=== PATIENT | female | born 1960 | race Caucasian/White ===

== ENCOUNTER 2017-11-13 08:33 | Day surgery (SDC) | payer MEDICARE ==
[2017-11-10 12:51] VITALS: BMI 60.0
--- NOTE | 2017-11-13 13:35 | OP ---
PREOPERATIVE DIAGNOSES: 1. Crohn's disease. 2. Chronic diarrhea. DESCRIPTION OF PROCEDURE: After informed consent was obtained, the patient was placed in left latera l decubitus position. Anesthesia was administered per the Anesthesia Department. Forward viewing en doscope was inserted in the rectum after perianal inspection and rectal exam were normal and passed t o the ileocolonic anastomosis. The area of anastomosis appeared normal; however, in the distal ileum a large polypoid lesion approximately 3 x 2 cm was noted. This appeared ulcerated and biopsies were obtained. A second polypoid inflammatory mass was noted. This was approximately 6 cm more proximal into the ileum. It was not reachable by the colonoscope and was therefore not biopsied. Multiple e rosions and ulcerations were noted within the ileum. The remainder of the ileum was normal. The col on was normal as far as the ascending, transverse, descending, sigmoid and rectum, although there wer e some distal erosion in the anal area and distal rectum. These were biopsied. Sigmoid diverticula were noted without diverticulitis. ASSESSMENT: 1. Two ileal polypoid masses - status post biopsy; suspect these are inflammatory masses secondary t o Crohn's disease. 2. Ileitis. 3. Status post end-to-side ileocolonic anastomosis. 4. Perianal erosions - status post biopsy. 5. Sigmoid diverticulosis coli. RECOMMENDATIONS: 1. Continue Humira and increased to weekly. 2. Await histopathology.
[2017-11-13] MEDS ORDERED: Lidocaine 1% PF 5 ML VIAL ONE (16:48)
[2017-11-13] MEDS ORDERED: PHENYLEPHRINE-NS 100 MCG/ML 10 ML SYRINGE ONE (16:48)
== END 2017-11-13 13:10 | disposition home or self-care (01) ==
LOC: SDC 08:33
PROVIDERS: ATTEND Internal Medicine Gastroenterology
PROC: 0DBB8ZX Excision of Ileum, Via Natural or Artificial Opening Endoscopic, Diagnostic (ICD-10-PCS; principal; 2017-11-13)
DX: K50.00 Crohn's disease of small intestine without complications (principal); K62.6 Ulcer of anus and rectum; K63.5 Polyp of colon; K57.30 Diverticulosis of large intestine without perforation or abscess without bleeding; Z88.0 Allergy status to penicillin; Z88.8 Allergy status to other drugs, medicaments and biological substances; Z98.0 Intestinal bypass and anastomosis status; Z90.49 Acquired absence of other specified parts of digestive tract; Z98.890 Other specified postprocedural states
CPT/HCPCS: 88305; J2001

== ENCOUNTER 2018-06-21 08:05 | Outpatient (CLI) | payer MEDICARE ==
--- NOTE | 2018-06-21 13:15 | CT ---
ABDOMEN AND PELVIC CT SCAN WITH IV CONTRAST: History: 58-year-old female with history of Crohn's disease of the small intestines. Patient is having a flair up. Comparison: 11-13-12 FINDINGS: Old granuloma calcification changes are noted in the chest and liver and spleen. Small hiatal hernia. Status post cholecystectomy. Otherwise visualized liver, pancreas, spleen, adrenal glands are unrema rkable. Small left renal parapelvic cyst but no renal calculus or acute obstruction. Post op potts es in the right lower quadrant with some minimal thickening of distal ileum bowel loops although less marked than on the prior 11-13-12 study. The uterus appears to be somewhat smaller and less well defined than on the prior study. There is a s table calcification in the uterus, evidence for a calcified uterine fibroid. There is some fairly mar ked long segment abnormal wall thickening and some spiculation appearance to the sigmoid colon with s ome minimal pericolonic fat stranding, evidence for acute infection or inflammation. At the time of t he prior study there was some diverticulosis in this region so this certainly could represent diverti culitis. Given history of Crohn's disease it is conceivable that this could represent some adenomatou s colitis. IMPRESSION: Some abnormal wall thickening in the sigmoid colon with some associated spiculation and pericolonic f at stranding, evidence for acute infection/inflammation with possibilities including that of divertic ulitis or possibly granulomatous colitis. The uterus is somewhat smaller and less well defined than o n the prior study. Minimally thick walled distal ileum but less marked than on the prior exam. Small left renal parapelvic cyst. Other stable findings as above. POS: [facility]
== END 2018-06-21 08:06 | disposition home or self-care (01) ==
LOC: SCSCT 08:05
PROVIDERS: ATTEND Internal Medicine Gastroenterology
DX: K50.00 Crohn's disease of small intestine without complications (principal); K63.89 Other specified diseases of intestine; N28.1 Cyst of kidney, acquired; K44.9 Diaphragmatic hernia without obstruction or gangrene; Z90.49 Acquired absence of other specified parts of digestive tract
CPT/HCPCS: 74177

== ENCOUNTER 2018-10-17 15:17 | Inpatient (IN) | payer MEDICARE ==
[~2018-10-17 15:17] MED LIST: ISOVUE-370 76%-LOCM 1 ML ONE
[2018-10-17 17:14] VITALS: BMI 51.7
[2018-10-17] MEDS ORDERED: Acetaminophen 325 MG TAB PO PRN (17:42)
[2018-10-17] MEDS ORDERED: Sodium Chloride 0.9% 1,000 ML IV SCH ×2 (18:15→18:30)
[2018-10-17 18:34] LABS: #Eosinphils 0.2 thou/uL (0.0-0.7); #Lymphocytes 2.6 thou/uL (1.20-3.40); #Monocytes 0.7 thou/uL (0.11-0.59); #Neutrophils 3.9 thou/uL (1.40-6.50); %Basophils 0.4 % (0.0-1.0); %Eosinophils 2.1 % (0.0-10.0); %Lymphocytes 34.8 % (21.0-51.0); %Monocytes 9.5 % (0.0-10.0); %Neutrophils 53.2 % (42.0-75.0); Hemoglobin 12.7 g/dL (12.0-16.0); Mean Corpuscular HGB CONC 32.9 g/dL (32.0-36.0); Mean Corpuscular Hemoglobin 29.8 pg (27.0-31.0); Mean Corpuscular Volume 90.6 fL (78.0-98.0); Mean Platelet Volume 8.3 fL (7.4-10.4); Platelet Count 226 thou/uL (130-400); RBC Distribution Width 12.3 % (11.5-14.5); Red Blood Cell (RBC) Count 4.27 mill/uL (4.20-5.40); White Blood Cell (WBC) Count 7.3 thou/uL (4.8-10.8)
[2018-10-17 18:53] LABS: ALT (SGPT) 9 U/L (8-55); AST (SGOT) 15 U/L (5-34); Albumin 3.9 g/dL (3.5-5.0); Alkaline Phosphatase 72 U/L (40-150); Anion Gap 18 mmol/L (10-20); BUN (Urea Nitrogen) 9 mg/dL (9.8-20.1); Bilirubin, Total 1.2 mg/dL (0.2-1.2); Calc. Creatinine Clearance 139 mL/min (70-130); Calcium 9.7 mg/dL (7.8-10.44); Carbon Dioxide 23 mmol/L (22-29); Chloride 101 mmol/L (98-107); Estimated GFR-MDRD 59; Globulin 4.3 g/dL (2.4-3.5); Glucose 79 mg/dL (70-105); Protein, Total 8.2 g/dL (6.0-8.3); Sodium 139 mmol/L (136-145)
[2018-10-17 19:00] LABS: Potassium 2.7 mmol/L (3.5-5.1)
[2018-10-17] MEDS ORDERED: Potassium Chloride 40 MEQ in Sodium Chloride 0.9% 500 ML IVPB SCH (20:00)
[2018-10-17] MEDS: Famotidine/PF 20 mg/2ml Vial SLOW IVP SCH (20:20)
[2018-10-17] MEDS: Mupirocin 2% Ointment 22 GM Tube TOP SCH (20:21)
--- NOTE | 2018-10-17 21:05 | CT ---
CT ABDOMEN AND PELVIS PERFORMED WITH INTRAVENOUS CONTRAST ENHANCEMENT: 10/17/18 HISTORY: Severe abdominal pain, generalized. History of Crohn's disease and diverticulitis. Also history of co mira resection, appendectomy and cholecystectomy. COMPARISON: A 06/21/18 study. The lung bases are clear. The liver and spleen show calcified granulomas. Liver is upper limits of normal in size and measures 19.8 cm in length and mainly related to somewhat elongated right lobe. The pancreas is unremarkable. The gallbladder has been removed. The right and left adrenal glands and right and left kidneys are no rmal in appearance. There are some mildly prominent periaortic and aortocaval node. These are stable. CT OF PELVIS PERFORMED WITH CONTRAST ENHANCEMENT: Once again, there is abnormal appearance to the sigmoid colon. There is wall thickening and a somewha t spiculated appearance to the serosal fat. There are a few scattered diverticula in this region but I would favor that this is more likely to be on the basis of the patient's Crohn's disease. In additi on, there is inflammatory changes and thickening to the terminal ileum, this was present on the prior examination and slightly more pronounced on today's study but no fat stranding in this region. Also, these changes appear to involve the tip of the cecum. There is a surgical clip which is felt to be r elated to the previous appendectomy. Calcified uterine fibroid is incidentally seen. IMPRESSION: Fairly similar overall appearance to the abdomen as compared to the prior examination. Wall thickenin g to the terminal ileum is noted. There is also some thickening or edema change associated with the c ecum. The terminal ileum changes are fairly similar to the prior exam and slightly more prominent. In addition, the abnormal appearance to the sigmoid colon with wall thickening is again seen. I would f avor that this is on the basis of patient's inflammatory colitis, less likely on the basis of diverti culitis. POS: [facility]
[2018-10-17] MEDS: Zolpidem Tartrate 5 MG TAB PO PRN (21:27)
[2018-10-17] MEDS: metroNIDAZOLE 500 MG in Premix Bag 1 BAG IVPB SCH (23:06)
[2018-10-17 23:36] LABS: Bilirubin Small (Negative); Blood, Urine Small (Negative); Clarity CLEAR (Clear); Glucose, Urine (Dipstick) Negative (Negative); Leukocyte Small (Negative); Nitrite Negative (Negative); Protein, Urine (Dipstick) Negative (Neg-Trace); Urobilinogen 0.2 mg/dL (0.2-1.0)
[2018-10-17 23:39] LABS: Bacteria/HPF None Seen HPF (None Seen); Hyaline Casts/LPF 4-6 HYALINE CAST LPF (0-3 Hyaline); Pathc Cast-AUWi Flag 0.14 (0-2.49); RBC/HPF 0-3 HPF (0-3)
--- NOTE | 2018-10-17 23:51 | HP ---
HISTORY OF PRESENT ILLNESS: This is a 58-year-old white female with a history of Crohn disease and diverticulitis who presents with abdominal pain and diarrhea. The patient has been followed by Dr. Alcaraz. She is on Humira weekly injections. Her last bout of diverticulitis was in June in which she was treated with Cipro and Flagyl orally. She did well at that time. However, over the past week, she developed increasing abdominal pain, diarrhea, and fever to 101-102. She was feeling quite ill last night and finally decided to come to the doctor. Over the past 2 days she has noticed that she is having drainage from her umbilicus. She saw Dr. Alcaraz earlier today and felt that she could not hold down any oral antibiotics. She also felt very dehydrated with minimal intake and urine output today. She is being admitted for inpatient treatment of diverticulitis. PAST MEDICAL HISTORY: Recurrent ear infections, reflux, Crohn disease, morbid obesity, questionable hypothyroidism, history of acute pancreatitis in 2006, history of DVT in 2006, history of vitamin B12 deficiency, status post ileectomy from Crohn's in 2008, history of recurrent diverticulitis, followed by Dr. Alcaraz. PAST SURGICAL HISTORY: Includes cholecystectomy, laparoscopic cholecystectomy in 2006, bowel resection and abscess in December 2008, last colonoscopy in 2013 and 2018. FAMILY HISTORY: Father with clotting disorder. Mother with hypertension. Siblings with clotting disorder. SOCIAL HISTORY: She is a smoker, has smoked half pack a day since she was at age of 13. She has a 45-year tobacco history. 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 She is . She has two sons and 11 kids. MEDICATIONS: 1. Humira 40/0.8 subcu weekly. 2. Omeprazole 40 daily. ALLERGIES: TO PENICILLIN. REVIEW OF SYSTEMS: As above. PHYSICAL EXAMINATION: VITAL SIGNS: Temp 98.1, pulse 82, respirations 20, blood pressure 159/82. GENERAL: In moderate abdominal discomfort. HEENT: Clear. Mucous membranes are dry. NECK: Supple. HEART: Regular rate and rhythm. LUNGS: Clear. ABDOMEN: Morbidly obese. Erythema of the umbilical area with drainage. Diffuse abdominal pain, mostly left lower quadrant. EXTREMITIES: With no edema. LABORATORY DATA: None. ASSESSMENT: 1. Acute on chronic recurrent diverticulitis. 2. History of Crohn disease. Most likely, stable at this time. 3. Morbid obesity. 4. Omphalitis. 5. Questionable history of hypothyroidism, was on medications, but stopped. 6. Abdominal pain. 7. Potassium deficiency. 8. History of vitamin B12 deficiency. PLAN: 1. Admit. 2. Hydrate with normal saline. 3. Check CBC, comprehensive, UA, TSH, sedimentation rate, blood cultures x2. 4. IV Flagyl and Cipro. 5. CT abdomen and pelvis with and without contrast. 6. Also check a vitamin B12 level. 7. CBC, comprehensive in a.m. Job ID: [id number]
[2018-10-17 23:59] LABS: Crystals/HPF None Seen HPF (Negative)
[2018-10-18 00:05] LABS: Specific Gravity, Urine 1.046 (1.002-1.036)
[2018-10-18] MEDS: NS 0.9% w/ 20 MEQ KCL 1,000 ML IV SCH ×4 (00:11→20:54)
[2018-10-18] MEDS: metroNIDAZOLE 500 MG in Premix Bag 1 BAG IVPB SCH ×3 (06:27→22:53)
[2018-10-18 07:01] LABS: #Eosinphils 0.1 thou/uL (0.0-0.7); #Monocytes 0.6 thou/uL (0.11-0.59); #Neutrophils 3.5 thou/uL (1.40-6.50); %Basophils 0.5 % (0.0-1.0); %Eosinophils 2.1 % (0.0-10.0); %Lymphocytes 31.7 % (21.0-51.0); %Monocytes 9.9 % (0.0-10.0); %Neutrophils 55.8 % (42.0-75.0); Hemoglobin 11.2 g/dL (12.0-16.0); Mean Corpuscular HGB CONC 33.1 g/dL (32.0-36.0); Mean Corpuscular Hemoglobin 30.2 pg (27.0-31.0); Mean Corpuscular Volume 91.3 fL (78.0-98.0); Mean Platelet Volume 7.8 fL (7.4-10.4); Platelet Count 189 thou/uL (130-400); RBC Distribution Width 12.1 % (11.5-14.5); Red Blood Cell (RBC) Count 3.72 mill/uL (4.20-5.40); White Blood Cell (WBC) Count 6.4 thou/uL (4.8-10.8)
[2018-10-18 07:21] LABS: ALT (SGPT) Less than 7 U/L (8-55); AST (SGOT) 11 U/L (5-34); Albumin 3.5 g/dL (3.5-5.0); Alkaline Phosphatase 61 U/L (40-150); Anion Gap 15 mmol/L (10-20); BUN (Urea Nitrogen) 7 mg/dL (9.8-20.1); Bilirubin, Total 0.9 mg/dL (0.2-1.2); Calc. Creatinine Clearance 157 mL/min (70-130); Calcium 8.8 mg/dL (7.8-10.44); Carbon Dioxide 24 mmol/L (22-29); Chloride 103 mmol/L (98-107); Estimated GFR-MDRD 68; Globulin 3.6 g/dL (2.4-3.5); Glucose 87 mg/dL (70-105); Protein, Total 7.1 g/dL (6.0-8.3); Sodium 139 mmol/L (136-145)
[2018-10-18 07:26] LABS: Potassium 2.8 mmol/L (3.5-5.1)
[2018-10-18] MEDS ORDERED: Potassium Chloride 40 MEQ in Premix Bag 1 BAG IVPB SCH (08:00)
[2018-10-18] MEDS: Enoxaparin Sodium 40 MG/0.4 ML SYRINGE SC SCH (08:46)
[2018-10-18] MEDS: Famotidine/PF 20 mg/2ml Vial SLOW IVP SCH ×2 (08:46→20:47)
[2018-10-18] MEDS: Mupirocin 2% Ointment 22 GM Tube TOP SCH ×3 (08:48→20:47)
--- NOTE | 2018-10-18 09:11 | PRG ---
DATE OF SERVICE: 10/18/2018 SUBJECTIVE: The patient is feeling somewhat better. However, still has marked left lower quadrant abdominal pain. OBJECTIVE: VITAL SIGNS: Blood pressure 109/74, pulse 75, respirations 18, and temperature 98.3. HEART: Regular rate and rhythm. LUNGS: Clear. ABDOMEN: Soft. Left lower quadrant tenderness, moderate. EXTREMITIES: No edema. LABORATORY DATA: White count 6.4, H and H of 11 and 34. Sodium 139, potassium 2.8, and creatinine 0.85. IMAGING DATA: CT abdomen favors inflammatory disease as opposed to diverticulitis. ASSESSMENT: 1. Abdominal pain. CT scan favoring inflammatory disease. 2. Acute on chronic recurrent diverticulitis. 3. Morbid obesity. 4. Omphalitis. 5. History of hypothyroidism. TSH pending. 6. Hypokalemia. 7. Vitamin B12 deficiency. B12 level in the normal range, but low. PLAN: 1. Continue with hydration. 2. Continue with IV Flagyl and Cipro. 3. Recheck electrolytes this afternoon. 4. Consider surgical evaluation of the omphalitis. Job ID: [id number]
[2018-10-18] MEDS: Potassium Chloride 20 MEQ in Premix Bag 1 BAG IVPB SCH ×2 (13:59→14:30)
--- NOTE | 2018-10-18 14:13 | CON ---
DATE OF CONSULTATION: HISTORY OF PRESENT ILLNESS: The patient is a 58-year-old female with a long history of Crohn disease, well known to me for her Crohn disease and diverticulitis. She presented to the office yesterday with worsening abdominal pain, worsening diarrhea, and fever. She had a fever to 102. Her pain was mostly in the left lower quadrant, consistent with her prior episode of diverticulitis. Her last colonoscopy was on 11/13/2017. This showed two ileal polypoid masses, which were felt to be inflammatory. Some mild ileitis was noted. She had a previous end-to-side ileocolonic anastomosis. Some perianal erosions were noted as well and sigmoid diverticula. Histopathology showed ileitis, fragment of ulcer, and granulation tissue. Random colon biopsies showed colon mucosa with focal ulceration. This most likely represents the perianal involvement. At that time, her Humira was increased from every other week to weekly therapy. PAST MEDICAL HISTORY: Includes; 1. Diverticulitis. 2. Pancreatitis secondary to azathioprine. 3. Crohn disease, as above. 4. Hypertension. 5. Obesity. PAST SURGICAL HISTORY: Includes; 1. Cholecystectomy. 2. Ileal resection. ALLERGIES: INCLUDE; 1. AZATHIOPRINE. 2. PENICILLIN. SOCIAL HISTORY: She does smoke. Drinks rarely. FAMILY HISTORY: Significant for mother with polyps and diverticula. REVIEW OF SYSTEMS: CONSTITUTIONAL: Positive for fever and chills. Positive for weight loss of 35-40 pounds over the last 6 months. CHEST: Clear. CARDIOVASCULAR: No chest pain or palpitation. PULMONARY: No shortness of breath, cough, or wheezing. GI: See above. : No hematuria or dysuria. MUSCULOSKELETAL: Negative for joint pain. Negative for muscle weakness. SKIN: No rashes. NEUROLOGIC: No numbness or seizure activity. PHYSICAL EXAMINATION: GENERAL: Obese female, in no acute distress. VITAL SIGNS: Temperature 98.6, pulse 75, respiratory rate 17, and blood pressure 110/74. HEENT: Unremarkable. NECK: Supple. CHEST: Clear. CARDIOVASCULAR: Regular rate and rhythm. ABDOMEN: Soft, tender mostly in the left lower quadrant with some guarding. She also has some tenderness and weeping from her umbilicus. EXTREMITIES: Unremarkable. LABORATORY DATA: Laboratory on admission showed a normal white blood cell count, hemoglobin of 12, and hematocrit of 38.6. Chemistry significant for potassium of 2.7. Vitamin B12 of 325. TSH of 1.592. Repeat potassium is 2.8. Urinalysis is essentially normal. CT abdomen and pelvis shows thickening in the terminal ileum, unchanged from previous examination. She also has a thickened sigmoid colon. ASSESSMENT: 1. Sigmoid diverticulitis. 2. Hypokalemia. 3. Crohn disease - I think this is stable. 4. Chronic diarrhea. RECOMMENDATIONS: 1. Surgical opinion about umbilical infection. 2. Continue Humira weekly. 3. Check stool for C diff. 4. Continue IV Cipro and metronidazole for diverticulitis. 5. Advance diet. Job ID: [id number]
[2018-10-18 15:23] LABS: Anion Gap 18 mmol/L (10-20); BUN (Urea Nitrogen) 6 mg/dL (9.8-20.1); Calc. Creatinine Clearance 151 mL/min (70-130); Carbon Dioxide 20 mmol/L (22-29); Chloride 104 mmol/L (98-107); Estimated GFR-MDRD 66; Glucose 87 mg/dL (70-105); Sodium 139 mmol/L (136-145)
[2018-10-18] MEDS: Potassium Chloride 20 MEQ TAB PO SCH (18:34)
[2018-10-18] MEDS: Zolpidem Tartrate 5 MG TAB PO PRN (20:47)
--- NOTE | 2018-10-19 00:03 | CON ---
DATE OF CONSULTATION: 10/18/2018 REQUESTING PHYSICIAN: Dr. Wyatt Alcaraz. HISTORY OF PRESENT ILLNESS: This is a 58-year-old woman with history of Crohn disease and diverticulosis coli, who presented with abdominal pain and diarrhea. This was associated with fever and chills. Her maximum temperature was 102 degrees according to the patient. The patient also reports some bloody drainage from her umbilicus yesterday, which became purulent. There has not been any further drainage since this morning, however. PAST MEDICAL HISTORY: Pertinent for Crohn disease, morbid obesity, chronic B12 deficiency, status post ileectomy. Other pertinent past medical history includes hypothyroidism and diverticulosis coli. PAST SURGICAL HISTORY: Pertinent for laparoscopic cholecystectomy in 2006, bowel resection in 2008 as described above. She has had multiple colonoscopies. SOCIAL HISTORY: She smokes half a pack of cigarettes per day and has smoked for over 45 years. 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 She lives at home with her . REVIEW OF SYSTEMS: Ten-point review of systems essentially unremarkable except as stated in the past medical history and chief complaint. PHYSICAL EXAMINATION: GENERAL: This reveals a 58-year-old morbidly obese woman, who is otherwise coherent, interactive, appears stated age. The patient is alert and oriented x3 , appears to be in no acute distress at time of my evaluation. VITAL SIGNS: Include blood pressure 111/76, pulse 74, respiratory rate is 20, temperature is 98.6 degrees Fahrenheit, and oxygen saturation is 96% on room air. The patient is currently on ciprofloxacin and metronidazole intravenously. HEENT: Reveals normocephalic and atraumatic. HEART: Reveals regular rate and rhythm. LUNGS: Clear to auscultation bilaterally. Breathing, regular and nonlabored. ABDOMEN: Soft and obese. There is no dressing over the umbilicus. There is no active drainage, erythema, induration, or tenderness around the umbilicus. Her gown is dry and clean over the umbilicus as well. She has [id number] left lower quadrant tenderness to palpation with no gross rebound tenderness present. NEUROLOGIC: Reveals no focal deficits present. LABORATORY FINDINGS: Today includes a CBC with 6400 white blood cells, hemoglobin and hematocrit are 11.2 and 34.0 respectively. Platelet count is 189,000. Metabolic profile; sodium 139, potassium 3.0, chloride is 104, bicarb is 20, BUN 6, creatinine 0.88, and glucose is 87. I have personally reviewed the CT scan of the abdomen and pelvis, which was obtained yesterday, which shows thickening of the bowel wall involving the sigmoid colon as well as distal ileum and cecum. There is some associated mesenteric fat stranding. Also noted is diverticula of the left colon. There is no significant free fluid or pneumoperitoneum present. There clearly is no subcutaneous inflammatory process or abscess associated with the umbilicus or anterior abdominal wall. IMPRESSIONS: 1. Acute Crohn's exacerbation versus sigmoid colon diverticulitis. 2. Probable cellulitis involving the umbilicus. No clinical or radiographic evidence of abscess. RECOMMENDATIONS: Continue current antibiotic regimen. There is no further surgical intervention for this patient at this time. Above findings and recommendations were discussed with the patient, who indicates understanding of information given. I have answered all her questions. General Surgery would sign off and be available to re-evaluate patient on demand. Thank you again, Dr. Alcaraz, for allowing me the opportunity to participate in the care of this patient. Job ID: [id number] [facility]
[2018-10-19] MEDS: Ondansetron PF 4 MG/2 ML Vial SLOW IVP PRN (04:19)
[2018-10-19] MEDS: NS 0.9% w/ 20 MEQ KCL 1,000 ML IV SCH ×2 (05:12→09:30)
[2018-10-19] MEDS: metroNIDAZOLE 500 MG in Premix Bag 1 BAG IVPB SCH ×2 (05:46→14:24)
[2018-10-19] MEDS ORDERED: Loperamide HCl 2 MG CAP PO PRN (08:03)
[2018-10-19] MEDS ORDERED: Diphenoxylate HCl/Atropine Tablet PO PRN (08:03)
[2018-10-19] MEDS: Potassium Chloride 20 MEQ TAB PO SCH (08:24)
[2018-10-19] MEDS: Famotidine/PF 20 mg/2ml Vial SLOW IVP SCH ×2 (08:24→23:02)
[2018-10-19] MEDS: Enoxaparin Sodium 40 MG/0.4 ML SYRINGE SC SCH (08:25)
[2018-10-19 08:36] LABS: #Eosinphils 0.2 thou/uL (0.0-0.7); #Lymphocytes 1.5 thou/uL (1.20-3.40); #Monocytes 0.4 thou/uL (0.11-0.59); #Neutrophils 2.5 thou/uL (1.40-6.50); %Basophils 0.1 % (0.0-1.0); %Eosinophils 4.3 % (0.0-10.0); %Lymphocytes 31.7 % (21.0-51.0); %Monocytes 9.5 % (0.0-10.0); %Neutrophils 54.4 % (42.0-75.0); Hemoglobin 10.9 g/dL (12.0-16.0); Mean Corpuscular HGB CONC 32.6 g/dL (32.0-36.0); Mean Corpuscular Hemoglobin 29.9 pg (27.0-31.0); Mean Corpuscular Volume 91.7 fL (78.0-98.0); Mean Platelet Volume 7.9 fL (7.4-10.4); Platelet Count 199 thou/uL (130-400); Red Blood Cell (RBC) Count 3.66 mill/uL (4.20-5.40); White Blood Cell (WBC) Count 4.7 thou/uL (4.8-10.8)
[2018-10-19] MEDS: Mupirocin 2% Ointment 22 GM Tube TOP SCH ×3 (08:40→20:26)
[2018-10-19 08:59] LABS: Anion Gap 13 mmol/L (10-20); BUN (Urea Nitrogen) 6 mg/dL (9.8-20.1); Calc. Creatinine Clearance 157 mL/min (70-130); Calcium 8.6 mg/dL (7.8-10.44); Carbon Dioxide 23 mmol/L (22-29); Chloride 107 mmol/L (98-107); Estimated GFR-MDRD 68; Glucose 103 mg/dL (70-105); Sodium 140 mmol/L (136-145)
[2018-10-19 09:02] LABS: Potassium 2.8 mmol/L (3.5-5.1)
[2018-10-19] MEDS ORDERED: Potassium Chloride 10 MEQ TAB PO SCH (10:00)
--- NOTE | 2018-10-19 10:20 | PRG ---
DATE OF SERVICE: 10/19/2018 SUBJECTIVE: The patient continues to improve slowly. Abdominal pain improving. OBJECTIVE: VITAL SIGNS: Temperature 97.7, pulse 70, respirations 18, pulse ox 94 on room air, and blood pressure 117/76. HEART: Regular rate and rhythm. LUNGS: Clear. ABDOMEN: Soft. Umbilical area significantly improved. Erythema resolved. Induration also resolved. EXTREMITIES: No edema. LABORATORY DATA: Labs this morning are pending. ASSESSMENT: 1. Abdominal pain, improving. 2. Acute on chronic recurrent diverticulitis. 3. Crohn disease. 4. Omphalitis. 5. Morbid obesity. 6. History of hypothyroidism. 7. Hypokalemia. 8. Vitamin B12 deficiency. PLAN: 1. Continue with hydration. 2. Continue with IV Flagyl and Cipro. 3. Add Imodium and Lomotil p.r.n. for diarrhea. 4. Hopefully can be discharged in the next 1 to 2 days. Job ID: [id number]
--- NOTE | 2018-10-19 12:36 | PRG ---
DATE OF SERVICE: 10/19/2018 SUBJECTIVE: The patient is feeling much better. She is having less diarrhea. She is having less abdominal pain. She had one episode of vomiting this morning, but it is relieved by antiemetics and she has not had any further vomiting. OBJECTIVE: VITAL SIGNS: Temperature is 97.7, pulse 70, respiratory rate 18, and blood pressure 117/76. HEENT: Unremarkable. CHEST: Clear. CARDIOVASCULAR: Regular rate and rhythm without murmurs or gallops. ABDOMEN: Soft and nontender without organomegaly or masses. LABORATORY DATA: Significant for potassium 2.8. White blood cell count 4.7, hemoglobin 10.9. Clostridium difficile was negative. ASSESSMENT: 1. Sigmoid diverticulitis. 2. Umbilical cellulitis. 3. Crohn disease. 4. Hypokalemia. RECOMMENDATIONS: 1. Continue Humira. 2. Continue Lomotil and Imodium for diarrhea. 3. Continue potassium replacement. 4. Continue antibiotics for a total course of 10 to 14 days. 5. The patient is wanting to go home tomorrow, which I think is fine as long as she can tolerate her antibiotics as an outpatient. 6. I will have her follow up with GI in 3 to 4 weeks. Job ID: [id number]
[2018-10-19] MEDS: Potassium Chloride 10 MEQ TAB PO SCH (17:38)
[2018-10-19 20:38] VITALS: BP 111/72; TEMP 98.7
[2018-10-19] MEDS: Zolpidem Tartrate 5 MG TAB PO PRN (20:44)
[2018-10-20] MEDS: metroNIDAZOLE 500 MG in Premix Bag 1 BAG IVPB SCH ×2 (00:35→13:02)
[2018-10-20] MEDS: Ondansetron PF 4 MG/2 ML Vial SLOW IVP PRN (05:49)
[2018-10-20 07:34] LABS: Anion Gap 15 mmol/L (10-20); BUN (Urea Nitrogen) 6 mg/dL (9.8-20.1); Calc. Creatinine Clearance 143 mL/min (70-130); Calcium 8.7 mg/dL (7.8-10.44); Carbon Dioxide 21 mmol/L (22-29); Chloride 106 mmol/L (98-107); Estimated GFR-MDRD 61; Glucose 105 mg/dL (70-105); Potassium 3.1 mmol/L (3.5-5.1); Sodium 139 mmol/L (136-145)
[2018-10-20] MEDS: Enoxaparin Sodium 40 MG/0.4 ML SYRINGE SC SCH (07:54)
[2018-10-20] MEDS: Potassium Chloride 10 MEQ TAB PO SCH (07:54)
[2018-10-20] MEDS: Famotidine/PF 20 mg/2ml Vial SLOW IVP SCH (13:03)
--- NOTE | 2018-10-20 15:07 | DIS ---
DATE OF ADMISSION: 10/17/2018 DATE OF DISCHARGE: 10/20/2018 PRIMARY CARE PHYSICIAN: Jonn Madrigal MD ADMISSION DIAGNOSIS: Acute on chronic diverticulitis. DISCHARGE DIAGNOSIS: Diverticulitis, improved. OTHER DIAGNOSES: History of Crohn disease, morbid obesity, omphalitis, hypothyroidism, and vitamin D deficiency. PROCEDURES: IV antibiotics and abdominal and pelvic CT. CONSULTATIONS: Wyatt alcaraz MD for Gastroenterology. HOSPITAL COURSE: This is a 58-year-old female patient with morbid obesity, Crohn disease, and recurrent episodes of diverticulitis, who presented to the Emergency Department for abdominal pain, fever, and diarrhea with temperatures up to 101 to 102 the week prior to presenting to the Emergency Department. She was getting to where she could not keep her oral fluids and oral antibiotics down. In the Emergency Department, she had a CT of her abdomen and pelvis, which revealed thickened ibanez consistent with diverticulitis. As she was admitted, started on IV antibiotics including Cipro and Flagyl. She had slow improvement of her symptoms. Her blood cultures were negative. C. diff was negative. Her white blood cell count on admission was 7.3 and down to 4.7. She is getting to where she was tolerating food and fluids better and wanting to go home on the day of discharge. DISCHARGE PHYSICAL EXAMINATION: VITAL SIGNS: T-max of 98.7, pulse is 72, respirations 20, blood pressure 111/72, and pulse ox 94% to 95% on room air. GENERAL: She is awake and alert, no acute distress. HEENT: Speech is clear. Mucosa is moist. NECK: Supple. HEART: Regular rate and rhythm. LUNGS: Clear. ABDOMEN: With positive bowel sounds in all 4 quadrants. Soft, nontender, and nondistended. DISCHARGE MEDICATIONS: Include; 1. Tylenol p.r.n. 2. Cipro 500 mg b.i.d. for 10 more days. 3. Flagyl 500 mg t.i.d. for 10 more days. 4. Humira injections as per Dr. Alcaraz. 5. Omeprazole 40 mg daily. FOLLOWUP INSTRUCTIONS: The patient to follow up with Dr. Madrigal in 1 to 2 weeks. Follow up with Dr. Alcaraz as directed as well in 3 to 4 weeks. She did have low potassium in the hospital. We will continue replacement until her followup, they can recheck her potassium levels. Job ID: [id number]
== END 2018-10-20 12:45 | disposition home or self-care (01) | DRG 392 ==
LOC: T4-A 16:28
PROVIDERS: ADMIT Family Medicine; ATTEND Family Medicine
DX: K57.32 Diverticulitis of large intestine without perforation or abscess without bleeding (principal); K50.90 Crohn's disease, unspecified, without complications; Z68.43 Body mass index [BMI] 50.0-59.9, adult; L03.316 Cellulitis of umbilicus; E66.01 Morbid (severe) obesity due to excess calories; E03.9 Hypothyroidism, unspecified; E55.9 Vitamin D deficiency, unspecified; F17.210 Nicotine dependence, cigarettes, uncomplicated; E53.8 Deficiency of other specified B group vitamins; E87.6 Hypokalemia; Z90.49 Acquired absence of other specified parts of digestive tract; Z98.890 Other specified postprocedural states; Z88.0 Allergy status to penicillin; Z88.8 Allergy status to other drugs, medicaments and biological substances
CPT/HCPCS: 36415; 74177; 80048; 80053; 81001; 82607; 84443; 85025; 87040; 87070; 87076; 87205; 87324; 87449; J0744; J1650; J2405; J3480; J7050; Q9966; S0028

== ENCOUNTER 2019-02-26 09:52 | Day surgery (SDC) | payer MEDICARE ==
[~2019-02-26 09:52] MED LIST changes: +INFLIXIMAB DYYB IVPB SCH; +INFLIXIMAB-DYYB 600 MG in Sodium Chloride 0.9% 250 ML 250 ML IVPB SCH; -ISOVUE-370 76%-LOCM 1 ML ONE; +SODIUM CHLORIDE 0.9% IVPB SCH
[2019-02-26] MEDS ORDERED: Sodium Chloride 0.9% 20 ML ONE (10:01)
[2019-02-26] MEDS ORDERED: diphenhydrAMINE 25 MG CAP PO SCH (10:15)
[2019-02-26] MEDS ORDERED: Acetaminophen 500 MG TAB PO SCH (10:15)
[2019-02-26 10:30] VITALS: BP 121/88; TEMP 98.1
== END 2019-02-26 13:16 | disposition home or self-care (01) ==
LOC: ONC/OP 09:52
PROVIDERS: ATTEND Internal Medicine
DX: K50.00 Crohn's disease of small intestine without complications (principal); Z88.0 Allergy status to penicillin; Z88.8 Allergy status to other drugs, medicaments and biological substances
CPT/HCPCS: 96413; 96415; J7050; Q0163; Q5103

== ENCOUNTER 2019-03-13 09:15 | Day surgery (SDC) | payer MEDICARE ==
[~2019-03-13 09:15] MED LIST changes: +Acetaminophen 500 MG TAB PO PRN; -INFLIXIMAB DYYB IVPB SCH; -SODIUM CHLORIDE 0.9% IVPB SCH; +diphenhydrAMINE 25 MG CAP PO PRN
[2019-03-13] MEDS ORDERED: Sodium Chloride 0.9% 20 ML ONE (09:28)
== END 2019-03-13 14:47 | disposition home or self-care (01) ==
LOC: ONC/OP 09:15
PROVIDERS: ATTEND Internal Medicine
DX: K50.00 Crohn's disease of small intestine without complications (principal); Z88.0 Allergy status to penicillin; Z88.8 Allergy status to other drugs, medicaments and biological substances
CPT/HCPCS: 96413; 96415; J7050; Q0163; Q5103

== ENCOUNTER 2019-04-06 22:36 | Inpatient (IN) | payer MEDICARE ==
[2019-04-06 23:14] LABS: #Basophils 0.1 thou/uL (0.0-0.2); #Lymphocytes 4.9 thou/uL (1.20-3.40); #Monocytes 1.1 thou/uL (0.11-0.59); #Neutrophils 6.8 thou/uL (1.40-6.50); %Basophils 0.5 % (0.0-1.0); %Eosinophils 0.3 % (0.0-10.0); %Lymphocytes 37.9 % (21.0-51.0); %Monocytes 8.4 % (0.0-10.0); Hemoglobin 12.9 g/dL (12.0-16.0); Mean Corpuscular HGB CONC 34.1 g/dL (32.0-36.0); Mean Corpuscular Hemoglobin 31.4 pg (27.0-31.0); Mean Corpuscular Volume 91.8 fL (78.0-98.0); Mean Platelet Volume 7.6 fL (7.4-10.4); Platelet Count 241 thou/uL (130-400); RBC Distribution Width 14.6 % (11.5-14.5); White Blood Cell (WBC) Count 12.9 thou/uL (4.8-10.8)
[2019-04-06 23:35] LABS: ALT (SGPT) 35 U/L (8-55); AST (SGOT) 65 U/L (5-34); Albumin 2.6 g/dL (3.5-5.0); Alkaline Phosphatase 85 U/L (40-150); Anion Gap 17 mmol/L (10-20); BUN (Urea Nitrogen) 10 mg/dL (9.8-20.1); Bilirubin, Total 0.7 mg/dL (0.2-1.2); Calc. Creatinine Clearance 0 mL/min (70-130); Calcium 7.9 mg/dL (7.8-10.44); Carbon Dioxide 27 mmol/L (22-29); Chloride 92 mmol/L (98-107); Estimated GFR-MDRD 34; Globulin 4.1 g/dL (2.4-3.5); Glucose 96 mg/dL (70-105); Protein, Total 6.7 g/dL (6.0-8.3); Sodium 134 mmol/L (136-145)
[2019-04-06 23:45] LABS: Potassium 1.6 mmol/L (3.5-5.1)
[2019-04-06] MEDS ORDERED: Potassium Chloride 40 MEQ in Sodium Chloride 0.9% 250 ML 250 ML IVPB SCH (23:45)
--- NOTE | 2019-04-06 23:51 | RAD ---
EXAM: CHEST ONE VIEW PORTABLE: 04/06/19 HISTORY: Weakness. COMPARISON: 08/23/13. FINDINGS: Heart size is within normal limits. Old right sided granuloma calcifications. No confluent pneumonia, overt edema, or pleural effusion. IMPRESSION: No significant acute intrathoracic disease. POS: [facility]
[2019-04-06] MEDS ORDERED: Potassium Chloride 20 MEQ TAB ONE ×2 (23:52)
[2019-04-07] MEDS ORDERED: Aspirin Chewable 81 MG TAB ONE (00:59)
[2019-04-07] MEDS ORDERED: Enoxaparin Sodium 100 MG/ML SYRINGE ONE (00:59)
[2019-04-07] MEDS ORDERED: Enoxaparin Sodium 40 MG/0.4 ML SYRINGE ONE (00:59)
[2019-04-07 02:18] LABS: Bacteria/HPF None Seen HPF (None Seen); Bilirubin Negative (Negative); Blood, Urine 2+ (Negative); Clarity Clear (Clear); Glucose, Urine (Dipstick) Normal (Negative); Leukocyte 25 Leu/uL (Negative); Nitrite Negative (Negative); Protein, Urine (Dipstick) 50 mg/dL (Neg-Trace); Urobilinogen Normal mg/dL (Less than 2)
[2019-04-07] MEDS ORDERED: Nitroglycerin 0.4 MG TAB (25 Tab Bottle) SL PRN (02:20)
[2019-04-07] MEDS ORDERED: Morphine 4 MG/ML VIAL SLOW IVP PRN (02:21)
[2019-04-07] MEDS ORDERED: Labetalol HCl 100 MG/20 ML VIAL SLOW IVP PRN (02:22)
[2019-04-07] MEDS ORDERED: Bisacodyl 5 MG TAB PO PRN (02:22)
[2019-04-07] MEDS ORDERED: Acetaminophen 500 MG TAB PO PRN (02:22)
[2019-04-07] MEDS ORDERED: Clopidogrel Bisulfate 300 MG TAB PO SCH (02:30)
[2019-04-07] MEDS ORDERED: Magnesium 2 GM/50 ML 2 GM in Premix Bag 1 BAG IVPB SCH ×2 (02:30→12:15)
[2019-04-07 03:11] LABS: Troponin I 0.509 ng/mL (< 0.028)
[2019-04-07] MEDS: Ondansetron PF 4 MG/2 ML Vial IVP PRN (04:14)
[2019-04-07 05:49] LABS: ALT (SGPT) 32 U/L (8-55); AST (SGOT) 56 U/L (5-34); Albumin 2.5 g/dL (3.5-5.0); Alkaline Phosphatase 80 U/L (40-150); Anion Gap 16 mmol/L (10-20); BUN (Urea Nitrogen) 10 mg/dL (9.8-20.1); Bilirubin, Total 0.7 mg/dL (0.2-1.2); Calc. Creatinine Clearance 73 mL/min (70-130); Calcium 7.5 mg/dL (7.8-10.44); Carbon Dioxide 29 mmol/L (22-29); Chloride 95 mmol/L (98-107); Estimated GFR-MDRD 35; Globulin 3.5 g/dL (2.4-3.5); Glucose 95 mg/dL (70-105); Sodium 138 mmol/L (136-145)
[2019-04-07 05:51] LABS: Potassium 1.6 mmol/L (3.5-5.1)
[2019-04-07 05:53] LABS: Troponin I 0.532 ng/mL (< 0.028)
[2019-04-07] MEDS ORDERED: Potassium Chloride 20 MEQ TAB PO SCH ×2 (07:45→12:00)
[2019-04-07] MEDS ORDERED: Sodium Chloride 0.9% 1,000 ML IV SCH (08:00)
[2019-04-07] MEDS ORDERED: INFLIXIMAB IVPB SCH ×2 (08:15→08:30)
[2019-04-07] MEDS ORDERED: SODIUM CHLORIDE 0.9% IVPB SCH (08:30)
[2019-04-07] MEDS ORDERED: INFLIXIMAB DYYB IV SCH (08:45)
[2019-04-07] MEDS ORDERED: SODIUM CHLORIDE 0.9% IV SCH (08:45)
[2019-04-07] MEDS: Aspirin 81 mg Enteric Coated Tablet PO SCH (08:56)
[2019-04-07 08:57] LABS: CK (CPK) 1594 U/L (29-168)
[2019-04-07] MEDS ORDERED: Non-Formulary Item 1 EACH (Omeprazole [Omeprazole] 40 MG) PO SCH (09:00)
[2019-04-07] MEDS ORDERED: Clopidogrel Bisulfate 75 MG TAB PO SCH (09:00)
[2019-04-07] MEDS ORDERED: Enoxaparin Sodium 120 MG/0.8 ML SYRINGE SC SCH ×2 (09:00)
[2019-04-07] MEDS ORDERED: Enoxaparin Sodium 100 MG/ML SYRINGE SC SCH (09:00)
[2019-04-07] MEDS ORDERED: Aspirin 325 mg Enteric Coated Tablet PO SCH ×2 (09:00)
[2019-04-07 09:04] LABS: Potassium 1.2 mmol/L (3.5-5.1)
[2019-04-07] MEDS: Sodium Chloride 0.9% 1,000 ML IV SCH ×2 (10:38→17:18)
[2019-04-07] MEDS: Diphenoxylate HCl/Atropine Tablet PO PRN ×2 (11:45→20:00)
--- NOTE | 2019-04-07 12:28 | CON ---
DATE OF CONSULTATION: 04/07/2019 REASON FOR CONSULTATION: Increased troponin level, severe hypokalemia. HISTORY OF PRESENT ILLNESS: Ms. Mack is a 58-year-old woman with history of Crohn disease. The patient has been plagued by diarrhea and nausea and vomiting. The diarrhea is from Crohn disease. She says that the nausea and vomiting has been coming due to some of the medicine for Crohn disease. She came to the hospital, complaining of severe weakness. She is found to have severe hypokalemia. Her potassium was 1.6 last night and 1.6 this morning despite 40 mEq potassium intravenous and orally. There has been no increase in the potassium. The patient is also found to have increased troponin level. No chest pain or pressure. No previous cardiac history. PAST HISTORY: History of severe Crohn disease. No cardiac history. MEDICATIONS: As outlined in the chart. SOCIAL HISTORY: No alcohol or tobacco. REVIEW OF SYSTEMS: GENERAL: Positive for severe and intense weakness. VISION: No changes. HEARING: No changes. PULMONARY: No cough or wheezing. GASTROINTESTINAL: Positive as outlined above. SKIN: No rashes. NEUROLOGIC: No unilateral weakness or numbness. PSYCHIATRIC: No unusual depression or anxiety. PHYSICAL EXAMINATION: GENERAL: This is a 58-year-old woman. She says she feels extremely weak. It is even hard for her to lift her arms. She has great difficulty sitting up or using any of her skeletal muscles. VITAL SIGNS: Blood pressure is on the low side in the 90s systolic, pulse is 50s with PVCs. NECK: Neck veins are normal. Carotid, normal upstrokes. LUNGS: Clear. CARDIAC: Normal S1. Normal S2. ABDOMEN: Soft and nontender. EXTREMITIES: No clubbing. No cyanosis or edema. SKIN: Warm and dry. PSYCHIATRIC: Mood and affect normal. NEUROLOGIC: Grossly normal. PERTINENT LABORATORY DATA: As mentioned, the potassium was 1.6 despite 80 mEq of potassium. Troponin level, as outlined above. IMAGING DATA: EKG, as outlined above, sinus rhythm with premature ventricular contractions, no acute ST changes. ASSESSMENT: 1. Severe hypokalemia secondary to nausea and vomiting, resulting in skeletal muscle weakness. 2. Increased troponin level of uncertain significance at this point. Interestingly, the CK-MB is not elevated despite a high troponin. 3. Increased creatinine, probably volume depleted. PLAN: 1. Continue to replete potassium. 2. Echocardiogram. 3. She is currently on full dose enoxaparin. 4. She is to receive clopidogrel loading, but we will stop daily clopidogrel. We will continue to follow with you. Ultimately, may need cardiac catheterization. However, first we need to replete the patient's potassium and we will give her some saline as well. Job ID: [id number]
[2019-04-07 12:57] LABS: Anion Gap 17 mmol/L (10-20); BUN (Urea Nitrogen) 10 mg/dL (9.8-20.1); Calc. Creatinine Clearance 71 mL/min (70-130); Calcium 7.2 mg/dL (7.8-10.44); Carbon Dioxide 28 mmol/L (22-29); Chloride 96 mmol/L (98-107); Estimated GFR-MDRD 34; Glucose 110 mg/dL (70-105); Magnesium 1.4 mg/dL (1.6-2.6); Sodium 139 mmol/L (136-145)
[2019-04-07 12:59] LABS: Phosphorus 1.6 mg/dL (2.3-4.7); Potassium 1.5 mmol/L (3.5-5.1)
[2019-04-07] MEDS: Potassium Chloride 40 MEQ in Sodium Chloride 0.9% 250 ML 250 ML IVPB SCH ×2 (17:18→23:59)
[2019-04-08] MEDS: Sodium Chloride 0.9% 1,000 ML IV SCH ×2 (00:03→05:30)
--- NOTE | 2019-04-08 01:38 | CON ---
DATE OF CONSULTATION: 04/07/2019 HISTORY OF PRESENT ILLNESS: Lucy Mack is a 58-year-old female with Crohn disease. She has problems intermittently with hypokalemia by her history secondary to chronic diarrhea. She was admitted with a potassium that got as low as 1.2 this morning. Magnesium was also found to be low this morning, so we had to replace that and we are in the process of attempting to replace her potassium intravenously. She has no complaints when I saw her. Her main complaint was weakness. PAST MEDICAL HISTORY: Remarkable for Crohn disease. SOCIAL HISTORY: She is a nonsmoker, nondrinker, nondrug user. FAMILY HISTORY: Negative for lung disease in early age. REVIEW OF SYSTEMS: 10-point review of systems is otherwise negative. PHYSICAL EXAMINATION: GENERAL: Lucy Mack is a 58-year-old female with Crohn disease. VITAL SIGNS: She is afebrile. Heart rate is in the 60s, blood pressure 108/63, respiratory rate is in the 20s. HEAD: Unremarkable. NECK: Unremarkable. LUNGS: Clear. HEART: Regular rhythm. S1 and S2 are normal. ABDOMEN: Soft and nontender. EXTREMITIES: Without clubbing, cyanosis, or edema. LABORATORY DATA: Potassium is 1.5 at noon, creatinine is 1.5, phosphorus 1.6, magnesium 1.4. CPK 1594. IMPRESSION: Hypokalemia with Crohn disease and chronic diarrhea. PLAN: Intravenous replacement of potassium and magnesium. We may switch to potassium phosphate in the morning if her K remains low. We will follow the other physicians caring for her. This is a 70-minute consult, with greater than 50% of the time was spent on the unit coordinating care. Job ID: [id number] [facility]
--- NOTE | 2019-04-08 02:11 | HP ---
CHIEF COMPLAINT: Weakness. HISTORY OF PRESENT ILLNESS: The patient has a longstanding history of Crohn's, has been put on Inflectra by Gastroenterology. Has continued to have diarrhea, presented to emergency department for worsening weakness, found to have elevated troponin, placed on ACS protocol, noted to have severe hypokalemia, complicating secondary to GI losses. Admitted for workup for suspected NSTEMI. However, following evaluation by Cardiology felt that this is likely more rhabdomyolysis causing patient's deconditioning, muscle fatigue, and elevated troponin secondarily, rather than formal NSTEMI. REVIEW OF SYSTEMS: The patient's review of systems at bedside. No fevers. No chills. Positive muscle discomfort all over upper and lower extremities as well as chest wall. The patient is extremely fatigued. Positive diarrhea. No reported skin breakdown. Past medical, social, and surgical history includes allergies of penicillin, sleep apnea, hypothyroidism, Crohn disease, diverticulosis, followed outpatient by Dr. Alcaraz, GI. HOME MEDICATIONS: Include, 1. Intermittent Cipro and Flagyl. 2. Zofran 4 mg oral dissolving tablet p.r.n. 3. Nystatin ointment to affected area twice daily. 4. Potassium chloride 20 mEq once every other day. 5. Omeprazole 40 mg daily. The patient is status post cholecystectomy, partial bowel resection and abscess in 2008. Reported previous smoker. VITAL SIGNS: On review of vital signs; temperature 98.6, heart rate of 70, blood pressure 108/63, respiratory rate of 18, oxygen saturation 97% on room air. REVIEW OF LABORATORY WORK: White blood cell count 12.9, bands at 6.8. Troponins x3 of 0.4 ,0.5, and 0.5. BNP of 157. TSH of 1.2. Serial potassiums of 1.6, 1.2, and 1.5. Creatinine 1.5. Calcium 7.2, phosphorus 1.6, magnesium 1.4. Urinalysis with positive rbc's, wbc's, and squamous cells. No cultures reported out. Chest x-ray without acute cardiopulmonary events. PHYSICAL EXAMINATION: GENERAL: The patient is alert and oriented, in no acute distress. HEENT: Head is normocephalic and atraumatic. Extraocular movements are intact. Sclerae are clear. Oral mucosa is slightly dry at the time of exam this morning. HEART: Slightly bradycardic at the time of exam. LUNGS: No rubs or wheezes on auscultation of lungs bilaterally. ABDOMEN: Generalized tenderness throughout. EXTREMITIES: Lower extremities without cyanosis or edema. The patient is alert and oriented x3. No focal deficits. Speech is normal. ASSESSMENT AND PLAN: Suspected [id number]-[id number] myocardial infarction, more likely rhabdomyolysis, Crohn flare-up, diarrhea predominant, severe hypokalemia, hypophosphatemia, hypomagnesemia, periodic bradycardia, deconditioning, muscle weakness. Consulted GI to continue maintenance of Inflectra, put the patient on ACS protocol medications until further clarification of troponins, will trend down with correction of electrolytes, likely heart strain at this point in time and rhabdomyolysis. Increased IV fluids to 150. If CK is not trending down adequately, we would look to increase fluids; however, this will exacerbate the washout of electrolytes. Treating the patient with Imodium at this point in time to help slow down stooling. Once the patient is stabilized, would be appropriate for therapy services. Job ID: [id number]
--- NOTE | 2019-04-08 04:56 | CON ---
DATE OF CONSULTATION: 04/07/2019 REASON FOR CONSULTATION: Crohn disease, diarrhea, nausea, and vomiting. CONSULTING PHYSICIAN: Zeb Wu MD HISTORY OF PRESENT ILLNESS: The patient is a 58-year-old female with past medical history of diverticulitis, cholelithiasis, and Crohn disease presenting with complaints of nausea, vomiting, and diarrhea. The patient has been plagued with symptoms related to her Crohn disease after initially being diagnosed in August 2006. She has been trialed on multiple different medication regimens and has failed more than one TNF alpha biologic in addition to the immunomodulators due to allergic type reaction. As a result, she has been chronically on steroids in order to help control her Crohn disease and has been moderately effective in doing so. However, she was started on Inflectra approximately 2 months ago as part of continued treatment for her Crohn disease. Since starting the new medication, she complains that she has been having increased nausea and vomiting, having approximately 1-2 discrete episodes of nausea and vomiting every 1 to 2 days in addition to diarrhea, having approximately 12-20 bowel movements per day, that are in a semi-solid/liquid type form, but denies any associated blood with this increased frequency of her bowel movements. More recently, the patient was having increase in her flare symptoms (suprapubic abdominal pain and diarrhea) and placed on a short burst of steroids as part of therapy to achieve remission of her symptoms while the Inflectra was reaching steady state within her body. While on the prednisone, she did notice a decrease in the frequency of her diarrhea, although she did not have any change in the stool form while on this medication. Shortly after completion of her prednisone course, she had return of her increased frequency of bowel movements in addition to stool consistency. Over the same time period though, however, she had been unable to take potassium due to her frequent episodes of nausea and vomiting. Lastly, she also describes increased left lower quadrant abdominal pain that she characterizes as an aching type sensation, is nonradiating, intermittent and will occur within 5-10 minutes after eating a meal and lasts for 20 to 30 minutes reaching a severity of 4/10. The pain is worse only with eating meals with no other clear exacerbating factors, better with fasting states. However, over the last 1 or 2 weeks, she has also described increased weakness that has been progressively worsening since her last infusion of Inflectra with profound weakness within the last 1 to 2 days that ultimately prompted her to seek healthcare assistance at the [facility] ER. While in the ER, she was noted to have a significantly decreased potassium and was ultimately admitted to the hospital for further evaluation. Currently, she states that she continues to have nausea, but has not had any episodes of vomiting since she has been admitted. She also states that she continues to have left upper quadrant abdominal pain ever since her episode of diverticulitis that was diagnosed in October 2018. Otherwise, she denies any hematemesis, melena, hematochezia, dysphagia, odynophagia, or weight loss. REVIEW OF SYSTEMS: A 10-category review of systems was obtained with all responses negative except for the pertinent positives as listed in HPI. PAST MEDICAL HISTORY: As per HPI. PAST SURGICAL HISTORY: Cholecystectomy and ileal resection. FAMILY HISTORY: Mother diagnosed with colonic polyps and diverticula, but denies any GI cancers. SOCIAL HISTORY: Denies any tobacco, alcohol, or illicit drug use. OUTPATIENT MEDICATIONS: Reviewed. ALLERGIES: AZATHIOPRINE, PENICILLIN, AND METHOTREXATE. PHYSICAL EXAMINATION: VITAL SIGNS: Temperature 98, pulse 70, blood pressure 108/64, respiratory rate 22, saturating 97% on room air. GENERAL: The patient was lying in bed, in no acute distress. Alert and oriented x4. HEENT: Neck is supple. No JVD or scleral icterus noted. Normocephalic, atraumatic. CARDIOVASCULAR: Regular rate and rhythm with no discernible murmurs, gallops, or rubs. RESPIRATORY: Clear to auscultation bilaterally with no discernible wheezes or rales. ABDOMEN: Normoactive bowel sounds. Soft, nondistended. Tenderness to palpation in the left upper quadrant, left lower quadrant, and suprapubic regions. EXTREMITIES: No cyanosis, clubbing, or edema. LABORATORY DATA: CBC with white blood cell count of 12.9, hemoglobin 12.9, hematocrit 37.7, platelets 241. Chemistry with a sodium of 138, potassium 1.2, chloride 95, CO2 of 29, BUN 10, creatinine 1.52, glucose 95. AST 56, ALT 32, alkaline phosphatase 80, total bilirubin 0.7, creatine kinase 1594, BNP 157, albumin 2.5. IMAGING DATA: No current GI imaging is available for review. ASSESSMENT AND PLAN: The patient is a 58-year-old female with past medical history of diverticulitis, cholelithiasis, and Crohn disease, presenting with significant hypokalemia. Hypokalemia. The patient is presenting with profound hypokalemia on this admission, which could be multifactorial due to her current clinical constellation. She was recently placed on prednisone as part of therapy to achieve remission of her Crohn disease. The side effect of which could potentially generate hypokalemia. More importantly, however, she has been having increased diarrhea which can result in significant potassium losses through this particular route and while she has had increased nausea and vomiting, potassium loss associated with this symptom is usually insignificant. At this time, the origin of her hypokalemia is most likely not due to the Inflectra as it is not listed as one of the potential side effects of the medication, although the patient seems to think thusly. She is also noted to have hypomagnesemia, which could further exacerbate replacement of her potassium. Recommendations: 1. We would continue to aggressively replace potassium, preferably IV. We would also replace magnesium at the same time. 2. We would attempt to discern the origin of her diarrhea with infectious stool studies that could potentially contribute to increased frequency of bowel movements. If the stool studies are negative, I would then consider an antidiarrheal agent in order to decrease the frequency of these bowel movements. 3. We would continue with aggressive antiemetic control with Zofran as needed. Crohn disease. The patient was initially diagnosed with Crohn disease in August 2006 with presenting symptoms of suprapubic, abdominal pain, and diarrhea. She subsequently underwent a colonoscopy which showed ulceration, inflammation, and edema of the terminal ileum. Since then, she has responded well to steroid administration, but has developed adverse reactions/allergies to both azathioprine (pancreatitis) and methotrexate (fatigue/weakness). She was placed on Humira as biologic therapy in the past, but despite increased frequency of dosing, she could not achieve therapeutic levels of this particular medication. Subsequently, she was changed to Inflectra/infliximab in January 2019 and since that time, has had a significant reduction in her right lower quadrant abdominal pain. However, she does continue to have left lower quadrant abdominal pain, which may be due to her prior bout of diverticulitis at this point, although infectious etiology cannot be ruled out at this time. Recommendations: 1. The patient is due for infusion of her Inflectra on Monday at 5 mg/kg. I would continue this particular medication with medication given as an inpatient. 2. We would hold on prednisone administration at least for right now given its propensity to cause hypokalemia. 3. We would strongly avoid any use of NSAIDs in light of Crohn disease and possible flare. We will continue to follow. Please call with any questions. Job ID: [id number]
[2019-04-08 06:31] LABS: Anion Gap 14 mmol/L (10-20); BUN (Urea Nitrogen) 10 mg/dL (9.8-20.1); Calc. Creatinine Clearance 83 mL/min (70-130); Calcium 7.1 mg/dL (7.8-10.44); Carbon Dioxide 27 mmol/L (22-29); Cardiac Risk 2.2 (Less than 4.5); Chloride 99 mmol/L (98-107); Cholesterol 108 mg/dl (< 200 Desired); Estimated GFR-MDRD 41; Glucose 87 mg/dL (70-105); HDL Cholesterol 50 mg/dL (>60 Neg Risk); LDL Cholesterol, Calculated 30 mg/dL; Magnesium 1.8 mg/dL (1.6-2.6); Sodium 138 mmol/L (136-145); Triglycerides 139 mg/dL (Less than 150)
[2019-04-08 06:31] LABS: CK (CPK) 2599 U/L (29-168)
[2019-04-08 06:35] LABS: Phosphorus 1.6 mg/dL (2.3-4.7)
[2019-04-08 06:35] LABS: Potassium 1.5 mmol/L (3.5-5.1)
[2019-04-08] MEDS: Potassium Chloride 40 MEQ in Sodium Chloride 0.9% 250 ML 250 ML IVPB SCH (06:44)
[2019-04-08] MEDS ORDERED: Magnesium 2 GM/50 ML 2 GM in Premix Bag 1 BAG IVPB SCH (08:30)
[2019-04-08] MEDS: Enoxaparin Sodium 40 MG/0.4 ML SYRINGE SC SCH (08:32)
[2019-04-08] MEDS: Aspirin 81 mg Enteric Coated Tablet PO SCH (08:33)
[2019-04-08] MEDS: Diphenoxylate HCl/Atropine Tablet PO PRN ×2 (09:15→18:13)
[2019-04-08] MEDS: SODIUM CHLORIDE 0.9% IV SCH ×3 (09:15→23:21)
[2019-04-08] MEDS: POTASSIUM CHLORIDE IV SCH ×3 (09:15→23:21)
[2019-04-08] MEDS: POTASSIUM PHOSPHATE IV SCH ×3 (09:15→23:21)
--- NOTE | 2019-04-08 09:55 | PRG ---
DATE OF SERVICE: 04/08/2019 SUBJECTIVE: The patient still feels weak. No chest pain. OBJECTIVE: VITAL SIGNS: Her blood pressure is 124/70, pulse 70 and it is sinus with PACs on the monitor. LUNGS: Clear. CARDIAC: Normal S1, S2. ABDOMEN: Obese, nontender. EXTREMITIES: Mild edema. LABORATORY DATA: Potassium is still profoundly low at 1.5. CPK is up to 2599. ASSESSMENT: 1. Severe hypokalemia, looks like it is related to nausea, vomiting, and diarrhea. 2. Hypophosphatemia. 3. Hypomagnesemia. 4. Increased troponin, borderline, probably related to rhabdomyolysis. I do not think this is gie-JP-vrenqhs elevation myocardial infarction. There is absolutely no peak and trough of the troponin levels. PLAN: 1. Echocardiogram. 2. We will do one further troponin level tomorrow. 3. Otherwise, we will see if the echo is normal. We will sign off. I think her problem is hypokalemia and subsequent rhabdomyolysis. Job ID: [id number]
--- NOTE | 2019-04-08 11:40 | PRG ---
DATE OF SERVICE: 04/08/2019 SUBJECTIVE: The patient is doing reasonably well. She has some weakness in her shoulder and neck, but has been doing well. OBJECTIVE: VITAL SIGNS: Her temperature is 97.9, pulse 64, blood pressure 118/72, O2 saturation 95%. HEENT: Unremarkable. NECK: No JVD. CHEST: Clear. CARDIAC: S1, S2. Regular. ABDOMEN: Soft. EXTREMITIES: No edema. LABORATORY DATA: Sodium 138, potassium 1.5, chloride 99, CO2 of 27, BUN 10, creatinine 1.3, magnesium 1.8, phosphorus 1.6. ASSESSMENT: Severe hypokalemia from diarrhea due to Crohn's. PLAN: Continue to replace electrolytes. I have added some additional p.o. potassium to the current IV that she is getting as I think she is probably at least 3 to 400 mEq potassium down. Job ID: [id number]
--- NOTE | 2019-04-08 12:33 | PRG ---
DATE OF SERVICE: 04/08/2019 SUBJECTIVE: This is a 58-year-old white female with chronic Crohn disease, who presented with marked diarrhea and weakness. She was having trouble ambulating. She was evaluated and found to have a potassium of 1.5. She has received boluses of magnesium sulfate as well as fluids and potassium. This morning, her potassium came back at 1.5. The patient states her diarrhea resolved yesterday. She does not complain of any abdominal pain. She has weakness. OBJECTIVE: VITAL SIGNS: Temperature 97.9, heart rate 66, blood pressure 120/70, and pulse ox 95%. HEART: Regular rate and rhythm. LUNGS: Clear. ABDOMEN: Soft and nontender. EXTREMITIES: With trace edema. LABORATORY DATA: White count 12.9, H and H of 12 and 37. Sodium 138, potassium 1.5, and creatinine 1.33. CK 2599. Phosphorus 1.6. Mag level went from 1.4 to 1.8. ASSESSMENT: 1. Recurrent Crohn disease. 2. Chronic diarrhea, resolved last night. 3. Hypokalemia, hypophosphatemia, hypomagnesemia. 4. Morbid obesity. 5. Chronic prednisone therapy. 6. Sleep apnea. PLAN: 1. Need to replenish potassium. The patient was getting potassium IV and during that time, her IV fluids were held. So, she really has not received as much IV fluids. We will add 20 KCl and 20 K-Phos to her normal saline and infuses at 150 mL/h. We will also rebuild her magnesium 2 g. 2. We will recheck BMP, mag level at 3:00 p.m. today. I suspect her level should begin to rise. 3. I have explained to the patient that her muscle weakness is most likely from the low potassium. We also discussed with her the effects of low potassium on the heart, which can be detrimental. We will continue to follow closely. Job ID: [id number]
[2019-04-08] MEDS: Potassium Chloride 20 MEQ TAB PO SCH ×2 (14:39→20:53)
[2019-04-08 15:45] LABS: Anion Gap 17 mmol/L (10-20); BUN (Urea Nitrogen) 9 mg/dL (9.8-20.1); Calc. Creatinine Clearance 80 mL/min (70-130); Calcium 7.6 mg/dL (7.8-10.44); Carbon Dioxide 23 mmol/L (22-29); Chloride 101 mmol/L (98-107); Estimated GFR-MDRD 39; Glucose 114 mg/dL (70-105); Magnesium 2.2 mg/dL (1.6-2.6); Phosphorus 2.1 mg/dL (2.3-4.7); Potassium 1.8 mmol/L (3.5-5.1); Sodium 139 mmol/L (136-145)
[2019-04-08] MEDS: Ondansetron PF 4 MG/2 ML Vial IVP PRN (20:53)
--- NOTE | 2019-04-08 22:24 | PRG ---
DATE OF SERVICE: 04/08/2019 REASON FOR CONSULTATION: Crohn's disease, increased nausea and vomiting with diarrhea. SUBJECTIVE: The patient states that she feels much better this morning when compared to previous with decreased frequency of the liquid bowel movements with administration of Lomotil. She also denies any further episodes of nausea and vomiting since admission. She has been receiving IV magnesium and potassium supplementation due to significant deficits of both of these electrolytes and has been able to tolerate this well. Otherwise, she denies any nausea, vomiting, fevers, chills, hematemesis, melena, hematochezia, dysphagia, or odynophagia. OBJECTIVE: VITAL SIGNS: Temperature 97.8, pulse 79, blood pressure 92/59, respiratory rate 20, and saturating 98% on room air. GENERAL: The patient is lying in bed, in no acute distress. Alert and oriented x4. CARDIOVASCULAR: Regular rate and rhythm. RESPIRATORY: Clear to auscultation bilaterally. ABDOMEN: Normoactive bowel sounds. Soft and nondistended. Tenderness to palpation in the left upper quadrant, left lower quadrant, and suprapubic region. EXTREMITIES: No cyanosis, clubbing, or edema. LABORATORY DATA: Chemistry showing a sodium of 139, potassium 1.8, chloride 101, CO2 of 23, BUN 9, creatinine 1.38, glucose 114, calcium 7.6, and phosphorus 2.1 with magnesium of 2.2. IMAGING DATA: No current GI imaging is available for review. ASSESSMENT AND PLAN: The patient is a 58-year-old female with past medical history of diverticulitis, cholelithiasis, and Crohn's disease, presenting with nausea, vomiting, diarrhea, and profound hypokalemia. Hypokalemia: The patient initially presented with profound hypokalemia with her level on admission being 1.2 mEq/mL. Given her history of Crohn's disease and chronic diarrhea, this could have contributed to her current hypokalemia, but may also be multifactorial given recent use of prednisone. Increased nausea and vomiting in addition to frequent diarrhea. Currently, concerning her clinical status, she is doing better with decreased frequency with more scheduled administration of Lomotil, but it is unclear if her Crohn's disease versus another etiology is contributing to her significant diarrhea. RECOMMENDATIONS 1. We would continue to aggressively replace potassium, preferably IV. 2. We will follow up on the remainder of the infectious stool studies that could contribute to increased diarrhea. 3. We would plan for continuation of her Inflectra as scheduled tomorrow as part of treatment for her Crohn's disease. 4. We would continue scheduled antidiarrheal agent. 5. Continue aggressive antiemetic control with Zofran as needed. Crohn's disease: The patient was initially diagnosed with Crohn's disease in August 2006 with presenting symptoms of suprapubic abdominal pain and diarrhea. She subsequently underwent colonoscopy, which confirmed the diagnosis. Since that time, she has been on multiple medication regimens including steroids (good results), azathioprine (cause pancreatitis), methotrexate (cause fatigue/weakness), and more recently Humira, but still continues to have active Crohn's disease. However, she was recently changed to Inflectra in January 2019 at a dose of 5 mg/kg and has had significant reduction in her abdominal pain related to her Crohn's disease flares, although she does continue to have significant diarrhea. At this point, it is unclear as to whether or not this diarrhea is a component of her Crohn's disease, inadequate levels of Inflectra, or possible infectious etiology. RECOMMENDATIONS 1. The patient is due for her infusion of Inflectra on Monday at 5 mg/kg. I would continue with this infusion schedule and can be given as an inpatient. 2. We would hold on prednisone administration for right now given its propensity to cause hypokalemia, but would consider administration once it reaches more normal levels. 3. We would avoid any NSAIDs. We will continue to follow. Please call with any questions. Job ID: [id number]
[2019-04-09 05:30] LABS: ALT (SGPT) 47 U/L (8-55); AST (SGOT) 106 U/L (5-34); Albumin 2.3 g/dL (3.5-5.0); Alkaline Phosphatase 78 U/L (40-150); Anion Gap 17 mmol/L (10-20); BUN (Urea Nitrogen) 7 mg/dL (9.8-20.1); Bilirubin, Total 0.7 mg/dL (0.2-1.2); Calc. Creatinine Clearance 101 mL/min (70-130); Calcium 6.7 mg/dL (7.8-10.44); Carbon Dioxide 24 mmol/L (22-29); Chloride 104 mmol/L (98-107); Estimated GFR-MDRD 47; Glucose 90 mg/dL (70-105); Protein, Total 5.3 g/dL (6.0-8.3); Sodium 143 mmol/L (136-145)
[2019-04-09 05:33] LABS: Potassium 2.1 mmol/L (3.5-5.1); Troponin I 0.255 ng/mL (< 0.028)
[2019-04-09 05:46] LABS: Band 4 % (5-11); Eosinophils 3 % (0-10); Hemoglobin 10.6 g/dL (12.0-16.0); Lymphocytes 46 % (21-51); MDiff Complete? YES; Mean Corpuscular HGB CONC 33.8 g/dL (32.0-36.0); Mean Corpuscular Hemoglobin 31.8 pg (27.0-31.0); Mean Corpuscular Volume 94.3 fL (78.0-98.0); Mean Platelet Volume 7.8 fL (7.4-10.4); Monocytes 4 % (0-10); Neutrophil 43 % (42-75); Platelet Count 206 thou/uL (130-400); RBC Distribution Width 14.9 % (11.5-14.5); Red Blood Cell (RBC) Count 3.33 mill/uL (4.20-5.40); White Blood Cell (WBC) Count 7.1 thou/uL (4.8-10.8)
[2019-04-09] MEDS: POTASSIUM CHLORIDE IV SCH ×2 (06:09→18:35)
[2019-04-09] MEDS: SODIUM CHLORIDE 0.9% IV SCH ×2 (06:09→18:35)
[2019-04-09] MEDS: POTASSIUM PHOSPHATE IV SCH ×2 (06:09→18:35)
[2019-04-09] MEDS: Diphenoxylate HCl/Atropine Tablet PO PRN ×3 (06:14→21:52)
[2019-04-09] MEDS: Aspirin 81 mg Enteric Coated Tablet PO SCH (09:03)
[2019-04-09] MEDS: Potassium Chloride 20 MEQ TAB PO SCH ×3 (09:03→21:52)
[2019-04-09] MEDS: Enoxaparin Sodium 40 MG/0.4 ML SYRINGE SC SCH (09:04)
--- NOTE | 2019-04-09 09:37 | PRG ---
DATE OF SERVICE: 04/09/2019 SUBJECTIVE: Ms. Mack feels better. She is not having as much bowels as she was yesterday. OBJECTIVE: VITAL SIGNS: Her temperature is 98.6, pulse 80, blood pressure 108/66. HEENT: Unremarkable. NECK: No JVD. CHEST: Clear. CARDIAC: S1, S2. Regular. ABDOMEN: Soft, obese. EXTREMITIES: No edema. LABORATORY DATA: Potassium is 2.1. ASSESSMENT: Severe hypokalemia after refractory diarrhea due to Crohn's. PLAN: Continue potassium supplementation. From my standpoint, she can transfer out to the telemetry unit. Job ID: [id number]
[2019-04-09] MEDS ORDERED: INFLIXIMAB DYYB IV SCH ×3 (10:00→14:45)
[2019-04-09] MEDS ORDERED: SODIUM CHLORIDE 0.9% IV SCH ×3 (10:00→14:45)
--- NOTE | 2019-04-09 10:10 | PRG ---
DATE OF SERVICE: 04/09/2019 SUBJECTIVE: The patient did well yesterday. Had some diarrhea last night and this morning is yet to have any bowel movement. Feeling better overall. OBJECTIVE: VITAL SIGNS: Temperature 98.6, pulse 80, blood pressure 108/66, respiratory rate 21, and pulse ox 94%. GENERAL: The patient looks good. HEART: Regular rate and rhythm. LUNGS: Clear. ABDOMEN: Soft. EXTREMITIES: With trace edema. LABORATORY DATA: White count 7.1, H and H of 10 and 31. Sodium jf from 1.5 to 1.8 to 2.1. This morning, creatinine 1.18. ASSESSMENT: 1. Recurrent Crohn's exacerbation. 2. Chronic diarrhea, resolving. 3. Hypokalemia, improving. 4. Morbid obesity. 5. Chronic prednisone therapy. 6. Sleep apnea. PLAN: 1. Continue present potassium replenishment. 2. Recheck BMP at 3:00 p.m. and in the a.m. 3. Consult PT for assistance. Job ID: [id number]
[2019-04-09 15:46] LABS: Anion Gap 21 mmol/L (10-20); BUN (Urea Nitrogen) 6 mg/dL (9.8-20.1); Calc. Creatinine Clearance 96 mL/min (70-130); Calcium 6.9 mg/dL (7.8-10.44); Carbon Dioxide 17 mmol/L (22-29); Chloride 107 mmol/L (98-107); Estimated GFR-MDRD 44; Glucose 130 mg/dL (70-105); Potassium 3.2 mmol/L (3.5-5.1); Sodium 142 mmol/L (136-145)
--- NOTE | 2019-04-09 17:33 | PRG ---
DATE OF SERVICE: 04/09/2019 SUBJECTIVE: Ms. Mack is doing better. No chest pain or pressure. She says she is getting more strength in her legs. OBJECTIVE: VITAL SIGNS: Her blood pressure 119/64. Pulse was reported as being elevated. LUNGS: Clear. CARDIAC: Normal S1, normal S2. DIAGNOSTIC STUDIES: Echocardiogram is normal. The potassium is improving, it is 2.1 this morning, but up to 3.2 today. ASSESSMENT AND PLAN: 1. Normal left ventricular function. Normal echocardiogram. 2. Hypokalemia, improving. Potassium now 3.2, had been as low as 1.2. Job ID: [id number]
[2019-04-09] MEDS: Ondansetron PF 4 MG/2 ML Vial IVP PRN (18:35)
--- NOTE | 2019-04-09 19:46 | PRG ---
DATE OF SERVICE: 04/09/2019 REASON FOR CONSULTATION: Small bowel Crohn disease, increased nausea and vomiting with diarrhea. SUBJECTIVE: Last night and today, the patient states that she had a significant increase in the frequency of her bowel movements having approximately 6 to 10 small volume liquid bowel movements over the last 16 to 24 hours. She states that she attempted eating a more solid diet, but yesterday afternoon and last night with resultant diarrhea thereafter. Currently getting Lomotil as part of the antidiarrheal agent with moderate improvement of her symptoms, but she still continues to have significant diarrhea in between doses. She has also been receiving IV potassium during the course of the day with the most recent serum potassium level now most normal. Otherwise, she denies any vomiting, fevers, chills, hematemesis, melena, or hematochezia. OBJECTIVE: VITAL SIGNS: Temperature 97.8, pulse 86, blood pressure 144/63, respiratory rate 20, and saturating 96% on room air. GENERAL: The patient is lying in bed, in no acute distress. Alert and oriented x4, however, tearful during the course of the interview. CARDIOVASCULAR: Regular rate and rhythm. RESPIRATORY: Clear to auscultation bilaterally. ABDOMEN: Normoactive bowel sounds. Soft and nondistended. Tenderness to palpation in the suprapubic region. EXTREMITIES: No cyanosis, clubbing, or edema. LABORATORY DATA: CBC with a white blood cell count of 7.1, hemoglobin 10.6, hematocrit 31.4, platelets 206. Chemistry with a sodium of 142, potassium 3.2, chloride 107, CO2 of 17, BUN 6, creatinine 1.24, glucose 130, and calcium 6.9. IMAGING DATA: No current GI imaging is available for review. ASSESSMENT AND PLAN: The patient is a 58-year-old female with past medical history of diverticulitis, cholelithiasis, and Crohn disease, presenting with nausea, vomiting, diarrhea, and profound hypokalemia. Hypokalemia. The patient initially presented with profound hypokalemia with a level on admission being 1.2 mEq/mL. During the course of this hospitalization, she has had aggressive infusion of IV potassium with her serum potassium now almost normal at 3.2. Recommendations: 1. We would continue to replace her potassium via IV route, but we would discontinue after the next round of potassium is finished given almost normal levels. 2. We will continue to monitor during the course of this hospitalization, especially if she is having increasing amounts of diarrhea. 3. Plan for Inflectra infusion tomorrow as scheduled as part of her treatment for Crohn disease. Crohn disease. The patient initially diagnosed with Crohn disease in August 2006 with presenting symptoms of suprapubic abdominal pain and diarrhea, currently with uncontrolled disease and has been on infliximab/Inflectra as monotherapy with use of prednisone for flares (unable to use azathioprine due to pancreatitis and methotrexate due to increased fatigue/weakness). At this time, it is unclear if she continues to have active Crohn disease in light of decreased abdominal pain, but with the pentecostalism of her significant diarrhea that makes me think that she does continue to have significant disease. Recommendations: 1. We would plan for infusion of infliximab tomorrow at 5 mg/kg. 2. Given the normal stool studies and increasing diarrhea with increasing oral intake, we will consider a short course of steroids to achieve potential remission. 3. We would avoid use of any NSAIDs. We will continue to follow. Please call with any questions. Job ID: [id number]
[2019-04-10] MEDS: SODIUM CHLORIDE 0.9% IV SCH ×2 (01:38→09:08)
[2019-04-10] MEDS: POTASSIUM CHLORIDE IV SCH ×2 (01:38→09:08)
[2019-04-10] MEDS: POTASSIUM PHOSPHATE IV SCH ×2 (01:38→09:08)
[2019-04-10 05:51] LABS: Anion Gap 15 mmol/L (10-20); BUN (Urea Nitrogen) 6 mg/dL (9.8-20.1); Calc. Creatinine Clearance 103 mL/min (70-130); Calcium 6.5 mg/dL (7.8-10.44); Carbon Dioxide 24 mmol/L (22-29); Chloride 104 mmol/L (98-107); Estimated GFR-MDRD 48; Glucose 91 mg/dL (70-105); Sodium 141 mmol/L (136-145)
[2019-04-10 05:53] LABS: Troponin I 0.146 ng/mL (< 0.028)
[2019-04-10 06:00] LABS: Potassium 2.4 mmol/L (3.5-5.1)
[2019-04-10] MEDS ORDERED: Potassium Chloride 40 MEQ in Sodium Chloride 0.9% 250 ML 250 ML IVPB SCH (06:45)
--- NOTE | 2019-04-10 07:41 | PRG ---
DATE OF SERVICE: 04/10/2019 SUBJECTIVE: The patient was doing well yesterday. She had a complete dinner last night. This was followed by recurrent diarrhea. Her potassium jf to 3.2, but then fell to 2.4 this morning. The patient also discovered about approximately 10 minutes ago that her mother in [place], [place]. She is wanting to be discharged. OBJECTIVE: VITAL SIGNS: Temperature 97.7, pulse 87, respirations 18, pulse ox 99, and blood pressure 113/71. HEART: Regular rate and rhythm. LUNGS: Clear. ABDOMEN: Soft. Mild diffuse tenderness. EXTREMITIES: Trace edema. LABORATORY DATA: Sodium 141, potassium 2.4, chloride 104, creatinine 1.16, BUN 6, and blood sugar 48. White count 10.1, H and H of 10 and 31, and platelet 206. ASSESSMENT: 1. Recurrent Crohn's exacerbation. 2. Chronic diarrhea returning. 3. Hypokalemia, flaring. 4. Morbid obesity. 5. Chronic prednisone therapy. 6. Sleep apnea. PLAN: 1. The patient is unable to be discharged at this time. Her potassium will drop and her muscles will not function properly. Therefore, she may not be able to walk. She is understanding but very heartbroken over the of her mother this morning. 2. Bolus another 40 mEq of potassium. 3. Recheck BMP at 3:00 p.m. 4. Evaluate day by day. Hopefully can be discharged to attend her mother's possibly this weekend. Job ID: [id number]
[2019-04-10] MEDS: Diphenoxylate HCl/Atropine Tablet PO PRN ×2 (07:55→15:58)
[2019-04-10] MEDS: Potassium Chloride 20 MEQ TAB PO SCH ×2 (09:04→15:58)
[2019-04-10] MEDS: Aspirin 81 mg Enteric Coated Tablet PO SCH (09:04)
[2019-04-10] MEDS: Enoxaparin Sodium 40 MG/0.4 ML SYRINGE SC SCH (09:04)
[2019-04-10] MEDS ORDERED: SODIUM CHLORIDE 0.9% IV SCH ×2 (10:00→13:00)
[2019-04-10] MEDS ORDERED: INFLIXIMAB DYYB IV SCH ×2 (10:00→13:00)
[2019-04-10] MEDS: Ondansetron ODT 4 MG TAB PO PRN (11:31)
[2019-04-10 12:25] VITALS: BMI 46.4
[2019-04-10] MEDS ORDERED: Ondansetron PF 4 MG/2 ML Vial IVP SCH (14:30)
--- NOTE | 2019-04-10 14:44 | PRG ---
DATE OF SERVICE: 04/10/2019 REASON FOR CONSULTATION: Small bowel Crohn disease, diarrhea. SUBJECTIVE: The patient states that she continued to have frequent small volume liquid bowel movements last night and again this morning. She was currently receiving her dose of infliximab at the time of this interview. In the meantime, she has had some increasing life stressors with the of her mother and was tearful during the course of the interview. At this point, she wishes "I wish I could just feel better." She is currently receiving Lomotil and Zofran in terms of helping her diarrhea and has been receiving IV potassium over the course of this hospitalization given increased GI losses. Otherwise, she denies any vomiting, fevers, chills, hematemesis, melena, or hematochezia. OBJECTIVE: VITAL SIGNS: Temperature 97.9, pulse 89, blood pressure 110/54, respiratory rate 20, saturating 97% on room air. GENERAL: The patient was sitting at bedside, in no acute distress. Alert and oriented x4. CARDIOVASCULAR: Regular rate and rhythm. RESPIRATORY: Clear to auscultation bilaterally. ABDOMEN: Normoactive bowel sounds. Soft, nondistended. Tenderness to palpation in the suprapubic region. EXTREMITIES: No cyanosis, clubbing, or edema. LABORATORY DATA: Chemistry with a sodium of 141, potassium 2.4, chloride 104, CO2 of 24, BUN 6, creatinine 1.16, glucose 91, magnesium 1.6. IMAGING DATA: No current GI imaging is available for review. ASSESSMENT AND PLAN: The patient is a 58-year-old female with past medical history of diverticulitis, cholelithiasis, and Crohn disease, presenting with nausea, vomiting, diarrhea, and profound hypokalemia. Hypokalemia. The patient initially presented with profound hypokalemia with a level on admission being 1.2 mEq/mL. During the course of this hospitalization, she has received aggressive infusion of IV potassium and was progressively improving until this morning when she had a decrease in her potassium levels that seems to be more likely related to an increase in her diarrhea bowel movements. Recommendations: 1. We would continue to replace her potassium via IV. 2. Continue with Zofran and Lomotil as part of an antidiarrheal approach. 3. I will plan to place the patient on prednisone 30 mg daily with the plan to taper her over the next 3 weeks (30 mg x1 week, 20 mg x1 week, 10 mg x1 week, and 5 mg x4 days). Crohn disease. The patient was diagnosed with Crohn disease in August 2006 with presenting symptoms of suprapubic abdominal pain and diarrhea, currently with uncontrolled disease with infliximab/Inflectra as monotherapy as well as use of prednisone for flares. She is supposed to receive her next infusion of infliximab today and hopefully should see some response with this medication; however, she may need further titration as an outpatient basis, either an increasing frequency or an increased dosing (10 mg/kg). Recommendations: 1. We will follow the patient tomorrow for response to infliximab and should see some benefit by the end of the week. 2. We will give the patient a short course of steroids to hopefully knock her Crohn disease into remission and alleviate her diarrhea, so that she can be ultimately discharged and follow up as an outpatient. 3. Avoid any use of NSAIDs. We will continue to follow. Please call with any questions. Job ID: [id number]
[2019-04-10 14:50] LABS: Ref Lab Test Ordered FECAL ELASTASE; Reference Lab Name LABCORP
[2019-04-10 15:39] LABS: Anion Gap 16 mmol/L (10-20); BUN (Urea Nitrogen) 7 mg/dL (9.8-20.1); Calc. Creatinine Clearance 101 mL/min (70-130); Calcium 6.4 mg/dL (7.8-10.44); Carbon Dioxide 20 mmol/L (22-29); Chloride 109 mmol/L (98-107); Estimated GFR-MDRD 46; Glucose 113 mg/dL (70-105); Sodium 142 mmol/L (136-145)
[2019-04-10] MEDS: ALPRAZolam 0.25 MG TAB PO PRN (15:58)
[2019-04-11] MEDS: POTASSIUM CHLORIDE IV SCH ×5 (04:28→23:52)
[2019-04-11] MEDS: SODIUM CHLORIDE 0.9% IV SCH ×5 (04:28→23:52)
[2019-04-11] MEDS: POTASSIUM PHOSPHATE IV SCH ×5 (04:28→23:52)
[2019-04-11] MEDS: Ondansetron ODT 4 MG TAB PO PRN ×2 (04:45→20:34)
[2019-04-11 05:01] LABS: #Eosinphils 0.2 thou/uL (0.0-0.7); #Lymphocytes 3.7 thou/uL (1.20-3.40); #Monocytes 0.7 thou/uL (0.11-0.59); #Neutrophils 3.2 thou/uL (1.40-6.50); %Basophils 0.5 % (0.0-1.0); %Eosinophils 2.2 % (0.0-10.0); %Lymphocytes 47.6 % (21.0-51.0); %Monocytes 8.5 % (0.0-10.0); %Neutrophils 41.2 % (42.0-75.0); Hemoglobin 10.9 g/dL (12.0-16.0); Mean Corpuscular HGB CONC 33.9 g/dL (32.0-36.0); Mean Corpuscular Hemoglobin 32.2 pg (27.0-31.0); Mean Corpuscular Volume 95.1 fL (78.0-98.0); Mean Platelet Volume 7.7 fL (7.4-10.4); Platelet Count 184 thou/uL (130-400); RBC Distribution Width 14.8 % (11.5-14.5); Red Blood Cell (RBC) Count 3.39 mill/uL (4.20-5.40); White Blood Cell (WBC) Count 7.7 thou/uL (4.8-10.8)
[2019-04-11 05:21] LABS: Anion Gap 15 mmol/L (10-20); BUN (Urea Nitrogen) 7 mg/dL (9.8-20.1); Calc. Creatinine Clearance 101 mL/min (70-130); Calcium 6.7 mg/dL (7.8-10.44); Carbon Dioxide 21 mmol/L (22-29); Chloride 108 mmol/L (98-107); Estimated GFR-MDRD 47; Glucose 83 mg/dL (70-105); Sodium 141 mmol/L (136-145)
[2019-04-11 05:26] LABS: Potassium 2.6 mmol/L (3.5-5.1)
[2019-04-11] MEDS: Aspirin 81 mg Enteric Coated Tablet PO SCH (08:17)
[2019-04-11] MEDS: predniSONE 20 MG TAB PO SCH (08:17)
[2019-04-11] MEDS: ALPRAZolam 0.25 MG TAB PO PRN (08:17)
[2019-04-11] MEDS: Enoxaparin Sodium 40 MG/0.4 ML SYRINGE SC SCH (08:18)
[2019-04-11] MEDS: Potassium Chloride 20 MEQ TAB PO SCH ×3 (08:40→20:34)
[2019-04-11] MEDS: Diphenoxylate HCl/Atropine Tablet PO PRN ×2 (11:45→20:34)
--- NOTE | 2019-04-11 13:45 | PRG ---
DATE OF SERVICE: 04/11/2019 REASON FOR CONSULTATION: Small bowel Crohn disease flare, diarrhea. SUBJECTIVE: The patient did receive her infusion of infliximab yesterday at 5 mg/kg and was able to start prednisone 30 mg this morning. With the institution of both therapies, she has had a significant reduction in her frequency of diarrhea like bowel movements, having approximately 2 smaller volume liquid bowel movements within the last 12 hours. She does endorse some increased swelling in her lower extremities, given the amount of IV fluid she has received thus far. She is also currently taking Lomotil and Zofran for diarrhea and nausea as needed respectively. Otherwise, she denies any nausea, vomiting, fevers, chills, hematemesis, melena, or hematochezia. OBJECTIVE: VITAL SIGNS: Temperature 97.8, pulse 107, blood pressure 112/76, respiratory rate 21, saturating 98% on room air. GENERAL: The patient was sitting in a chair at bedside, in no acute distress. Alert and oriented x4. CARDIOVASCULAR: Regular rate and rhythm. RESPIRATORY: Clear to auscultation bilaterally. ABDOMEN: Normoactive bowel sounds. Soft, nondistended. Tenderness to palpation in the suprapubic region. EXTREMITIES: No cyanosis, clubbing, or edema. LABORATORY DATA: CBC with a white blood cell count of 7.7, hemoglobin 10.9, hematocrit 32.3, and platelets 184. Chemistry with a sodium of 141, potassium 2.6, chloride 108, CO2 of 21, BUN 7, creatinine 1.18, glucose 83. IMAGING DATA: No current GI imaging is available for review. ASSESSMENT AND PLAN: The patient is a 58-year-old female with past medical history of diverticulitis, cholelithiasis, and small bowel Crohn disease, presenting with nausea, vomiting, diarrhea, and profound hypokalemia. Hypokalemia: The patient initially presented with profound hypokalemia with a level on admission at 1.2 mEq/mL. During the course of this hospitalization, she has received aggressive infusion of IV potassium and has been progressively improving during this time. However, she was having significant diarrhea contributing to gastrointestinal loss of potassium, with slowing of her diarrhea with the infusion of infliximab and administration of corticosteroids. If her potassium does not continue to improve with significant reduction in her diarrhea, a non-gastrointestinal origin of her hypokalemia may be entertained. Recommendations; 1. We will continue to replace her potassium in any way possible, but we would minimize administration of any additional IV fluids, given the degree of lower extremity edema. 2. Continue administration of Lomotil as needed for antidiarrheal approach. 3. We would continue prednisone on steroid taper over the next 3 weeks (30 mg x1 week, 20 mg x1 week, 10 mg x1 week, 5 mg x4 days). Small bowel Crohn disease: The patient was initially diagnosed with Crohn disease in August 2006 with presenting symptoms of suprapubic abdominal pain and diarrhea, who is now presenting to hospitalization with uncontrolled disease, given significant diarrhea and resultant hypokalemia. She received her infusion of infliximab yesterday and has had some improvement in her symptoms just since then. However, she is currently taking prednisone 30 mg daily with improvement symptoms as well. Recommendations; 1. We would continue to monitor the patient clinically for response to treatment. 2. The patient will need an infliximab level prior to her next infusion. 3. We would continue steroids as detailed above. 4. We would avoid the use of any NSAIDs during this hospitalization. We will continue to follow. Please call with any questions. Job ID: [id number]
--- NOTE | 2019-04-11 14:42 | CON ---
DATE OF CONSULTATION: 04/11/2019 SUBJECTIVE: The patient is slowly improving. Potassium is slowly rising. The patient is still very upset about the of her mother. She is also adamant about going home tomorrow. She has to attend to the , which will take place in [place]. She needs to book a flight immediately to [place]. She is well aware of issues associated with low potassium and muscle weakness. OBJECTIVE: VITAL SIGNS: Temperature 98.1, pulse 107, respiration 19, pulse ox 99, blood pressure 121/54. HEART: Regular rate and rhythm. LUNGS: Clear. ABDOMEN: Soft. EXTREMITIES: With 1+ edema. LABORATORY DATA: White count 7.7, hemoglobin and hematocrit are 10 and 32. Sodium 141, potassium 2.6, chloride 108, creatinine 1.18, BUN 7. ASSESSMENT: 1. Recurrent Crohn exacerbation, slowly improving. 2. Chronic diarrhea, resolving. 3. Hypokalemia. 4. Morbid obesity. 5. Chronic prednisone therapy. 6. Sleep apnea. PLAN: 1. We will decrease the IV fluids to 75 mL/hour. 2. Potassium 40 t.i.d. yesterday was stopped. We will resume at 30 mEq p.o. t.i.d. today. 3. The patient is upset, she has not received her Xanax last night. I did talk with nurses. We will give a dose of Xanax at this time. The patient is adamant that she will be going home tomorrow morning. She is well aware of the low potassium and muscle weakness. She said she will use a wheelchair. However, she is adamant. She needs to fly to [place] and make arrangements for burial in [place], [place]. 4. We will discuss with Dr. Cabello. Job ID: [id number]
[2019-04-11 18:27] LABS: Anion Gap 16 mmol/L (10-20); BUN (Urea Nitrogen) 7 mg/dL (9.8-20.1); Calc. Creatinine Clearance 94 mL/min (70-130); Calcium 6.8 mg/dL (7.8-10.44); Carbon Dioxide 22 mmol/L (22-29); Chloride 108 mmol/L (98-107); Estimated GFR-MDRD 43; Glucose 130 mg/dL (70-105); Sodium 143 mmol/L (136-145)
[2019-04-11 18:31] LABS: Potassium 2.6 mmol/L (3.5-5.1)
[2019-04-11] MEDS ORDERED: Potassium Chloride 20 MEQ TAB PO SCH (19:15)
[2019-04-12] MEDS: ALPRAZolam 0.25 MG TAB PO PRN (00:50)
[2019-04-12 07:35] VITALS: BP 111/74; TEMP 97.6
[2019-04-12] MEDS: predniSONE 20 MG TAB PO SCH (08:49)
[2019-04-12] MEDS: Potassium Chloride 20 MEQ TAB PO SCH (08:49)
[2019-04-12] MEDS: Aspirin 81 mg Enteric Coated Tablet PO SCH (08:49)
[2019-04-12] MEDS: Enoxaparin Sodium 40 MG/0.4 ML SYRINGE SC SCH (08:50)
[2019-04-12] MEDS: Ondansetron ODT 4 MG TAB PO PRN (08:54)
[2019-04-12] MEDS ORDERED: Potassium Chloride 20 MEQ TAB PO SCH (09:30)
[2019-04-12 15:10] LABS: Neutral Fats And/Or Soaps Normal (.)
--- NOTE | 2019-04-13 04:51 | DIS ---
DATE OF ADMISSION: 04/07/2019 DATE OF DISCHARGE: 04/12/2019 DISCHARGE DIAGNOSES: 1. Recurrent Crohn's exacerbation, slowly improving. 2. Chronic diarrhea, improving. 3. Hypokalemia. 4. Morbid obesity. 5. Chronic prednisone therapy. 6. Sleep apnea. BRIEF HISTORY: This is a 58-year-old white female with a long history of Crohn's who has been flaring lately. Followed by Dr. Cabello. Presently on Inflectra. Presented to the hospital with severe diarrhea with a potassium noted to be at 1.[address] in [address] emergency room[address] Dr. Cabello had been attempting to control her Crohn's. She has been on several medications for Crohn's. However, with her severe hypokalemia, she was admitted for further treatment. HOSPITAL COURSE: The patient was started on prednisone to slow the progression immediately. She also was continued on Inflectra. She was placed on Lomotil. Her potassium slowly improved and waxed and waned between 2.5 and 3.0. During the patient's hospital stay, her mother . She was crying appropriately. However, at this time, she is adamant she will be going home today. Her potassium last night was 2.6. The morning potassium is pending. The patient's white count was 7.7, H and H of 10 and 32. Sodium is 143, potassium 2.6, chloride 108, creatinine 1.27, BUN 7. Morning potassium is pending. The patient will be discharged at this time. This is definitely not medically advised. The patient is well aware that she may encounter severe issues. She may have an acute cardiac event, which may be life-threatening. She states her diarrhea is markedly improved at this time. She states that she will go to a hospital emergency room if she has problems. Again, it is not medically advised that the patient go home at this time. Her Crohn's is presently flaring. We are ourselves having a difficulty maintaining her potassium with. She is receiving large doses of potassium and has remained stable up to this point. Job ID: [id number]
--- NOTE | 2019-04-19 00:59 | PQF ---
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 MORGANTONGarrettKANWALFLIP DURANT JR, MD [phone] [facility]- [id number] CLINICAL DOCUMENTATION CLARIFICATION FORM: POST DISCHARGE Addendum to original discharge summary date: ____ Late entry note date: __ DATE: 04/19/2019 ATTN:FLIP AMADOR JR, MD Please exercise your independent, professional judgment in responding to the clarification form. Clinical indicators are provided on the bottom of this form for your review Please check appropriate box(s): [ x] Acute Renal Failure (ARF) / Acute Kidney Injury (REBEKA) [ ] Acute Tubular Necrosis (ATN) [ ] Acute Cortical Necrosis [ ] Acute Medullary Necrosis [ ] Other Etiology or underlying conditions related to the diagnosis of ARF/ REBEKA: [ ] Acute Interstitial Nephritis (AIN) [ ] Other: [ x ] Acute on Chronic Renal Failure please specify Stage of CKD (see below) [ ] CKD without ARF/REBEKA please specify Stage of CKD [ ] ESRD [ ] Other diagnosis [ ] Unable to determine In addition, please specify: Present on Admission (POA): [ x ] Yes [ ] No [ ] Unable to determine National Kidney Foundation Guidelines for CKD Staging Stage I Kidney damage with normal or increased GFRGFR > 90 Stage IIKidney damage with mildly decreased GFRGFR 60-89 Stage III Kidney damage with moderately decreased GFRGFR 30-59 Stage IVKidney damage with severely decreased GFRGFR 16-29 Stage VKidney failureGFR<15 ESRDEnd Stage Renal DiseaseOn dialysis Acute Renal Failure/Acute Kidney Failure defined as: Increases in SCr by (>) 0.3 mg/dl within 48 hours OR- Increases in SCr by (>) 1.5 times baseline, known or presumed to have occurred within the prior 7 days OR- Urine volume < 0.5 ml/kg/hour for 6 hours (KDIGO supplement 2012 for RIFLE/REHANA criteria) For continuity of documentation, please document condition throughout progress notes and discharge summary. [employer] Blending Kettle Tender Crystal Reports Winform ViewerThank You. CLINICAL INDICATORS - SIGNS / SYMPTOMS / LABS -Creatinine: 1.16H, 1.19H, 1.18H, 1.27H- Laboratory, 04/10, 04/11, 04/12 -Hypokalemia-DS, 04/13, FLIP AMADOR JR, MD -Increased creatinine, probably volume depeletion-H&P, 04/07, Tino Sharpe MD -most likley rhabdomyelosis-H&P, 04/08, Bryce Carrington MD -Weakness-H&P, 04/08, Bryce Carrington MD RISK FACTORS -Chronic diarrhea, improving- DS, 04/12, FLIP AMADOR JR, MD -Recurrent crohn's exacerbation, slowly improving-DS, 04/12, FLIP AMADOR JR, MD TREATMENTS: -Sodium chloride.IV-MAR, 04/07 (This form is maintained as a part of the permanent medical record) 2014 [employer]. All Rights Reserved Shannon Zhou [not provided] [not provided] MTDD
--- NOTE | 2019-04-20 13:34 | EKG ---
Test Reason : Blood Pressure : / mmHG Vent. Rate : 087 BPM Atrial Rate : 071 BPM P-R Int : 152 ms QRS Dur : 092 ms QT Int : 382 ms P-R-T Axes : 050 -50 023 degrees QTc Int : 459 ms Sinus rhythm with frequent , and consecutive Premature ventricular complexes Left anterior fascicular block Nonspecific ST and T wave abnormality Abnormal ECG Confirmed by THA IVERSON M.D. ([id number]), health editor THIEN WALKER ([id number]) on 04/20/2019 1:33:55 PM Referred By: Confirmed By:THA IVERSON M.D.
== END 2019-04-12 10:45 | disposition home or self-care (01) | DRG 386 ==
LOC: ERS 22:36 → IMCU/EMU 04-07 00:18 → 2NO 04-09 11:18
PROVIDERS: ADMIT Family Medicine; ATTEND Family Medicine
DX: K50.00 Crohn's disease of small intestine without complications (principal); Z68.42 Body mass index [BMI] 45.0-49.9, adult; M62.82 Rhabdomyolysis; N17.9 Acute kidney failure, unspecified; E87.6 Hypokalemia; K52.9 Noninfective gastroenteritis and colitis, unspecified; F17.210 Nicotine dependence, cigarettes, uncomplicated; E66.01 Morbid (severe) obesity due to excess calories; E83.39 Other disorders of phosphorus metabolism; E83.42 Hypomagnesemia; E86.9 Volume depletion, unspecified; G47.30 Sleep apnea, unspecified; Z90.49 Acquired absence of other specified parts of digestive tract; Z88.0 Allergy status to penicillin; Z88.8 Allergy status to other drugs, medicaments and biological substances
CPT/HCPCS: 36415; 71045; 80048; 80053; 80061; 81003; 81015; 82550; 82553; 82705; 83605; 83735; 83880; 84100; 84443; 84484; 85025; 87045; 87046; 87324; 87449; 87899; 93005; 93306; 93798; 96365; 96366; 96372; J1650; J1745; J2405; J3475; J3480; J7050; J7512; Q0162; Q5103

== ENCOUNTER → 2019-06-14 | Day surgery (SDC) | payer MEDICARE ==
[~2019-06-14] MED LIST changes: -Acetaminophen 500 MG TAB PO PRN; +Acetaminophen 500 MG TAB PO SCH; +Bacteriostatic Water 30 ML VIAL FS PRN; +INFLIXIMAB DYYB IVPB SCH; +INFLIXIMAB-DYYB 600 MG in Sodium Chloride 0.9% 250 ML 190 ML IVPB SCH; -INFLIXIMAB-DYYB 600 MG in Sodium Chloride 0.9% 250 ML 250 ML IVPB SCH; +SODIUM CHLORIDE 0.9% IVPB SCH; +Sodium Chloride 0.9% 20 ML ONE; -diphenhydrAMINE 25 MG CAP PO PRN; +diphenhydrAMINE 25 MG CAP PO SCH; +diphenhydrAMINE 50 MG/ML VIAL ONE; +methylPREDNISolone Sod Succ 40 MG VIAL IVP SCH
[2019-06-14 15:36] VITALS: TEMP 97.3
[2019-06-14 15:51] VITALS: BP 107/64
== END ==
LOC: ONC/OP 10:26
PROVIDERS: ATTEND Internal Medicine
DX: K50.00 Crohn's disease of small intestine without complications (principal); Z88.2 Allergy status to sulfonamides; Z88.8 Allergy status to other drugs, medicaments and biological substances; Z91.011 Allergy to milk products
CPT/HCPCS: 96375; 96413; 96415; J1200; J2920; J7050; Q0163; Q5103

== ENCOUNTER 2019-08-12 09:12 | Day surgery (SDC) | payer MEDICARE ==
[~2019-08-12 09:12] MED LIST changes: -INFLIXIMAB DYYB IVPB SCH; -SODIUM CHLORIDE 0.9% IVPB SCH; -Sodium Chloride 0.9% 20 ML ONE; -diphenhydrAMINE 50 MG/ML VIAL ONE; +methylPREDNISolone Sod Succ/PF 125 MG/2 ML VIAL IVP SCH
[2019-08-12 09:50] VITALS: BP 126/81; TEMP 97.8
[2019-08-12] MEDS ORDERED: INFLIXIMAB-DYYB 500 MG in Sodium Chloride 0.9% 250 ML 200 ML IVPB SCH (10:30)
== END 2019-08-12 15:07 | disposition home or self-care (01) ==
LOC: ONC/OP 09:12
PROVIDERS: ATTEND Internal Medicine
DX: K50.00 Crohn's disease of small intestine without complications (principal); Z88.0 Allergy status to penicillin; Z88.5 Allergy status to narcotic agent; Z88.8 Allergy status to other drugs, medicaments and biological substances
CPT/HCPCS: 96375; 96413; 96415; J2930; Q0163

== ENCOUNTER 2019-11-26 08:35 | Day surgery (SDC) | payer MEDICARE ==
[~2019-11-26 08:35] MED LIST changes: +Acetaminophen 325 MG TAB PO PRN; -Acetaminophen 500 MG TAB PO SCH; -Bacteriostatic Water 30 ML VIAL FS PRN; -INFLIXIMAB-DYYB 600 MG in Sodium Chloride 0.9% 250 ML 190 ML IVPB SCH; +Ustekinumab 520 MG in Sodium Chloride 0.9% 250 ML 250 ML IV SCH; +diphenhydrAMINE 25 MG CAP PO PRN; -diphenhydrAMINE 25 MG CAP PO SCH; -methylPREDNISolone Sod Succ 40 MG VIAL IVP SCH; -methylPREDNISolone Sod Succ/PF 125 MG/2 ML VIAL IVP SCH
[2019-11-26] MEDS ORDERED: Acetaminophen 500 MG TAB PO SCH (08:45)
[2019-11-26] MEDS ORDERED: diphenhydrAMINE 25 MG CAP PO SCH (08:45)
[2019-11-26 09:49] VITALS: BP 116/73; TEMP 98.6
[2019-11-26] MEDS ORDERED: Sodium Chloride 0.9% 20 ML ONE (09:57)
== END 2019-11-26 11:13 | disposition home or self-care (01) ==
LOC: ONC/OP 08:35
PROVIDERS: ATTEND Internal Medicine
DX: K50.00 Crohn's disease of small intestine without complications (principal); Z88.0 Allergy status to penicillin; Z88.8 Allergy status to other drugs, medicaments and biological substances
CPT/HCPCS: 96413; J7050; Q0163

== ENCOUNTER 2020-01-07 13:44 | Outpatient (CLI) | payer MEDICARE ==
--- NOTE | 2020-01-07 14:21 | ULT ---
THYROID ULTRASOUND: HISTORY: Palpable mass. COMPARISON: 08/23/2013. FINDINGS: Thyroid isthmus measures 0.3 cm. Right thyroid lobe measures 4.5 x 1.8 x 2.4 cm. Left thyroid lobe measures 6.7 x 3.9 x 4.1 cm. Thyroid nodules: Complex nodule in the mid to upper pole of the right thyroid lobe measures 1.4 x 1.5 x 2.1 cm. Solid echotexture focus in the lower pole based on the dimensions, there does appear to be slight interval growth. Ultrasound-guided fine-needle aspiration if clinically warranted Measures 0.7 x 0.7 x 0.8 cm. Complex mixed solid and cystic nodule occupying the majority of the left thyroid lobe measures 5.7 x 3.1 x 3.5 cm. Previously, this nodule was reported to be 3.0 x 5.2 x 2.2 cm. Welfare Project Manager reports that this nodule has been biopsied 4 years ago. IMPRESSION: Thyroid nodules as described above. Dominant nodule in the right. Transcribed Date/Time: 01/07/2020 2:43 PM
== END 2020-01-07 13:45 | disposition home or self-care (01) ==
LOC: SCSULT 13:44
PROVIDERS: ATTEND Family Medicine
DX: R22.1 Localized swelling, mass and lump, neck (principal); E04.2 Nontoxic multinodular goiter
CPT/HCPCS: 76536

== ENCOUNTER 2020-02-12 22:32 | Inpatient (IN) | payer MEDICARE ==
[2020-02-13] MEDS ORDERED: Sodium Chloride 0.9% (PF) 10 ML VIAL FS PRN (01:17)
[2020-02-13] MEDS ORDERED: Pantoprazole 40 MG VIAL IVP SCH (01:30)
[2020-02-13 01:45] LABS: #Eosinphils 0.1 thou/uL (0.0-0.7); #Monocytes 0.2 thou/uL (0.11-0.59); #Neutrophils 9.8 thou/uL (1.40-6.50); %Lymphocytes 8.6 % (21.0-51.0); %Monocytes 1.4 % (0.0-10.0); Hemoglobin 9.5 g/dL (12.0-16.0); Mean Corpuscular HGB CONC 34.8 g/dL (32.0-36.0); Mean Corpuscular Hemoglobin 30.5 pg (27.0-31.0); Mean Corpuscular Volume 87.6 fL (78.0-98.0); Mean Platelet Volume 7.8 fL (7.4-10.4); Platelet Count 253 thou/uL (130-400); RBC Distribution Width 14.2 % (11.5-14.5); Red Blood Cell (RBC) Count 3.12 mill/uL (4.20-5.40)
[2020-02-13] MEDS: Sodium Chloride 0.9% 1,000 ML IV SCH ×2 (01:45→11:58)
[2020-02-13] MEDS: metroNIDAZOLE 500 MG in Premix Bag 1 BAG IVPB SCH ×3 (01:46→17:43)
[2020-02-13 02:08] LABS: Prothrombin Time 38.3 sec (12.0-14.7)
--- NOTE | 2020-02-13 02:14 | HP ---
CHIEF COMPLAINT: Bleeding per rectum. HISTORY OF PRESENT ILLNESS: Ms. Mack is a 59-year-old female with past medical history of Crohn disease, DVT, atrial fibrillation on warfarin, among others, presents to [facility] Emergency Room with bleeding per rectum that started earlier today. She describes the blood as dark and mixed with bright red blood. Workup in the emergency room, the patient had elevated INR, too high to count, elevated PTT. The patient was borderline hypotensive with her blood pressure in the 80s to 90s systolic. In the emergency room, the patient was given vitamin K, fresh frozen plasma. Hemoglobin is 11.1. CT of the abdomen showed diverticulosis with inflammatory changes. Also incidentally it showed a new loculated effusion in the left hemithorax, suspicious for empyema. Requested to transfer the patient to our medical facility for further management with GI consultation and Pulmonary consultation. The patient's geometry professor was consulted by the ED physician. The patient is being admitted to the hospital for further management. PAST MEDICAL HISTORY: 1. Deep venous thrombosis. 2. Atrial fibrillation. 3. Crohn disease. PAST SURGICAL HISTORY: Recent bowel surgery, ? resection. FAMILY HISTORY: Reviewed and noncontributory. HOME MEDICATIONS: Please see home medication reconciliation form for updated medications. SOCIAL HISTORY: Denies smoking, alcohol drinking, or drug abuse. ALLERGIES: ALLERGIC TO PENICILLIN AND LACTOSE. REVIEW OF SYSTEMS: Review of 14 systems negative except what is mentioned in history of present illness. PHYSICAL EXAMINATION: VITAL SIGNS: The patient's blood pressure is 90/60, heart rate is 90, respiratory rate is 14, temperature 98.6. HEAD AND NECK: Normocephalic and atraumatic. NECK: Supple. No JVD. CHEST: Fair bilateral air entry. HEART: Irregularly irregular. ABDOMEN: Soft, nontender. Bowel sounds present. NEUROLOGIC: Awake, alert, oriented x3. No focal deficits. PSYCH: Normal mood. EXTREMITIES: No clubbing or cyanosis. LABORATORY DATA: Hemoglobin 11.1, WBC count 13.1, platelets 325. Sodium 131, potassium 4.3, BUN is 58, creatinine 0.8. CT of the abdomen and pelvis as mentioned above in the history of present illness. ASSESSMENT: 1. Lower gastrointestinal bleeding. 2. Coagulopathy. The patient is on warfarin. 3. Anticoagulated on warfarin. 4. Deep venous thrombosis, on warfarin. 5. Atrial fibrillation, diagnosed recently. 6. Crohn disease. 7. Diverticulosis/diverticulitis. 8. Pleural effusion, loculated??, empyema. PLAN: 1. Admit to IMCU. 2. We will recheck PT and INR. We will monitor hemoglobin and hematocrit. 3. Type and screen and transfuse if needed. 4. Vitamin K and FFP were given in the emergency room. 5. GI consulted for evaluation and further management. 6. Consult Pulmonary in a.m. for the incidental finding of pleural effusions, ? Loculated. 7. We will continue with IV antibiotics. 8. Keep n.p.o. 9. DVT prophylaxis as appropriate. 10. Expected length of stay, 2 midnights or more. Job ID: [id number]
[2020-02-13 03:43] LABS: #Eosinphils 0.1 thou/uL (0.0-0.7); #Lymphocytes 0.9 thou/uL (1.20-3.40); #Monocytes 0.2 thou/uL (0.11-0.59); #Neutrophils 8.4 thou/uL (1.40-6.50); %Basophils 0.1 % (0.0-1.0); %Eosinophils 0.8 % (0.0-10.0); %Lymphocytes 9.4 % (21.0-51.0); %Monocytes 1.8 % (0.0-10.0); %Neutrophils 87.9 % (42.0-75.0); Hemoglobin 8.9 g/dL (12.0-16.0); Mean Corpuscular HGB CONC 32.8 g/dL (32.0-36.0); Mean Corpuscular Hemoglobin 28.8 pg (27.0-31.0); Mean Corpuscular Volume 87.8 fL (78.0-98.0); Mean Platelet Volume 8.1 fL (7.4-10.4); Platelet Count 224 thou/uL (130-400); RBC Distribution Width 14.2 % (11.5-14.5); White Blood Cell (WBC) Count 9.6 thou/uL (4.8-10.8)
[2020-02-13 03:49] LABS: Prothrombin Time 38.8 sec (12.0-14.7)
[2020-02-13 04:05] LABS: ALT (SGPT) 10 U/L (8-55); AST (SGOT) 13 U/L (5-34); Albumin 3.2 g/dL (3.4-4.8); Alkaline Phosphatase 84 U/L (40-110); Anion Gap 14 mmol/L (10-20); BUN (Urea Nitrogen) 55 mg/dL (9.8-20.1); Bilirubin, Total 0.3 mg/dL (0.2-1.2); Calc. Creatinine Clearance 55 mL/min (70-130); Calcium 7.4 mg/dL (7.8-10.44); Chloride 113 mmol/L (98-107); Estimated GFR-MDRD 33; Globulin 3.9 g/dL (2.4-3.5); Glucose 122 mg/dL (80-115); Potassium 3.8 mmol/L (3.5-5.1); Protein, Total 7.1 g/dL (6.0-8.3); Sodium 132 mmol/L (136-145)
[2020-02-13 04:14] LABS: Carbon Dioxide 9 mmol/L (23-31)
[2020-02-13] MEDS ORDERED: Vancomycin HCl 1 GM in Sodium Chloride 0.9% 250 ML 300 ML IVPB SCH (09:00)
[2020-02-13 09:17] LABS: Hemoglobin 9.7 g/dL (12.0-16.0)
[2020-02-13] MEDS: Cefepime 1 GM in Sodium Chloride 0.9% 100 ML IVPB SCH ×2 (09:28→21:33)
[2020-02-13] MEDS: Pantoprazole 40 MG VIAL IVP SCH ×2 (09:34→21:33)
[2020-02-13] MEDS ORDERED: Calcium Carbonate 500 MG ChewTAB PO PRN (10:25)
[2020-02-13] MEDS ORDERED: Sodium Chloride 0.9% 500 ML IV SCH (11:15)
[2020-02-13 12:04] LABS: INR-International Normal Ratio 3.4; Prothrombin Time 34.4 sec (12.0-14.7)
[2020-02-13 12:05] LABS: PTT 86.4 sec (22.9-36.1)
--- NOTE | 2020-02-13 12:35 | PRG ---
DATE OF SERVICE: 02/13/2020 SUBJECTIVE: The patient is seen and examined at the bedside. She has some bloody diarrhea. She had 3 bloody BMs this morning. She has some abdominal discomfort mostly at the left side and otherwise she is feeling better. OBJECTIVE: VITAL SIGNS: Blood pressure is 89/56, pulse is 86, respiratory rate is 19, O2 saturation is 98% on room air, her temperature is 97.7. HEENT: Her head is atraumatic and normocephalic. Skin of her face is somewhat white. Conjunctivae are palish. Oral mucosa is moist. NECK: Supple. LUNGS: Clear. HEART: S1 and S2. Irregularly irregular. No S3. No S4. ABDOMEN: Soft. Tender in the left epigastric area and left middle abdomen. No guarding. No masses. EXTREMITIES: No clubbing, cyanosis, or edema. NEUROLOGIC: She is alert and oriented x4. There are no any motor or sensory deficits. LABORATORY DATA: Showed white count of 9.6, hemoglobin 8.9, hematocrit 27.2, platelet count is 224,000. INR 4.0, PT of 38.8. Sodium of 132, potassium 3.8, chloride 113, CO2 of 9, BUN 55, anion gap 14, creatinine 1.61, glucose 122, calcium 7.4, albumin 3.2, globulin 3.9. IMPRESSION: 1. Lower gastrointestinal bleeding of hemoglobin down to 8.9, most likely is related to her Crohn disease. 2. Coagulopathy secondary to warfarin use. 3. History of deep venous thrombosis, on warfarin. 4. Paroxysmal atrial fibrillation. 5. Crohn disease. 6. Diverticulosis/diverticulitis. 7. Left lower pleural effusion. PLAN: Bolus of normal saline for her systolic blood pressure of 89-250 mL x1. Repeat the dose if necessary. Continue Protonix. The patient received 1 unit of packed red blood cells so far. We will obtain EKG 12-lead to check her for atrial fibrillation since her heart rate is quite irregular. We will continue her IV metronidazole. We are going to continue holding her warfarin. [employer] Advisor is consulted. Dr. Cabello is notified and Dr. Kolb for Pulmonary/Critical Care evaluation. Also, we will continue her cefepime and vancomycin for now. Job ID: [id number]
--- NOTE | 2020-02-13 12:40 | CON ---
DATE OF CONSULTATION: HISTORY OF PRESENT ILLNESS: Lucy Mack is a pleasant 59-year-old female who was transferred from the [facility] ER(I hear...here versus ER) with GI bleed. The abnormal (I hear Abdominal CT) CT suggestive of a loculated left-sided pleural effusion. She has been complaining of lower GI bleed now for a period of time several days. She was hypotensive. She had a prolonged PT, INR for which she was given FFP and vitamin K. She smoked less than half a pack a day up until a month ago for many years. Previous history of pneumonia, but no history of TB, asthma. On most days, she says she is having some limitation to activity because of shortness of breath. Denies any recent fever, chills, or any chest pain. PAST MEDICAL HISTORY: Otherwise well outlined. Pertinent for known history of Crohn disease. History of chronic atrial fibrillation, history of recurrent hyperkalemia from Crohn's, history apparently of sleep apnea. Apparently, she has seen Dr. Quezada before diagnoses of pneumonia and sepsis. History of previous deep venous thrombosis and pancreatitis. PREVIOUS SURGERIES: None recently. HOME MEDICATIONS: Include 1. Nystatin. 2. Stelara 520. 3. Coumadin 5. 4. Metoprolol 25 b.i.d. 5. Potassium 40 three times a day. 6. Zofran. 7. Tylenol . (? 8. Lomotil). REVIEW OF SYSTEMS: Otherwise, negative. PHYSICAL EXAMINATION: GENERAL: She is awake, alert, and responsive. VITAL SIGNS: Blood pressure is 80/60, saturations respiratory rate 18. CHEST: Decreased breath sounds, left base. CARDIAC: Normal S1, S2. No gallops. ABDOMEN: No masses. Soft. LABORATORY DATA: White count 9000, H and H are 8 and 27, platelet count is 224, bicarb is 9, creatinine is 1.6, BUN 55. CT from [place] does show what appears to be a loculated pleural effusion. IMPRESSION: 1. Loculated pleural effusion, probably empyema. 2. Crohn disease, gastrointestinal bleed, prolonged PT/INR secondary to Coumadin. PLAN: Repeat coag studies to see whether she has corrected itself. Otherwise, she may require additional fresh frozen plasma. Continue the antibiotics. Once the GI bleeding has improved, further intubation (intervention vs intubation?) pulmonary mason. We will consider repeating CT of the chest. This is a consultation note, 70 minutes, 50% direct patient care. Job ID: [id number]
--- NOTE | 2020-02-13 13:53 | RAD ---
CHEST 1 VIEW PORTABLE: HISTORY: Effusion. COMPARISON: 02/12/2020. FINDINGS: Abnormal opacity in the left base with minimal left hemidiaphragm elevation, evidence for probable lo culated pleural effusion and possible associated left lower lobe parenchymal change. Heart size is n ormal. The right lung is clear. Old granulomatous disease. IMPRESSION: Pleural and parenchymal opacity changes in the left base with some left hemidiaphragm elevation, evid ence for possible loculated left lower lobe pleural effusion. POS: AH
--- NOTE | 2020-02-13 14:05 | EKG ---
Test Reason : Blood Pressure : / mmHG Vent. Rate : 082 BPM Atrial Rate : 082 BPM P-R Int : 128 ms QRS Dur : 080 ms QT Int : 376 ms P-R-T Axes : 062 -14 032 degrees QTc Int : 439 ms Sinus rhythm with Premature atrial complexes Otherwise normal ECG Confirmed by CHANDLER KHAN ([id number]) on 02/13/2020 2:05:30 PM Referred By: AYAN Confirmed By:CHANDLER KHAN
[2020-02-13] MEDS: Potassium Chloride 20 MEQ TAB PO SCH ×3 (15:09→21:33)
[2020-02-13] MEDS ORDERED: Phytonadione 10 MG in Sodium Chloride 0.9% 50 ML IVPB SCH (17:30)
[2020-02-13 18:18] LABS: Hemoglobin 8.1 g/dL (12.0-16.0)
--- NOTE | 2020-02-13 19:41 | CT ---
CT CHEST WITHOUT CONTRAST: 02/13/20 INDICATIONS: Empyema. Shortness of breath and cough. COMPARISON: Comparison made to a prior chest CT from 2013. FINDINGS: There is a loculated fluid dense collection along the posterior left chest wall extending through the posterior gutter consistent with a history of empyema. No gas pockets are seen within this collectio n. There is associated left lower lobe atelectasis and/or infiltrate. No pneumothorax. Lung santiago are otherwise clear. There are two calcified granulomas in the right lower lobe. The mediastinum shows calcified right hilar lymph nodes. There is prominence of the left lobe of the thyroid which has substernal extension. This was present in 2013 and does not appear significantly changed. However, Recommend clinical correlation and consid er further evaluation with thyroid ultrasound. There appears to be a dominant mass involving this lef t lobe of thyroid. Images through the upper abdomen show granulomatous calcifications in the liver and spleen. Osseous structures show degenerative changes in the thoracic spine with degenerative disc changes at multiple levels. Thoracic vertebra maintain height and alignment. IMPRESSION: 1. Loculated fluid collection along the posterior lower left chest which extends into the left g utter posteriorly. There is associated left lower lobe atelectasis and/or infiltrate. 2. Lung santiago otherwise clear. 3. Evidence of prior granulomatous process as noted above. 4. Enlarged left lobe of thyroid with substernal extension. There is evidence of a dominant thyr oid mass involving the left lobe. Recommend thyroid ultrasound evaluation if this has not been previo usly evaluated. POS: AGW
--- NOTE | 2020-02-13 20:25 | CON ---
DATE OF CONSULTATION: 02/13/2020 REQUESTING PHYSICIAN: Becky Smith MD REASON FOR CONSULTATION: GI bleeding. HISTORY OF PRESENT ILLNESS: Lucy Mack is a very pleasant 59-year-old woman followed by my GI colleague, Dr. Navin Cabello. She has a long history of Crohn disease with prior segmental ileal resection years ago. Over the past year or two, she has been tried on several different biologic agents, Humira was not really efficacious. She was on Inflectra, but developed antibodies to this with subtherapeutic levels. More recently just within the past 3 months, she was started on Stelara. She has several important comorbidities as well. She says she was diagnosed with a deep vein thrombosis of the left lower extremity about four months ago and has been on Coumadin since then. She said she has had issues with widely fluctuating INR level and has had to hold the Coumadin from [id number] because of this. It has been quite difficult to manage. She also was hospitalized about five weeks ago at the [facility], evidently with symptoms of small bowel obstruction. She tells me that she underwent laparoscopy with lysis of adhesions, but no bowel was resected at that time. She did quite well afterward on a more chronic basis. She feels that her diarrhea is pretty well controlled and she is happy with the Stelara. For about the past week, she has been noticing progressive worsening shortness of breath and dyspnea on exertion. Then starting yesterday, she began to pass blood in her stool. This is a mixture of bright red blood and some darker blood. This was alarming to her yesterday and prompted her presentation. Initially at the outside Emergency Department, her hemoglobin was 11.1, and her PT was greater than 90 with INR incalculable. She received FFP and vitamin K. She was transferred here after a CT demonstrated left sided loculated pulmonary effusion consistent with empyema as well as sigmoid diverticulitis. She was started on antibiotics including vancomycin and cefepime. Aside from the FFP and vitamin K, she received 1 unit RBC transfusion after hemoglobin declined to 8.9, and is now up to 9.7. She is hemodynamically stable here. INR is down, but still elevated to 3.4. She expresses dissatisfaction with the Coumadin. Notably, she is not really having any significant abdominal pain. She does have nausea from [id number], but there has been no vomiting. REVIEW OF SYSTEMS: Full review of systems including constitutional, head, eyes, ears, nose, throat, GI, , cardiovascular, respiratory, musculoskeletal, and neurologic systems is negative except as noted in the HPI. PAST MEDICAL HISTORY: Crohn disease of the small bowel, partial ileal resection over 10 years ago, and laparoscopy with lysis of adhesions about five weeks ago, performed by Dr. Reese. Left lower extremity DVT, on Coumadin for about the past four months. Atrial fibrillation, obstructive sleep apnea, and remote history of pancreatitis, secondary to azathioprine therapy. ALLERGIES: PENICILLIN AND LACTOSE. OUTPATIENT MEDICATIONS: 1. Warfarin. 2. Stelara. 3. Nystatin. 4. Metoprolol. 5. Potassium. 6. Zofran. 7. Tylenol. SOCIAL HISTORY: The patient has been smoking cigarettes until about a month ago. FAMILY HISTORY: Noncontributory. PHYSICAL EXAMINATION: VITAL SIGNS: Temperature 98.6, pulse 73, blood pressure 97/59, and 100% oxygen saturation on room air. GENERAL: A 59-year-old woman sitting up in bed comfortably, in no acute distress. SKIN: She is pale. No jaundice. No rashes were palpable. HEENT: Eyes, no scleral icterus. Extraocular movements intact. ENT, mucous membranes moist. No oral lesions. LYMPH: No submandibular or supraclavicular lymphadenopathy. THYROID: Nontender to palpation. HEART: Regular rate and rhythm. LUNGS: Clear to auscultation bilaterally. ABDOMEN: Obese. Bowel sounds are present. Soft. Minimal tenderness to palpation in the left lower quadrant, but no guarding or rebound tenderness. EXTREMITIES: 1+ bilateral lower extremity edema. NEURO: Cranial nerves 2 through 12 intact bilaterally. No focal deficits. LABORATORY STUDIES: Hemoglobin initially 11.1 in the outside ER, declined to 8.9 last night, up to 9.7 after 1 unit RBC transfusion. WBC 9.6 and platelets 224. PT initially greater than 90 with INR unable to be calculated, now INR down to 3.4. Lactic acid was 0.8. Sodium 132, potassium 3.8, BUN 55, creatinine 1.61, glucose 122, and albumin 3.2. LFTs all normal with total bilirubin 0.3, alkaline phosphatase 84, AST 13, and ALT 10. IMAGING STUDIES: Chest x-ray showed possible loculated left pleural effusion. Outside CT of the abdomen and pelvis performed yesterday showed sigmoid diverticulosis with inflammatory changes and thickening in the area, also a left lower lung empyema. CT of the chest was performed here earlier today, report pending. ASSESSMENT AND PLAN: 1. Lower gastrointestinal bleeding, acute. 2. Sigmoid diverticulitis with hemorrhage. 3. Supratherapeutic INR, on Coumadin, now partially corrected. 4. Acute on chronic blood loss anemia. 5. Crohn disease of the small bowel, symptomatically stable on Stelara for the past few months. With regard to the patient's acute bleeding presentation, this is in the context of a high INR, which was unable to be calculated with PT greater than 90, and CT suggesting sigmoid diverticulitis. I think it is likely that she is having diverticular hemorrhage secondary to the supratherapeutic INR, and think it is less likely that this is primarily related to a Crohn's flare. The patient has appropriately been placed on antibiotics, also in view of this left-sided empyema. There is no utility for any diagnostic endoscopy in this setting. INR has been partially corrected. I am going to order another 10 mg of IV vitamin K to be given. Please trend the INR and H and H closely. Continue to transfuse as needed. I suspect once the INR has come down more, we are going to see resolution of this bleeding episode. The patient relates her INR has been fluctuating wildly in the past few months on Coumadin, so this may not be the best option for her anticoagulation. I would leave this to the discretion of the Primary Service, but certainly hold anticoagulation for now, perhaps she might be a candidate for inferior vena cava filter. I have also ordered a clear liquid diet for now. Gastroenterology will follow along with you. Please call anytime with questions or concerns. Job ID: [id number]
[2020-02-13] MEDS: Nystatin Ointment 15 GM TUBE TOP SCH (21:32)
[2020-02-13 22:36] LABS: #Eosinphils 0.1 thou/uL (0.0-0.7); #Lymphocytes 2.7 thou/uL (1.20-3.40); #Monocytes 0.9 thou/uL (0.11-0.59); #Neutrophils 5.1 thou/uL (1.40-6.50); %Basophils 0.2 % (0.0-1.0); %Eosinophils 0.6 % (0.0-10.0); %Lymphocytes 30.4 % (21.0-51.0); %Monocytes 10.1 % (0.0-10.0); %Neutrophils 58.7 % (42.0-75.0); Mean Corpuscular HGB CONC 32.3 g/dL (32.0-36.0); Mean Corpuscular Hemoglobin 28.1 pg (27.0-31.0); Mean Platelet Volume 7.1 fL (7.4-10.4); Platelet Count 204 thou/uL (130-400); RBC Distribution Width 14.3 % (11.5-14.5); Red Blood Cell (RBC) Count 2.84 mill/uL (4.20-5.40); White Blood Cell (WBC) Count 8.7 thou/uL (4.8-10.8)
[2020-02-13] MEDS: Ondansetron PF 4 MG/2 ML Vial IVP PRN (22:47)
[2020-02-13 23:08] LABS: ALT (SGPT) 12 U/L (8-55); AST (SGOT) 13 U/L (5-34); Albumin 3.3 g/dL (3.4-4.8); Alkaline Phosphatase 68 U/L (40-110); Anion Gap 12 mmol/L (10-20); BUN (Urea Nitrogen) 47 mg/dL (9.8-20.1); Bilirubin, Total 0.6 mg/dL (0.2-1.2); Calc. Creatinine Clearance 61 mL/min (70-130); Calcium 7.3 mg/dL (7.8-10.44); Carbon Dioxide 11 mmol/L (23-31); Chloride 115 mmol/L (98-107); Estimated GFR-MDRD 37; Globulin 3.5 g/dL (2.4-3.5); Glucose 77 mg/dL (80-115); Potassium 3.4 mmol/L (3.5-5.1); Protein, Total 6.8 g/dL (6.0-8.3); Sodium 135 mmol/L (136-145)
[2020-02-14] MEDS: metroNIDAZOLE 500 MG in Premix Bag 1 BAG IVPB SCH ×3 (01:28→21:38)
[2020-02-14] MEDS: Vancomycin 1.5 GRAM/300 ML BAG 1.5 GM in Premix Bag 1 BAG IVPB SCH (01:28)
[2020-02-14 04:02] LABS: #Lymphocytes 2.4 thou/uL (1.20-3.40); #Monocytes 0.8 thou/uL (0.11-0.59); %Basophils 0.2 % (0.0-1.0); %Eosinophils 0.5 % (0.0-10.0); %Lymphocytes 29.3 % (21.0-51.0); %Monocytes 9.6 % (0.0-10.0); %Neutrophils 60.4 % (42.0-75.0); Hemoglobin 7.8 g/dL (12.0-16.0); Mean Corpuscular Hemoglobin 30.6 pg (27.0-31.0); Mean Corpuscular Volume 87.3 fL (78.0-98.0); Mean Platelet Volume 7.7 fL (7.4-10.4); Platelet Count 205 thou/uL (130-400); RBC Distribution Width 14.4 % (11.5-14.5); Red Blood Cell (RBC) Count 2.54 mill/uL (4.20-5.40); White Blood Cell (WBC) Count 8.2 thou/uL (4.8-10.8)
[2020-02-14 04:08] LABS: INR-International Normal Ratio 1.6; Prothrombin Time 18.9 sec (12.0-14.7)
[2020-02-14] MEDS: Ondansetron ODT 4 MG TAB PO PRN ×2 (05:41→19:16)
[2020-02-14] MEDS: Sodium Chloride 0.9% 1,000 ML IV SCH (08:13)
[2020-02-14] MEDS: Pantoprazole 40 MG VIAL IVP SCH ×2 (08:14→21:39)
[2020-02-14] MEDS: Nystatin Ointment 15 GM TUBE TOP SCH ×2 (08:14→21:39)
[2020-02-14] MEDS: Potassium Chloride 20 MEQ TAB PO SCH ×3 (08:14→21:39)
--- NOTE | 2020-02-14 09:34 | PRG ---
DATE OF SERVICE: 02/14/2020 SUBJECTIVE: Ms. Mack is feeling pretty well. Hemoglobin declined to 7.8 this morning from 8.1 yesterday evening, so she did receive 1 more unit of RBC transfusion this morning. INR is down to 1.6 after another dose of vitamin K. She has remained hemodynamically stable. She had 3 loose stools overnight and this morning, progressively clearing of blood, and her last bowel movement had no visible blood at all. She is not really having any abdominal pain. She is tolerating her clear liquid diet. OBJECTIVE: VITAL SIGNS: Temperature 97.6, pulse 92, blood pressure 89/51, and 98% oxygen saturation on room air. GENERAL: No acute distress, sitting up on the edge of the bed comfortably. She is pale. HEART: Regular rate and rhythm. LUNGS: Clear to auscultation bilaterally. ABDOMEN: Bowel sounds present. Soft and nontender to palpation. EXTREMITIES: No peripheral edema. LABORATORY STUDIES: Hemoglobin 7.8, WBC 8.2, platelets 205. INR down to 1.6. Sodium 135, potassium 3.4, BUN 47, creatinine 1.44, total bilirubin 0.6, alkaline phosphatase 68, AST 13, ALT 12. ASSESSMENT AND PLAN: 1. Sigmoid diverticulitis with hemorrhage. Overt bleeding has now resolved with correction of her supratherapeutic INR. She received one more unit of RBC transfusion this morning, but hemoglobin does appear to be relatively stabilizing. Continue to trend H and H daily. I would treat this diverticulitis episode with one week of antibiotics. 2. Recent history of deep venous thrombosis. 3. Coagulopathy. She presented with supratherapeutic INR with PT greater than 90, in the context of Coumadin use and recent deep venous thrombosis. I think continuing Coumadin after this would be potentially problematic and she would have risk of recurrent episodes of significant bleeding. We will leave anticoagulation to the discretion of the primary service. I wonder if she might be a candidate for IVC filter placement. 4. Crohn disease with a small bowel. These more chronic symptoms are actually fairly well controlled, recently started on Stelara. I would not treat this as a Crohn's flare, would hold off on any steroids. 5. From a GI standpoint, her diet can be advanced as tolerated today. Job ID: [id number]
[2020-02-14] MEDS: Cefepime 1 GM in Sodium Chloride 0.9% 100 ML IVPB SCH ×2 (09:45→21:39)
--- NOTE | 2020-02-14 09:49 | PRG ---
DATE OF SERVICE: 02/14/2020 SUBJECTIVE: This morning, she is still weak, bleeding has improved somewhat, she was hypotensive briefly. CT shows a loculated pleural effusion. OBJECTIVE: VITAL SIGNS: Temperature is 97, pulse 102, blood pressure 102/67. CHEST: Decreased breath sounds. No wheezing. CARDIAC: Normal S1 and S2. No gallops. ABDOMEN: No masses. LABORATORY DATA: H and H 7 and 21, platelet count 205. Creatinine 1.47. IMPRESSION: Loculated left pleural effusion, azotemia, gastrointestinal bleed, severe deconditioning, and Crohn disease. PLAN: She is going to require mini-thoracotomy, decortication looking at the CT. We will talk to CV Surgery to assess the situation. May be early next week, she can have the surgery done to see if she gets stronger, transfusion as needed. We will follow. Job ID: [id number]
[2020-02-14] MEDS: Folic Acid 1 MG TAB PO SCH (10:28)
[2020-02-14 10:36] LABS: Anion Gap 14 mmol/L (10-20); BUN (Urea Nitrogen) 43 mg/dL (9.8-20.1); Calc. Creatinine Clearance 61 mL/min (70-130); Chloride 115 mmol/L (98-107); Estimated GFR-MDRD 37; Glucose 102 mg/dL (80-115); Potassium 3.2 mmol/L (3.5-5.1); Sodium 135 mmol/L (136-145)
[2020-02-14 10:38] LABS: Iron 130 ug/dL (50-170); Iron Binding Capacity, Total 285 mcg/dL (265-497)
[2020-02-14 10:56] LABS: Carbon Dioxide 9 mmol/L (23-31)
[2020-02-14] MEDS ORDERED: Potassium Chloride 20 MEQ TAB PO SCH (11:15)
--- NOTE | 2020-02-14 13:50 | CON ---
DATE OF CONSULTATION: 02/14/2020 HISTORY OF PRESENT ILLNESS: Ms. Mack is a very pleasant 59-year-old woman, who was recently in the [facility] with complications from her Crohn's requiring laparotomy and lysis of adhesions. She has a history of DVT in early 2019, requiring Coumadin. She presented with an INR of 4.0. Her hemoglobin drifted down to 7.8. She has been very weak and fatigued. She received transfusion today and feels much better. Coumadin has been held-this can probably be stopped as her DVT was 6 months ago. At the time of her admission, she also was short winded. Chest CT shows a loculated left pleural effusion with no right-sided changes. She quit smoking a month ago. She is on an immunomodulator for her Crohn disease. Currently, she is resting comfortably in bed. She has had no fever and she has a normal white count. PAST MEDICAL HISTORY: 1. Crohn disease. 2. Chronic atrial fibrillation. 3. Hyperkalemia from her Crohn's. 4. History of DVT. 5. Sleep apnea. PAST SURGICAL HISTORY: Multiple laparotomies related to Crohn's. HOME MEDICATIONS: Noted. ALLERGIES: PENICILLIN AND LACTOSE. REVIEW OF SYSTEMS: A 10-point review of systems is negative. PHYSICAL EXAMINATION: GENERAL: This is a well-developed, well-nourished woman, resting comfortably in the IMCU. VITAL SIGNS: Height 5 feet 5 inches, weight is 208 pounds, BSA is 2.08, temperature is 98.0, pulse is 100, blood pressure is 102/67. LUNGS: Clear bilaterally with no crackles or rhonchi. HEART: Rhythm is regular without murmur. ABDOMEN: Soft and nontender. EXTREMITIES: No edema. ASSESSMENT AND PLAN: This is a pleasant 59-year-old, who is immunosuppressed with a left loculated empyema. She just was transfused for drifting hemoglobin with an elevated INR due to Coumadin therapy for deep venous thrombosis. Coumadin has been stopped. She has been transfused. Her white blood cell count is normal and she is on IV antibiotics. I do not think conservative treatment of this empyema on immunosuppressed lady is going to be beneficial. Therefore, we discussed left thoracoscopy and she is agreeable. We will make some plans for Monday. We will continue to follow her blood counts over the next couple of days. Job ID: [id number]
--- NOTE | 2020-02-14 17:08 | PDOC.HOSPP ---
- Subjective Encounter Date: 02/14/20 Encounter Time: 13:00 Subjective: GI bleed - The patient is doing better. She has had no recurrent bleeding or abdominal pain. Last INR two weeks ago was 2 per patient. Effusion - She reports some SOB and cough. No chest pain. She was told she is getting thoracotomy on Monday Thyroid mass - States she has thyroid nodules from back in January and they were biopsied and were normal - Objective Vital Signs & Weight: Vital Signs (12 hours) Temp Pulse Ox 02/14/20 15:23 98.4 F 02/14/20 11:05 98.2 F 02/14/20 07:53 98 02/14/20 07:03 97.6 F 02/14/20 05:42 97.5 F L 100 02/14/20 05:24 97.6 F Weight Weight 208 lb 1 oz Most Recent Monitor Data Heart Rate from ECG 89 NIBP 118/73 NIBP BP-Mean 88 Respiration from ECG 23 SpO2 100 I&O: 02/13/20 02/14/20 02/15/20 06:59 06:59 06:59 Intake Total 482 2150 350 Output Total 200 425 Balance 282 1725 350 Result Diagrams: 02/14/20 03:01 02/14/20 09:48 Hospitalist ROS - Review of Systems Constitutional: denies: fever, chills - Medication Medications: Active Medications Generic Name Dose Route Start Last Admin Trade Name Freq PRN Reason Stop Dose Admin Folic Acid 1 mg 02/14/20 09:00 02/14/20 10:28 Folvite PO 1 mg DAILY AISHA Administration Metronidazole 500 mg/ Device 100 mls @ 100 mls/hr 02/13/20 02:00 02/14/20 08: 14 IVPB 100 mls 0200,1000,1800 AISHA Administration Cefepime HCl 1 gm/ Sodium 100 mls @ 200 mls/hr 02/13/20 10:00 02/14/20 09:45 Chloride IVPB 100 mls 1000,2200 AISHA Administration Vancomycin HCl 1.5 gm/ Device 300 mls @ 200 mls/hr 02/13/20 23:59 02/14/20 01 :28 IVPB 300 mls 2359 AISHA Administration Nystatin 0 gm 02/13/20 21:00 02/14/20 08:14 Mycostatin Ointment TOP 1 applic BID AISHA Administration Ondansetron HCl 4 mg 02/13/20 00:51 02/13/20 22:47 Zofran IVP 4 mg Q6H PRN Administration Nausea/Vomiting Ondansetron HCl 4 mg 02/13/20 10:25 02/14/20 05:41 Zofran Odt PO 4 mg Q6H PRN Administration Nausea/Vomiting Pantoprazole Sodium 40 mg 02/13/20 09:00 02/14/20 08:14 Protonix IVP 40 mg Q12HR AISHA Administration Potassium Chloride 40 meq 02/13/20 21:00 02/14/20 16:32 K-Dur PO 40 meq TID AISHA Administration Sodium Chloride 10 ml 02/13/20 01:17 02/14/20 08:14 Normal Saline Pf FS 10 ml PRN PRN Administration RECONSTITUTION - Exam General Appearance: NAD, awake alert Eye: PERRL, anicteric sclera ENT: normocephalic atraumatic, no oropharyngeal lesions Neck: supple, no JVD Heart: RRR, no murmur, no gallops, no rubs Respiratory: no rales, no ronchi Respiratory - other findings: decreased breath sounds left side Gastrointestinal: soft, non-tender, non-distended, normal bowel sounds Extremities: no cyanosis, no clubbing, no edema Skin: normal turgor, no lesions, no rashes Neurological: cranial nerve grossly intact, normal sensation to touch, no focal deficits, no new deficit Hosp A/P - Plan CT chest: loculated fluid collection along posterior left lowre chest extending to left gutter posteriorly. Associated left lower lobe atelectasis and or infiltrate. Enlarged left lobe of thyroid with substernal extension, dominant thyroid mass involving the left lobe. This is a 59 year old female who presented with supratherapeutic INR, GI bleed, and anemia. She was also incidentally found to have a loculated effusion Rectal bleeding secondary to supratherapeutic INR - INR is normal now. She was given FFP, vitamin K - GI has been consulted, stated supportive care for now Loculated pleural effusion left side - CT surgery has been consulted. Plan for thoracoscopy on Monday -will hold coumadin Thyroid nodules - noted on US on 01/2020, s/p normal biopsy DVT/Afib - reports IV filter in right leg? - on coumadin, INR 1.6 Anemia - hb 7.8, will monitor, transfuse if Hb < 7 - iron panel normal Hypokalemia - potassium 3.2, will replace with 40 meq potassium Hyperchloremic metabolic acidosis - chloride 115, bicarb 9 - will d/c IV fluids, repeat BMP tomorrow DVT prophylaxis: holding Code status: full code
--- NOTE | 2020-02-14 22:43 | PDOC.EVN ---
Event Note - Event Note Event Note: Nurse called, patient afib 140s-160s, SBP 120s, Sp02 and RR normal, A&Ox 4. No chest pain. Hgb 7.8 this morning, given 1 u PRBCs, Will get stat H/H and give 250ml IVF bolus, and 1 unit of PRBCs if hemoglobin has dropped. Also, check BMP and Mag level. Gave Dig 0.5mg IVP x 1 dose and 500cc NS bolus Gave 4gm Mag IVPB and recheck level along with TSH with morning labs.
[2020-02-14] MEDS ORDERED: Sodium Chloride 0.9% 250 ML IV SCH (22:45)
[2020-02-14 22:57] LABS: Hemoglobin 9.6 g/dL (12.0-16.0)
[2020-02-14] MEDS ORDERED: Sodium Chloride 0.9% 500 ML IV SCH (23:15)
[2020-02-14 23:21] LABS: Vancomycin, Trough 17.4 ug/mL
[2020-02-14] MEDS ORDERED: Metoprolol Tartrate 5 MG/5 ML VIAL IVP SCH (23:30)
[2020-02-14] MEDS ORDERED: Digoxin 0.5 MG/2 ML AMP SLOW IVP SCH (23:30)
[2020-02-14 23:44] LABS: BUN (Urea Nitrogen) 34 mg/dL (9.8-20.1); Calc. Creatinine Clearance 70 mL/min (70-130); Calcium 7.2 mg/dL (7.8-10.44); Chloride 119 mmol/L (98-107); Estimated GFR-MDRD 44; Glucose 75 mg/dL (80-115); Magnesium Less than 0.6 mg/dL (1.6-2.6); Potassium 4.1 mmol/L (3.5-5.1); Sodium 135 mmol/L (136-145)
[2020-02-14 23:50] LABS: Carbon Dioxide Less than 8 mmol/L (23-31)
[2020-02-15] MEDS: Vancomycin 1.5 GRAM/300 ML BAG 1.5 GM in Premix Bag 1 BAG IVPB SCH (00:21)
[2020-02-15] MEDS: Magnesium 2 GM/50 ML 2 GM in Premix Bag 1 BAG IVPB SCH ×2 (00:21→02:07)
[2020-02-15] MEDS: metroNIDAZOLE 500 MG in Premix Bag 1 BAG IVPB SCH ×3 (02:07→17:01)
[2020-02-15 03:47] LABS: #Basophils 0.1 thou/uL (0.0-0.2); #Eosinphils 0.1 thou/uL (0.0-0.7); #Lymphocytes 2.3 thou/uL (1.20-3.40); #Monocytes 0.7 thou/uL (0.11-0.59); #Neutrophils 4.5 thou/uL (1.40-6.50); %Basophils 0.7 % (0.0-1.0); %Eosinophils 0.9 % (0.0-10.0); %Lymphocytes 30.5 % (21.0-51.0); %Monocytes 9.4 % (0.0-10.0); %Neutrophils 58.4 % (42.0-75.0); Hemoglobin 9.4 g/dL (12.0-16.0); Mean Corpuscular Hemoglobin 29.7 pg (27.0-31.0); Mean Corpuscular Volume 90.2 fL (78.0-98.0); Mean Platelet Volume 7.5 fL (7.4-10.4); Platelet Count 217 thou/uL (130-400); RBC Distribution Width 14.6 % (11.5-14.5); Red Blood Cell (RBC) Count 3.17 mill/uL (4.20-5.40); White Blood Cell (WBC) Count 7.7 thou/uL (4.8-10.8)
[2020-02-15] MEDS: Folic Acid 1 MG TAB PO SCH (07:52)
[2020-02-15] MEDS: Pantoprazole 40 MG VIAL IVP SCH ×2 (07:52→20:54)
[2020-02-15] MEDS: Potassium Chloride 20 MEQ TAB PO SCH ×3 (07:52→20:54)
[2020-02-15] MEDS: Nystatin Ointment 15 GM TUBE TOP SCH ×2 (07:52→20:57)
[2020-02-15] MEDS: Ondansetron ODT 4 MG TAB PO PRN (08:55)
[2020-02-15] MEDS: Cefepime 1 GM in Sodium Chloride 0.9% 100 ML IVPB SCH ×2 (08:58→21:05)
[2020-02-15] MEDS ORDERED: Sodium Bicarb 50 MEQ/50 ML VIAL IVP SCH (10:45)
[2020-02-15] MEDS ORDERED: Sodium Bicarb 50 MEQ/50 ML Abboject 8.4% SYRINGE IVP SCH (11:00)
[2020-02-15] MEDS: Diphenoxylate HCl/Atropine Tablet PO PRN ×2 (11:03→20:53)
[2020-02-15] MEDS: Ondansetron PF 4 MG/2 ML Vial IVP PRN ×2 (11:04→22:54)
--- NOTE | 2020-02-15 11:59 | PRG ---
DATE OF SERVICE: 02/15/2020 SUBJECTIVE: Lucy Mack is awaiting a thoracotomy for empyema on Monday. She is in no distress. There are no positive cultures. She is working with physical therapy. She is in atrial fibrillation. OBJECTIVE: VITAL SIGNS: Her heart rate are fluctuating between 117 and 135, blood pressure is in the 80s, respiratory rates in the 20s. CHEST: Remarkable for decreased breath sounds at the left base. HEART: Irregular rhythm. S1 and S2 are normal. ABDOMEN: Soft. IMPRESSION: 1. Loculated parapneumonic effusion, tentatively for thoracoscopy/decortication on Monday. 2. Crohn disease. 3. Chronic atrial fibrillation. 4. History of deep venous thrombosis. 5. History of sleep apnea. PLAN: Continue supportive care, awaiting her surgical procedure. 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 Job ID: [id number]
--- NOTE | 2020-02-15 12:21 | CON ---
DATE OF CONSULTATION: REASON FOR CONSULTATION: Atrial fibrillation. PRIMARY CERAMIC PLATER: Annemarie Jiménez MD HISTORY OF PRESENT ILLNESS: Ms. Mack is a 59-year-old woman with a past history of Crohn disease in addition to DVT noted in the infrapopliteal region, who recently presented with GI bleed. Her INR was supratherapeutic and undetectable. She has received 3 units of packed red blood cells. She did have transient atrial fibrillation. She is now in sinus rhythm. She has no previous history of palpitations, heart fluttering, or other associated symptoms. She did undergo coronary angiography in 2012, and did not have significant coronary artery disease. PAST MEDICAL HISTORY: 1. Distal DVT. 2. Crohn disease. 3. Sleep apnea. 4. Laparotomy. ALLERGIES: PENICILLIN AND LACTOSE. HOME MEDICATIONS: Reviwed. SOCIAL HISTORY: No current tobacco or alcohol use. REVIEW OF SYSTEMS: A 10-point review of systems is reviewed and as above, otherwise negative. PHYSICAL EXAMINATION: GENERAL: Patient is a pleasant woman who is in no acute distress. The patient appears their stated age. She does appear pale. VITAL SIGNS: Blood pressure 109/63, pulse 96, and temperature 97.5. NEUROLOGIC: The patient is alert and oriented x3 with no focal neurologic deficits. HEENT: Sclerae without icterus. Mouth has moist mucous membranes with normal pallor. NECK: No JVD. Carotid upstroke brisk. No bruits bilaterally. LUNGS: Clear to auscultation with unlabored respirations. BACK: No scoliosis or kyphosis. CARDIAC: Regular rate and rhythm with normal S1 and S2. No S3 or S4 noted. No significant rubs, murmurs, thrills, or gallops noted throughout the precordium. PMI is not displaced. There is no parasternal heave. ABDOMEN: Soft, nontender, nondistended. No peritoneal signs present. No hepatosplenomegaly. No abnormal striae. EXTREMITIES: 2+ femoral and 2+ dorsalis pedis pulses. No cyanosis, clubbing, or edema. SKIN: No gross abnormalities. PERTINENT LABORATORY DATA: Hemoglobin 9.4. IMPRESSION: 1. Paroxysmal atrial fibrillation. 2. Crohn disease. 3. Distal deep vein thrombosis. RECOMMENDATIONS: At this point, the patient had a brief episode of atrial fibrillation. This may be related to underlying current condition. At this point, I recommend close observation. I would consider anticoagulation therapy, although Ms. Mack states she is adamant against the use of further anticoagulation therapy. She states she cannot afford novel oral anticoagulation therapy. The data on treatment of DVT noted in the infrapopliteal region is somewhat controversial. It would be reasonable to discontinue Coumadin and repeat her lower extremity duplex. She did have one brief run of atrial fibrillation. May also consider an outpatient 3-week event recorder. Otherwise, I have no further recommendations. Job ID: [id number]
--- NOTE | 2020-02-15 12:56 | PRG ---
DATE OF SERVICE: SUBJECTIVE: Ms. Mack has done well from a GI perspective. Bowel movements are no longer bloody. She had a normal-appearing bowel movement earlier today. She has chronic migratory abdominal discomfort, which is unchanged, but she is tolerating her diet with no nausea. She did go into rapid ventricular rate with her atrial fibrillation last night, now rate is better controlled. Hemoglobin came up nicely with 1 unit RBC transfusion from 7.8 now at 9.4 this morning. OBJECTIVE: VITAL SIGNS: Temperature 97.5, pulse 96, blood pressure 109/63, and 95% oxygen saturation on room air. GENERAL: No acute distress. HEART: Regular rate and rhythm. LUNGS: Clear to auscultation bilaterally. ABDOMEN: Bowel sounds present. Soft, nontender to palpation. EXTREMITIES: No peripheral edema. LABORATORY STUDIES: Hemoglobin 9.4, WBC 7.7, and platelets 217. INR 1.6. Sodium 135, potassium 4.1, BUN 34, creatinine 1.25, and magnesium 1.7. TSH 2.94. ASSESSMENT/PLAN: 1. Sigmoid diverticulitis with hemorrhage. Overt bleeding has now resolved over the past 2 days with correction of her supratherapeutic INR. Hemoglobin is stable this morning at 9.4. I would recommend treating this diverticulitis episode with 1 week of antibiotics. No plan for any endoscopy. 2. Coagulopathy. She presented with a supratherapeutic INR with PT greater than 90 in the context of Coumadin use and recent DVT. My understanding is that Coumadin may be able to be discontinued, would leave this to the discretion of the primary service. 3. Crohn disease of the small bowel, chronic symptoms remain fairly well controlled, recently started on Stelara within the past few months. I would not treat this as a Crohn's flare, so hold off on any steroids. 4. Empyema. The patient is tentatively planned for left thoracoscopy this coming Monday. 5. As active GI issues seem to be stabilized, GI will sign off at this time. Please feel free to call anytime with questions or concerns. Job ID: [id number]
[2020-02-15] MEDS: Sodium Chloride 0.45% 1,000 ML IV SCH (13:04)
[2020-02-15 14:28] LABS: Anion Gap 15 mmol/L (10-20); BUN (Urea Nitrogen) 27 mg/dL (9.8-20.1); Calc. Creatinine Clearance 85 mL/min (70-130); Calcium 7.2 mg/dL (7.8-10.44); Chloride 117 mmol/L (98-107); Estimated GFR-MDRD 54; Glucose 80 mg/dL (80-115); Potassium 3.9 mmol/L (3.5-5.1); Sodium 137 mmol/L (136-145)
[2020-02-15 14:30] LABS: Carbon Dioxide 9 mmol/L (23-31)
--- NOTE | 2020-02-15 15:55 | PDOC.HOSPP ---
- Subjective Encounter Date: 02/15/20 Encounter Time: 12:50 Subjective: pt doig well, no further rectal bleed, no acute c/o from the pt ; BP on the low side. plan for pleural fluid drain on monday. pt stays in the unit given GIB and borderline BP, until thoracentesis completed on monday and hemodynamically stable prior to transfer to [facility]. - Objective Vital Signs & Weight: Vital Signs (12 hours) Temp Pulse Pulse Pulse Resp BP BP 02/15/20 15:48 97.9 F 97 22 H 02/15/20 11:00 97.5 F L 96 20 02/15/20 10:15 100 92 87/66 L 92/52 L 02/15/20 07:51 97.6 F 110 H 22 H 02/15/20 07:30 BP Pulse Ox Pulse Ox Pulse Ox 02/15/20 15:48 116/69 94 L 02/15/20 11:00 109/63 95 02/15/20 10:15 100 100 02/15/20 07:51 119/63 02/15/20 07:30 98 Weight Weight 208 lb 1 oz Most Recent Monitor Data Heart Rate from ECG 140 NIBP 90/55 NIBP BP-Mean 66 Respiration from ECG 37 SpO2 84 I&O: 02/14/20 02/15/20 02/16/20 06:59 06:59 06:59 Intake Total 2150 3955 Output Total 425 4512 Balance 1725 -557 Result Diagrams: 02/15/20 03:09 02/15/20 13:54 Hospitalist ROS - Medication Medications: Active Medications Generic Name Dose Route Start Last Admin Trade Name Freq PRN Reason Stop Dose Admin Diphenoxylate HCl/Atropine 1 tab 02/13/20 10:25 02/15/20 11:03 Lomotil PO 1 tab TIDPRN PRN Administration Diarrhea/Loose Stools Folic Acid 1 mg 02/14/20 09:00 02/15/20 07:52 Folvite PO 1 mg DAILY AISHA Administration Metronidazole 500 mg/ Device 100 mls @ 100 mls/hr 02/13/20 02:00 02/15/20 08: 49 IVPB 100 mls 0200,1000,1800 AISHA Administration Cefepime HCl 1 gm/ Sodium 100 mls @ 200 mls/hr 02/13/20 10:00 02/15/20 08:58 Chloride IVPB 100 mls 1000,2200 AISHA Administration Vancomycin HCl 1.5 gm/ Device 300 mls @ 200 mls/hr 02/13/20 23:59 02/15/20 00 :21 IVPB 300 mls 2359 AISHA Administration Sodium Chloride 1,000 mls @ 100 mls/hr 02/15/20 11:30 02/15/20 13:04 1/2 Normal Saline IV 1,000 mls .Q10H AISHA Administration Nystatin 0 gm 02/13/20 21:00 02/15/20 07:52 Mycostatin Ointment TOP 1 applic BID AISHA Administration Ondansetron HCl 4 mg 02/13/20 00:51 02/15/20 11:04 Zofran IVP 4 mg Q6H PRN Administration Nausea/Vomiting Ondansetron HCl 4 mg 02/13/20 10:25 02/15/20 08:55 Zofran Odt PO 4 mg Q6H PRN Administration Nausea/Vomiting Pantoprazole Sodium 40 mg 02/13/20 09:00 02/15/20 07:52 Protonix IVP 40 mg Q12HR AISHA Administration Potassium Chloride 40 meq 02/13/20 21:00 02/15/20 07:52 K-Dur PO 40 meq TID AISHA Administration Sodium Chloride 10 ml 02/13/20 01:17 02/14/20 08:14 Normal Saline Pf FS 10 ml PRN PRN Administration RECONSTITUTION - Exam General Appearance: NAD, awake alert Eye: PERRL ENT: normocephalic atraumatic Neck: supple Heart: RRR, normal peripheral pulses Respiratory: CTAB, normal chest expansion Gastrointestinal: soft, non-distended, normal bowel sounds Neurological: no focal deficits Psychiatric: A&O x 3 Hosp A/P - Plan Note edited to reflect today's care of plan. CT chest: loculated fluid collection along posterior left lowre chest extending to left gutter posteriorly. Associated left lower lobe atelectasis and or infiltrate. Enlarged left lobe of thyroid with substernal extension, dominant thyroid mass involving the left lobe. 59 year old female who presented with supratherapeutic INR, GI bleed, and anemia. She was also incidentally found to have a loculated effusion Rectal bleeding secondary to supratherapeutic INR Likely diverticular bleed Sigmoid diverticulosis Supratherapeutic INR -s/p FFP, vitamin K - GI on board -s-table Hgb at 9.4 /sp transfusion Loculated pleural effusion left side - CT surgery . Plan for thoracoscopy on Monday -will hold coumadin Thyroid nodules - noted on US on 01/2020, s/p normal biopsy DVT/Afib - reports IV filter in right leg? - on coumadin, INR 1.6 Anemia - hb 7.8, will monitor, transfuse if Hb < 7 - iron panel normal Hypokalemia - potassium 3.2, will replace with 40 meq potassium Hyperchloremic metabolic acidosis - chloride 115, bicarb 9 -continue to be on the low end -c/s'd renal DVT prophylaxis: holding Code status: full code pt stays in the unit given GIB and borderline BP, until thoracentesis completed on monday and hemodynamically stable prior to transfer to [facility].
[2020-02-16] MEDS: Sodium Chloride 0.45% 1,000 ML IV SCH ×3 (02:12→11:12)
[2020-02-16] MEDS: metroNIDAZOLE 500 MG in Premix Bag 1 BAG IVPB SCH ×3 (02:12→11:11)
[2020-02-16 03:29] LABS: #Basophils 0.1 thou/uL (0.0-0.2); #Eosinphils 0.1 thou/uL (0.0-0.7); #Lymphocytes 2.5 thou/uL (1.20-3.40); #Monocytes 0.7 thou/uL (0.11-0.59); #Neutrophils 3.6 thou/uL (1.40-6.50); %Basophils 0.8 % (0.0-1.0); %Eosinophils 1.4 % (0.0-10.0); %Lymphocytes 35.6 % (21.0-51.0); %Monocytes 10.6 % (0.0-10.0); %Neutrophils 51.6 % (42.0-75.0); Hemoglobin 8.9 g/dL (12.0-16.0); Mean Corpuscular HGB CONC 34.2 g/dL (32.0-36.0); Mean Corpuscular Hemoglobin 30.8 pg (27.0-31.0); Mean Corpuscular Volume 90.3 fL (78.0-98.0); Mean Platelet Volume 7.3 fL (7.4-10.4); Platelet Count 203 thou/uL (130-400); RBC Distribution Width 14.9 % (11.5-14.5); Red Blood Cell (RBC) Count 2.88 mill/uL (4.20-5.40); White Blood Cell (WBC) Count 6.9 thou/uL (4.8-10.8)
[2020-02-16] MEDS: Potassium Chloride 20 MEQ TAB PO SCH ×3 (08:08→20:06)
[2020-02-16] MEDS: Folic Acid 1 MG TAB PO SCH (08:08)
[2020-02-16] MEDS: Pantoprazole 40 MG VIAL IVP SCH ×2 (08:09→20:05)
[2020-02-16] MEDS: Cefepime 1 GM in Sodium Chloride 0.9% 100 ML IVPB SCH ×2 (08:09→11:12)
[2020-02-16] MEDS: Nystatin Ointment 15 GM TUBE TOP SCH ×2 (08:09→20:07)
[2020-02-16 09:12] LABS: Anion Gap 12 mmol/L (10-20); BUN (Urea Nitrogen) 21 mg/dL (9.8-20.1); Calc. Creatinine Clearance 86 mL/min (70-130); Calcium 7.3 mg/dL (7.8-10.44); Carbon Dioxide 12 mmol/L (23-31); Chloride 115 mmol/L (98-107); Estimated GFR-MDRD 55; Glucose 93 mg/dL (80-115); Potassium 3.6 mmol/L (3.5-5.1); Sodium 135 mmol/L (136-145)
--- NOTE | 2020-02-16 11:56 | PRG ---
DATE OF SERVICE: 02/16/2020 SUBJECTIVE: Ms. Mack is currently doing well. She was seen sleeping. No current complaints except for weakness. Her blood pressures have been persistently low. This was initially thought to be secondary to low hemoglobin. Her hemoglobin today has stabilized at 8.9. Her blood pressure this morning was 93/51. OBJECTIVE: VITAL SIGNS: Blood pressure 94/53, pulse 86, respirations 20. LUNGS: Clear to auscultation. HEART: Regular rate and rhythm. ABDOMEN: Soft, nontender, nondistended. EXTREMITIES: No edema. PERTINENT LABORATORY DATA: As described above. IMPRESSION: 1. Persistent hypotension. 2. Gastrointestinal bleed secondary to supratherapeutic INR. 3. Previous infrapopliteal deep venous thrombosis. 4. Empyema RECOMMENDATIONS: I would recommend echo Doppler to assess LVEF given persistent hypotension. She is fairly asymptomatic. Also give 500 mL of IV fluids. CV surgery consulted for empyema Job ID: [id number] MTDD
--- NOTE | 2020-02-16 12:25 | CON ---
DATE OF CONSULTATION: HISTORY OF PRESENT ILLNESS: Ms. Mack is a 59-year-old white female, who was initially admitted for bleeding per rectum. Please note, she has history of Crohn's disease. She also had diagnosis of loculated pleural effusion suspicious for empyema. A planned pulmonary decortication is being made. We are being consulted for her chronic metabolic acidosis. REVIEW OF SYSTEMS: Positive for chronic diarrhea. Positive for anorexia. No overt vomiting. Positive for nausea. Positive for bright red blood per rectum. Positive for abdominal pain. No syncopal episode. Occasional joint pains. No new skin rash. PAST MEDICAL HISTORY: Includes, 1. Crohn's disease. 2. Chronic diarrhea. 3. Atrial fibrillation. 4. Status post DVT. 5. History of status post pneumonia. PAST SURGICAL HISTORY: Status post colonoscopy, status post end-to-side ileocolonic anastomosis, and status post rectal anal biopsy. SOCIAL HISTORY: The patient is . She has 2 children. She lives in [place]. 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 Education, high school. Smoked for 30 years, half a pack a day. Alcohol, none. No IV drug abuse. Status post blood transfusion. Originally from [place]. ALLERGIES: PENICILLIN. TRAUMA: None. IMMUNIZATIONS: Not up-to-date, declines flu shot. HOSPITALIZATIONS: Please see past medical history. FAMILY HISTORY: Positive family history of ESRD. Uncle was on dialysis. PHYSICAL EXAMINATION: VITAL SIGNS: Blood pressure is noted at 95/53 with heart rate of 86, respiratory rate 24, and O2 saturation 100%. GENERAL: The patient is noted to be awake, alert, comfortable, not in overt distress. SKIN: Adequate turgor. HEENT: She has slightly pale conjunctivae. Anicteric sclerae. NECK: No neck mass. No carotid bruits. No JVD. CHEST: No deformities. LUNGS: Clear breath sounds. No wheezing. No crackles. HEART: Normal sinus rhythm. No murmur. No gallops. No rubs. ABDOMEN: Globular, soft, and nontender. EXTREMITIES: No edema. MEDICATIONS: Medications of February 16, 2020; 1. Calcium carbonate 500 mg p.o. q.i.d. p.r.n. 2. Cefepime 1 g IV q.12. 3. Diphenoxylate one tablet t.i.d. as needed. 4. Folic acid 1 mg once a day. 5. Metronidazole 500 mg IV q.8 hours. 6. Zofran 4 mg IV q.6 p.r.n. 7. Protonix 40 mg IV q.12. 8. KCl 40 mEq p.o. t.i.d. 9. Normal saline at 100 mL per hour. LABORATORY DATA: Laboratories of February 16, 2020; white count 6.9, hemoglobin 8.9. Sodium 135, potassium 3.6, chloride 115, carbon dioxide 12, BUN is 21, creatinine 1.02, glucose 93, and calcium 7.3. Anion gap is noted at 12 - normal. On April 07, 2019; urinalysis showed pH of 6.5, specific gravity 1.007. Chest CT of February 13, 2020; showed loculated fluid collection on the left posterior lower lobe of the lungs. ASSESSMENT AND PLAN: 1. Metabolic acidosis. This is most likely chronic in nature and most likely due to the normal anion gap, is related to the patient's diarrhea. She has a normal anion gap metabolic acidosis. My bias is to simply correct this with sodium bicarbonate. Sodium bicarbonate tablets 650 mg one tablet t.i.d. will be started. We will change IV fluid to lactated Ringer's solution to run at 125 mL/hour. She is also noted to be on the hypotensive side. Overall, agree with current management. 2. Left lower lobe empyema - for possible decortication tomorrow by her surgeon. 3. Crohn's disease - continue supportive care. Recheck basic metabolic panel and CBC in a.m. Job ID: [id number]
[2020-02-16] MEDS: Potassium Chloride 20 MEQ in Lactated Ringer's 1,000 ML IV SCH ×2 (12:42→20:04)
--- NOTE | 2020-02-16 13:23 | PDOC.HOSPP ---
- Subjective Encounter Date: 02/16/20 Encounter Time: 11:00 Subjective: pt denies any rectal bleed, BP still on the low side, not on any BP meds. P-IV blew up, plan to get cetnral line in am, while going for thoracentesis. - Objective Vital Signs & Weight: Vital Signs (12 hours) Temp 02/16/20 11:28 98.6 F 02/16/20 07:18 98.6 F 02/16/20 03:41 97.5 F L Weight Weight 208 lb 1 oz Most Recent Monitor Data Heart Rate from ECG 86 NIBP 95/53 NIBP BP-Mean 67 Respiration from ECG 24 SpO2 100 I&O: 02/15/20 02/16/20 02/17/20 06:59 06:59 06:59 Intake Total 3955 1600 Output Total 4512 150 Balance -557 1450 Result Diagrams: 02/16/20 03:01 02/16/20 08:29 Hospitalist ROS - Medication Medications: Active Medications Generic Name Dose Route Start Last Admin Trade Name Freq PRN Reason Stop Dose Admin Diphenoxylate HCl/Atropine 1 tab 02/13/20 10:25 02/15/20 20:53 Lomotil PO 1 tab TIDPRN PRN Administration Diarrhea/Loose Stools Folic Acid 1 mg 02/14/20 09:00 02/16/20 08:08 Folvite PO 1 mg DAILY AISHA Administration Metronidazole 500 mg/ Device 100 mls @ 100 mls/hr 02/13/20 02:00 02/16/20 11: 11 IVPB Not Given 0200,1000,1800 AISHA Cefepime HCl 1 gm/ Sodium 100 mls @ 200 mls/hr 02/13/20 10:00 02/16/20 11:12 Chloride IVPB Not Given 1000,2200 AISHA Potassium Chloride 20 meq/ 1,010 mls @ 125 mls/hr 02/16/20 12:00 02/16/20 12: 42 Lactated Ringer's IV Not Given .Q8H5M AISHA Nystatin 0 gm 02/13/20 21:00 02/16/20 08:09 Mycostatin Ointment TOP 1 applic BID AISHA Administration Ondansetron HCl 4 mg 02/13/20 00:51 02/15/20 22:54 Zofran IVP 4 mg Q6H PRN Administration Nausea/Vomiting Ondansetron HCl 4 mg 02/13/20 10:25 02/15/20 08:55 Zofran Odt PO 4 mg Q6H PRN Administration Nausea/Vomiting Pantoprazole Sodium 40 mg 02/13/20 09:00 02/16/20 08:09 Protonix IVP 40 mg Q12HR AISHA Administration Potassium Chloride 40 meq 02/13/20 21:00 02/16/20 08:08 K-Dur PO 40 meq TID AISHA Administration Sodium Chloride 10 ml 02/13/20 00:51 02/15/20 20:55 Flush - Normal Saline IVF 10 ml PRN PRN Administration Saline Flush Sodium Chloride 10 ml 02/13/20 01:17 02/14/20 08:14 Normal Saline Pf FS 10 ml PRN PRN Administration RECONSTITUTION - Exam General Appearance: NAD, awake alert Eye: PERRL ENT: normocephalic atraumatic Neck: supple Heart: RRR, normal peripheral pulses Respiratory: CTAB, normal chest expansion Gastrointestinal: soft, normal bowel sounds Neurological: no focal deficits Psychiatric: A&O x 3 Hosp A/P - Plan Note edited to reflect today's care of plan. CT chest: loculated fluid collection along posterior left lowre chest extending to left gutter posteriorly. Associated left lower lobe atelectasis and or infiltrate. Enlarged left lobe of thyroid with substernal extension, dominant thyroid mass involving the left lobe. 59 year old female who presented with supratherapeutic INR, GI bleed, and anemia. She was also incidentally found to have a loculated effusion Rectal bleeding secondary to supratherapeutic INR Likely diverticular bleed Sigmoid diverticulosis Supratherapeutic INR -s/p FFP, vitamin K - GI on board -s-table Hgb at 9.4---> 8.9 /sp transfusion Anemia,chronic - iron panel normal Loculated pleural effusion left side LLL empyema - CT surgery . Plan for thoracoscopy on Monday -will hold coumadin Thyroid nodules - noted on US on 01/2020, s/p normal biopsy DVT/Afib - reports IV filter in right leg. - on coumadin, INR 1.6 Hypokalemia -resolved Hyperchloremic metabolic acidosis chronic and poss diarrhea contributing as well - chloride 115, bicarb 9 --NaHCO3 added+lactated ringers --improving DVT prophylaxis: holding Code status: full code pt stays in the unit given GIB and borderline BP, until thoracentesis completed on monday and hemodynamically stable prior to transfer to [facility]. GI, CTS and renal on board.
--- NOTE | 2020-02-16 14:53 | PRG ---
DATE OF SERVICE: 02/16/2020 SUBJECTIVE: Lucy Mack has no new complaints. OBJECTIVE: VITAL SIGNS: She is afebrile, heart rate is in 80s, respiratory rates in the teens, and oximetry is 98. LUNGS: Unchanged. HEART: Unchanged. ABDOMEN: Unchanged. LABORATORY DATA: White count 6.9, hemoglobin 8.9, and platelets 203,000. Sodium 135, potassium 3.6, chloride 115, bicarb 112, BUN 21, creatinine 1.02, and anion gap is 8. IMPRESSION: Hyperchloremic acidosis, it is improving on top of unorganized pleural effusion, will require decortication. She can be switched off cefepime at this point. She probably needs more free water. Nephrology is following her. Job ID: [id number]
[2020-02-16] MEDS: Sodium Bicarbonate Tab 325 MG TAB PO SCH ×2 (15:43→20:05)
[2020-02-16] MEDS: Ondansetron ODT 4 MG TAB PO PRN ×2 (15:44→20:06)
[2020-02-16] MEDS: Diphenoxylate HCl/Atropine Tablet PO PRN (20:05)
[2020-02-17] MEDS: metroNIDAZOLE 500 MG in Premix Bag 1 BAG IVPB SCH ×3 (02:05→17:09)
[2020-02-17 03:22] LABS: #Basophils 0.1 thou/uL (0.0-0.2); #Eosinphils 0.1 thou/uL (0.0-0.7); #Monocytes 0.7 thou/uL (0.11-0.59); #Neutrophils 3.3 thou/uL (1.40-6.50); %Eosinophils 1.7 % (0.0-10.0); %Lymphocytes 32.4 % (21.0-51.0); %Monocytes 11.7 % (0.0-10.0); %Neutrophils 53.2 % (42.0-75.0); Hemoglobin 8.7 g/dL (12.0-16.0); Mean Corpuscular Hemoglobin 30.5 pg (27.0-31.0); Mean Corpuscular Volume 89.6 fL (78.0-98.0); Mean Platelet Volume 7.2 fL (7.4-10.4); Platelet Count 209 thou/uL (130-400); RBC Distribution Width 15.2 % (11.5-14.5); Red Blood Cell (RBC) Count 2.85 mill/uL (4.20-5.40); White Blood Cell (WBC) Count 6.1 thou/uL (4.8-10.8)
[2020-02-17 03:40] LABS: Anion Gap 12 mmol/L (10-20); BUN (Urea Nitrogen) 16 mg/dL (9.8-20.1); Calc. Creatinine Clearance 106 mL/min (70-130); Calcium 7.2 mg/dL (7.8-10.44); Carbon Dioxide 12 mmol/L (23-31); Chloride 117 mmol/L (98-107); Estimated GFR-MDRD 70; Glucose 93 mg/dL (80-115); Potassium 3.9 mmol/L (3.5-5.1); Sodium 137 mmol/L (136-145)
[2020-02-17] MEDS: Potassium Chloride 20 MEQ in Lactated Ringer's 1,000 ML IV SCH ×3 (04:28→21:02)
[2020-02-17] MEDS ORDERED: EPINEPHrine 1 MG/ML AMP ONE (06:34)
[2020-02-17] MEDS ORDERED: Bupivacaine PF 0.5% 30 ML VIAL ONE (06:34)
[2020-02-17] MEDS ORDERED: Fentanyl 250 MCG/5 ML VIAL ONE (06:50)
[2020-02-17] MEDS: Pantoprazole 40 MG VIAL IVP SCH ×2 (07:31→21:02)
[2020-02-17] MEDS: Sodium Bicarbonate Tab 325 MG TAB PO SCH ×3 (07:31→21:03)
[2020-02-17] MEDS: Nystatin Ointment 15 GM TUBE TOP SCH ×2 (07:31→21:08)
[2020-02-17] MEDS: Potassium Chloride 20 MEQ TAB PO SCH ×3 (07:31→21:02)
[2020-02-17] MEDS: Folic Acid 1 MG TAB PO SCH (07:31)
[2020-02-17] MEDS ORDERED: Sodium Chloride 0.9% 20 ML ONE (07:54)
[2020-02-17] MEDS ORDERED: Fentanyl 100 MCG/2 ML VIAL ONE ×2 (09:57→10:54)
[2020-02-17] MEDS ORDERED: Ondansetron HCl/PF 4 MG/2 ML Vial IVP PRN ×2 (10:00→10:01)
[2020-02-17] MEDS ORDERED: Promethazine HCl 25 MG/ML VIAL IM PRN ×3 (10:00→10:04)
[2020-02-17] MEDS ORDERED: Promethazine HCl 25 MG/ML VIAL SLOW IVP PRN ×2 (10:00→10:01)
[2020-02-17] MEDS ORDERED: Fentanyl 100 MCG/2 ML VIAL SLOW IVP PRN (10:04)
[2020-02-17] MEDS ORDERED: Lidocaine 1% PF 5 ML VIAL ONE (10:51)
[2020-02-17] MEDS ORDERED: Glycopyrrolate 0.2 MG/ML 5 ML SYRINGE ONE (10:51)
[2020-02-17] MEDS ORDERED: Rocuronium Bromide 10 MG/ML (10ML VIAL) ONE (10:51)
[2020-02-17] MEDS ORDERED: Ondansetron PF 4 MG/2 ML Vial ONE (10:51)
[2020-02-17] MEDS ORDERED: PROPOFOL 200 MG/20 ML VIAL ONE (10:51)
[2020-02-17] MEDS ORDERED: Dexamethasone 20 MG/5 ML VIAL ONE (10:51)
--- NOTE | 2020-02-17 10:54 | PRG ---
DATE OF SERVICE: 02/17/2020 SUBJECTIVE: The patient was seen in the PACU. She required a full decortication on the left for loculated pleural effusion. She is having some pain. She was given fentanyl. She is better. OBJECTIVE: VITAL SIGNS: Temperature 98.8, pulse 98, blood pressure 117/77, and O2 saturation 96% on nasal cannula. HEENT: Unremarkable. NECK: No adenopathy or JVD. LUNGS: She has diminished breath sounds in the left base compared to right. She has chest tube on the left. CARDIAC: S1 and S2. Regular. ABDOMEN: Soft. EXTREMITIES: No edema. LABORATORY DATA: Sodium 137, potassium 3.9, chloride 117, CO2 of 12, BUN 16, creatinine 0.8, and glucose 70. White blood cell count 6.1, hematocrit 25.5, and platelet count 209. ASSESSMENT: 1. Left empyema. 2. Hyperchloremic metabolic acidosis. PLAN: 1. She is being placed in the ICU following decortication. We will need to follow her labs for non-anion gap metabolic acidosis. 2. She is currently on antibiotic coverage with Levaquin and Flagyl. We will follow. Job ID: [id number]
--- NOTE | 2020-02-17 10:57 | OP ---
DATE OF PROCEDURE: 02/17/2020 PREOPERATIVE DIAGNOSIS: Left empyema. POSTOPERATIVE DIAGNOSIS: Left empyema. PROCEDURES PERFORMED: Left thoracoscopy converted to thoracotomy for total pulmonary decortication, left subclavian central line. DRAINS: 24-Tongan chest tubes x2. TRANSFUSIONS: None. SPECIMENS: Cultures of the pleural fluid. DESCRIPTION OF PROCEDURE: The patient was brought to the operating room. She did not have an IV. The left chest wall was prepped and draped in usual sterile fashion. A 7-Tongan triple-lumen subclavian central line was placed using modified Seldinger technique. The line was secured with silk suture. There was good flush and flow at the line. The patient was then placed under general anesthesia. Double-lumen endotracheal tube positioning was confirmed. Her mainstem bronchi were very short and I was concerned that the bronchial balloon was not going to seat well with her in the lateral decubitus position. She was placed in the right lateral decubitus position. Bronchoscopy was performed again and the balloon was re-seated. The left lung was allowed to decompress. The left chest wall was prepped and draped in usual sterile fashion. A posterior skin incision was made and on inserting my finger, I could tell the lung was not deflated. I made a second incision anteriorly. I could not obtain good access and with the lungs being ventilated, we elected to convert to a thoracotomy. The posterior incision was extended anteriorly. Dissection to the latissimus was obtained with electrocautery. Ribs were spread with a Finochietto retractor. Using finger dissection, the suction and instrumentation, the lung was dissected free from the chest wall. The fissure was completed bluntly. The abscess cavity was located posterolaterally. This was entered and cultures taken. The cavity was unroofed and the parietal pleura removed from this area. Once the lung was completely freed up, the chest was copiously irrigated. Two 24-Tongan Jewel drains were placed. The lung was expanded and filled the cavity nicely. Pericostal rib block was performed with 0.5% Marcaine. Ribs reapproximated with #1 Vicryl. Wounds were irrigated, infiltrated with 0.5% Marcaine and closed in layers. Dermabond was applied to the skin. The patient tolerated the procedure well, was transferred to the recovery room in stable condition. Job ID: [id number]
--- NOTE | 2020-02-17 11:12 | RAD ---
XR Chest 1 View Portable HISTORY: Status post thoracotomy COMPARISON: 02/13/2020 FINDINGS: There is been interval placement of left-sided chest tubes. No pneumothorax is seen. A left -sided central venous catheter is in place with tip in the projection of the SVC.
[2020-02-17] MEDS ORDERED: Promethazine HCl 25 MG/ML VIAL ONE (11:22)
[2020-02-17] MEDS: Sodium Chloride 0.45% 1,000 ML IV SCH ×2 (12:53→22:15)
[2020-02-17] MEDS: Fentanyl 100 MCG/2 ML VIAL SLOW IVP PRN ×2 (12:55→15:47)
--- NOTE | 2020-02-17 13:23 | PDOC.HOSPP ---
- Subjective Encounter Date: 02/17/20 Encounter Time: 10:45 Subjective: s/p decortication, CT placement. in the UNit now. abscess drain, partial pleura removal posterolateral, open thoracotomy- cutures sent. - Objective Vital Signs & Weight: Vital Signs (12 hours) Temp Pulse Ox 02/17/20 12:40 97.8 F 02/17/20 11:30 100 02/17/20 07:52 98 02/17/20 07:25 98.8 F 02/17/20 03:37 98.1 F Weight Admit Weight 218 lb 0.595 oz Weight 208 lb 1 oz Most Recent Monitor Data Heart Rate from ECG 77 NIBP 107/67 NIBP BP-Mean 80 Respiration from ECG 16 SpO2 100 I&O: 02/16/20 02/17/20 02/18/20 06:59 06:59 06:59 Intake Total 1600 480 50 Output Total 150 600 130 Balance 1450 -120 -80 Result Diagrams: 02/17/20 02:58 02/17/20 02:58 Hospitalist ROS - Medication Medications: Active Medications Generic Name Dose Route Start Last Admin Trade Name Freq PRN Reason Stop Dose Admin Diphenoxylate HCl/Atropine 1 tab 02/13/20 10:25 02/16/20 20:05 Lomotil PO 1 tab TIDPRN PRN Administration Diarrhea/Loose Stools Fentanyl 50 mcg 02/17/20 10:04 02/17/20 12:55 Sublimaze SLOW IVP 50 mcg Q2H PRN Administration Severe Pain (7-10) Folic Acid 1 mg 02/14/20 09:00 02/17/20 07:31 Folvite PO Not Given DAILY AISHA Metronidazole 500 mg/ Device 100 mls @ 100 mls/hr 02/13/20 02:00 02/17/20 07: 33 IVPB Not Given 0200,1000,1800 AISHA Potassium Chloride 20 meq/ 1,010 mls @ 125 mls/hr 02/16/20 12:00 02/17/20 13: 11 Lactated Ringer's IV 1,010 mls .Q8H5M AISHA Administration Sodium Chloride 1,000 mls @ 100 mls/hr 02/17/20 12:00 02/17/20 12:53 1/2 Normal Saline IV Not Given .Q10H AISHA Levofloxacin 500 mg 02/17/20 06:00 06/15/20 06:31 Levaquin PO 500 mg 0600 AISHA Administration Nystatin 0 gm 02/13/20 21:00 02/17/20 07:31 Mycostatin Ointment TOP Not Given BID AISHA Ondansetron HCl 4 mg 02/13/20 00:51 02/15/20 22:54 Zofran IVP 4 mg Q6H PRN Administration Nausea/Vomiting Ondansetron HCl 4 mg 02/13/20 10:25 02/16/20 20:06 Zofran Odt PO 4 mg Q6H PRN Administration Nausea/Vomiting Pantoprazole Sodium 40 mg 02/13/20 09:00 02/17/20 07:31 Protonix IVP Not Given Q12HR [facility] Potassium Chloride 40 meq 02/13/20 21:00 02/17/20 07:31 K-Dur PO Not Given TID [facility] Sodium Bicarbonate 650 mg 02/16/20 15:00 02/17/20 07:31 Bicarbonate, Sodium PO Not Given TID [facility] Sodium Chloride 10 ml 02/13/20 00:51 02/15/20 20:55 Flush - Normal Saline IVF 10 ml PRN PRN Administration Saline Flush Sodium Chloride 10 ml 02/13/20 01:17 02/14/20 08:14 Normal Saline Pf FS 10 ml PRN PRN Administration RECONSTITUTION - Exam General Appearance: NAD, awake alert Eye: PERRL ENT: normocephalic atraumatic Neck: supple Heart: RRR Respiratory: no wheezes, normal chest expansion, no tachypnea Respiratory - other findings: CT plaement on the left Gastrointestinal: soft, normal bowel sounds Neurological: no focal deficits Psychiatric: A&O x 3 Hosp A/P - Plan Note edited to reflect today's care of plan. CT chest: loculated fluid collection along posterior left lowre chest extending to left gutter posteriorly. Associated left lower lobe atelectasis and or infiltrate. Enlarged left lobe of thyroid with substernal extension, dominant thyroid mass involving the left lobe. 59 year old female who presented with supratherapeutic INR, GI bleed, and anemia. She was also incidentally found to have a loculated effusion Rectal bleeding secondary to supratherapeutic INR Likely diverticular bleed Sigmoid diverticulosis Supratherapeutic INR -s/p FFP, vitamin K - GI on board -s-table Hgb at 9.4---> 8.9 /sp transfusion Anemia,chronic - iron panel normal Loculated pleural effusion left side LLL empyema - CT surgery . Plan for thoracoscopy on Monday -will hold coumadin Thyroid nodules - noted on US on 01/2020, s/p normal biopsy DVT/Afib - reports IV filter in right leg. - on coumadin, INR 1.6 Hypokalemia -resolved Hyperchloremic metabolic acidosis chronic and poss diarrhea contributing as well - chloride 115, bicarb 9 --NaHCO3 added+lactated ringers --improving DVT prophylaxis: holding Code status: full code GI, CTS and renal on board. left loculated pl effusion/empyema s/p decortication, CT placement. open thoracotomy - abscess drain, partial pleura removal posterolateral, - foll.. cutures - on flagyl and LQ. -routine labs.
[2020-02-17 14:40] LABS: Bacteria/HPF None Seen HPF (None Seen); Bilirubin Negative (Negative); Blood, Urine 2+ (Negative); Clarity Turbid (Clear); Glucose, Urine (Dipstick) Normal (Negative); Leukocyte Negative Leu/uL (Negative); Nitrite Negative (Negative); Protein, Urine (Dipstick) 70 mg/dL (Neg-Trace); Squamous Epithelial 0-3 HPF (0-3); Urobilinogen Normal mg/dL (Less than 2)
--- NOTE | 2020-02-17 17:00 | EKG ---
Test Reason : STAT Blood Pressure : / mmHG Vent. Rate : 143 BPM Atrial Rate : 131 BPM P-R Int : 000 ms QRS Dur : 076 ms QT Int : 276 ms P-R-T Axes : 000 082 205 degrees QTc Int : 425 ms Atrial fibrillation with rapid ventricular response Nonspecific ST and T wave abnormality Abnormal ECG Confirmed by CHANDLER KHAN ([id number]) on 02/17/2020 4:59:46 PM Referred By: LUIS F Confirmed By:CHANDLER KHAN
[2020-02-17] MEDS: Acetaminophen 325 MG TAB PO PRN (17:09)
[2020-02-17] MEDS: Morphine 4 MG/ML VIAL SLOW IVP PRN (17:10)
[2020-02-17] MEDS: Morphine 2 MG/ML SYRINGE SLOW IVP PRN (21:00)
[2020-02-18] MEDS: Fentanyl 100 MCG/2 ML VIAL SLOW IVP PRN ×5 (00:53→18:04)
[2020-02-18] MEDS: metroNIDAZOLE 500 MG in Premix Bag 1 BAG IVPB SCH ×3 (01:01→18:08)
[2020-02-18] MEDS: Morphine 4 MG/ML VIAL SLOW IVP PRN ×2 (03:45→20:37)
[2020-02-18 03:48] LABS: #Basophils 0.1 thou/uL (0.0-0.2); #Lymphocytes 2.2 thou/uL (1.20-3.40); #Neutrophils 6.5 thou/uL (1.40-6.50); %Basophils 0.7 % (0.0-1.0); %Eosinophils 0.1 % (0.0-10.0); %Lymphocytes 22.3 % (21.0-51.0); %Monocytes 10.2 % (0.0-10.0); %Neutrophils 66.7 % (42.0-75.0); Hemoglobin 8.5 g/dL (12.0-16.0); Mean Corpuscular HGB CONC 33.2 g/dL (32.0-36.0); Mean Corpuscular Hemoglobin 29.8 pg (27.0-31.0); Mean Corpuscular Volume 89.7 fL (78.0-98.0); Mean Platelet Volume 7.1 fL (7.4-10.4); Platelet Count 223 thou/uL (130-400); RBC Distribution Width 15.7 % (11.5-14.5); Red Blood Cell (RBC) Count 2.86 mill/uL (4.20-5.40); White Blood Cell (WBC) Count 9.7 thou/uL (4.8-10.8)
[2020-02-18] MEDS: Ondansetron PF 4 MG/2 ML Vial IVP PRN ×2 (06:17→11:47)
[2020-02-18] MEDS: Potassium Chloride 20 MEQ in Lactated Ringer's 1,000 ML IV SCH ×2 (06:41→16:22)
--- NOTE | 2020-02-18 07:56 | PRG ---
DATE OF SERVICE: 02/18/2020 SUBJECTIVE: The patient is doing well postop from decortication yesterday. She has some tenderness at her incision site. OBJECTIVE: VITAL SIGNS: Temperature 98.5, pulse 104, pressure 117/67, O2 saturation 96%. HEENT: Unremarkable. NECK: No adenopathy or JVD. LUNGS: Clear anteriorly. CARDIOVASCULAR: S1, S2. Regular. ABDOMEN: Soft. EXTREMITIES: Trace edema in her leg region. LABORATORY DATA: White blood cell count 9.7, hematocrit 25.7, and platelet count 223. IMAGING STUDIES: Chest x-ray has expected findings, some left lower lobe atelectasis. Two chest tubes in place. ASSESSMENT: Status post decortication of a left-sided empyema. PLAN: The patient is continuing Levaquin and metronidazole. Up in the chair as tolerated, can be moved to the medical or surgical floor, Dr. Martinez feels as appropriate. Job ID: [id number]
--- NOTE | 2020-02-18 08:07 | RAD ---
RADIOGRAPH CHEST 1 VIEW: DATE: 02/18/2020 TIME: 4:57 AM HISTORY: 59-year-old female status post thoracotomy follow-up COMPARISON: 02/17/2020 FINDINGS: 2 left-sided chest tubes adjacent to each other. Left subclavian central venous catheter. Lung apices are excluded from the [id number]-sryg making it difficult to evaluate for tiny pneumothorax. There is no moderate sized or large pneumothorax. Inspiration is shallower on the current study compared to the previous, which may be responsible for the greater diffuse haziness of the left lung now compared to previous. Right lung remains clear. Small patchy airspace densities, one at left upper jessica ng zone and one at left lower-midlung zone. Left pleural effusion unchanged. IMPRESSION: Other than shallower inspiration, there is probably no interval change overall
[2020-02-18] MEDS: Potassium Chloride 20 MEQ TAB PO SCH (08:33)
[2020-02-18] MEDS: Folic Acid 1 MG TAB PO SCH (08:34)
[2020-02-18] MEDS: Pantoprazole 40 MG VIAL IVP SCH ×2 (08:34→20:36)
[2020-02-18] MEDS: Nystatin Ointment 15 GM TUBE TOP SCH ×2 (08:34→20:44)
[2020-02-18] MEDS: Sodium Bicarbonate Tab 325 MG TAB PO SCH ×3 (09:36→20:42)
--- NOTE | 2020-02-18 14:12 | PDOC.HOSPP ---
- Subjective Encounter Date: 02/18/20 Encounter Time: 12:00 Subjective: pt feels ok, states no blood thinner, CT still draining, achycadiac on the mnoitor, nasueated. d/w RN. will replace K from PO to be in IVF. - Objective Vital Signs & Weight: Vital Signs (12 hours) Temp Pulse Resp Pulse Ox 02/18/20 13:06 118 H 20 02/18/20 08:34 117 H 21 H 92 L 02/18/20 08:00 98.1 F 02/18/20 07:46 95 02/18/20 04:00 98.5 F Weight Admit Weight 218 lb 0.595 oz Weight 227 lb 1.218 oz Most Recent Monitor Data Heart Rate from ECG 114 NIBP 93/57 NIBP BP-Mean 69 Respiration from ECG 20 SpO2 90 I&O: 02/17/20 02/18/20 02/19/20 06:59 06:59 06:59 Intake Total 480 2979 120 Output Total 600 906 345 Balance -120 2073 -225 Result Diagrams: 02/18/20 03:25 02/17/20 02:58 Hospitalist ROS - Medication Medications: Active Medications Generic Name Dose Route Start Last Admin Trade Name Freq PRN Reason Stop Dose Admin Acetaminophen 650 mg 02/13/20 10:25 02/17/20 17:09 Tylenol PO 650 mg Q6H PRN Administration Fever/Mild Pain Albuterol/Ipratropium 3 ml 02/18/20 07:00 02/18/20 13:06 Duoneb EZPAP 3 ml [id number] AISHA Administration Diphenoxylate HCl/Atropine 1 tab 02/13/20 10:25 02/16/20 20:05 Lomotil PO 1 tab TIDPRN PRN Administration Diarrhea/Loose Stools Fentanyl 50 mcg 02/17/20 10:04 02/18/20 11:45 Sublimaze SLOW IVP 50 mcg Q2H PRN Administration Severe Pain (7-10) Folic Acid 1 mg 02/14/20 09:00 02/18/20 08:34 Folvite PO 1 mg DAILY AISHA Administration Metronidazole 500 mg/ Device 100 mls @ 100 mls/hr 02/13/20 02:00 02/18/20 09: 37 IVPB 100 mls 0200,1000,1800 AISHA Administration Potassium Chloride 20 meq/ 1,010 mls @ 125 mls/hr 02/16/20 12:00 02/18/20 06: 41 Lactated Ringer's IV 1,010 mls .Q8H5M AISHA Administration Levofloxacin 500 mg 02/17/20 06:00 02/18/20 06:15 Levaquin PO 500 mg 0600 AISHA Administration Morphine Sulfate 2 mg 02/17/20 10:04 02/17/20 21:00 Morphine SLOW IVP 2 mg Q4H PRN Administration Moderate Pain (4-6) Morphine Sulfate 4 mg 02/17/20 10:04 02/18/20 03:45 Morphine SLOW IVP 4 mg Q4H PRN Administration Severe Pain (7-10) Nystatin 0 gm 02/13/20 21:00 02/18/20 08:34 Mycostatin Ointment TOP 1 applic BID AISHA Administration Ondansetron HCl 4 mg 02/13/20 00:51 02/18/20 11:47 Zofran IVP 4 mg Q6H PRN Administration Nausea/Vomiting Ondansetron HCl 4 mg 02/13/20 10:25 02/16/20 20:06 Zofran Odt PO 4 mg Q6H PRN Administration Nausea/Vomiting Pantoprazole Sodium 40 mg 02/13/20 09:00 02/18/20 08:34 Protonix IVP 40 mg Q12HR AISHA Administration Sodium Bicarbonate 650 mg 02/16/20 15:00 02/18/20 09:36 Bicarbonate, Sodium PO 650 mg TID AISHA Administration Sodium Chloride 10 ml 02/13/20 00:51 02/15/20 20:55 Flush - Normal Saline IVF 10 ml PRN PRN Administration Saline Flush Sodium Chloride 10 ml 02/13/20 01:17 02/14/20 08:14 Normal Saline Pf FS 10 ml PRN PRN Administration RECONSTITUTION - Exam General Appearance: ill appearing General - other findings: left sided CT with drains Eye: PERRL ENT: normocephalic atraumatic Neck: supple Heart: RRR Respiratory: CTAB, normal chest expansion, rales, rhonchi Gastrointestinal: soft, normal bowel sounds Neurological: no focal deficits Hosp A/P - Plan Note edited to reflect today's care of plan. CT chest: loculated fluid collection along posterior left lowre chest extending to left gutter posteriorly. Associated left lower lobe atelectasis and or infiltrate. Enlarged left lobe of thyroid with substernal extension, dominant thyroid mass involving the left lobe. 59 year old female who presented with supratherapeutic INR, GI bleed, and anemia. She was also incidentally found to have a loculated effusion Rectal bleeding secondary to supratherapeutic INR Likely diverticular bleed Sigmoid diverticulosis Supratherapeutic INR -s/p FFP, vitamin K - GI on board -s-table Hgb at 9.4---> 8.9 /sp transfusion Anemia,chronic - iron panel normal Loculated pleural effusion left side LLL empyema - CT surgery . Plan for thoracoscopy on Monday -will hold coumadin Thyroid nodules - noted on US on 01/2020, s/p normal biopsy DVT/Afib - reports IV filter in right leg. - on coumadin, INR 1.6 coumadin on hold. Hypokalemia -resolved Hyperchloremic metabolic acidosis chronic and poss diarrhea contributing as well - chloride 115, bicarb 9 --NaHCO3 added+lactated ringers --improving DVT prophylaxis: holding Code status: full code GI, CTS and renal on board. left loculated pl effusion/empyema s/p decortication, CT placement. open thoracotomy - abscess drain, partial pleura removal posterolateral, - foll.. cutures --------->few wbcs, many rbcs and no orgm.. - on flagyl and LQ. -routine labs. pt feels that she does not want to take any more blood thinner. as above hx of DVt and afib and was on coumadin , which was on hold for the procedure.
--- NOTE | 2020-02-18 17:52 | PRG ---
DATE OF SERVICE: 02/18/2020 SUBJECTIVE: Ms. Mack is doing better. She recently underwent chest tube placement for empyema. Heart rate appears to be mildly elevated. Blood pressure also low. Her hemoglobin has remained stable at 8.5. She has not had recent INR. OBJECTIVE: VITAL SIGNS: Blood pressure 90/56, pulse 105, and temperature afebrile. LUNGS: Decreased breath sounds on the left versus right. HEART: Regular rate and rhythm. Tachycardic. ABDOMEN: Soft, nontender, and nondistended. EXTREMITIES: No edema. IMPRESSION: 1. Previous deep vein thrombosis. 2. Supratherapeutic INR. 3. Hypotension. RECOMMENDATIONS: Overall LVEF does appear normal. There are limited views. Would continue with IV fluids. Symptoms may be related to infection and continue antibiotic therapy. Otherwise, we will continue supportive care. Job ID: [id number]
[2020-02-18] MEDS ORDERED: Digoxin 0.5 MG/2 ML AMP SLOW IVP SCH (21:30)
[2020-02-19] MEDS ORDERED: Sodium Chloride 0.9% 250 ML IV SCH (00:15)
[2020-02-19] MEDS: Fentanyl 100 MCG/2 ML VIAL SLOW IVP PRN (00:21)
[2020-02-19] MEDS: metroNIDAZOLE 500 MG in Premix Bag 1 BAG IVPB SCH ×3 (02:16→17:58)
[2020-02-19] MEDS: Ondansetron PF 4 MG/2 ML Vial IVP PRN ×3 (02:17→20:21)
[2020-02-19] MEDS: Potassium Chloride 20 MEQ in Lactated Ringer's 1,000 ML IV SCH ×5 (02:25→19:58)
[2020-02-19] MEDS: NS 0.9% w/ 40 MEQ KCL 100 ML IV SCH ×2 (02:28→02:29)
[2020-02-19] MEDS: Acetaminophen 325 MG TAB PO PRN (04:05)
[2020-02-19] MEDS ORDERED: Digoxin 0.5 MG/2 ML AMP SLOW IVP SCH (04:15)
[2020-02-19] MEDS ORDERED: Ketorolac Tromethamine 30 MG/ML VIAL IVP SCH (04:30)
[2020-02-19] MEDS ORDERED: Metoprolol Tartrate 5 MG/5 ML VIAL IVP SCH (04:30)
[2020-02-19 04:56] LABS: #Lymphocytes 2.4 thou/uL (1.20-3.40); #Monocytes 1.1 thou/uL (0.11-0.59); #Neutrophils 7.4 thou/uL (1.40-6.50); %Basophils 0.2 % (0.0-1.0); %Eosinophils 0.2 % (0.0-10.0); %Monocytes 10.1 % (0.0-10.0); %Neutrophils 67.5 % (42.0-75.0); Hemoglobin 8.1 g/dL (12.0-16.0); Mean Corpuscular HGB CONC 32.4 g/dL (32.0-36.0); Mean Corpuscular Hemoglobin 29.5 pg (27.0-31.0); Mean Platelet Volume 7.3 fL (7.4-10.4); Platelet Count 199 thou/uL (130-400); RBC Distribution Width 16.3 % (11.5-14.5); Red Blood Cell (RBC) Count 2.73 mill/uL (4.20-5.40); White Blood Cell (WBC) Count 10.9 thou/uL (4.8-10.8)
[2020-02-19 05:11] LABS: Anion Gap 11 mmol/L (10-20); BUN (Urea Nitrogen) 9 mg/dL (9.8-20.1); Calc. Creatinine Clearance 125 mL/min (70-130); Calcium 7.1 mg/dL (7.8-10.44); Carbon Dioxide 18 mmol/L (23-31); Chloride 109 mmol/L (98-107); Estimated GFR-MDRD 76; Glucose 96 mg/dL (80-115); Potassium 4.3 mmol/L (3.5-5.1); Sodium 134 mmol/L (136-145)
[2020-02-19] MEDS ORDERED: traMADol HCl 50 MG TAB PO PRN (06:13)
--- NOTE | 2020-02-19 07:46 | PRG ---
DATE OF SERVICE: 02/19/2020 SUBJECTIVE: The patient is doing quite well, has no complaints at this time. OBJECTIVE: VITAL SIGNS: Temperature 98.8, pulse 120 and 140, blood pressure 97/57. 24-hour intake 3131, output 1870. HEENT: Unremarkable. NECK: No adenopathy or JVD. CARDIAC: S1 and S2. Irregularly irregular. Tachycardic. LUNGS: Clear. ABDOMEN: Soft and nontender. EXTREMITIES: No clubbing, cyanosis, or edema. LABORATORY DATA: White blood cell count 10.9, hematocrit 24.9, and platelet count 199. Sodium 134, potassium 4.3, chloride 109, CO2 of 18, BUN 9, creatinine 0.7, and glucose 96. Micro culture showed no new growth today. ASSESSMENT: 1. Status post decortication for empyema. 2. Atrial fibrillation with rapid ventricular response. 3. Transient hypotension-currently followed by Cardiology. PLAN: 1. The patient is currently on IV antibiotics. She will need to be on antibiotics for about 10 days, but does not necessarily need to be on IV antibiotics. 2. Atrial fibrillation management per Cardiology. We will follow. Job ID: [id number]
--- NOTE | 2020-02-19 08:09 | RAD ---
EXAM: Single view of the chest HISTORY: Status post thoracotomy COMPARISON: 02/18/2020 FINDINGS: Single view of the chest shows an enlarged but stable cardiomediastinal silhouette. The li carmenza and tubes are unchanged in position. There is opacity in the left thorax, which may represent a pleural effusion and adjacent atelectasis. A calcified granuloma projects over the right lower lobe . The bones are unremarkable. IMPRESSION: Stable exam
[2020-02-19] MEDS: Folic Acid 1 MG TAB PO SCH (08:35)
[2020-02-19] MEDS: Sodium Bicarbonate Tab 325 MG TAB PO SCH ×3 (08:35→21:58)
[2020-02-19] MEDS: Pantoprazole 40 MG VIAL IVP SCH ×2 (08:35→20:24)
[2020-02-19] MEDS: Nystatin Ointment 15 GM TUBE TOP SCH ×2 (08:36→20:27)
[2020-02-19] MEDS ORDERED: Calcium Gluc 4.6 MEQ/10 ML (100 MG/ML) SLOW IVP ONE (09:02)
[2020-02-19] MEDS ORDERED: Calcium Gluconate 4.6 MEQ in Sodium Chloride 0.9% 100 ML IVPB SCH (09:30)
[2020-02-19] MEDS ORDERED: Magnesium Sulfate 2 GM in Sodium Chloride 0.9% 100 ML IVPB SCH (10:00)
[2020-02-19] MEDS ORDERED: Magnesium Sulfate 3 GM in Sodium Chloride 0.9% 100 ML IVPB SCH (10:15)
--- NOTE | 2020-02-19 10:20 | PRG ---
DATE OF SERVICE: 02/19/2020 SUBJECTIVE: Ms. Mack is doing okay. She is having short runs of atrial fibrillation. She did undergo a thoracotomy a couple of days ago. Blood pressure is in the high 70s now, but she has been sitting up in the bedside commode. She is now back in bed. OBJECTIVE: LUNGS: Clear. HEART: Tachycardic. ABDOMEN: Soft and nontender. EXTREMITIES: No edema. ASSESSMENT: 1. Paroxysmal atrial fibrillation. 2. Intermittent sinus tachycardia. 3. Postoperative status. 4. Hypomagnesemia. PLAN: Continue to replete magnesium. No other changes at this time. Job ID: [id number]
[2020-02-19] MEDS: traMADol HCl 50 MG TAB PO PRN ×2 (13:11→19:59)
--- NOTE | 2020-02-19 13:31 | PDOC.HOSPP ---
- Subjective Encounter Date: 02/19/20 Encounter Time: 12:20 Subjective: lethargic, but AOx3- says that she is tired, but doing ok. talk to RN. BP on the low side, sinus fo rth most part and some PVCs in the monitor. CT still draining. HCO3 improved, consistent low Ac, so checked mag levela nd it is sig'ly low. will replace both. - Objective Vital Signs & Weight: Vital Signs (12 hours) Temp Pulse Resp Pulse Ox 02/19/20 12:48 99 19 97 02/19/20 08:00 98.4 F 94 L 02/19/20 07:59 113 H 21 H 94 L 02/19/20 04:11 140 H 02/19/20 04:00 98.8 F Weight Admit Weight 218 lb 0.595 oz Weight 214 lb 4.629 oz Most Recent Monitor Data Heart Rate from ECG 104 NIBP 81/59 NIBP BP-Mean 66 Respiration from ECG 19 SpO2 96 I&O: 02/18/20 02/19/20 02/20/20 06:59 06:59 06:59 Intake Total 2979 3131 Output Total 906 1870 73 Balance 2073 1261 -73 Result Diagrams: 02/19/20 04:35 02/19/20 04:35 Hospitalist ROS - Medication Medications: Active Medications Generic Name Dose Route Start Last Admin Trade Name Freq PRN Reason Stop Dose Admin Acetaminophen 650 mg 02/13/20 10:25 02/19/20 04:05 Tylenol PO 650 mg Q6H PRN Administration Fever/Mild Pain Albuterol/Ipratropium 3 ml 02/18/20 07:00 02/19/20 12:48 Duoneb EZPAP 3 ml [id number] AISHA Administration Diphenoxylate HCl/Atropine 1 tab 02/13/20 10:25 02/16/20 20:05 Lomotil PO 1 tab TIDPRN PRN Administration Diarrhea/Loose Stools Fentanyl 50 mcg 02/17/20 10:04 02/19/20 00:21 Sublimaze SLOW IVP 50 mcg Q2H PRN Administration Severe Pain (7-10) Folic Acid 1 mg 02/14/20 09:00 02/19/20 08:35 Folvite PO 1 mg DAILY AISHA Administration Metronidazole 500 mg/ Device 100 mls @ 100 mls/hr 02/13/20 02:00 02/19/20 08: 36 IVPB 100 mls 0200,1000,1800 AISHA Administration Potassium Chloride 20 meq/ 1,010 mls @ 125 mls/hr 02/16/20 12:00 02/19/20 05: 25 Lactated Ringer's IV Not Given .Q8H5M AISHA Magnesium Sulfate 3 gm/ Sodium 106 mls @ 100 mls/hr 02/19/20 10:15 02/19/20 11:30 Chloride IVPB 02/19/20 15:00 106 mls NOW AISHA Administration Levofloxacin 500 mg 02/17/20 06:00 02/19/20 05:24 Levaquin PO 500 mg 0600 AISHA Administration Morphine Sulfate 2 mg 02/17/20 10:04 02/17/20 21:00 Morphine SLOW IVP 2 mg Q4H PRN Administration Moderate Pain (4-6) Morphine Sulfate 4 mg 02/17/20 10:04 02/18/20 20:37 Morphine SLOW IVP 4 mg Q4H PRN Administration Severe Pain (7-10) Nystatin 0 gm 02/13/20 21:00 02/19/20 08:36 Mycostatin Ointment TOP 1 applic BID AISHA Administration Ondansetron HCl 4 mg 02/13/20 00:51 02/19/20 11:30 Zofran IVP 4 mg Q6H PRN Administration Nausea/Vomiting Ondansetron HCl 4 mg 02/13/20 10:25 02/16/20 20:06 Zofran Odt PO 4 mg Q6H PRN Administration Nausea/Vomiting Pantoprazole Sodium 40 mg 02/13/20 09:00 02/19/20 08:35 Protonix IVP 40 mg Q12HR AISHA Administration Sodium Bicarbonate 650 mg 02/16/20 15:00 02/19/20 08:35 Bicarbonate, Sodium PO 650 mg TID IASHA Administration Sodium Chloride 10 ml 02/13/20 00:51 02/19/20 08:35 Flush - Normal Saline IVF 10 ml PRN PRN Administration Saline Flush Sodium Chloride 10 ml 02/13/20 01:17 02/14/20 08:14 Normal Saline Pf FS 10 ml PRN PRN Administration RECONSTITUTION Tramadol HCl 100 mg 02/19/20 06:13 02/19/20 13:11 Ultram PO 100 mg Q6H PRN Administration Severe Pain (7-10) - Exam General Appearance: NAD, awake alert Eye: PERRL ENT: normocephalic atraumatic Neck: supple Heart: RRR Respiratory: CTAB, normal chest expansion Respiratory - other findings: CT draining Gastrointestinal: soft, normal bowel sounds Neurological: no focal deficits Psychiatric: A&O x 3 Hosp A/P - Plan Note edited to reflect today's care of plan. CT chest: loculated fluid collection along posterior left lowre chest extending to left gutter posteriorly. Associated left lower lobe atelectasis and or infiltrate. Enlarged left lobe of thyroid with substernal extension, dominant thyroid mass involving the left lobe. 59 year old female who presented with supratherapeutic INR, GI bleed, and anemia. She was also incidentally found to have a loculated effusion Rectal bleeding secondary to supratherapeutic INR Likely diverticular bleed Sigmoid diverticulosis Supratherapeutic INR -s/p FFP, vitamin K - GI on board -s-table Hgb at 9.4---> 8.9 /sp transfusion Anemia,chronic - iron panel normal Loculated pleural effusion left side LLL empyema - CT surgery . Plan for thoracoscopy on Monday -will hold coumadin Thyroid nodules - noted on US on 01/2020, s/p normal biopsy DVT/Afib - reports IV filter in right leg. - on coumadin, INR 1.6 coumadin on hold. Hypokalemia -resolved Hyperchloremic metabolic acidosis chronic and poss diarrhea contributing as well - chloride 115, bicarb 9 --NaHCO3 added+lactated ringers --improving DVT prophylaxis: holding Code status: full code GI, CTS and renal on board. left loculated pl effusion/empyema s/p decortication, CT placement. open thoracotomy - abscess drain, partial pleura removal posterolateral, - foll.. cutures --------->few wbcs, many rbcs and no orgm.. - on flagyl and LQ. -routine labs. pt feels that she does not want to take any more blood thinner. as above hx of DVt and afib and was on coumadin , which was on hold for the procedure. BP on the low side, [not on any blockers]. sinus for the most part and some PVCs in the monitor. CT still draining. HCO3 improved, consistent low Ac, so checked mag level and it is sig'ly low. will replace both.
--- NOTE | 2020-02-19 19:22 | EKG ---
Test Reason : STAT Blood Pressure : / mmHG Vent. Rate : 153 BPM Atrial Rate : 153 BPM P-R Int : 000 ms QRS Dur : 074 ms QT Int : 346 ms P-R-T Axes : 000 -13 180 degrees QTc Int : 552 ms A fib with PVC Low voltage QRS Possible Anterolateral infarct , age undetermined Nonspecific ST-T changes Abnormal ECG When compared with ECG of 14-FEB-2020 22:11, Sinus rhythm has replaced Atrial fibrillation Borderline criteria for Anterior infarct are now Present Borderline criteria for Anterolateral infarct are now Present Nonspecific T wave abnormality, worse in Anterolateral leads Confirmed by DR. Chester COLUNGA ([id number]) on 02/19/2020 7:21:50 PM Referred By: Confirmed By:DR. Chester COLUNGA
[2020-02-20] MEDS: traMADol HCl 50 MG TAB PO PRN ×2 (01:39→15:30)
[2020-02-20] MEDS: Potassium Chloride 20 MEQ in Lactated Ringer's 1,000 ML IV SCH (01:40)
[2020-02-20] MEDS: metroNIDAZOLE 500 MG in Premix Bag 1 BAG IVPB SCH ×3 (01:40→19:54)
[2020-02-20 04:04] LABS: Anion Gap 12 mmol/L (10-20); BUN (Urea Nitrogen) 10 mg/dL (9.8-20.1); Calc. Creatinine Clearance 118 mL/min (70-130); Calcium 7.1 mg/dL (7.8-10.44); Carbon Dioxide 17 mmol/L (23-31); Chloride 108 mmol/L (98-107); Estimated GFR-MDRD 76; Glucose 83 mg/dL (80-115); Magnesium 1.2 mg/dL (1.6-2.6); Potassium 4.9 mmol/L (3.5-5.1); Sodium 132 mmol/L (136-145)
[2020-02-20] MEDS: Fentanyl 100 MCG/2 ML VIAL SLOW IVP PRN (05:15)
[2020-02-20] MEDS: Ondansetron PF 4 MG/2 ML Vial IVP PRN ×2 (05:15→19:56)
[2020-02-20] MEDS: Folic Acid 1 MG TAB PO SCH (08:25)
--- NOTE | 2020-02-20 08:30 | RAD ---
PORTABLE CHEST: DATE: 02/20/2020. PROVIDED CLINICAL HISTORY: Status post thoracotomy. FINDINGS: Comparison 02/19/2020. Significant interval change with respect to the prior examination is not appar ent. IMPRESSION: As above. POS: ELVIRA
[2020-02-20] MEDS: Nystatin Ointment 15 GM TUBE TOP SCH ×2 (08:41→19:56)
--- NOTE | 2020-02-20 09:11 | PRG ---
DATE OF SERVICE: 02/20/2020 SUBJECTIVE: The patient had her chest tubes pulled and she is being transferred out to the floor. She is doing well. She has no acute complaints other than sore buttocks. OBJECTIVE: VITAL SIGNS: Temperature 98.3, pulse 80, blood pressure 115/67, O2 saturation 99%. HEENT: Unremarkable. NECK: No adenopathy or JVD. CHEST: Clear. CARDIAC: S1, S2. Regular. ABDOMEN: Soft. EXTREMITIES: Trace edema in the legs. LABORATORY AND DIAGNOSTIC STUDIES: Her chest x-ray shows no change. Labs: Sodium 132, potassium 4.9, BUN 10, creatinine 0.7, glucose 83. ASSESSMENT: Status post decortication for left-sided empyema. PLAN: The patient is being transferred to the floor, mainly rehabilitative issue at this point. Job ID: [id number]
[2020-02-20] MEDS: Sodium Bicarbonate Tab 325 MG TAB PO SCH ×3 (09:22→19:55)
[2020-02-20] MEDS ORDERED: Magnesium Sulfate 3 GM in Sodium Chloride 0.9% 100 ML IVPB SCH (10:00)
[2020-02-20 13:32] VITALS: BMI 36.5
[2020-02-20] MEDS: Diphenoxylate HCl/Atropine Tablet PO PRN (15:29)
--- NOTE | 2020-02-20 16:38 | PDOC.HOSPP ---
- Subjective Encounter Date: 02/20/20 Encounter Time: 12:45 Subjective: off the chest tube, stable, talk to RN, ok to transfer to tele, if CCM agreeable. - Objective Vital Signs & Weight: Vital Signs (12 hours) Temp Pulse Pulse Pulse Resp BP BP 02/20/20 14:42 105 H 20 02/20/20 12:00 98.1 F 02/20/20 11:50 112 H 101 H 133/83 100/60 02/20/20 08:29 95 14 02/20/20 08:00 98.3 F Pulse Ox Pulse Ox Pulse Ox 02/20/20 14:42 02/20/20 12:00 02/20/20 11:50 97 98 02/20/20 08:29 02/20/20 08:00 98 Weight Admit Weight 208 lb Weight 219 lb 5.759 oz Most Recent Monitor Data Heart Rate from ECG 94 NIBP 133/83 NIBP BP-Mean 99 Respiration from ECG 18 SpO2 97 I&O: 02/19/20 02/20/20 02/21/20 06:59 06:59 06:59 Intake Total 3131 2564 717 Output Total 1870 644 245 Balance 1261 1920 472 Result Diagrams: 02/19/20 04:35 02/20/20 03:39 Hospitalist ROS - Medication Medications: Active Medications Generic Name Dose Route Start Last Admin Trade Name Freq PRN Reason Stop Dose Admin Acetaminophen 650 mg 02/13/20 10:25 02/19/20 04:05 Tylenol PO 650 mg Q6H PRN Administration Fever/Mild Pain Albuterol/Ipratropium 3 ml 02/18/20 07:00 02/20/20 14:42 Duoneb EZPAP 3 ml [id number] AISHA Administration Diphenoxylate HCl/Atropine 1 tab 02/13/20 10:25 02/20/20 15:29 Lomotil PO 1 tab TIDPRN PRN Administration Diarrhea/Loose Stools Fentanyl 50 mcg 02/17/20 10:04 02/20/20 05:15 Sublimaze SLOW IVP 50 mcg Q2H PRN Administration Severe Pain (7-10) Folic Acid 1 mg 02/14/20 09:00 02/20/20 08:25 Folvite PO 1 mg DAILY AISHA Administration Metronidazole 500 mg/ Device 100 mls @ 100 mls/hr 02/13/20 02:00 02/20/20 09: 13 IVPB 100 mls 0200,1000,1800 AISHA Administration Levofloxacin 500 mg 02/17/20 06:00 02/20/20 05:17 Levaquin PO 500 mg 0600 AISHA Administration Morphine Sulfate 2 mg 02/17/20 10:04 02/17/20 21:00 Morphine SLOW IVP 2 mg Q4H PRN Administration Moderate Pain (4-6) Morphine Sulfate 4 mg 02/17/20 10:04 02/18/20 20:37 Morphine SLOW IVP 4 mg Q4H PRN Administration Severe Pain (7-10) Nystatin 0 gm 02/13/20 21:00 02/20/20 08:41 Mycostatin Ointment TOP 1 applic BID AISHA Administration Ondansetron HCl 4 mg 02/13/20 00:51 02/20/20 05:15 Zofran IVP 4 mg Q6H PRN Administration Nausea/Vomiting Ondansetron HCl 4 mg 02/13/20 10:25 02/16/20 20:06 Zofran Odt PO 4 mg Q6H PRN Administration Nausea/Vomiting Pantoprazole Sodium 40 mg 02/20/20 09:00 02/20/20 08:41 Protonix PO 40 mg DAILY AISHA Administration Promethazine HCl 12.5 mg 02/17/20 10:04 02/19/20 21:58 Phenergan IM 12.5 mg Q4H PRN Administration Nausea/Vomiting Sodium Bicarbonate 650 mg 02/16/20 15:00 02/20/20 15:15 Bicarbonate, Sodium PO 650 mg TID AISHA Administration Sodium Chloride 10 ml 02/13/20 00:51 02/20/20 08:25 Flush - Normal Saline IVF 10 ml PRN PRN Administration Saline Flush Sodium Chloride 10 ml 02/13/20 01:17 02/14/20 08:14 Normal Saline Pf FS 10 ml PRN PRN Administration RECONSTITUTION Tramadol HCl 100 mg 02/19/20 06:13 02/20/20 15:30 Ultram PO 100 mg Q6H PRN Administration Severe Pain (7-10) - Exam General Appearance: NAD, awake alert Eye: PERRL ENT: normocephalic atraumatic Neck: supple Heart: RRR Respiratory: CTAB, normal chest expansion Gastrointestinal: normal bowel sounds Neurological: no focal deficits Psychiatric: normal affect, normal behavior, A&O x 3 Hosp A/P - Plan Note edited to reflect today's care of plan. CT chest: loculated fluid collection along posterior left lowre chest extending to left gutter posteriorly. Associated left lower lobe atelectasis and or infiltrate. Enlarged left lobe of thyroid with substernal extension, dominant thyroid mass involving the left lobe. 59 year old female who presented with supratherapeutic INR, GI bleed, and anemia. She was also incidentally found to have a loculated effusion Rectal bleeding secondary to supratherapeutic INR Likely diverticular bleed Sigmoid diverticulosis Supratherapeutic INR -s/p FFP, vitamin K - GI on board -s-table Hgb at 9.4---> 8.9 /sp transfusion Anemia,chronic - iron panel normal Loculated pleural effusion left side LLL empyema - CT surgery . Plan for thoracoscopy on Monday -will hold coumadin Thyroid nodules - noted on US on 01/2020, s/p normal biopsy DVT/Afib - reports IV filter in right leg. - on coumadin, INR 1.6 coumadin on hold. Hypokalemia -resolved Hyperchloremic metabolic acidosis chronic and poss diarrhea contributing as well - chloride 115, bicarb 9 --NaHCO3 added+lactated ringers --improving DVT prophylaxis: holding Code status: full code GI, CTS and renal on board. left loculated pl effusion/empyema s/p decortication, CT placement. open thoracotomy - abscess drain, partial pleura removal posterolateral, - foll.. cutures --------->few wbcs, many rbcs and no orgm.. - on flagyl and LQ. -routine labs. pt feels that she does not want to take any more blood thinner. as above hx of DVt and afib and was on coumadin , which was on hold for the procedure. BP on the low side, [not on any blockers]. sinus for the most part and some PVCs in the monitor. CT still draining. HCO3 improved, consistent low Ac, so checked mag level and it is sig'ly low. will replace both. off the chest tube, stable, talk to RN, ok to transfer to tele, if CCM agreeable.
[2020-02-21] MEDS: Fentanyl 100 MCG/2 ML VIAL SLOW IVP PRN (00:21)
[2020-02-21] MEDS: metroNIDAZOLE 500 MG in Premix Bag 1 BAG IVPB SCH ×3 (02:08→17:53)
[2020-02-21] MEDS: Morphine 4 MG/ML VIAL SLOW IVP PRN ×2 (04:39→10:36)
[2020-02-21] MEDS: Folic Acid 1 MG TAB PO SCH (08:30)
[2020-02-21] MEDS: Sodium Bicarbonate Tab 325 MG TAB PO SCH ×3 (08:30→20:51)
[2020-02-21] MEDS ORDERED: Calcium Gluc 4.6 MEQ/10 ML (100 MG/ML) SLOW IVP ONE (09:28)
[2020-02-21] MEDS ORDERED: Magnesium 2 GM/50 ML 2 GM in Premix Bag 1 BAG IVPB SCH (09:30)
[2020-02-21] MEDS: Nystatin Ointment 15 GM TUBE TOP SCH ×2 (09:40→20:52)
[2020-02-21] MEDS ORDERED: Calcium Gluconate 4.6 MEQ in Sodium Chloride 0.9% 100 ML IVPB SCH (10:00)
--- NOTE | 2020-02-21 10:13 | PRG ---
DATE OF SERVICE: 02/21/2020 SUBJECTIVE: Ms. Mack is doing well. No complaints. She was actually mildly constipated now. OBJECTIVE: VITAL SIGNS: Blood pressure 115/66, pulse 98 and regular. LUNGS: Clear. CARDIAC: Normal S1, normal S2. ABDOMEN: Obese, nontender. EXTREMITIES: No edema. ASSESSMENT: 1. Atrial arrhythmias, no recurrence. 2. Hypomagnesemia. Receive magnesium yesterday. 3. Hypokalemia, stable. 4. Crohn disease. 5. Status post thoracotomy. PLAN: 1. Check potassium and magnesium tomorrow. 2. Hold off anticoagulation for now ? low-dose Eliquis while here in the hospital for DVT prevention. She did have some GI bleeding, but she was on supratherapeutic doses of Coumadin. Job ID: [id number]
[2020-02-21] MEDS: Ondansetron PF 4 MG/2 ML Vial IVP PRN (10:38)
--- NOTE | 2020-02-21 12:15 | PRG ---
DATE OF SERVICE: 02/21/2020 SUBJECTIVE: The patient is doing well. No acute complaints. OBJECTIVE: VITAL SIGNS: Temperature 97.6, pulse 104, respirations 16, O2 saturation 96% on room air, and blood pressure 115/66. HEENT: Clear. NECK: No adenopathy or JVD. CHEST: Clear. CARDIAC: S1 and S2. Regular. ABDOMEN: Soft. EXTREMITIES: No edema. ASSESSMENT: Status post decortication of an empyema. PLAN: She is physically stable from pulmonary standpoint to discharge to home with therapy. I think she can stop antibiotics at the time of discharge. Job ID: [id number]
--- NOTE | 2020-02-21 13:05 | PDOC.HOSPP ---
- Subjective Encounter Date: 02/21/20 Encounter Time: 08:45 Subjective: off CT and on the floor, doing well, no c/o, walked w.. physical therapy. hgb is tredning down from 9.6 at 8.1. so continue to hold AC -- we may not be able to start AC as she may need transfusion given downward trend of hgb. - Objective Vital Signs & Weight: Vital Signs (12 hours) Temp Pulse Resp BP Pulse Ox 02/21/20 11:49 98.1 F 92 20 109/59 L 93 L 02/21/20 09:45 104 H 16 02/21/20 07:31 97.6 F 98 14 115/66 96 02/21/20 03:38 97.8 F 91 20 102/50 L 97 Weight Admit Weight 208 lb Weight 242 lb 8 oz Most Recent Monitor Data Heart Rate from ECG 98 NIBP 99/55 NIBP BP-Mean 69 Respiration from ECG 18 SpO2 98 I&O: 02/20/20 02/21/20 02/22/20 06:59 06:59 06:59 Intake Total 2564 1996 Output Total 644 1860 600 Balance 1920 137 -600 Result Diagrams: 02/19/20 04:35 02/20/20 03:39 Hospitalist ROS - Medication Medications: Active Medications Generic Name Dose Route Start Last Admin Trade Name Freq PRN Reason Stop Dose Admin Acetaminophen 650 mg 02/13/20 10:25 02/19/20 04:05 Tylenol PO 650 mg Q6H PRN Administration Fever/Mild Pain Albuterol/Ipratropium 3 ml 02/18/20 07:00 02/21/20 09:45 Duoneb EZPAP 3 ml [id number] AISHA Administration Diphenoxylate HCl/Atropine 1 tab 02/13/20 10:25 02/20/20 15:29 Lomotil PO 1 tab TIDPRN PRN Administration Diarrhea/Loose Stools Fentanyl 25 mcg 02/17/20 10:04 02/20/20 19:57 Sublimaze SLOW IVP 25 mcg Q2H PRN Administration Moderate Pain (4-6) Fentanyl 50 mcg 02/17/20 10:04 02/21/20 00:21 Sublimaze SLOW IVP 50 mcg Q2H PRN Administration Severe Pain (7-10) Folic Acid 1 mg 02/14/20 09:00 02/21/20 08:30 Folvite PO 1 mg DAILY AIHSA Administration Metronidazole 500 mg/ Device 100 mls @ 100 mls/hr 02/13/20 02:00 02/21/20 11: 20 IVPB 100 mls 0200,1000,1800 AISHA Administration Levofloxacin 500 mg 02/17/20 06:00 02/21/20 04:39 Levaquin PO 500 mg 0600 AISHA Administration Morphine Sulfate 2 mg 02/17/20 10:04 02/17/20 21:00 Morphine SLOW IVP 2 mg Q4H PRN Administration Moderate Pain (4-6) Morphine Sulfate 4 mg 02/17/20 10:04 02/21/20 10:36 Morphine SLOW IVP 4 mg Q4H PRN Administration Severe Pain (7-10) Nystatin 0 gm 02/13/20 21:00 02/21/20 09:40 Mycostatin Ointment TOP 1 applic BID AISHA Administration Ondansetron HCl 4 mg 02/13/20 00:51 02/21/20 10:38 Zofran IVP 4 mg Q6H PRN Administration Nausea/Vomiting Ondansetron HCl 4 mg 02/13/20 10:25 02/16/20 20:06 Zofran Odt PO 4 mg Q6H PRN Administration Nausea/Vomiting Pantoprazole Sodium 40 mg 02/20/20 09:00 02/21/20 08:30 Protonix PO 40 mg DAILY AISHA Administration Promethazine HCl 12.5 mg 02/17/20 10:04 02/19/20 21:58 Phenergan IM 12.5 mg Q4H PRN Administration Nausea/Vomiting Sodium Bicarbonate 650 mg 02/16/20 15:00 02/21/20 08:30 Bicarbonate, Sodium PO 650 mg TID AISHA Administration Sodium Chloride 10 ml 02/13/20 00:51 02/20/20 08:25 Flush - Normal Saline IVF 10 ml PRN PRN Administration Saline Flush Sodium Chloride 10 ml 02/13/20 01:17 02/14/20 08:14 Normal Saline Pf FS 10 ml PRN PRN Administration RECONSTITUTION Tramadol HCl 100 mg 02/19/20 06:13 02/20/20 15:30 Ultram PO 100 mg Q6H PRN Administration Severe Pain (7-10) - Exam General Appearance: NAD, awake alert Eye: PERRL ENT: normocephalic atraumatic Neck: supple Heart: RRR Respiratory: CTAB, normal chest expansion Gastrointestinal: normal bowel sounds Neurological: no focal deficits Psychiatric: A&O x 3 Hosp A/P - Plan Note edited to reflect today's care of plan. CT chest: loculated fluid collection along posterior left lowre chest extending to left gutter posteriorly. Associated left lower lobe atelectasis and or infiltrate. Enlarged left lobe of thyroid with substernal extension, dominant thyroid mass involving the left lobe. 59 year old female who presented with supratherapeutic INR, GI bleed, and anemia. She was also incidentally found to have a loculated effusion Rectal bleeding secondary to supratherapeutic INR Likely diverticular bleed Sigmoid diverticulosis Supratherapeutic INR -s/p FFP, vitamin K - GI on board -s-table Hgb at 9.4---> 8.9 /sp transfusion Anemia,chronic - iron panel normal Loculated pleural effusion left side LLL empyema - CT surgery .s/p thoracoscopy on Monday -will hold coumadin Thyroid nodules - noted on US on 01/2020, s/p normal biopsy DVT/Afib - reports IV filter in right leg. - on coumadin, INR 1.6 coumadin on hold. Hypokalemia -resolved Hyperchloremic metabolic acidosis chronic and poss diarrhea contributing as well - chloride 115, bicarb 9 --NaHCO3 added+lactated ringers --improving GI, CTS and renal on board. left loculated pl effusion/empyema s/p decortication, CT placement. open thoracotomy - abscess drain, partial pleura removal posterolateral, - foll.. cutures --------->few wbcs, many rbcs and no orgm.. - on flagyl and LQ. CT tube removed on HCO3 improved. Hypoclacemia Hypomagesemia --both being replaced today also --given contd low Ca, scheduled Ca supplement. hgb is tredning down from 9.6 at 8.1. so continue to hold AC -- we may not be able to start AC as she may need transfusion given downward trend of hgb. DVT prophylaxis: holding coumadin d/t rectal bleed [ Code status: full code
[2020-02-21] MEDS: Diltiazem HCl 125 MG, Admixture Fee 1 EACH in Sodium Chloride 0.9% 100 ML IVPB SCH (19:01)
[2020-02-21] MEDS: Diphenoxylate HCl/Atropine Tablet PO PRN (19:02)
[2020-02-21] MEDS: Calcium Carbonate 500 MG ChewTAB PO SCH (20:51)
[2020-02-22] MEDS: metroNIDAZOLE 500 MG in Premix Bag 1 BAG IVPB SCH ×2 (02:46→09:07)
[2020-02-22] MEDS: Morphine 4 MG/ML VIAL SLOW IVP PRN (03:10)
[2020-02-22 05:08] LABS: Anion Gap 11 mmol/L (10-20); BUN (Urea Nitrogen) 6 mg/dL (9.8-20.1); Calc. Creatinine Clearance 142 mL/min (70-130); Calcium 7.7 mg/dL (7.8-10.44); Carbon Dioxide 21 mmol/L (23-31); Chloride 106 mmol/L (98-107); Estimated GFR-MDRD 82; Glucose 97 mg/dL (80-115); Magnesium 1.4 mg/dL (1.6-2.6); Potassium 3.1 mmol/L (3.5-5.1); Sodium 135 mmol/L (136-145)
[2020-02-22] MEDS: Diltiazem HCl 125 MG, Admixture Fee 1 EACH in Sodium Chloride 0.9% 100 ML IVPB SCH (05:58)
[2020-02-22] MEDS ORDERED: Potassium Chloride 20 MEQ TAB PO SCH ×2 (08:00→18:00)
[2020-02-22] MEDS ORDERED: Magnesium 2 GM/50 ML 2 GM in Premix Bag 1 BAG IVPB SCH (08:15)
[2020-02-22] MEDS: Sodium Bicarbonate Tab 325 MG TAB PO SCH ×2 (09:07→21:55)
[2020-02-22] MEDS: Folic Acid 1 MG TAB PO SCH (09:07)
[2020-02-22] MEDS: Calcium Carbonate 500 MG ChewTAB PO SCH ×2 (09:07→21:56)
[2020-02-22] MEDS: Nystatin Ointment 15 GM TUBE TOP SCH ×2 (09:09→21:56)
[2020-02-22] MEDS: Ondansetron PF 4 MG/2 ML Vial IVP PRN (10:47)
[2020-02-22] MEDS ORDERED: Diltiazem HCl 125 MG, Admixture Fee 1 EACH in Sodium Chloride 0.9% 100 ML IVPB SCH (12:19)
[2020-02-22] MEDS ORDERED: Apixaban 2.5 MG TAB PO SCH (12:30)
--- NOTE | 2020-02-22 12:31 | PRG ---
DATE OF SERVICE: 02/22/2020 SUBJECTIVE: Ms. Mack had episode of atrial fibrillation last night with a rapid rate. She has also had recurrent diarrhea last night. OBJECTIVE: VITAL SIGNS: Her blood pressure 104/55, pulse 84. She is on intravenous diltiazem. LUNGS: Clear. CARDIAC: Normal S1, normal S2. She is back in sinus rhythm. ABDOMEN: Soft, nontender. EXTREMITIES: No edema. PERTINENT LABORATORY DATA: Magnesium still low despite intravenous magnesium 1.4, potassium 3.1. ASSESSMENT: 1. Paroxysmal atrial fibrillation. 2. History of gastrointestinal bleeding on Coumadin. 3. Risk for deep venous thrombosis. PLAN: 1. Start low-dose Eliquis, increase dose if tolerated. 2. Resume beta-blockers. 3. Decrease Cardizem. 4. Replete potassium and magnesium. Job ID: [id number]
[2020-02-22] MEDS: Diphenoxylate HCl/Atropine Tablet PO PRN ×2 (13:26→22:24)
--- NOTE | 2020-02-22 18:08 | EKG ---
Test Reason : CP Blood Pressure : / mmHG Vent. Rate : 149 BPM Atrial Rate : 182 BPM P-R Int : 000 ms QRS Dur : 078 ms QT Int : 276 ms P-R-T Axes : 000 -22 148 degrees QTc Int : 434 ms Atrial fibrillation with rapid ventricular response Cannot rule out Anterior infarct (cited on or before 18-FEB-2020) Nonspecific ST-T changes Abnormal ECG When compared with ECG of 18-FEB-2020 20:56, Previous ECG has undetermined rhythm, needs review Questionable change in initial forces of Lateral leads Nonspecific T wave abnormality, improved in Inferior leads Nonspecific T wave abnormality, improved in Anterolateral leads Confirmed by DR. Chester COLUNGA ([id number]) on 02/22/2020 6:08:19 PM Referred By: KAMILA PHAN Confirmed By:DR. Chester COLUNGA
--- NOTE | 2020-02-22 19:15 | PDOC.HOSPP ---
- Subjective Encounter Date: 02/22/20 Encounter Time: 13:00 Subjective: The patient denies SOB or cough. SHe states she is been having diarrhea four to five times daily. She complains that the food is aggravating her Crohn's ' disease, was given broccoli and marinara sauce. She wants to go home soon Patient did have afib overnight and was on cardizem drip which has been weaned down to 5. - Objective Vital Signs & Weight: Vital Signs (12 hours) Temp Pulse Pulse Resp BP BP Pulse Ox 02/22/20 18:08 75 14 98 02/22/20 15:57 98.6 F 67 14 97/52 L 96 02/22/20 14:36 77 96/54 L 02/22/20 13:40 99 18 02/22/20 12:55 98.2 F 88 12 105/57 L 96 02/22/20 07:45 94 L 02/22/20 07:41 98.3 F 84 14 104/55 L 94 L Weight Admit Weight 208 lb Weight 238 lb 8.642 oz Most Recent Monitor Data Heart Rate from ECG 98 NIBP 99/55 NIBP BP-Mean 69 Respiration from ECG 18 SpO2 98 I&O: 02/21/20 02/22/20 02/23/20 06:59 06:59 06:59 Intake Total 1996 2288.6 1600 Output Total 1860 1150 Balance 137 1138.6 1600 Result Diagrams: 02/19/20 04:35 02/22/20 04:31 Additional Labs: Accuchecks 02/21/20 16:20 POC Glucose 125 H Hospitalist ROS - Review of Systems Constitutional: denies: fever, chills - Medication Medications: Active Medications Generic Name Dose Route Start Last Admin Trade Name Freq PRN Reason Stop Dose Admin Acetaminophen 650 mg 02/13/20 10:25 02/19/20 04:05 Tylenol PO 650 mg Q6H PRN Administration Fever/Mild Pain Albuterol/Ipratropium 3 ml 02/18/20 07:00 02/22/20 18:08 Duoneb EZPAP 3 ml [id number] AISHA Administration Calcium Carbonate 500 mg 02/21/20 21:00 02/22/20 09:07 Tums PO 500 mg BID AISHA Administration Diphenoxylate HCl/Atropine 1 tab 02/13/20 10:25 02/22/20 13:26 Lomotil PO 1 tab TIDPRN PRN Administration Diarrhea/Loose Stools Fentanyl 25 mcg 02/17/20 10:04 02/20/20 19:57 Sublimaze SLOW IVP 25 mcg Q2H PRN Administration Moderate Pain (4-6) Fentanyl 50 mcg 02/17/20 10:04 02/21/20 00:21 Sublimaze SLOW IVP 50 mcg Q2H PRN Administration Severe Pain (7-10) Folic Acid 1 mg 02/14/20 09:00 02/22/20 09:07 Folvite PO 1 mg DAILY AISHA Administration Morphine Sulfate 2 mg 02/17/20 10:04 02/17/20 21:00 Morphine SLOW IVP 2 mg Q4H PRN Administration Moderate Pain (4-6) Morphine Sulfate 4 mg 02/17/20 10:04 02/22/20 03:10 Morphine SLOW IVP 4 mg Q4H PRN Administration Severe Pain (7-10) Nystatin 0 gm 02/13/20 21:00 02/22/20 09:09 Mycostatin Ointment TOP 1 applic BID AISHA Administration Ondansetron HCl 4 mg 02/13/20 00:51 02/22/20 10:47 Zofran IVP 4 mg Q6H PRN Administration Nausea/Vomiting Ondansetron HCl 4 mg 02/13/20 10:25 02/16/20 20:06 Zofran Odt PO 4 mg Q6H PRN Administration Nausea/Vomiting Pantoprazole Sodium 40 mg 02/20/20 09:00 02/22/20 09:07 Protonix PO 40 mg DAILY AISHA Administration Promethazine HCl 12.5 mg 02/17/20 10:04 02/19/20 21:58 Phenergan IM 12.5 mg Q4H PRN Administration Nausea/Vomiting Sodium Chloride 10 ml 02/13/20 00:51 02/22/20 03:14 Flush - Normal Saline IVF 10 ml PRN PRN Administration Saline Flush Sodium Chloride 10 ml 02/13/20 01:17 02/14/20 08:14 Normal Saline Pf FS 10 ml PRN PRN Administration RECONSTITUTION Tramadol HCl 50 mg 02/19/20 06:13 02/21/20 20:57 Ultram PO 50 mg Q6H PRN Administration Moderate Pain (4-6) Tramadol HCl 100 mg 02/19/20 06:13 02/20/20 15:30 Ultram PO 100 mg Q6H PRN Administration Severe Pain (7-10) - Exam General Appearance: NAD, awake alert Eye: PERRL, anicteric sclera ENT: normocephalic atraumatic, no oropharyngeal lesions Neck: supple, no JVD Heart: RRR, no murmur, no gallops, no rubs Respiratory: CTAB, no wheezes, no rales, no ronchi Gastrointestinal: soft, non-tender, non-distended, normal bowel sounds Extremities: no cyanosis, no clubbing, no edema Skin: normal turgor, no lesions, no rashes Neurological: cranial nerve grossly intact, normal sensation to touch, no focal deficits, no new deficit Hosp A/P - Plan CT chest: loculated fluid collection along posterior left lowre chest extending to left gutter posteriorly. Associated left lower lobe atelectasis and or infiltrate. Enlarged left lobe of thyroid with substernal extension, dominant thyroid mass involving the left lobe. This is a 59 year old female who presented with supratherapeutic INR, GI bleed, and anemia. She was also incidentally found to have a loculated effusion Loculated pleural effusion left side - s/p thoracoscopy with chest tube placement. Chest tube removed on 02/19 - she has received cefepime 02/12 -02/16, then levaquin 02/16 to 02/21 .She received 9 days of flagyl. Will discontinue antibiotics per Dr. Quezada Rectal bleeding secondary to supratherapeutic INR - resolved - INR is normal now. She was given FFP, vitamin K - GI has been consulted stated supportive care for now Afib - started on cardizem drip. Continue to wean down - cardiology is following Hypomagnesemia/Hypokalemia - K 3.1, mag 1.4. Given potassium replacement and 2 grams magnesium - repeat potassium and magnesium today Leukocytosis - WBC 10.9, will monitor. Afebrile Thyroid nodules - noted on US on 01/2020, s/p normal biopsy DVT/Afib - reports IV filter in right leg? -was on warfarin - eliquis has been resumed Anemia - hb 8, stable will monitor, transfuse if Hb < 7 - iron panel normal Dispo: likely d/c tomorrow DVT prophylaxis: holding Code status: full code
[2020-02-22] MEDS: Apixaban 2.5 MG TAB PO SCH (21:55)
[2020-02-22 22:45] LABS: Magnesium 1.3 mg/dL (1.6-2.6); Potassium 3.4 mmol/L (3.5-5.1)
[2020-02-23] MEDS: Ondansetron ODT 4 MG TAB PO PRN (02:10)
[2020-02-23] MEDS: Morphine 2 MG/ML SYRINGE SLOW IVP PRN ×2 (02:57→09:34)
[2020-02-23 04:51] LABS: Platelet Count 196 thou/uL (130-400)
[2020-02-23] MEDS: Sodium Bicarbonate Tab 325 MG TAB PO SCH (09:23)
[2020-02-23] MEDS: Calcium Carbonate 500 MG ChewTAB PO SCH (09:24)
[2020-02-23] MEDS: Folic Acid 1 MG TAB PO SCH (09:24)
[2020-02-23 09:26] LABS: Hemoglobin 8.3 g/dL (12.0-16.0); Platelet Count 236 thou/uL (130-400)
[2020-02-23] MEDS: Ondansetron PF 4 MG/2 ML Vial IVP PRN (09:36)
[2020-02-23] MEDS: Nystatin Ointment 15 GM TUBE TOP SCH (09:42)
[2020-02-23] MEDS ORDERED: Magnesium 2 GM/50 ML 2 GM in Premix Bag 1 BAG IVPB SCH (10:00)
[2020-02-23] MEDS: Apixaban 2.5 MG TAB PO SCH (10:07)
[2020-02-23] MEDS ORDERED: Potassium Chloride 20 MEQ TAB PO SCH ×3 (10:30→17:00)
[2020-02-23 11:27] VITALS: TEMP 98.2
[2020-02-23] MEDS ORDERED: Magnesium Sulfate 3 GM in Sodium Chloride 0.9% 100 ML IVPB SCH (15:00)
--- NOTE | 2020-02-23 15:34 | PRG ---
DATE OF SERVICE: 02/23/2020 SUBJECTIVE: Ms. Mack is still sitting up in chair. She wants to go home. She is not having arrhythmias. OBJECTIVE: VITAL SIGNS: Blood pressure is low 97/53 and pulse 70. LUNGS: Clear. CARDIAC: Normal S1, normal S2. ABDOMEN: Soft and nontender. EXTREMITIES: There is moderate edema. PERTINENT LABORATORY DATA: Her potassium is low at 3.4 and magnesium is still low at 1.5. ASSESSMENT: 1. Atrial arrhythmias, stable. 2. Hypokalemia and hypomagnesemia due to chronic diarrhea. PLAN: 1. She is on metoprolol succinate 50 mg a day. 2. She does not wish to take Coumadin anymore. She had major GI bleeding on it. I gave her samples of Eliquis to take at least 2.5 mg twice a day for 2 weeks. She was inactive here in the hospital quite a bit. 3. Long-term Eliquis would be a consideration, but the patient states the cost is cost prohibitive, it is not feasible for her she tells me. Job ID: [id number]
[2020-02-23 16:08] VITALS: BP 105/74
--- NOTE | 2020-02-23 20:50 | DIS ---
DATE OF ADMISSION: 02/12/2020 DATE OF DISCHARGE: 02/23/2020 DISCHARGE DIAGNOSES: 1. Acute hypoxic respiratory failure secondary to empyema. 2. Rectal bleeding secondary to supratherapeutic INR. 3. Atrial fibrillation. 4. Hypomagnesemia/hypokalemia. 5. Leukocytosis. 6. Thyroid nodules. 7. Deep venous thrombosis. 8. Anemia. CONSULTATIONS: 1. Dr. Jonn Kincaid with GI 2. Dr. Tim Kolb with critical care 3. Dr Cisco Olsen with nephrology 4. Dr Neil Martinez with cardiovascular surgery PROCEDURES: thoracoscopy converted to thoracotomy with pulmonary decortication, left subclavian central line 02/16 HOSPITAL COURSE: 1. Rectal bleeding secondary to supratherapeutic INR: The patient presented with an INR of 4.0. She was given vitamin K with improvement in her INR. She was also given FFP. GI was consulted and recommended conservative management. CBCs did remain stable. I spoke with Dr. Cabello prior to discharge, who advised to continue the patient's lansoprazole. He will call the patient for clinic appointment within a week. INR was normal on discharge. 2. Acute hypoxic respiratory failure secondary to empyema on the left side: The patient initially had a CT scan at [facility], which showed a loculated left-sided pleural effusion. She had a repeat CT scan of her chest on 02/12 which showed a loculated dense fluid collection along the posterior left chest wall. Cardiothoracic Surgery was consulted. The patient underwent a thoracoscopy on 02/16 and pulmonary decortication. She did have chest tubes that were placed which were removed on 02/19. The patient did receive IV cefepime then was switched to levaquin and flagyl. She received almost 9 days of antibiotics. These were discontinued on 02/21 due to persistent diarrhea and resolution of pulmonary symptoms. She can follow up with her PCP and consider repeat chest x-ray in 6 weeks. 3. Atrial fibrillation: The patient had a Code Green on 02/14 when her heart rate went up to 140s. She was noted to be in atrial fibrillation/SVT. The patient did require Cardizem drip while in the hospital. She was on Coumadin for anticoagulation. However, the patient did not want to go back on Coumadin. Cardiology suggested that the patient take Eliquis, however, the patient states that she is not able to afford it. Dr. Jiménez stated he will give the patient a sample of Eliquis for few weeks. She should follow up with her PCP and Dr. Jiménez or Dr. Cruz within 1 month. Of note, her metoprolol was increased to 50 mg XL daily on discharge. 4. Hypomagnesemia/Hypokalemia: The patient had low potassium and low magnesium consistently during this hospitalization, likely due to diarrhea. She was discharged with magnesium and potassium supplementation. 5. History of Crohn's disease: The patient gets therapy with Dr. Cabello as an outpatient. The patient reports that she chronically has over 10 liquid stools a day. She did have stool cultures checked here for Campylobacter, E coli, Shigella, which were negative. She was advised to follow up with her GI doctor. 6. Thyroid nodules: This is incidentally noted on her CT scan of her chest. The patient reports that she already had normal biopsy of nodule done in January. 7. DVT: The patient was on warfarin. She reports she completed 6 months of therapy. She was sent with samples of Eliquis given her atrial fibrillation. DISCHARGE PHYSICAL EXAMINATION: VITAL SIGNS: Temperature 98.2, heart rate 78, respiratory rate 14, O2 saturation 95% on room air, and blood pressure 105/74. GENERAL: The patient is alert, awake, and oriented x3. CVS: Regular rate and rhythm with no murmurs, rubs, or gallops. LUNGS: Clear to auscultation bilaterally. ABDOMEN: Positive bowel sounds. Mild epigastric tenderness. EXTREMITIES: No edema. PERTINENT LABORATORY DATA: CBC on 02/18: White count 10.3, hemoglobin 8.3, hematocrit 25.6, and platelet count 236. BMP on 02/21: Potassium was 3.4 on 02/21. Magnesium on 02/22 :was 1.5. Iron panel: Iron is 130, TIBC 285, percent sat 46, and ferritin 363. LFTs: Normal. TSH: 2.9. UA on 02/16: Turbid urine, 70 protein, trace ketones, 2+ blood, and 7 to 10 white blood cells. IMAGING: CT chest on 02/12: Loculated fluid collection on the posterior lower chest wall, extensive to the left gutter posteriorly. There is associated left lower lobe atelectasis and/or infiltrate. Enlarged left lobe of thyroid with substernal extension. Chest x-ray on 02/18: Opacity in the left thorax, which may represent pleural effusion and adjacent atelectasis. Echocardiogram on 02/20: EF 55% to 60%, mild MR, mild TR. DISCHARGE CONDITION: Stable. ACTIVITY: As tolerated. DIET: Heart-healthy diet. DISCHARGE MEDICATIONS: 1. Magnesium 500 mg p.o. b.i.d. 2. Metoprolol succinate 50 mg XL p.o. daily. All other home medications were resumed. Please refer to discharge worksheet. DISCHARGE INSTRUCTIONS: The patient should follow up with her PCP in a week. She should get repeat BMP and magnesium done to follow up hypokalemia and hypomagnesemia. The patient should follow up with Dr. Cabello in a week. Follow up with Dr. Cruz or Dr. Jiménez in 1 month. Consider repeat chest x-ray in 6 weeks. Job ID: [id number] MTDD
== END 2020-02-23 16:35 | disposition home or self-care (01) | DRG 163 ==
LOC: IMCU/EMU 22:33 → CCU 02-17 11:29 → 2NO 02-20 19:01
PROVIDERS: ADMIT Internal Medicine; ATTEND Internal Medicine
PROC: 30233N1 Transfusion of Nonautologous Red Blood Cells into Peripheral Vein, Percutaneous Approach (ICD-10-PCS; principal; 2020-02-13)
PROC: 0BNL0ZZ Release Left Lung, Open Approach (ICD-10-PCS; 2020-02-17)
PROC: 02HV33Z Insertion of Infusion Device into Superior Vena Cava, Percutaneous Approach (ICD-10-PCS; 2020-02-17)
DX: J86.9 Pyothorax without fistula (principal); K57.31 Diverticulosis of large intestine without perforation or abscess with bleeding; J96.01 Acute respiratory failure with hypoxia; K57.33 Diverticulitis of large intestine without perforation or abscess with bleeding; D68.32 Hemorrhagic disorder due to extrinsic circulating anticoagulants; D62 Acute posthemorrhagic anemia; K50.00 Crohn's disease of small intestine without complications; J90 Pleural effusion, not elsewhere classified; E87.2 Acidosis; K62.5 Hemorrhage of anus and rectum; T45.515A Adverse effect of anticoagulants, initial encounter; G47.33 Obstructive sleep apnea (adult) (pediatric); F17.210 Nicotine dependence, cigarettes, uncomplicated; I48.0 Paroxysmal atrial fibrillation; E87.6 Hypokalemia; I95.9 Hypotension, unspecified; E04.1 Nontoxic single thyroid nodule; E83.42 Hypomagnesemia; E87.8 Other disorders of electrolyte and fluid balance, not elsewhere classified; E83.51 Hypocalcemia; D72.829 Elevated white blood cell count, unspecified; Z79.02 Long term (current) use of antithrombotics/antiplatelets; Z86.718 Personal history of other venous thrombosis and embolism; Z90.49 Acquired absence of other specified parts of digestive tract; Z79.899 Other long term (current) drug therapy; Z88.0 Allergy status to penicillin; Z91.011 Allergy to milk products
CPT/HCPCS: 36415; 36416; 36430; 71045; 71250; 80048; 80053; 80202; 81001; 82728; 83540; 83550; 83605; 83735; 84443; 85014; 85018; 85025; 85049; 85610; 85730; 86850; 86900; 86901; 87040; 87045; 87046; 87070; 87205; 87328; 87329; 87427; 87449; 93005; 93010; 93306; C9113; J0171; J0692; J1100; J1160; J1885; J2001; J2270; J2405; J2550; J2704; J3010; J3370; J3430; J3475; J3480; J3490; J7120; J7620; P9016; P9045; Q0162; S0020

== ENCOUNTER 2020-05-05 13:49 | Emergency (ER) | payer MEDICARE ==
[2020-05-05 15:15] LABS: #Lymphocytes 2.1 thou/uL (1.20-3.40); #Monocytes 0.6 thou/uL (0.11-0.59); #Neutrophils 4.6 thou/uL (1.40-6.50); %Basophils 0.2 % (0.0-1.0); %Eosinophils 0.4 % (0.0-10.0); %Lymphocytes 28.4 % (21.0-51.0); %Monocytes 8.6 % (0.0-10.0); %Neutrophils 62.5 % (42.0-75.0); Hemoglobin 12.1 g/dL (12.0-16.0); Mean Corpuscular HGB CONC 32.1 g/dL (32.0-36.0); Mean Corpuscular Hemoglobin 31.1 pg (27.0-31.0); Mean Corpuscular Volume 97.1 fL (78.0-98.0); Mean Platelet Volume 7.4 fL (7.4-10.4); Platelet Count 253 thou/uL (130-400); RBC Distribution Width 13.1 % (11.5-14.5); Red Blood Cell (RBC) Count 3.88 mill/uL (4.20-5.40); White Blood Cell (WBC) Count 7.4 thou/uL (4.8-10.8)
[2020-05-05] MEDS ORDERED: Promethazine HCl 25 MG/ML VIAL ONE (15:29)
[2020-05-05 15:38] LABS: ALT (SGPT) 9 U/L (8-55); AST (SGOT) 15 U/L (5-34); Alkaline Phosphatase 75 U/L (40-110); Anion Gap 20 mmol/L (10-20); BUN (Urea Nitrogen) 16 mg/dL (9.8-20.1); Bilirubin, Total 0.4 mg/dL (0.2-1.2); CRP (Inflammatory) Less than 0.50 mg/dL (= or < 0.5); Calc. Creatinine Clearance 0 mL/min (70-130); Calcium 8.7 mg/dL (7.8-10.44); Carbon Dioxide 17 mmol/L (23-31); Chloride 104 mmol/L (98-107); Estimated GFR-MDRD 49; Glucose 77 mg/dL (80-115); Magnesium Less than 0.6 mg/dL (1.6-2.6); Potassium 3.1 mmol/L (3.5-5.1); Protein, Total 7.3 g/dL (6.0-8.3); Sodium 138 mmol/L (136-145)
[2020-05-05 15:40] LABS: Albumin 3.6 g/dL (3.4-4.8); Globulin 3.4 g/dL (2.4-3.5)
[2020-05-05] MEDS ORDERED: Magnesium 2 GM/50 ML BAG (IN WATER) ONE (16:23)
[2020-05-05] MEDS ORDERED: Potassium Chloride 40 MEQ in Sodium Chloride 0.9% 250 ML 250 ML IVPB SCH (17:30)
[2020-05-05] MEDS ORDERED: Potassium Chloride 20 MEQ TAB ONE (18:26)
== END 2020-05-05 18:40 | disposition home or self-care (01) ==
LOC: ERS 13:49
DX: E87.8 Other disorders of electrolyte and fluid balance, not elsewhere classified (principal); I48.91 Unspecified atrial fibrillation; K50.90 Crohn's disease, unspecified, without complications; F17.210 Nicotine dependence, cigarettes, uncomplicated; Z79.899 Other long term (current) drug therapy
CPT/HCPCS: 36415; 80053; 83735; 85025; 86140; 96361; 96365; 96367; 96375; J2550; J3475; J3480; J7050

== ENCOUNTER 2020-07-06 12:08 | Outpatient (CLI) | payer MEDICARE ==
[2020-07-06] MEDS ORDERED: Iopamidol 370 76% 100 ML VIAL ONE (13:51)
--- NOTE | 2020-07-06 14:52 | CT ---
Exam: Abdomen CT with contrast HISTORY: Left lower quadrant pain. Mass. Left upper quadrant swelling. COMPARISON: 02/12/2020. FINDINGS: Scarring and atelectasis in the lung bases. Calcified granulomas in the right lower lobe. Normal heart size. No significant pericardial fluid. Visualized aorta has a normal caliber. Minimal a therosclerosis. No periaortic fat stranding. Gallbladder is surgically absent. Portal vein is patent. Hypoattenuation of the liver suggesting a component of hepatic steatosis. There are no enhancing mass es within the liver. Spleen, pancreas and adrenal glands have appropriate attenuation. No gastrohepatic, retrocrural or periportal lymphadenopathy. Symmetric enhancement of the kidneys. No obstructive uropathy. No mesenteric mass or free air. There are enlarged left periaortic and left lower quadrant mesenteric lymph nodes, incompletely evaluated. There is a mucosal-based lesion involving the mid descending colon which may represent an infectious or inflammatory process. Characterization and evaluation is i ncomplete. There is no corresponding lesion on the CT from 02/12/2020. Previous appendectomy changes are noted. Ileocecal junction is normal. No lytic or blastic lesions in the osseous structures. IMPRESSION: Abnormal attenuation involving the mid descending colon, incompletely evaluated. The possibility of a n infectious or inflammatory process is raised. There appear to be enlarged lymph nodes in the left hemiabdomen which may be reactive. General surgical consultation is recommended along with a complete abdomen and pelvic CT utilizing oral and IV contrast. Results of study discussed with Dr. Gaxiola on 07/06/2020 at 2:51 PM Code CR Transcribed Date/Time: 07/06/2020 4:19 PM
== END 2020-07-06 12:09 | disposition home or self-care (01) ==
LOC: CT 12:08
PROVIDERS: ATTEND Physician Assistant Medical
DX: R10.32 Left lower quadrant pain (principal); R19.02 Left upper quadrant abdominal swelling, mass and lump; R19.7 Diarrhea, unspecified; K50.00 Crohn's disease of small intestine without complications; R93.3 Abnormal findings on diagnostic imaging of other parts of digestive tract; M62.08 Separation of muscle (nontraumatic), other site
CPT/HCPCS: 74160; 82565; Q9967

== ENCOUNTER 2020-07-07 10:10 | Outpatient (CLI) | payer MEDICARE ==
[2020-07-07] MEDS ORDERED: Iopamidol 370 76% 100 ML VIAL ONE (10:27)
--- NOTE | 2020-07-07 14:06 | CT ---
CT OF THE ABDOMEN AND PELVIS WITH IV CONTRAST INDICATION: History of Crohn's disease, lung infection, cholecystectomy, bowel repair, bowel resectio n and appendectomy; abdominal pelvic swelling COMPARISON: CT the abdomen with contrast dated July 06, 2020 FINDINGS: The patient unfortunately had an IV infiltrate in the left forearm during the examination. There is approximately 60 cc of IV contrast infiltrated within the soft tissues of the left forearm. I personally evaluated this patient. The patient underwent manual massage to this region by the hydroelectric systems technician and radiology nurse. The infiltrate was supple within the soft tissues without evidence of compartment syndrome. The patient was neurologically intact in the left upper extremity. Small amount of bruising and discoloration is seen at the IV catheter cannula site. Patient underwent instruction on care of this infiltrate site with the radiology nurse. ABDOMEN: Lung bases: There are multiple calcified granuloma within the lung bases. Liver: There are numerous calcified granulomas Gallbladder: Surgically absent Pancreas: Normal. Adrenal glands: Normal. Spleen: Multiple calcified granuloma Kidneys and ureters: There is some excretory activity seen within the renal collecting systems. No hy dronephrosis is evident. Vasculature: There are moderate vascular calcifications seen involving the visualized vasculature. Lymph nodes:There are a few mildly prominent lymph nodes within the left lower quadrant mesentery. No pathologically enlarged lymph nodes are seen within the upper abdomen or retroperitoneal region. Few shotty appearing lymph nodes are present within the aortocaval region. The largest measures 1 cm. Free fluid in abdomen:There is minimal free fluid within the lower abdomen. No drainable fluid collec tions evident. PELVIS: Small and large bowel: There is prominent wall thickening involving the upper rectum and sigmoid colo n. There is prominent pericolonic inflammatory stranding. There is soft tissue adhesions and and suspected intramural abscess along the inferior aspect of the proximal sigmoid colon on image 66 of s eries 4. This soft tissue density contacts the left adnexa on image 65 of series 4. Appendix:Surgically absent Bladder: Normal. Rectal and perirectal soft tissues:Normal. Reproductive structures: Normal. Free fluid in pelvis: Mild free fluid Lymphadenopathy pelvis: No lymphadenopathy is evident. Osseous structures: Mild compression abnormalities of L3 and L2 are stable. There is diffuse osteopen ia. No definite acute osseous abnormality is evident. There is scattered degenerative and osteoarthritic changes. Soft tissues:Normal. IMPRESSION: 1. Prominent proctocolitis with soft tissue inflammatory change anterior to the left adnexa. Findings may related to infectious or inflammatory etiologies given the patient's history of Crohn's disease. Small amount of fluid and gas is seen within the inferior and lateral wall of the sigmoid co mira, adjacent to the region of adhesion to the left adnexa, suspicious for small intramural abscess. No drainable fluid collection is demonstrated. 2. Likely reactive lymphadenopathy of the left lower quadrant mesentery and within the retroperitoneu m. 3. Stable chronic L2 and L3 compression fractures. 4. IV infiltration during the exam as above.
== END 2020-07-07 10:11 | disposition home or self-care (01) ==
LOC: CT 10:10
PROVIDERS: ATTEND Internal Medicine
DX: R19.02 Left upper quadrant abdominal swelling, mass and lump (principal); M48.56XA Collapsed vertebra, not elsewhere classified, lumbar region, initial encounter for fracture
CPT/HCPCS: 74177; 82565

== ENCOUNTER 2020-08-29 10:57 | Inpatient (IN) | payer MEDICARE ==
[2020-08-29 11:42] LABS: #Lymphocytes 1.9 thou/uL (1.20-3.40); #Monocytes 0.8 thou/uL (0.11-0.59); #Neutrophils 6.7 thou/uL (1.40-6.50); %Basophils 0.3 % (0.0-1.0); %Eosinophils 0.4 % (0.0-10.0); %Lymphocytes 19.7 % (21.0-51.0); %Monocytes 8.6 % (0.0-10.0); Hemoglobin 13.3 g/dL (12.0-16.0); Mean Corpuscular HGB CONC 33.5 g/dL (32.0-36.0); Mean Corpuscular Hemoglobin 31.3 pg (27.0-31.0); Mean Corpuscular Volume 93.5 fL (78.0-98.0); Mean Platelet Volume 7.5 fL (7.4-10.4); Platelet Count 280 thou/uL (130-400); RBC Distribution Width 12.2 % (11.5-14.5); Red Blood Cell (RBC) Count 4.24 mill/uL (4.20-5.40); White Blood Cell (WBC) Count 9.4 thou/uL (4.8-10.8)
[2020-08-29] MEDS ORDERED: Morphine 4 MG/ML VIAL ONE ×2 (11:50→15:21)
[2020-08-29] MEDS ORDERED: Ondansetron PF 4 MG/2 ML Vial ONE (11:51)
[2020-08-29 11:57] LABS: ALT (SGPT) Less than 7 U/L (8-55); AST (SGOT) 10 U/L (5-34); Albumin 3.9 g/dL (3.4-4.8); Alkaline Phosphatase 90 U/L (40-110); Anion Gap 20 mmol/L (10-20); BUN (Urea Nitrogen) 18 mg/dL (9.8-20.1); Bilirubin, Total 0.7 mg/dL (0.2-1.2); Calc. Creatinine Clearance 0 mL/min (70-130); Carbon Dioxide 14 mmol/L (23-31); Chloride 105 mmol/L (98-107); Globulin 4.6 g/dL (2.4-3.5); Glucose 105 mg/dL (80-115); Lipase 25 U/L (8-78); Potassium 3.3 mmol/L (3.5-5.1); Protein, Total 8.5 g/dL (6.0-8.3); Sodium 136 mmol/L (136-145)
--- NOTE | 2020-08-29 12:24 | CT ---
CT OF THE ABDOMEN AND PELVIS WITH IV CONTRAST INDICATION: Abdominal pain with nausea vomiting diarrhea for 3 days with history of hernia repair and bowel resection COMPARISON: July 07, 2020 CT the abdomen and pelvis FINDINGS: ABDOMEN: Lung bases: There are calcified granuloma within both lower lobes Liver: There are calcified granuloma within the liver Gallbladder: Surgically absent Pancreas: Normal. Adrenal glands: Normal. Spleen: Calcified granuloma Kidneys and ureters: Normal. No hydronephrosis. Vasculature: There are moderate vascular calcifications seen involving the visualized vasculature. Lymph nodes:There are a few shotty appearing lymph nodes within the retroperitoneum that are stable t o the prior exam. Few shotty appearing lymph nodes are seen within the upper abdomen which are stable. Free fluid in abdomen:No free fluid is evident. PELVIS: Small and large bowel: There are dilated loops of small bowel which transition to normal caliber seen at the lower midline abdomen on image 44 series 2. There is mild distention of the colon with fluid and gas. There is prominent wall thickening with scattered colonic diverticula involving the si gmoid colon that appears relatively stable since July 2020. Appendix:Not definitely seen. There is a ileocolonic anastomosis in the right lower quadrant of the a bdomen. Bladder: Decompressed Rectal and perirectal soft tissues:Normal. Reproductive structures: Fibroid uterus. Free fluid in pelvis: No free fluid is evident. Lymphadenopathy pelvis: No lymphadenopathy is evident. Osseous structures: There is stable mild compression abnormalities involving L2 and L3. There is diff use osteopenia. There is scattered degenerative and osteoarthritic changes. Soft tissues:Normal. IMPRESSION: 1. Prominent wall thickening with scattered colonic diverticula and pericolonic inflammatory strandin g involving the sigmoid colon is suspicious for recurrent or chronic sigmoid diverticulitis. Malignancy within this location cannot be entirely excluded. 2. Findings suspicious for a [id number] partial small bowel obstruction with a transition zone in the lower midline abdomen on image 44 series 2. 3. Other chronic findings as above.
[2020-08-29] MEDS ORDERED: Benzocaine 20% Spray 60 ML CAN ONE (13:23)
[2020-08-29] MEDS ORDERED: Iopamidol-370 76% 500 ML 1 ML ONE (13:40)
[2020-08-29] MEDS ORDERED: metroNIDAZOLE 500 MG/100 ML BAG ONE (14:07)
[2020-08-29 14:14] LABS: Bilirubin Negative (Negative); Blood, Urine Negative (Negative); Clarity Clear (Clear); Glucose, Urine (Dipstick) Normal (Negative); Ketone, Urine 10 mg/dL (Negative); Leukocyte 25 Leu/uL (Negative); Nitrite Negative (Negative); Protein, Urine (Dipstick) 50 mg/dL (Neg-Trace); Urobilinogen Normal mg/dL (Less than 2)
[2020-08-29 14:16] LABS: Specific Gravity, Urine Greater than 1.060 (1.002-1.036)
--- NOTE | 2020-08-29 14:20 | RAD ---
Exam: 1 view abdomen HISTORY: NG tube placement Comparison none FINDINGS: There is evidence of gastric distention. Nasogastric tube is identified. Sidehole is at the GE junction. Tip is in the gastric cardia. IMPRESSION: Nasogastric tube as above. Advancement of the nasogastric tube is recommended. Results st allen discussed with Dr. Nagel 08/29/2020 2:17 PM Code CR
[2020-08-29 14:22] LABS: RBC/HPF 0-3 HPF (0-3)
[2020-08-29 14:24] LABS: Bacteria/HPF None Seen HPF (None Seen)
[2020-08-29] MEDS ORDERED: Morphine 4 MG/ML VIAL SLOW IVP PRN (15:25)
[2020-08-29] MEDS ORDERED: Metoprolol Tartrate 5 MG/5 ML VIAL IVP PRN (15:27)
[2020-08-29] MEDS ORDERED: Nicotine 7 MG PATCH TD PRN (15:30)
--- NOTE | 2020-08-29 16:56 | HP ---
CHIEF COMPLAINT: Did not feel good. PRIMARY CARE PROVIDER: Jonn Madrigal MD HISTORY OF PRESENT ILLNESS: This is a 60-year-old female with history of Crohn's disease, recurrent small-bowel obstructions requiring surgery in the past, diverticulitis with reported recent antibiotics, paroxysmal atrial fibrillation on full anticoagulation, who presents to the emergency room with the above complaint. She reports that it started last week where she felt tired, increasing right lower abdominal pain. Two days ago, the pain became constant on the right side with radiation down to her pelvis. She states that she did not eat, was vomiting water today, at which point, she decided to come to the emergency room. She has been nauseous for 2 days, but given Josh was trying to make it through. The pain is described as aching, which turns into a "rolling wave" on that right side as well as down into her pelvis. She had some associated fevers and chills for which she took extra-strength Tylenol, there was no change in the pain. The patient reports that she was last hospitalized six months ago and required a bowel surgery due to the same situation. She states that was her last Crohn's flare, and she is on Stelara with her next injection due September 17. In addition to the above, she also complains of some urinary tract infection symptoms. In the emergency room, the patient diagnosed with a partial small-bowel obstruction and she received 1 L IV fluids, 4 mg of Zofran, 4 mg morphine, 500 mg metronidazole, 750 mg IV levofloxacin and hospitalist called for admission. The pain was rated 10/10 on arrival, it is currently 8/10. ALLERGIES: 1. AZATHIOPRINE. 2. LACTOSE. 3. METHOTREXATE. 4. PENICILLIN. CURRENT MEDICATIONS: Reconciled with the patient, 1. Stelara injections every other month, next one due September 17. 2. Potassium chloride 40 mEq b.i.d. 3. Eliquis 5 mg b.i.d. 4. Magnesium 800 mg twice daily. 5. Diltiazem 120 mg at bedtime. PAST MEDICAL HISTORY: 1. Crohn's disease. 2. Diverticulitis. 3. Small-bowel obstruction with history of resection. 4. Paroxysmal atrial fibrillation. 5. Low potassium and magnesium levels. 6. Chronic kidney disease, stage 3. PAST SURGICAL HISTORY: 1. Bowel resection. 2. Colon abscess for which she reports 14 days of antibiotics within the past month. 3. Cholecystectomy. 4. Appendectomy. SOCIAL HISTORY: She denies alcohol, she does smoke three cigarettes per day. She lives alone and her son, Aakash is her surrogate decision maker. She is a full code. FAMILY HISTORY: Significant for grandfather and father both with stomach issues. REVIEW OF SYSTEMS: Positive for fevers and chills, urinary tract infection symptoms. Negative for chest pain or difficulty breathing, negative for any extremity pain. All remaining review of systems are reviewed and negative. PHYSICAL EXAMINATION: VITAL SIGNS: Blood pressure 126/86, pulse 88, respirations 16, temperature 98.1, and sat 97% on room air. GENERAL: Awake, alert, responsive, not in apparent distress. Able to speak in full sentences. HEENT: Her pupils are equal and round. Oral mucosa is pink and moist. NECK: Supple, nontender. LYMPHATICS: No palpable cervical or supraclavicular lymphadenopathy. LUNGS: Clear to auscultation bilateral. No audible wheezing, rhonchi, or rales. HEART: Normal S1, S2. No significant murmurs. Regular rate and rhythm. ABDOMEN: Soft with present bowel sounds. Tenderness to palpation throughout. No rebound or guarding. Present ventral hernia. EXTREMITIES: No clubbing, cyanosis, or edema. NEUROLOGIC: No focal deficits. PSYCHIATRIC: Appears euthymic. VASCULAR: 2+ dorsalis pedis pulses. SKIN: No visible rashes. LABORATORY DATA: CBC 9.4, 13.3, 39.6, 280. Chemistry 136, 3.3, 105, 14, 18, 1.45, 105. Total protein 8.5, albumin 3.9, lipase 25. Troponin 0.019. Urinalysis shows specific gravity greater than 1.06, present protein, ketones, 25 leukocyte esterase, 4 to 6 white blood cells. EKG, sinus rhythm, left axis deviation, normal intervals, no ST changes. Abnormal R-wave progression. CT abdomen and pelvis showed a partial small-bowel obstruction, mild to moderate with a transition zone in the lower midline abdomen, prominent wall thickening with scattered colonic diverticula and pericolonic inflammatory stranding involving the sigmoid colon, suspicious for recurrent or chronic sigmoid diverticulitis. IMPRESSION: 1. Partial small-bowel obstruction. The patient with a history of multiple surgeries as well as Crohn's disease. 2. Diverticulitis either recurrent or chronic with recent antibiotics in the outpatient setting per patient. 3. Crohn's disease on Stelara. 4. Paroxysmal atrial fibrillation, currently in sinus rhythm. 5. History of low potassium and magnesium and currently hypokalemic. 6. Ventral hernia. 7. Chronic kidney disease, stage III, stable. PLAN: 1. Admission to the hospital. 2. Continuing the NG tube. 3. Consultation with GI and General Surgery. 4. IV fluid hydration and potassium replacement, we will check her magnesium level in the morning. 5. P.r.n. use of metoprolol IV, if her rate goes up. Given sinus rhythm at this point, there is no indication for telemetry monitoring. 6. Chronic kidney disease, stage 3. Monitor her renal function and IV fluid hydration. 7. Managing the pain with p.r.n. morphine. 8. Because of the potential for recurrent diverticulitis, we will continue the levofloxacin and metronidazole. 9. Holding her Eliquis in case surgery is needed. 10. Monitor the urine culture, no indication for additional antibiotics as the patient will be on Levaquin. 11. DVT prophylaxis with pneumatic compression devices. 12. GI prophylaxis. IV famotidine. 13. Code status full. Surrogate decision maker is the patient's son. 14. Reviewed the plan of care with the patient who demonstrates understanding and agrees. No questions or further needs at the end of evaluation. Pt is at high risk given age, comorbidities and current presentation. Job ID: [id number] MTDD
[2020-08-29 17:47] VITALS: BMI 32.9
[2020-08-29] MEDS: NS 0.9% w/ 40 MEQ KCL 1,000 ML IV SCH (18:06)
[2020-08-29] MEDS: Morphine 2 MG/ML VIAL SLOW IVP PRN (19:27)
--- NOTE | 2020-08-29 20:43 | PDOC.BPN ---
- Brief Progress Note Encounter Date: 08/29/20 Encounter Time: 20:42 addendum to the H&P Additional dx - tobacco abuse Plan - prn nicotine patch and cessation encouraged.
[2020-08-29] MEDS: metroNIDAZOLE 500 MG in Premix Bag 1 BAG IVPB SCH (22:23)
--- NOTE | 2020-08-29 23:58 | CON ---
DATE OF CONSULTATION: 08/29/2020 CHIEF COMPLAINT: Vomiting and abdominal pain. HISTORY OF PRESENT ILLNESS: The patient is an obese 60-year-old white female. She has a long history of Crohn disease. She had undergone an ileocecectomy in 2008 in treatment of this. She tells me that in approximately February of this year, she underwent another laparotomy for a bowel obstruction that would not resolve. She does not believe bowel was resected at that time. This was apparently performed per Dr. Carlitos Reese, although I can find no records of this operation. Her Crohn disease has been managed by Dr. Cabello. In treatment of this, she is currently receiving Stelara injections. She had felt poorly for the past couple of days and then began vomiting, and following this, she presented to the emergency room. A CT scan was obtained, revealing findings potentially consistent with a partial small bowel obstruction and diverticular disease. My review of the CT scan, however, revealed that there was a large volume of gas and stool within the colon. This is in addition to the dilated small bowel. Specifically, her right colon and transverse colon appear to be very dilated and potentially distended. It is noted that her CBC from this morning revealed a white blood cell count of 9.4 with no significant left shift. Hemoglobin was 13.3. Chemistry panel from this morning revealed minor electrolyte abnormalities with a CO2 of only 14 and a potassium of 3.3. Her lactic acid level was normal. Her creatinine was slightly elevated at 1.45, but this is stable for her. She was admitted to the hospital. Nasogastric tube was placed. It does not appear that a significant volume of material has been returned from the NG tube. PAST MEDICAL HISTORY: 1. Crohn disease. 2. Diverticulitis. 3. History of small bowel obstruction. 4. Paroxysmal atrial fibrillation (for which she sees Dr. Jiménez). 5. Chronic kidney disease. PAST SURGICAL HISTORY: 1. Appendectomy. 2. Cholecystectomy. 3. Ileocecectomy in 2008. 4. Laparotomy in approximately February of 2020 for small bowel obstruction. MEDICATIONS: Include: 1. Stelara. 2. Potassium chloride. 3. Eliquis. 4. Magnesium. 5. Diltiazem. ALLERGIES: AZATHIOPRINE, LACTOSE, PENICILLINS, AND METHOTREXATE. PERSONAL AND SOCIAL HISTORY: She is . She drinks alcohol rarely. She still smokes several cigarettes to a half pack per day. REVIEW OF SYSTEMS: Otherwise unremarkable. FAMILY HISTORY: Noncontributory. PHYSICAL EXAMINATION: VITAL SIGNS: Temperature is 97.5, pulse 87, blood pressure 110/73, oxygen saturations 96% on room air. GENERAL: She is a well-developed, well-nourished, obese white female, resting in bed, in no acute distress. Nasogastric tube is in place. She is alert and oriented x3. HEAD, EYES, EARS, NOSE, AND THROAT: Unremarkable. NECK: Supple without mass or tenderness. LUNGS: Clear to auscultation throughout. CARDIAC: Regular rate and rhythm without murmur. ABDOMEN: Nondistended. She has mild discomfort to diffuse palpation. She has normoactive bowel sounds throughout. RECTAL: Deferred. EXTREMITIES: Unremarkable. LABORATORY DATA: Labs are as referenced above. ASSESSMENT: Patient with a history of diverticular disease and Crohn disease, who presented with an abnormal CT scan. I am not certain if this is a significant bowel obstruction. Nasogastric tube was appropriate and it appears to have led to improvement of her symptoms. Since I do not think she has a significant bowel obstruction, I will recommend a Gastrografin small bowel follow-through tomorrow. Further management in regard to any potential bowel obstruction will be pending these results. Job ID: [id number]
[2020-08-30] MEDS: NS 0.9% w/ 40 MEQ KCL 1,000 ML IV SCH ×2 (01:24→07:10)
[2020-08-30] MEDS: Morphine 2 MG/ML VIAL SLOW IVP PRN ×2 (04:20→12:34)
[2020-08-30] MEDS: metroNIDAZOLE 500 MG in Premix Bag 1 BAG IVPB SCH ×3 (05:03→22:07)
[2020-08-30 05:39] LABS: #Eosinphils 0.1 thou/uL (0.0-0.7); #Lymphocytes 1.3 thou/uL (1.20-3.40); #Monocytes 0.6 thou/uL (0.11-0.59); #Neutrophils 3.7 thou/uL (1.40-6.50); %Basophils 0.3 % (0.0-1.0); %Eosinophils 1.7 % (0.0-10.0); %Lymphocytes 22.5 % (21.0-51.0); %Monocytes 10.3 % (0.0-10.0); %Neutrophils 65.1 % (42.0-75.0); Hemoglobin 11.3 g/dL (12.0-16.0); Mean Corpuscular HGB CONC 33.5 g/dL (32.0-36.0); Mean Corpuscular Hemoglobin 32.1 pg (27.0-31.0); Mean Corpuscular Volume 95.9 fL (78.0-98.0); Mean Platelet Volume 7.2 fL (7.4-10.4); Platelet Count 204 thou/uL (130-400); RBC Distribution Width 12.3 % (11.5-14.5); Red Blood Cell (RBC) Count 3.51 mill/uL (4.20-5.40); White Blood Cell (WBC) Count 5.7 thou/uL (4.8-10.8)
[2020-08-30 05:52] LABS: Anion Gap 16 mmol/L (10-20); BUN (Urea Nitrogen) 16 mg/dL (9.8-20.1); Calc. Creatinine Clearance 69 mL/min (70-130); Calcium 8.6 mg/dL (7.8-10.44); Carbon Dioxide 18 mmol/L (23-31); Chloride 109 mmol/L (98-107); Glucose 86 mg/dL (80-115); Magnesium 1.7 mg/dL (1.6-2.6); Potassium 3.8 mmol/L (3.5-5.1); Sodium 139 mmol/L (136-145)
[2020-08-30] MEDS ORDERED: Famotidine/PF 20 mg/2ml Vial SLOW IVP SCH (09:00)
[2020-08-30] MEDS ORDERED: MD-Gastroview 120 ML BOT ONE (09:42)
--- NOTE | 2020-08-30 12:23 | RAD ---
Exam: Gastrografin small bowel HISTORY: Evaluate for small bowel obstruction FINDINGS: Initial atm technician radiograph demonstrates a nasogastric tube in the stomach. Air-filled nondist ended colon is identified. There is a segment of air-filled distended small bowel in the left lower quadrant. Gastrografin was administered. Gastrografin opacifies multiple normal caliber proximal small bowel lo ops. Gastrografin opacifies distended mid to distal small bowel loops. Gastrografin does opacify the colon, down to level of rectum on the 2 hour image. IMPRESSION: 1. No evidence of high-grade obstruction. 2. Partial small bowel obstruction may be present.
[2020-08-30] MEDS ORDERED: Bacteriostatic Water 30 ML VIAL FS PRN (13:45)
--- NOTE | 2020-08-30 14:09 | PRG ---
DATE OF SERVICE: 08/30/2020 SUBJECTIVE: Ms. Mack is hospital day #2 following admission for abdominal pain with vomiting. She had a suspected small-bowel obstruction and/or diverticulitis based on her CT scan. She has a long history of Crohn disease. I ordered a small-bowel follow-through study today with Gastrografin. This has been completed. Contrast that entered her colon by 1.5 hours and by 2 hours it was in her rectum and she was beginning to have bowel movements. She tells me she has had 4 to 5 loose watery bowel movements as expected after this study when there is no obstructive process. She tells me she still has some abdominal discomfort. OBJECTIVE: VITAL SIGNS: She is afebrile, pulse is 82, blood pressure 101/66. LUNGS: Clear to auscultation. ABDOMEN: Obese, but soft. Her bowel sounds are present and somewhat hypoactive. LABORATORY DATA: Her CBC remains normal with a white blood cell count of 5.7, and normal differential. Hemoglobin is 11.3 after hydration. Her electrolytes are also unremarkable. Her creatinine has improved from 1.45 yesterday to 1.19 today. ASSESSMENT: The patient with no evidence of small-bowel obstruction or significant diverticulitis. From a surgical standpoint, there is no further concern. I have recommended removal of nasogastric tube, initiation of clear liquid diet. She has been seen by gastroenterology (Dr. Lopez). He believes that her symptoms may be related to her Crohn disease and feels that a longer hospitalization to control this would be in her best interest. From a surgical standpoint, there is no further concern and I will sign off. Please contact surgery if there are further issues arise. Job ID: [id number]
--- NOTE | 2020-08-30 15:08 | PDOC.HOSPP ---
- Subjective Encounter Date: 08/30/20 Encounter Time: 09:00 Subjective: No overnight events. Patient reports that she feels her abdominal pain has much improved. She denies nausea, and feels relief since placement of the NGT. She denies chest pain, SOB. No other concerns or complaints at this time. Chart and medications reviewed. - Objective Vital Signs & Weight: Vital Signs (12 hours) Temp Pulse Resp BP Pulse Ox 08/30/20 08:05 97.9 F 82 18 101/66 98 08/30/20 08:00 97.9 F 98 08/30/20 04:37 97.8 F 79 18 99/66 18 L Weight Weight 197 lb 15.602 oz I&O: 08/29/20 08/30/20 08/31/20 06:59 06:59 06:59 Intake Total 1200 Output Total 750 Balance 450 Result Diagrams: 08/30/20 05:25 08/30/20 05:25 Hospitalist ROS - Review of Systems Constitutional: denies: fever, chills, sweats, weakness, malaise, other Eyes: denies: pain, vision change, conjunctivae inflammation, eyelid inflammation, redness, other ENT: denies: ear pain, ear discharge, nose pain, nose discharge, nose congestion, mouth pain, mouth swelling, throat pain, throat swelling, other Respiratory: denies: cough, dry, shortness of breath, hemoptysis, SOB with excertion, pleuritic pain, sputum, wheezing, other Cardiovascular: denies: chest pain, palpitations, orthopnea, paroxysmal noc. dyspnea, edema, light headedness, other Gastrointestinal: reports: nausea, abdominal pain. denies: vomiting, diarrhea, constipation, melena, hematochezia, other Genitourinary: denies: dysuria, frequency, incontinence, hematuria, retention, other Musculoskeletal: denies: neck pain, shoulder pain, arm pain, back pain, hand pain, leg pain, foot pain, other Skin: denies: rash, lesions, cam, bruising, other Neurological: denies: weakness, numbness, incoordination, change in speech, confusion, seizures, other - Medication Medications: Active Medications Generic Name Dose Route Start Last Admin Trade Name Freq PRN Reason Stop Dose Admin Famotidine 20 mg 08/30/20 09:00 08/30/20 08:38 Famotidine/Pf 20 Mg/2ml Vial SLOW IVP 20 mg DAILY AISHA Administration Potassium Chloride/Sodium Chloride 1,000 mls @ 100 mls/hr 08/29/20 15:30 08/30/20 07:10 Ns 0.9% W/ 40 Meq Kcl IV 1,000 mls .Q10H AISHA Administration Metronidazole 500 mg/ Device 100 mls @ 100 mls/hr 08/29/20 22:00 08/30/20 05:03 IVPB 100 mls Q8HR AISHA Administration Morphine Sulfate 2 mg 08/29/20 15:25 08/30/20 04:20 Morphine 2 Mg/Ml Vial SLOW IVP 2 mg Q4H PRN Administration Mild-Moderate Pain (1-5) Hosp A/P - Plan 60F with PMHX of chron's disease, recurrent SBO requiring multiple surgeries, diverticulitis, paroxysmal a-fib on Eliquis, and CKD who presented to the ED on 08/29/20 for RLQ abdominal pain found to have SBO vs diverticulitis on CT scan. Small bowel obstruction vs Diverticulitis Pt with RLQ abdominal pain. CT scan showed partial small bowel obstruction, mild to moderate with a transition zone, as well as findings suspicious for recurrent vs chronic sigmoid diverticulitis. Patient was started on Levaquin and Flagyl and general surgery was consulted, who felt since patient's abdominal exam has improved continued conservative management with NGT and gastrograffin small bowel study was appropriate. Plan -Continue IV levaquin, flagyl -NGT -Gastrografin bowel study -Serial abdominal exams -General surgery following Chron's Disease Hx of Chron's disease, follows with Dr. Cabello and is maintained on Stelara. Abdominal pain could also be secondary to Chron's flare. Will consult gastroenterology for further recommendations. Plan -As above -GI consult, recommendations appreciated Atrial fibrillation Hx of paroxysmal a-fib on Eliquis. Pt is in NSR, no tachycardia, no palpitations. Monitor heart rate. Hold Eliquis, will cover with lovenox since patient is being conservatively managed for her SBO now. Plan -Hold eliquis, cover with lovenox -Continue to monitor for tachycardia CKD Hx of CKD stage III. BUN/Cr 16.19. Plan -Continue to monitor kidney function -Gentle IVF while NPO -Renal dosing of medications as appropriate History of hypokalemia/hypomagnesemia History of low K, Mg. On home Mg supplementation. Mg this am 1.7. K 3.8. Will continue to monitor and replete as needed. DVT prophylaxis: Lovenox FULL CODE Case discussed with Dr. Han
[2020-08-30] MEDS ORDERED: Cyanocobalamin (Vitamin B-12) 1,000 MCG TAB PO SCH (15:15)
[2020-08-30] MEDS: methylPREDNISolone Sod Succ 40 MG VIAL IVP SCH ×2 (15:15→22:08)
--- NOTE | 2020-08-30 15:37 | PDOC.BPN ---
- Brief Progress Note Encounter Date: 08/30/20 Encounter Time: 15:34 Chart reviewed and care discussed with RASHEED Carrington - pt overall improved post- gastrograffin study. She is cleared from Gen Surgery and started on steroids with GI for Crohns flare. She is more comfortable now and denies any new sx. VS reviewed gen - alert, responsive, nad Lungs - ctab with good air movement Heart - normal s1/s2 without audible murmurs Abd - ventral hernia, +BS, mild ttp throughout Ext - no edema labs reviewed - creatinine improved Impression: 1. Crohns flare with abd pain 2. Paroxysmal atrial fibrillation 3. History of low potassium and magnesium 4. Ventral hernia 5. CKD stage 3 - stable Plan: Agree with RASHEED Carrington note for today. - diet advanced, will slow IVF rate and plan to d/c the fluids tomorrow if taking adequate PO - hold home diltiazem due to low bp's dvt prophy - resume home eliquis gi prophy - change famotidine to PO since pt will be on steroids code status full reviewed plan of care with patient, no questions or further needs at end of eval
[2020-08-30] MEDS ORDERED: NS 0.9% w/ 40 MEQ KCL 1,000 ML IV SCH (15:38)
--- NOTE | 2020-08-30 19:41 | CON ---
DATE OF CONSULTATION: 08/30/2020 HISTORY: Ms. Mack is a 60-year-old female, who has been under care of Dr. Wyatt Alcaraz and more recently under care of Dr. Navin Cabello for history of Crohn's disease diagnosed in 2005 in the terminal ileum. She did not tolerate Imuran secondary to pancreatitis. She was on Humira for a time and became refractory and developed an obstruction in 2008 and required surgery to remove the terminal ileum. After that, she was having perianal disease and ultimately was placed on Inflectra, but developed antibodies and then more recently started Stelara about a year ago. In the past year, she has had issues with DVT and atrial fibrillation, for which she is not on anticoagulation. She has also had an empyema that was drained. More recently, she maybe had a bout of diverticulitis and she had a surgery with lysis of adhesions a few months ago over at the [facility]. She had had multiple times where she presented with complaints of diarrhea and abdominal pain. Stool studies have been negative. Sedimentation rate, CRP had been obtained and even stool. Fecal calprotectin had been low. She notes that a couple days before Josh, she began to have right-sided abdominal pain, which did not feel like her previous diagnosis of "diverticulitis" and stopped having bowel movements and passing gas the day prior to admission. Ultimately, she came in secondary to developing vomiting. CAT scan was performed and showed the possible early small bowel obstruction in the ileum and possible thickening of the sigmoid colon. She had a white count of 9.4. She reports subjective fever at home, but has had none here. An NG tube was placed without much return. This morning, she went down for a Gastrografin small-bowel follow-through in which there was slow progression, but ultimately did progress all the way to the colon. She notes that she did have 4 bowel movements this morning. The patient feels like she did not have diverticulitis that she has had in the past. She is worried about obstruction, but has not had this kind of pain recently. Presently, her pain is resolved. Talking with her, she does feel that her Stelara seems to help early on after the injection, but its effect fades with time. She denies any rashes, myalgias, arthralgias, or perianal disease. She denies any cough, shortness of breath. PAST MEDICAL HISTORY: Crohn's disease as outlined above, reportedly diverticulitis. She has responded to empiric antibiotics before, prior bowel obstructions with surgery in 2008 and more recently lysis of adhesions just few months ago, paroxysmal atrial fibrillation, chronic renal disease, prior DVT in the left lower extremity. PAST SURGICAL HISTORY: Appendectomy, cholecystectomy, ileocecectomy in 2008, laparotomy in February of 2020. MEDICATIONS: Stelara, potassium, Eliquis, magnesium, diltiazem. Present medications: Pepcid, levofloxacin daily, Flagyl t.i.d., morphine, normal saline at 100 with 40 of KCl. ALLERGIES: AZITHROMYCIN, LACTULOSE, PENICILLIN, METHOTREXATE. SOCIAL HISTORY: She is . She drinks alcohol rarely. She still smokes about half pack per day. REVIEW OF SYSTEMS: Otherwise per HPI. FAMILY HISTORY: Noncontributory. PHYSICAL EXAMINATION: VITAL SIGNS: Temperature 97, pulse 92, blood pressure 101/66, afebrile since admission. LUNGS: Clear. HEART: Regular rate and rhythm without murmurs. ABDOMEN: Nontender. No rebound. There is no guarding. EXTREMITIES: Reveal edema in right leg greater than left. She is in no distress. NEUROLOGIC: Grossly intact. LABORATORY DATA: White count was 9.4 on admission, 5.7 today; hemoglobin was 13.3 on admission, 11.3 today; platelet count 280. No left shift. Sodium 139, potassium 3.8, BUN and creatinine are 16 and 1.19. They were 18 and 1.45 yesterday. Lactic acid 1.2, bilirubin 0.7. AST and ALT are normal. Alkaline phosphatase 90, troponin 0.019, lipase 25, albumin 3.9, total protein 5.4. UA negative. Urine culture negative. CAT scan reviewed by myself and with Dr. Santana from yesterday, prominent wall thickening, scattered colonic diverticula, pericolonic inflammatory stranding involving the sigmoid colon. Radiologist felt this was sigmoid diverticulitis. Possible mild partial small bowel obstruction with transition zone in the lower midline abdomen. Mild shotty adenopathy. Small-bowel follow-through today, no evidence of high-grade obstruction. ASSESSMENT: Crohn's disease with surgeries in the past, complications with deep venous thrombosis, empyema. She has had ileal resection in the past 2008 and a lysis of adhesions in February of 2020. She is on Stelara now, she has been on that for a month. She has previously been on Inflectra and Humira. She cannot take mercaptopurine secondary to pancreatitis or methotrexate. Now she presents with either some low-grade diverticulitis and partial bowel obstruction in the small bowel or flare in her Crohn's disease. I would favor the latter. RECOMMENDATIONS: 1. IV steroids in addition to antibiotics at present. 2. Check Stelara levels. 3. She seems to be started having bowel movements now, maybe I think she needs a colonoscopy soon to see what the extent of her disease is. She thinks that the Stelara wears off towards last half of a period before next injection, it maybe reasonable to switch her to q.4 or q.6 dosing. We will also check a QuantiFERON and urine histoplasmosis antigen. Job ID: [id number]
[2020-08-30] MEDS: Apixaban 5 MG TAB PO SCH (20:53)
[2020-08-30] MEDS: Famotidine 20 MG TAB PO SCH (20:53)
[2020-08-31] MEDS: metroNIDAZOLE 500 MG in Premix Bag 1 BAG IVPB SCH ×3 (05:32→21:03)
[2020-08-31] MEDS: methylPREDNISolone Sod Succ 40 MG VIAL IVP SCH ×3 (05:32→21:03)
[2020-08-31] MEDS: Magnesium Oxide 400 MG TAB PO SCH (08:34)
[2020-08-31] MEDS: Apixaban 5 MG TAB PO SCH (08:34)
[2020-08-31] MEDS: Famotidine 20 MG TAB PO SCH ×2 (08:34→21:07)
--- NOTE | 2020-08-31 08:35 | PDOC.HOSPP ---
- Subjective Encounter Date: 08/31/20 (f/u Crohns flare) Encounter Time: 08:33 Subjective: Pt admitted for concern of SBO. She was managed with an NGT and yesterday underwent gastrograffin small bowel follow. NGT removed, diet advanced to liquids and pt started on IV steroids for Crohn's flare. Pt this morning is tearful. She states 'I'm laying in bed like a person and I'm not '. she reports prior hospitalizations being unable to walk on her own when she left. She reports being physically better -'100% but mentally I'm declining'. She declines any further liquid diet, stating she was up until 2 am with diarrhea. She denies any pain but does report she is hungry and has some nausea. Pt declines pt/ot stating she doesnt need therapy. She reports she wants to get up and walk around, and go have some coffee. - Objective Vital Signs & Weight: Vital Signs (12 hours) Temp Pulse Resp BP Pulse Ox 08/31/20 03:53 97.4 F L 65 16 96/62 97 08/30/20 23:36 98.0 F 72 16 100/65 95 Weight Weight 197 lb 15.602 oz I&O: 08/30/20 08/31/20 09/01/20 06:59 06:59 06:59 Intake Total 1200 950 Output Total 750 Balance 450 950 Result Diagrams: 08/31/20 08:20 08/31/20 08:20 Hospitalist ROS - Medication Medications: Active Medications Generic Name Dose Route Start Last Admin Trade Name Freq PRN Reason Stop Dose Admin Apixaban 5 mg 08/30/20 21:00 08/30/20 20:53 Apixaban 5 Mg Tab PO 5 mg BID AISHA Administration Famotidine 20 mg 08/30/20 21:00 08/30/20 20:53 Famotidine 20 Mg Tab PO 20 mg BID AISHA Administration Metronidazole 500 mg/ Device 100 mls @ 100 mls/hr 08/29/20 22:00 08/31/20 05:32 IVPB 100 mls Q8HR AISHA Administration Levofloxacin 750 mg/ Device 150 mls @ 100 mls/hr 08/30/20 17:00 08/30/20 17:39 IVPB 150 mls Q24HR AISHA Administration Methylprednisolone Sodium Succinate 20 mg 08/30/20 14:00 08/31/20 05:32 Methylprednisolone Sod Succ 40 Mg Vial IVP 20 mg Q8HR AISHA Administration Morphine Sulfate 4 mg 08/29/20 15:25 08/30/20 15:14 Morphine 4 Mg/Ml Vial SLOW IVP 4 mg Q4H PRN Administration Moderate to Severe Pain (6-10) Morphine Sulfate 2 mg 08/29/20 15:25 08/30/20 04:20 Morphine 2 Mg/Ml Vial SLOW IVP 2 mg Q4H PRN Administration Mild-Moderate Pain (1-5) - Exam General Appearance: NAD Heart: RRR, no murmur Respiratory: CTAB, no wheezes, no rales, no ronchi Gastrointestinal: soft, non-tender, normal bowel sounds Extremities: no cyanosis, no clubbing, no edema Psychiatric - other findings: pt is sad, tearful Hosp A/P (1) Crohn's disease Code(s): K50.90 - CROHN'S DISEASE, UNSPECIFIED, WITHOUT COMPLICATIONS Status: Acute (2) Nausea & vomiting Code(s): R11.2 - NAUSEA WITH VOMITING, UNSPECIFIED Status: Acute (3) Ventral hernia Code(s): K43.9 - VENTRAL HERNIA WITHOUT OBSTRUCTION OR GANGRENE Status: Chronic (4) Paroxysmal atrial fibrillation Code(s): I48.0 - PAROXYSMAL ATRIAL FIBRILLATION Status: Chronic (5) CKD (chronic kidney disease) stage 3, GFR 30-59 ml/min Code(s): N18.30 - CHRONIC KIDNEY DISEASE, STAGE 3 UNSPECIFIED Status: Chronic - Plan Crohn's flare - started on steroids yesterday - appreciate GI consult - on IV levaquin/metronidazole - pain meds/nausea meds prn - encouraged PO intake with water and electrolyte containing fluids - d/w patient that I don't recommend discharge. I recommend that she wait and hear from GI on their recommendations for continued management of new Crohn's flare CKD stage 3 - has been stable, awaiting results today Change in mood - likely multifactorial - encouraged pt to ambulate, will d/c IVF - pt declines other support here/from staff and states there is no one to come visit her, - continue to monitor dvt prophy - eliquis for stroke risk reduction with a fib gi prophy - famotidine while on steroids code status full reviewed plan of care with patient, no questions or further needs at end of eval Addendum at 20:21 - will d/c eliquis now for procedure tomorrow. Discussed with Dr. Lopez and pt's nurse to make sure that she does not receive dose tonight.
[2020-08-31 08:39] LABS: #Lymphocytes 1.1 thou/uL (1.20-3.40); #Monocytes 0.2 thou/uL (0.11-0.59); #Neutrophils 4.3 thou/uL (1.40-6.50); %Eosinophils 0.2 % (0.0-10.0); %Lymphocytes 19.2 % (21.0-51.0); %Monocytes 2.9 % (0.0-10.0); %Neutrophils 77.7 % (42.0-75.0); Hemoglobin 10.4 g/dL (12.0-16.0); Mean Corpuscular HGB CONC 32.6 g/dL (32.0-36.0); Mean Platelet Volume 7.7 fL (7.4-10.4); Platelet Count 197 thou/uL (130-400); RBC Distribution Width 12.1 % (11.5-14.5); Red Blood Cell (RBC) Count 3.36 mill/uL (4.20-5.40); White Blood Cell (WBC) Count 5.6 thou/uL (4.8-10.8)
[2020-08-31 08:44] LABS: Anion Gap 18 mmol/L (10-20); BUN (Urea Nitrogen) 15 mg/dL (9.8-20.1); Calc. Creatinine Clearance 76 mL/min (70-130); Calcium 9.4 mg/dL (7.8-10.44); Carbon Dioxide 17 mmol/L (23-31); Chloride 106 mmol/L (98-107); Glucose 98 mg/dL (80-115); Sodium 137 mmol/L (136-145)
[2020-08-31] MEDS ORDERED: Cyanocobalamin (Vitamin B-12) 1,000 MCG TAB PO SCH (09:00)
--- NOTE | 2020-08-31 11:38 | PRG ---
DATE OF SERVICE: 08/31/2020 SUBJECTIVE: Ms. Mack complains about just having diarrhea, is on liquid diet. She wanted to go home. We talked about issues of her disease and whether this is active Crohn's or possibly fibrostenotic disease or even the question of diverticular disease that has been raised in the past. She had labs showing B12 deficiency and apparently, was started oral replacement, which she takes at home, which does not work for her. Overall, she is feeling better. She is going to stay. Therefore, we are going to perform a colonoscopy. OBJECTIVE: VITAL SIGNS: Temperature is 97.5, pulse 76, blood pressure 107/71. ABDOMEN: Soft, nontender. GENERAL: She is up and walking around. ASSESSMENT: 1. Crohn's disease with flare in symptoms. This interestingly, had been ileal disease for her as few months ago, she had lysis of adhesions for partial obstruction. She presented at this time with possible partial obstruction, and there was concern for thickening in the sigmoid colon, and she had been treated empirically for diverticulitis, but she does not have a high white count to suggest that there may be Crohn's in that area as she has not had an endoscopy in 2 years. 2. B12 deficiency, likely related to her Crohn's. PLAN: 1. Await stool air levels. Consider decreasing stool air intervals. 2. Replace B12 parenterally and then with oral lozenge when she goes home, not oral pills. 3. Colonoscopy tomorrow. Job ID: [id number]
[2020-08-31] MEDS ORDERED: Cyanocobalamin 1000 MCG/ML VIAL IM SCH (12:00)
[2020-08-31] MEDS: Cyanocobalamin 1000 MCG/ML VIAL IM SCH (12:09)
[2020-08-31 12:25] LABS: Reference Lab Name LABCORP
[2020-08-31 12:26] LABS: Ref Lab Test Ordered Ustekinumab
[2020-08-31] MEDS ORDERED: GoLYTELY 4,000 ml Bottle PO SCH (17:00)
[2020-09-01] MEDS: metroNIDAZOLE 500 MG in Premix Bag 1 BAG IVPB SCH ×2 (06:05→14:19)
[2020-09-01] MEDS: methylPREDNISolone Sod Succ 40 MG VIAL IVP SCH ×2 (06:08→14:20)
[2020-09-01 08:44] LABS: SARS-CoV-2 NAA Rapid Test Not Detected (NotDetected)
[2020-09-01] MEDS: Famotidine 20 MG TAB PO SCH (09:00)
[2020-09-01] MEDS: Cyanocobalamin 1000 MCG/ML VIAL IM SCH (09:00)
[2020-09-01] MEDS: Magnesium Oxide 400 MG TAB PO SCH (09:00)
[2020-09-01 09:02] LABS: Anion Gap 17 mmol/L (10-20); BUN (Urea Nitrogen) 14 mg/dL (9.8-20.1); Calc. Creatinine Clearance 75 mL/min (70-130); Calcium 8.9 mg/dL (7.8-10.44); Carbon Dioxide 22 mmol/L (23-31); Chloride 104 mmol/L (98-107); Glucose 91 mg/dL (80-115); Potassium 3.2 mmol/L (3.5-5.1); Sodium 140 mmol/L (136-145)
[2020-09-01] MEDS ORDERED: PROPOFOL 200 MG/20 ML VIAL ONE (10:04)
--- NOTE | 2020-09-01 10:33 | OP ---
DATE OF PROCEDURE: 09/01/2020 [employer] SURGEON: None. PROCEDURE PERFORMED: Colonoscopy, incomplete. INDICATIONS: 1. Recurrent lower abdominal pain. 2. History of diverticulitis. 3. History of Crohn disease, status post partial small-bowel resection. MEDICATIONS: See Anesthesia record. FINDINGS: After discussion of the risks, benefits, and alternatives of the procedure, informed consent was obtained and witnessed. Pre-endoscopic cardiopulmonary examination was satisfactory. Time-out was performed before sedation was achieved. Sedation was achieved with Anesthesia assistance in the endoscopy unit. Digital rectal exam was performed, which demonstrated some external hemorrhoids. A Pentax adult colonoscope was inserted into the anus and passed forward in the usual fashion. There was patchy erythema and severe mucosal edema in the sigmoid colon, particularly at 30 cm from the anal verge. This is in an area of known diverticulosis, though I did not really visualize any diverticula to the extent examined. However, given her known diverticulosis and these sigmoid findings, the appearance was concerning for likely reactive changes to sigmoid diverticulitis. Given these findings, I elected not to proceed any further, but rather to withdrawal the endoscope suctioning out excess air. I did not obtain biopsies on this examination. The distal 20 cm of the colon appeared normal. Retroflexion in the rectum demonstrated some small internal hemorrhoids. The colonoscope was completely withdrawn and the patient allowed to recover. The patient tolerated the procedure well. There were no immediate postprocedure complications. IMPRESSION: 1. Severe mucosal edema and patchy erythema in the sigmoid colon at 30 cm, concerning for acute diverticulitis. Therefore, I did not advance the endoscope further. 2. Small internal and external hemorrhoids. RECOMMENDATIONS: 1. I would continue treatment with antibiotics, for a 2-week treatment course. Switch to oral Levaquin and Flagyl on discharge. 2. Advance diet as tolerated to low residue diet. 3. We will have the patient follow up in the GI Clinic with Dr. Cabello or his PA in the next 2 to 3 weeks. At that point, we will need to plan for repeat colonoscopy in about 2 months. If the patient is still feeling well this afternoon, no barriers to hospital discharge on oral antibiotics from a GI perspective. Please call back anytime with questions or concerns. Job ID: [id number]
[2020-09-01] MEDS ORDERED: Cyanocobalamin 1000 MCG/ML VIAL IM SCH (11:45)
[2020-09-01 16:01] VITALS: BP 115/83; TEMP 98.1
--- NOTE | 2020-09-02 07:20 | DIS ---
DATE OF ADMISSION: 08/29/2020 DATE OF DISCHARGE: 09/01/2020 DISCHARGE DIAGNOSES: 1. Acute sigmoid diverticulitis. 2. Abdominal pain secondary to acute sigmoid diverticulitis. 3. Crohn's disease. 4. Nausea and vomiting, resolved. 5. Chronic anticoagulation with Eliquis. 6. Chronic kidney disease, stage 3. CONSULTATIONS: 1. Dr. Lopez and Dr. Kincaid with GI Service. 2. Dr. Santana with General Surgery Service. PERTINENT LABORATORY AND X-RAY FINDINGS: Potassium ranged between 3.2 to 4.0. Creatinine ranged between 1.09 to 1.45. Lactic acid level 1.2, magnesium level 1.7. CRP 6.01. Lipase 25. Vitamin B12 level 143. Folate level 8.20. CBC showed a white blood cell count ranged between 5.6 to 9.4, hemoglobin ranged between 10.4 to 13.3. ESR 20. COVID-19 PCR not detected, 09/01/2020. Urine culture dated 08/29/2020, showed greater than 100,000 colonies of mixed skin and enteric nina. CT of the abdomen and pelvis dated 08/29/2020, showed prominent wall thickening with scattered colonic diverticula and pericolonic inflammatory stranding involving the sigmoid colon. Question of [id number] partial small bowel obstruction with a transition zone in the lower middle abdomen. Abdominal radiographs dated 08/29/2020, showed gastric distention. Nasogastric tube noted with side port at the GE junction. Small bowel follow-through dated 08/30/2020, showed no evidence of high-grade obstruction. Partial small bowel obstruction may be present. Colonoscopy dated 09/01/2020, showed severe mucosal edema and patchy erythema in the sigmoid colon at 30 cm concerning for acute diverticulitis. HOSPITAL COURSE: The patient was initially admitted after presenting with abdominal pain with associated nausea and vomiting in the context of Crohn's disease. The patient underwent general evaluation including plain radiographic imaging of the abdomen showing questionable partial small bowel obstruction. The patient received IV fluids, Zofran and morphine sulfate as well as Levaquin and Flagyl. The patient underwent NG tube placement after concern for partial small bowel obstruction, evaluated by the General Surgery Service. The patient underwent small bowel follow-through showing no evidence of obstructive pattern. However, NG tube was removed and the patient was evaluated by the GI Service given CT imaging findings as stated previously. The patient continued on IV antibiotic therapy, undergoing a bowel preparation and eventual colonoscopy performed 09/01 showing evidence of acute diverticulitis in the sigmoid distribution. The colonoscopy was terminated due to concern for possible perforation and active infection with recommendations for 2-week course of Levaquin and Flagyl. The patient was given a trial of regular oral intake, tolerating without difficulty. Overall, symptoms have improved and vital signs remained stable. I have examined the patient at the time of discharge and discussed followup instructions. The patient verbalized understanding and in agreement and ready for discharge on 09/01/2020. DISCHARGE MEDICATIONS: 1. Levaquin 500 mg p.o. daily x14 days. 2. Flagyl 500 mg p.o. t.i.d. x14 days. 3. Diltiazem CD 120 mg p.o. daily. 4. Pepcid 40 mg p.o. daily. 5. K-Dur 40 mEq p.o. b.i.d. 6. Magnesium oxide 800 mg p.o. daily. 7. Stelara 520 mg every other month. 8. Zofran 4 mg p.o. q.6 hours p.r.n. 9. Eliquis 5 mg p.o. b.i.d. FOLLOWUP: The patient may follow up with her primary care provider, Dr. Jonn Madrigal. The patient will follow up with Dr. Navin Cabello with GI Service in 2 to 3 weeks after discharge. CONDITION ON DISCHARGE: Stable. DIET: Regular with low residue. ACTIVITY: Ad-gabrielle. CODE STATUS: Full. DISPOSITION: Home, 09/01/2020. TIME SPENT: Total time preparing and coordinating discharge, 32 minutes. Job ID: [id number]
== END 2020-09-01 16:53 | disposition home or self-care (01) | DRG 386 ==
LOC: ERS 10:57 → SURG B 14:00 → OBSVTOIN 14:09
PROVIDERS: ADMIT Family Medicine; ATTEND Family Medicine
PROC: 0DJD8ZZ Inspection of Lower Intestinal Tract, Via Natural or Artificial Opening Endoscopic (ICD-10-PCS; principal; 2020-09-01)
DX: K50.90 Crohn's disease, unspecified, without complications (principal); K56.600 Partial intestinal obstruction, unspecified as to cause; K57.32 Diverticulitis of large intestine without perforation or abscess without bleeding; Z20.828 Contact with and (suspected) exposure to other viral communicable diseases; I48.0 Paroxysmal atrial fibrillation; N18.30 Chronic kidney disease, stage 3 unspecified; K43.9 Ventral hernia without obstruction or gangrene; E87.6 Hypokalemia; E53.8 Deficiency of other specified B group vitamins; K64.4 Residual hemorrhoidal skin tags; K64.8 Other hemorrhoids; E83.42 Hypomagnesemia; Z79.01 Long term (current) use of anticoagulants; Z88.0 Allergy status to penicillin; Z90.49 Acquired absence of other specified parts of digestive tract; Z88.8 Allergy status to other drugs, medicaments and biological substances
CPT/HCPCS: 36415; 74018; 74177; 74250; 80048; 80053; 81003; 81015; 82306; 82607; 82746; 83605; 83690; 83735; 84484; 85025; 85652; 86140; 86480; 87086; 87385; 93005; J1956; J2270; J2405; J2704; J2920; J3420; J3475; J3480; J3490; Q9963; Q9967; S0028; U0002

== ENCOUNTER 2021-11-01 10:27 | Inpatient (IN) | payer MEDICARE ==
[2021-11-01 11:17] LABS: #Lymphocytes 0.8 thou/uL (1.20-3.40); #Monocytes 0.6 thou/uL (0.11-0.59); #Neutrophils 9.1 thou/uL (1.40-6.50); %Eosinophils 0.2 % (0.0-10.0); %Lymphocytes 7.9 % (21.0-51.0); %Monocytes 5.9 % (0.0-10.0); Hemoglobin 11.7 g/dL (12.0-16.0); Mean Corpuscular HGB CONC 32.3 g/dL (32.0-36.0); Mean Corpuscular Hemoglobin 29.5 pg (27.0-31.0); Mean Corpuscular Volume 91.5 fL (78.0-98.0); Mean Platelet Volume 8.2 fL (7.4-10.4); Platelet Count 274 thou/uL (130-400); Red Blood Cell (RBC) Count 3.97 mill/uL (4.20-5.40); White Blood Cell (WBC) Count 10.5 thou/uL (4.8-10.8)
[2021-11-01 11:38] LABS: ALT (SGPT) 17 U/L (8-55); AST (SGOT) 23 U/L (5-34); Albumin 3.5 g/dL (3.4-4.8); Alkaline Phosphatase 91 U/L (40-110); Anion Gap 17 mmol/L (10-20); BUN (Urea Nitrogen) 31 mg/dL (9.8-20.1); Bilirubin, Total 0.8 mg/dL (0.2-1.2); Calc. Creatinine Clearance 0 mL/min (70-130); Calcium 9.3 mg/dL (7.8-10.44); Carbon Dioxide 13 mmol/L (23-31); Chloride 101 mmol/L (98-107); Globulin 4.5 g/dL (2.4-3.5); Glucose 110 mg/dL (80-115); Potassium 3.5 mmol/L (3.5-5.1); Sodium 127 mmol/L (136-145)
[2021-11-01 13:16] LABS: Bacteria/HPF 4+ HPF (None Seen); Bilirubin Negative (Negative); Blood, Urine Trace (Negative); Clarity Turbid (Clear); Glucose, Urine (Dipstick) Normal (Negative); Ketone, Urine Negative (Negative); Leukocyte 75 Leu/uL (Negative); Nitrite Negative (Negative); Protein, Urine (Dipstick) 50 mg/dL (Neg-Trace); RBC/HPF 0-3 HPF (0-3); Specific Gravity, Urine 1.014 (1.002-1.036); Urobilinogen Normal mg/dL (Less than 2); pH, Urine 5.5 (5.0-9.0)
[2021-11-01] MEDS ORDERED: Magnesium 2 GM/50 ML BAG (IN WATER) ONE (13:47)
[2021-11-01] MEDS ORDERED: Albuterol 200 PUFF (6.7GM INHALER) ONE (13:52)
[2021-11-01] MEDS ORDERED: Ondansetron PF 4 MG/2 ML Vial IVP PRN (16:38)
[2021-11-01] MEDS ORDERED: Ondansetron ODT 4 MG TAB PO PRN (16:38)
[2021-11-01] MEDS ORDERED: Diltiazem 125 MG in Sodium Chloride 0.9% 100 ML IVPB SCH (16:45)
[2021-11-01 17:04] LABS: Troponin I 0.011 ng/mL (< 0.028)
[2021-11-01] MEDS: Sodium Chloride 0.9% 1,000 ML IV SCH (17:19)
[2021-11-01] MEDS: cefTRIAXone\\ROCEPHIN 1 GM in Sodium Chloride 0.9% 100 ML IVPB SCH (17:20)
[2021-11-01 17:43] VITALS: BMI 43.9
[2021-11-01 19:23] LABS: Troponin I 0.012 ng/mL (< 0.028)
[2021-11-02] MEDS: Sodium Chloride 0.9% 1,000 ML IV SCH ×3 (02:17→20:19)
[2021-11-02] MEDS ORDERED: Loperamide HCl 2 MG CAP PO SCH ×2 (04:30→20:27)
[2021-11-02 05:20] LABS: Anion Gap 16 mmol/L (10-20); BUN (Urea Nitrogen) 28 mg/dL (9.8-20.1); Calc. Creatinine Clearance 62 mL/min (70-130); Calcium 8.4 mg/dL (7.8-10.44); Carbon Dioxide 12 mmol/L (23-31); Chloride 103 mmol/L (98-107); Glucose 95 mg/dL (80-115); Sodium 128 mmol/L (136-145)
[2021-11-02 05:24] LABS: #Monocytes 0.4 thou/uL (0.11-0.59); #Neutrophils 5.9 thou/uL (1.40-6.50); %Eosinophils 0.2 % (0.0-10.0); %Neutrophils 79.8 % (42.0-75.0); Mean Corpuscular HGB CONC 33.4 g/dL (32.0-36.0); Mean Corpuscular Hemoglobin 30.3 pg (27.0-31.0); Mean Corpuscular Volume 90.6 fL (78.0-98.0); Mean Platelet Volume 7.8 fL (7.4-10.4); Platelet Count 235 thou/uL (130-400); RBC Distribution Width 13.7 % (11.5-14.5); Red Blood Cell (RBC) Count 3.62 mill/uL (4.20-5.40); White Blood Cell (WBC) Count 7.4 thou/uL (4.8-10.8)
[2021-11-02 05:26] LABS: Potassium 2.6 mmol/L (3.5-5.1)
[2021-11-02] MEDS ORDERED: Diphenoxylate HCl/Atropine Tablet PO PRN (07:38)
[2021-11-02] MEDS ORDERED: Magnesium Oxide 400 MG TAB PO SCH (09:00)
[2021-11-02] MEDS: Apixaban 5 MG TAB PO SCH ×2 (09:28→20:19)
[2021-11-02] MEDS: Magnesium Oxide 400 MG TAB PO SCH ×2 (09:28→20:19)
[2021-11-02] MEDS: Ascorbic Acid 500 mg Chewable Tablet PO SCH (09:28)
[2021-11-02] MEDS: Sodium Bicarbonate Tab 325 MG TAB PO SCH ×2 (09:28→20:19)
[2021-11-02] MEDS: Zinc Sulfate 220 MG CAP PO SCH (09:29)
[2021-11-02] MEDS: Potassium Chloride 20 MEQ TAB PO SCH ×2 (09:30→16:38)
[2021-11-02] MEDS: cefTRIAXone\\ROCEPHIN 1 GM in Sodium Chloride 0.9% 100 ML IVPB SCH (16:37)
[2021-11-02] MEDS: Diphenoxylate HCl/Atropine Tablet PO PRN ×2 (16:38→23:35)
[2021-11-02 16:48] LABS: Potassium 3.4 mmol/L (3.5-5.1)
[2021-11-02] MEDS: Acetaminophen 325 MG TAB PO PRN (17:24)
[2021-11-03 06:03] LABS: Anion Gap 17 mmol/L (10-20); BUN (Urea Nitrogen) 19 mg/dL (9.8-20.1); Calc. Creatinine Clearance 68 mL/min (70-130); Calcium 8.4 mg/dL (7.8-10.44); Carbon Dioxide 11 mmol/L (23-31); Chloride 107 mmol/L (98-107); Glucose 91 mg/dL (80-115); Sodium 132 mmol/L (136-145)
[2021-11-03] MEDS: Diphenoxylate HCl/Atropine Tablet PO PRN ×3 (06:39→20:39)
[2021-11-03] MEDS: Potassium Chloride 20 MEQ TAB PO SCH ×2 (06:39→16:58)
[2021-11-03 06:42] LABS: Band 16 % (5-11); Hemoglobin 9.9 g/dL (12.0-16.0); Lymphocytes 16 % (21-51); MDiff Complete? YES; Mean Corpuscular HGB CONC 29.8 g/dL (32.0-36.0); Mean Corpuscular Hemoglobin 26.8 pg (27.0-31.0); Mean Corpuscular Volume 90.1 fL (78.0-98.0); Mean Platelet Volume 8.2 fL (7.4-10.4); Monocytes 1 % (0-10); Neutrophil 67 % (42-75); Platelet Count 187 thou/uL (130-400); RBC Distribution Width 13.7 % (11.5-14.5); RBC Morphology Normal; Red Blood Cell (RBC) Count 3.69 mill/uL (4.20-5.40); White Blood Cell (WBC) Count 6.8 thou/uL (4.8-10.8)
[2021-11-03] MEDS: Sodium Chloride 0.9% 1,000 ML IV SCH (06:47)
[2021-11-03] MEDS ORDERED: Potassium Chloride 20 MEQ in Premix Bag 1 BAG IVPB SCH (08:00)
[2021-11-03] MEDS: Zinc Sulfate 220 MG CAP PO SCH (08:23)
[2021-11-03] MEDS: Ascorbic Acid 500 mg Chewable Tablet PO SCH (08:23)
[2021-11-03] MEDS: Apixaban 5 MG TAB PO SCH ×2 (08:23→20:24)
[2021-11-03] MEDS: Magnesium Oxide 400 MG TAB PO SCH ×2 (08:23→20:25)
[2021-11-03] MEDS: Sodium Bicarbonate Tab 325 MG TAB PO SCH ×3 (08:23→20:25)
[2021-11-03] MEDS: Lactated Ringer's 1,000 ML IV SCH ×2 (08:25→19:03)
[2021-11-03] MEDS ORDERED: Non-Formulary Item 1 EACH (Famotidine [Famotidine] 40 MG Tablet) PO SCH (09:00)
[2021-11-03] MEDS ORDERED: Famotidine 20 MG TAB PO SCH (09:00)
[2021-11-03 10:44] LABS: Magnesium 1.9 mg/dL (1.6-2.6)
[2021-11-03] MEDS: Acetaminophen 325 MG TAB PO PRN (15:51)
[2021-11-03] MEDS: cefTRIAXone\\ROCEPHIN 1 GM in Sodium Chloride 0.9% 100 ML IVPB SCH (16:59)
[2021-11-03 17:16] LABS: Potassium 3.2 mmol/L (3.5-5.1)
[2021-11-04] MEDS: Lactated Ringer's 1,000 ML IV SCH ×2 (03:04→10:35)
[2021-11-04 05:22] LABS: #Monocytes 0.6 thou/uL (0.11-0.59); #Neutrophils 4.3 thou/uL (1.40-6.50); %Basophils 0.2 % (0.0-1.0); %Eosinophils 0.8 % (0.0-10.0); %Lymphocytes 16.8 % (21.0-51.0); %Monocytes 9.6 % (0.0-10.0); %Neutrophils 72.6 % (42.0-75.0); Mean Corpuscular Hemoglobin 29.7 pg (27.0-31.0); Mean Corpuscular Volume 90.1 fL (78.0-98.0); Mean Platelet Volume 7.8 fL (7.4-10.4); Platelet Count 246 thou/uL (130-400); RBC Distribution Width 13.7 % (11.5-14.5); Red Blood Cell (RBC) Count 2.68 mill/uL (4.20-5.40); White Blood Cell (WBC) Count 5.9 thou/uL (4.8-10.8)
[2021-11-04 05:29] LABS: Anion Gap 11 mmol/L (10-20); BUN (Urea Nitrogen) 12 mg/dL (9.8-20.1); Calc. Creatinine Clearance 81 mL/min (70-130); Carbon Dioxide 17 mmol/L (23-31); Chloride 107 mmol/L (98-107); Glucose 95 mg/dL (80-115); Potassium 3.2 mmol/L (3.5-5.1); Sodium 132 mmol/L (136-145)
[2021-11-04] MEDS: Zinc Sulfate 220 MG CAP PO SCH (08:25)
[2021-11-04] MEDS: Sodium Bicarbonate Tab 325 MG TAB PO SCH ×2 (08:25→16:32)
[2021-11-04] MEDS: Ascorbic Acid 500 mg Chewable Tablet PO SCH (08:26)
[2021-11-04] MEDS: Magnesium Oxide 400 MG TAB PO SCH (08:26)
[2021-11-04] MEDS: Potassium Chloride 20 MEQ TAB PO SCH ×2 (08:26→16:32)
[2021-11-04] MEDS: Apixaban 5 MG TAB PO SCH (08:26)
[2021-11-04] MEDS ORDERED: Famotidine 20 MG TAB PO SCH (09:00)
[2021-11-04] MEDS ORDERED: Cefdinir 300 MG CAP PO SCH (09:00)
[2021-11-04] MEDS: Diphenoxylate HCl/Atropine Tablet PO PRN ×2 (10:35→16:32)
[2021-11-04] MEDS ORDERED: Potassium Chloride 20 MEQ TAB PO SCH (12:00)
[2021-11-04 15:31] LABS: Potassium 3.4 mmol/L (3.5-5.1)
[2021-11-04 17:17] VITALS: BP 103/68; TEMP 99.7
== END 2021-11-04 18:15 | disposition home health service (06) | DRG 177 ==
LOC: ERS 10:27 → ERHOLD 15:23 → 2SW 16:52
PROVIDERS: ADMIT Internal Medicine; ATTEND Internal Medicine
PROC: 8E0ZXY6 Isolation (ICD-10-PCS; principal; 2021-11-01)
DX: U07.1 COVID-19 (principal); J12.82 Pneumonia due to coronavirus disease 2019; K50.90 Crohn's disease, unspecified, without complications; N39.0 Urinary tract infection, site not specified; E87.1 Hypo-osmolality and hyponatremia; N17.9 Acute kidney failure, unspecified; A08.39 Other viral enteritis; E87.2 Acidosis; Z68.41 Body mass index [BMI] 40.0-44.9, adult; F17.210 Nicotine dependence, cigarettes, uncomplicated; E86.0 Dehydration; I48.0 Paroxysmal atrial fibrillation; N18.30 Chronic kidney disease, stage 3 unspecified; E87.6 Hypokalemia; B96.20 Unspecified Escherichia coli [E. coli] as the cause of diseases classified elsewhere; E66.01 Morbid (severe) obesity due to excess calories; Z86.718 Personal history of other venous thrombosis and embolism; Z79.01 Long term (current) use of anticoagulants; Z88.0 Allergy status to penicillin; Z88.8 Allergy status to other drugs, medicaments and biological substances; Z79.899 Other long term (current) drug therapy; Z90.49 Acquired absence of other specified parts of digestive tract
CPT/HCPCS: 36415; 36416; 71045; 71275; 80048; 80053; 81003; 81015; 83605; 83735; 83880; 84484; 85025; 85379; 87040; 87077; 87086; 87186; 93005; 96365; 96366; 96367; 96375; J0696; J1956; J2405; J3475; J3480; J3490; J7050; J7120; Q0162

== ENCOUNTER 2022-06-14 10:52 | Inpatient (IN) | payer MEDICARE ==
[2022-06-14 11:50] LABS: #Lymphocytes 1.3 thou/uL (1.20-3.40); #Monocytes 1.2 thou/uL (0.11-0.59); #Neutrophils 9.5 thou/uL (1.40-6.50); %Basophils 0.2 % (0.0-1.0); %Eosinophils 0.1 % (0.0-10.0); %Lymphocytes 10.6 % (21.0-51.0); %Neutrophils 79.2 % (42.0-75.0); Hemoglobin 11.4 g/dL (12.0-16.0); Mean Corpuscular HGB CONC 31.7 g/dL (32.0-36.0); Mean Corpuscular Hemoglobin 27.4 pg (27.0-31.0); Mean Corpuscular Volume 86.4 fL (78.0-98.0); Mean Platelet Volume 7.4 fL (7.4-10.4); Platelet Count 224 thou/uL (130-400); RBC Distribution Width 14.5 % (11.5-14.5); Red Blood Cell (RBC) Count 4.16 mill/uL (4.20-5.40); White Blood Cell (WBC) Count 11.9 thou/uL (4.8-10.8)
[2022-06-14 12:05] LABS: ALT (SGPT) Less than 7 U/L (8-55); AST (SGOT) 9 U/L (5-34); Albumin 3.4 g/dL (3.4-4.8); Alkaline Phosphatase 97 U/L (40-110); Anion Gap 16 mmol/L (10-20); BUN (Urea Nitrogen) 17 mg/dL (9.8-20.1); Bilirubin, Total 0.5 mg/dL (0.2-1.2); Calc. Creatinine Clearance 0 mL/min (70-130); Calcium 8.6 mg/dL (7.8-10.44); Carbon Dioxide 14 mmol/L (23-31); Chloride 102 mmol/L (98-107); Estimated GFR 30; Globulin 3.5 g/dL (2.4-3.5); Glucose 98 mg/dL (80-115); Protein, Total 6.9 g/dL (5.8-8.1); Sodium 130 mmol/L (136-145)
[2022-06-14 12:18] LABS: Potassium 1.9 mmol/L (3.5-5.1)
[2022-06-14] MEDS ORDERED: Potassium Chloride 20 MEQ/100 ML PREMIX BAG ONE ×2 (12:32→16:06)
[2022-06-14] MEDS ORDERED: Potassium Chloride 20 MEQ TAB ONE (12:32)
[2022-06-14] MEDS ORDERED: Magnesium 2 GM/50 ML BAG (IN WATER) ONE (14:03)
[2022-06-14 14:22] LABS: Magnesium 1.4 mg/dL (1.6-2.6)
[2022-06-14] MEDS ORDERED: Ondansetron PF 4 MG/2 ML Vial ONE (14:41)
[2022-06-14] MEDS ORDERED: Acetaminophen 325 MG TAB PO PRN (14:46)
[2022-06-14] MEDS ORDERED: Ondansetron PF 4 MG/2 ML Vial IVP PRN (14:46)
[2022-06-14] MEDS ORDERED: NS 0.9% w/ 40 MEQ KCL 1,000 ML IV SCH ×2 (15:00→18:31)
[2022-06-14] MEDS ORDERED: Electrolyte Replacement Protocol FS SCH (15:00)
[2022-06-14 15:01] VITALS: BMI 44.9
[2022-06-14 15:42] LABS: SARS-CoV-2 NAA Rapid Test Not Detected (NotDetected)
[2022-06-14 19:36] LABS: Phosphorus 3.9 mg/dL (2.3-4.7)
[2022-06-14 19:42] LABS: Anion Gap 19 mmol/L (10-20); BUN (Urea Nitrogen) 20 mg/dL (9.8-20.1); Calc. Creatinine Clearance 56 mL/min (70-130); Carbon Dioxide 12 mmol/L (23-31); Chloride 102 mmol/L (98-107); Estimated GFR 28; Glucose 85 mg/dL (80-115); Magnesium 2.2 mg/dL (1.6-2.6); Sodium 131 mmol/L (136-145)
[2022-06-14] MEDS ORDERED: Sodium Bicarbonate 150 MEQ in Dextrose 5% in Water 1,000 ML IV SCH (21:15)
[2022-06-14] MEDS: Potassium Chloride 20 MEQ in Premix Bag 1 BAG IVPB SCH ×3 (21:27→23:51)
[2022-06-14] MEDS: Sodium Chloride 0.9% 1,000 ML IV SCH (21:27)
[2022-06-14] MEDS: Apixaban 5 MG TAB PO SCH (21:29)
[2022-06-14] MEDS: metroNIDAZOLE 500 MG in Premix Bag 1 BAG IVPB SCH (22:36)
[2022-06-15] MEDS: Potassium Chloride 20 MEQ in Premix Bag 1 BAG IVPB SCH ×5 (03:04→14:17)
[2022-06-15 05:19] LABS: #Lymphocytes 1.5 thou/uL (1.20-3.40); #Monocytes 1.1 thou/uL (0.11-0.59); #Neutrophils 8.7 thou/uL (1.40-6.50); %Basophils 0.4 % (0.0-1.0); %Eosinophils 0.3 % (0.0-10.0); %Lymphocytes 13.2 % (21.0-51.0); %Monocytes 9.4 % (0.0-10.0); %Neutrophils 76.7 % (42.0-75.0); Hemoglobin 10.6 g/dL (12.0-16.0); Mean Corpuscular HGB CONC 32.1 g/dL (32.0-36.0); Mean Corpuscular Hemoglobin 27.7 pg (27.0-31.0); Mean Corpuscular Volume 86.5 fL (78.0-98.0); Mean Platelet Volume 7.6 fL (7.4-10.4); Platelet Count 221 thou/uL (130-400); RBC Distribution Width 14.3 % (11.5-14.5); Red Blood Cell (RBC) Count 3.82 mill/uL (4.20-5.40); White Blood Cell (WBC) Count 11.4 thou/uL (4.8-10.8)
[2022-06-15 05:23] LABS: Phosphorus 3.4 mg/dL (2.3-4.7)
[2022-06-15 05:24] LABS: Anion Gap 16 mmol/L (10-20); BUN (Urea Nitrogen) 22 mg/dL (9.8-20.1); Calc. Creatinine Clearance 59 mL/min (70-130); Calcium 8.7 mg/dL (7.8-10.44); Carbon Dioxide 13 mmol/L (23-31); Chloride 105 mmol/L (98-107); Estimated GFR 31; Glucose 90 mg/dL (80-115); Magnesium 1.9 mg/dL (1.6-2.6); Sodium 132 mmol/L (136-145)
[2022-06-15 05:27] LABS: Potassium 2.2 mmol/L (3.5-5.1)
[2022-06-15] MEDS: Sodium Chloride 0.9% 1,000 ML IV SCH ×3 (06:07→21:37)
[2022-06-15] MEDS: metroNIDAZOLE 500 MG in Premix Bag 1 BAG IVPB SCH ×3 (06:08→20:57)
[2022-06-15] MEDS ORDERED: Magnesium 2 GM/50 ML(in water) 2 GM in Premix Bag 1 BAG IVPB SCH (08:00)
[2022-06-15] MEDS: Apixaban 5 MG TAB PO SCH ×2 (09:49→20:56)
[2022-06-15] MEDS: methylPREDNISolone Sod Succ/PF 125 MG/2 ML VIAL IVP SCH ×3 (09:49→10:24)
[2022-06-15 11:35] LABS: Campy jejuni + coli by PCR Negative (Negative); STEC Shiga Toxin 1+2 Negative (Negative); Salmonella spp. by PCR Negative (Negative); Shigella spp + EIEC by PCR Negative (Negative)
[2022-06-15 12:19] LABS: Creatinine, Urine 85.15 mg/dL (47-110); Potassium, Urine 16.6 mmol/L; Sodium, Urine Less than 20 mmol/L (Not Available)
[2022-06-15] MEDS: Benzonatate 100 MG CAP PO PRN ×2 (12:30→20:56)
[2022-06-15 15:42] LABS: Anion Gap 15 mmol/L (10-20); BUN (Urea Nitrogen) 21 mg/dL (9.8-20.1); Calc. Creatinine Clearance 58 mL/min (70-130); Calcium 8.8 mg/dL (7.8-10.44); Carbon Dioxide 12 mmol/L (23-31); Chloride 108 mmol/L (98-107); Estimated GFR 30; Glucose 119 mg/dL (80-115); Sodium 132 mmol/L (136-145)
[2022-06-15 15:49] LABS: Potassium 2.9 mmol/L (3.5-5.1)
[2022-06-16 05:00] LABS: #Lymphocytes 1.6 thou/uL (1.20-3.40); #Monocytes 0.7 thou/uL (0.11-0.59); #Neutrophils 5.7 thou/uL (1.40-6.50); %Basophils 0.1 % (0.0-1.0); %Lymphocytes 19.8 % (21.0-51.0); %Monocytes 8.9 % (0.0-10.0); %Neutrophils 71.1 % (42.0-75.0); Hemoglobin 9.3 g/dL (12.0-16.0); Mean Corpuscular HGB CONC 32.4 g/dL (32.0-36.0); Mean Corpuscular Hemoglobin 27.5 pg (27.0-31.0); Mean Corpuscular Volume 84.7 fL (78.0-98.0); Mean Platelet Volume 7.6 fL (7.4-10.4); Platelet Count 214 thou/uL (130-400); Red Blood Cell (RBC) Count 3.37 mill/uL (4.20-5.40)
[2022-06-16 05:06] LABS: Anion Gap 14 mmol/L (10-20); BUN (Urea Nitrogen) 20 mg/dL (9.8-20.1); Calc. Creatinine Clearance 59 mL/min (70-130); Carbon Dioxide 16 mmol/L (23-31); Chloride 109 mmol/L (98-107); Estimated GFR 31; Glucose 103 mg/dL (80-115); Sodium 136 mmol/L (136-145)
[2022-06-16 05:15] LABS: Potassium 2.6 mmol/L (3.5-5.1)
[2022-06-16] MEDS: metroNIDAZOLE 500 MG in Premix Bag 1 BAG IVPB SCH ×3 (05:28→21:00)
[2022-06-16] MEDS: Potassium Chloride 20 MEQ TAB PO SCH ×2 (06:58→09:52)
[2022-06-16] MEDS ORDERED: Potassium Chloride 20 MEQ TAB PO SCH (09:15)
[2022-06-16] MEDS: Sodium Chloride 0.9% 1,000 ML IV SCH ×2 (09:48→17:19)
[2022-06-16] MEDS: methylPREDNISolone Sod Succ/PF 125 MG/2 ML VIAL IVP SCH (09:52)
[2022-06-16] MEDS: Apixaban 5 MG TAB PO SCH ×2 (09:52→21:00)
[2022-06-16 14:46] LABS: Potassium 3.2 mmol/L (3.5-5.1)
[2022-06-16] MEDS ORDERED: Cholestyramine/Aspartame 4 gm Packet PO SCH (15:15)
[2022-06-16] MEDS: guaiFENesin/Codeine 200 mg/20 mg 10 ml Cup PO PRN (19:41)
[2022-06-16] MEDS: Cholestyramine/Aspartame 4 gm Packet PO SCH (21:00)
[2022-06-17] MEDS ORDERED: Potassium Chloride 20 MEQ TAB PO SCH (00:30)
[2022-06-17] MEDS: guaiFENesin/Codeine 200 mg/20 mg 10 ml Cup PO PRN (03:52)
[2022-06-17 04:12] LABS: #Lymphocytes 1.1 thou/uL (1.20-3.40); #Monocytes 0.5 thou/uL (0.11-0.59); %Eosinophils 0.2 % (0.0-10.0); %Lymphocytes 16.3 % (21.0-51.0); %Monocytes 7.4 % (0.0-10.0); Hemoglobin 9.1 g/dL (12.0-16.0); Mean Corpuscular HGB CONC 31.1 g/dL (32.0-36.0); Mean Corpuscular Volume 86.6 fL (78.0-98.0); Mean Platelet Volume 7.4 fL (7.4-10.4); Platelet Count 214 thou/uL (130-400); RBC Distribution Width 14.3 % (11.5-14.5); Red Blood Cell (RBC) Count 3.36 mill/uL (4.20-5.40); White Blood Cell (WBC) Count 6.5 thou/uL (4.8-10.8)
[2022-06-17 04:43] LABS: Anion Gap 13 mmol/L (10-20); BUN (Urea Nitrogen) 16 mg/dL (9.8-20.1); Calc. Creatinine Clearance 66 mL/min (70-130); Calcium 8.6 mg/dL (7.8-10.44); Carbon Dioxide 13 mmol/L (23-31); Chloride 112 mmol/L (98-107); Estimated GFR 35; Glucose 123 mg/dL (80-115); Magnesium 1.8 mg/dL (1.6-2.6); Sodium 135 mmol/L (136-145)
[2022-06-17 05:00] LABS: Potassium 2.9 mmol/L (3.5-5.1)
[2022-06-17] MEDS: metroNIDAZOLE 500 MG in Premix Bag 1 BAG IVPB SCH (05:44)
[2022-06-17] MEDS: Sodium Chloride 0.9% 1,000 ML IV SCH ×2 (07:48→13:52)
[2022-06-17] MEDS ORDERED: Magnesium 2 GM/50 ML(in water) 2 GM in Premix Bag 1 BAG IVPB SCH (08:00)
[2022-06-17 08:37] LABS: Potassium 3.6 mmol/L (3.5-5.1)
[2022-06-17] MEDS ORDERED: Potassium Citrate 10 MEQ TAB PO SCH ×3 (08:45→17:00)
[2022-06-17] MEDS: methylPREDNISolone Sod Succ/PF 125 MG/2 ML VIAL IVP SCH (09:23)
[2022-06-17] MEDS: Apixaban 5 MG TAB PO SCH (09:23)
[2022-06-17] MEDS: Cholestyramine/Aspartame 4 gm Packet PO SCH (09:31)
[2022-06-17 13:33] VITALS: BP 122/62; TEMP 97.9
== END 2022-06-17 13:40 | disposition home or self-care (01) | DRG 386 ==
LOC: ERS 10:52 → ERHOLD 14:32 → 2NO 17:40
PROVIDERS: ADMIT Family Medicine; ATTEND Internal Medicine
DX: K50.818 Crohn's disease of both small and large intestine with other complication (principal); E87.1 Hypo-osmolality and hyponatremia; E87.20 Acidosis, unspecified; N17.9 Acute kidney failure, unspecified; Z68.41 Body mass index [BMI] 40.0-44.9, adult; Z20.822 Contact with and (suspected) exposure to COVID-19; I48.91 Unspecified atrial fibrillation; K21.9 Gastro-esophageal reflux disease without esophagitis; E87.6 Hypokalemia; E66.01 Morbid (severe) obesity due to excess calories; D72.829 Elevated white blood cell count, unspecified; G20 Parkinson's disease; D63.1 Anemia in chronic kidney disease; Z88.0 Allergy status to penicillin; Z88.8 Allergy status to other drugs, medicaments and biological substances; Z79.01 Long term (current) use of anticoagulants; Z79.899 Other long term (current) drug therapy; Z90.49 Acquired absence of other specified parts of digestive tract; Z98.890 Other specified postprocedural states; N18.30 Chronic kidney disease, stage 3 unspecified; Z86.718 Personal history of other venous thrombosis and embolism; F17.290 Nicotine dependence, other tobacco product, uncomplicated; E83.42 Hypomagnesemia
CPT/HCPCS: 36415; 71045; 76770; 80048; 80053; 82436; 82570; 83605; 83630; 83735; 84100; 84133; 84300; 85025; 85652; 86140; 87040; 87149; 87324; 87449; 87505; 93005; 96365; 96375; J1956; J2405; J2930; J3475; J3480; J7050

== ENCOUNTER 2023-01-11 06:38 | Day surgery (SDC) | payer MEDICARE ==
[2023-01-10 13:26] VITALS: BMI 42.9
[2023-01-11] MEDS ORDERED: Lidocaine Viscous Sol 2% 15 ml UD Cup ONE (08:29)
[2023-01-11] MEDS ORDERED: fentaNYL 50 mcg/mL 1 mL Vial ONE (08:29)
[2023-01-11] MEDS ORDERED: ePHEDrine Sulfate 50 MG/10 ML VIAL ONE (08:38)
[2023-01-11] MEDS ORDERED: PROPOFOL 200 MG/20 ML VIAL ONE (08:38)
== END 2023-01-11 10:35 | disposition home or self-care (01) ==
LOC: SDC 06:38
PROVIDERS: ATTEND Internal Medicine
PROC: 0DJ08ZZ Inspection of Upper Intestinal Tract, Via Natural or Artificial Opening Endoscopic (ICD-10-PCS; principal; 2023-01-11)
PROC: 0DBK8ZX Excision of Ascending Colon, Via Natural or Artificial Opening Endoscopic, Diagnostic (ICD-10-PCS; 2023-01-11)
PROC: 0DBN8ZX Excision of Sigmoid Colon, Via Natural or Artificial Opening Endoscopic, Diagnostic (ICD-10-PCS; 2023-01-11)
PROC: 0DBH8ZX Excision of Cecum, Via Natural or Artificial Opening Endoscopic, Diagnostic (ICD-10-PCS; 2023-01-11)
PROC: 3E0H8KZ Introduction of Other Diagnostic Substance into Lower GI, Via Natural or Artificial Opening Endoscopic (ICD-10-PCS; 2023-01-11)
DX: K63.5 Polyp of colon (principal); K63.89 Other specified diseases of intestine; K63.3 Ulcer of intestine; K56.609 Unspecified intestinal obstruction, unspecified as to partial versus complete obstruction; K57.30 Diverticulosis of large intestine without perforation or abscess without bleeding; K64.8 Other hemorrhoids; K64.4 Residual hemorrhoidal skin tags; K50.00 Crohn's disease of small intestine without complications; K21.9 Gastro-esophageal reflux disease without esophagitis; I48.0 Paroxysmal atrial fibrillation; G47.33 Obstructive sleep apnea (adult) (pediatric); D50.9 Iron deficiency anemia, unspecified; I50.32 Chronic diastolic (congestive) heart failure; G20 Parkinson's disease; K43.2 Incisional hernia without obstruction or gangrene; B37.2 Candidiasis of skin and nail; F17.210 Nicotine dependence, cigarettes, uncomplicated; Z86.718 Personal history of other venous thrombosis and embolism; Z79.01 Long term (current) use of anticoagulants; Z79.52 Long term (current) use of systemic steroids; Z79.620 Long term (current) use of immunosuppressive biologic; Z79.899 Other long term (current) drug therapy; Z88.0 Allergy status to penicillin; Z88.8 Allergy status to other drugs, medicaments and biological substances; Z91.011 Allergy to milk products; Z90.49 Acquired absence of other specified parts of digestive tract
CPT/HCPCS: 43235; 45380; 45381; J3010; 88305; J2704

== ENCOUNTER 2023-02-22 18:47 | Inpatient (IN) | payer MEDICARE ==
[~2023-02-22 18:47] MED LIST changes: -Acetaminophen 325 MG TAB PO PRN; +Iopamidol-370 76% 500 ML MDV (1 ML CHARGE) ONE; -Ustekinumab 520 MG in Sodium Chloride 0.9% 250 ML 250 ML IV SCH; -diphenhydrAMINE 25 MG CAP PO PRN
[2023-02-22] MEDS ORDERED: methylPREDNISolone Sod Succ/PF 125 MG/2 ML VIAL ONE (20:04)
[2023-02-22] MEDS ORDERED: fentaNYL 50 mcg/mL 1 mL Vial ONE (20:18)
[2023-02-22 21:19] LABS: #Monocytes 0.9 thou/uL (0.11-0.59); #Neutrophils 4.5 thou/uL (1.40-6.50); %Basophils 0.2 % (0.0-1.0); %Eosinophils 0.2 % (0.0-10.0); %Lymphocytes 34.4 % (21.0-51.0); %Monocytes 10.4 % (0.0-10.0); Hematocrit 42.8 % (36.0-47.0); Hemoglobin 13.9 g/dL (12.0-16.0); Mean Corpuscular HGB CONC 32.5 g/dL (32.0-36.0); Mean Corpuscular Hemoglobin 31.7 pg (27.0-31.0); Mean Corpuscular Volume 97.7 fl (78.0-98.0); Mean Platelet Volume 9.5 fL (7.4-10.4); Platelet Count 205 10x3/uL (130-400); RBC Distribution Width 15.1 % (11.5-14.5); Red Blood Cell (RBC) Count 4.38 mill/uL (4.20-5.40); White Blood Cell (WBC) Count 8.4 10x3/uL (4.8-10.8)
[2023-02-22 21:42] LABS: ALT (SGPT) 13 U/L (8-55); AST (SGOT) 12 U/L (5-34); Albumin 3.5 g/dL (3.4-4.8); Alkaline Phosphatase 165 U/L (40-110); Anion Gap 18 mmol/L (10-20); BUN (Urea Nitrogen) 32 mg/dL (9.8-20.1); Bilirubin, Total 0.6 mg/dL (0.2-1.2); Calc. Creatinine Clearance 0 mL/min (70-130); Calcium 8.9 mg/dL (7.8-10.44); Carbon Dioxide 15 mmol/L (23-31); Chloride 107 mmol/L (98-107); Estimated GFR 29; Globulin 2.8 g/dL (2.4-3.5); Glucose 86 mg/dL (80-115); Lipase 13 U/L (8-78); Magnesium 1.7 mg/dL (1.6-2.6); Protein, Total 6.3 g/dL (5.8-8.1); Sodium 138 mmol/L (136-145)
[2023-02-22 21:46] LABS: Potassium 2.1 mmol/L (3.5-5.1)
[2023-02-22] MEDS ORDERED: Potassium Chloride 20 MEQ TAB ONE (21:52)
[2023-02-22] MEDS ORDERED: Magnesium 2 GM/50 ML BAG (IN WATER) ONE (22:01)
[2023-02-22] MEDS ORDERED: Calcium Carbonate 500 MG ChewTAB PO PRN (23:19)
[2023-02-22] MEDS ORDERED: Acetaminophen 325 MG TAB PO PRN (23:19)
[2023-02-22] MEDS ORDERED: Acetaminophen 650 MG Suppository PR PRN (23:19)
[2023-02-22] MEDS ORDERED: D5 1/2 NS w/20 mEq KCL 1,000 ML IV SCH (23:30)
[2023-02-22] MEDS ORDERED: USTEKINUMAB 90 MG/ML SC SCH (23:30)
[2023-02-22] MEDS ORDERED: Electrolyte Replacement Protocol 1 EACH FS SCH (23:35)
[2023-02-23] MEDS: Morphine 2 MG/ML VIAL SLOW IVP PRN ×3 (02:15→16:07)
[2023-02-23] MEDS: Potassium Chloride 10 MEQ in Premix Bag 1 BAG IVPB SCH ×2 (03:43→03:44)
[2023-02-23 04:31] LABS: #Monocytes 0.1 thou/uL (0.11-0.59); #Neutrophils 4.8 thou/uL (1.40-6.50); %Basophils 0.2 % (0.0-1.0); %Lymphocytes 11.5 % (21.0-51.0); %Monocytes 1.1 % (0.0-10.0); %Neutrophils 86.1 % (42.0-75.0); Hematocrit 39.8 % (36.0-47.0); Mean Corpuscular HGB CONC 32.7 g/dL (32.0-36.0); Mean Corpuscular Hemoglobin 31.4 pg (27.0-31.0); Mean Corpuscular Volume 96.1 fl (78.0-98.0); Mean Platelet Volume 9.6 fL (7.4-10.4); Platelet Count 182 10x3/uL (130-400); Red Blood Cell (RBC) Count 4.14 mill/uL (4.20-5.40); White Blood Cell (WBC) Count 5.6 10x3/uL (4.8-10.8)
[2023-02-23 04:56] LABS: Anion Gap 18 mmol/L (10-20); BUN (Urea Nitrogen) 28 mg/dL (9.8-20.1); Calc. Creatinine Clearance 59 mL/min (70-130); Calcium 8.1 mg/dL (7.8-10.44); Carbon Dioxide 13 mmol/L (23-31); Chloride 111 mmol/L (98-107); Estimated GFR 33; Glucose 119 mg/dL (80-115); Sodium 139 mmol/L (136-145)
[2023-02-23 05:02] LABS: Potassium 2.6 mmol/L (3.5-5.1)
[2023-02-23] MEDS ORDERED: Potassium Chloride 20 MEQ TAB PO SCH (08:00)
[2023-02-23] MEDS: Potassium Chloride 20 MEQ in Premix Bag 1 BAG IVPB SCH ×2 (08:05→08:49)
[2023-02-23] MEDS: Ondansetron PF 4 MG/2 ML Vial IVP PRN ×2 (08:10→20:50)
[2023-02-23] MEDS ORDERED: Famotidine 20 MG TAB PO SCH (09:00)
[2023-02-23] MEDS ORDERED: Famotidine/PF 20 mg/2ml Vial SLOW IVP SCH (09:00)
[2023-02-23] MEDS ORDERED: Magnesium Sulfate In Water 4 GM in Premix Bag 1 BAG IVPB SCH (09:00)
[2023-02-23] MEDS ORDERED: Apixaban 5 MG TAB PO SCH (09:00)
[2023-02-23] MEDS: Potassium Chloride 20 MEQ in Lactated Ringer's 1,000 ML IV SCH ×3 (09:31→17:30)
[2023-02-23 14:29] LABS: Lactic Acid 0.9 mmol/L (0.5-2.2)
[2023-02-23 16:56] LABS: Chloride 109 mmol/L (98-107); Potassium 2.9 mmol/L (3.5-5.1); Sodium 139 mmol/L (136-145)
[2023-02-23 16:57] LABS: Calcium 8.6 mg/dL (7.8-10.44); Glucose 89 mg/dL (80-115)
[2023-02-23 16:59] LABS: Anion Gap 20 mmol/L (10-20); Carbon Dioxide 13 mmol/L (23-31)
[2023-02-23 17:00] LABS: Calc. Creatinine Clearance 66 mL/min (70-130); Estimated GFR 37; Phosphorus 2.3 mg/dL (2.3-4.7)
[2023-02-23] MEDS ORDERED: Potassium Phosphate 30 MMOL in Sodium Chloride 0.9% 500 ML IVPB SCH (17:00)
[2023-02-23 17:01] LABS: BUN (Urea Nitrogen) 24 mg/dL (9.8-20.1)
[2023-02-23 17:02] LABS: Magnesium 3.2 mg/dL (1.6-2.6)
[2023-02-23] MEDS: Potassium Bicarbonate/Cit Ac 20 MEQ TAB PO SCH ×2 (17:29→20:51)
[2023-02-23] MEDS: dilTIAZem CD 180 MG CAP PO SCH (20:51)
[2023-02-23] MEDS: Pantoprazole 40 MG VIAL IVP SCH (20:52)
[2023-02-24] MEDS: Morphine 2 MG/ML VIAL SLOW IVP PRN (00:23)
[2023-02-24 04:12] LABS: #Monocytes 0.7 thou/uL (0.11-0.59); #Neutrophils 3.9 thou/uL (1.40-6.50); %Basophils 0.2 % (0.0-1.0); %Lymphocytes 29.7 % (21.0-51.0); %Monocytes 10.4 % (0.0-10.0); %Neutrophils 58.8 % (42.0-75.0); Hematocrit 36.7 % (36.0-47.0); Hemoglobin 11.9 g/dL (12.0-16.0); Mean Corpuscular HGB CONC 32.4 g/dL (32.0-36.0); Mean Corpuscular Hemoglobin 31.5 pg (27.0-31.0); Mean Corpuscular Volume 97.1 fl (78.0-98.0); Mean Platelet Volume 9.5 fL (7.4-10.4); Platelet Count 189 10x3/uL (130-400); RBC Distribution Width 15.4 % (11.5-14.5); Red Blood Cell (RBC) Count 3.78 mill/uL (4.20-5.40); White Blood Cell (WBC) Count 6.5 10x3/uL (4.8-10.8)
[2023-02-24 04:20] LABS: Lactic Acid 0.6 mmol/L (0.5-2.2)
[2023-02-24 04:45] LABS: ALT (SGPT) 11 U/L (8-55); AST (SGOT) 9 U/L (5-34); Alkaline Phosphatase 129 U/L (40-110); Anion Gap 13 mmol/L (10-20); BUN (Urea Nitrogen) 23 mg/dL (9.8-20.1); Bilirubin, Total 0.5 mg/dL (0.2-1.2); Calc. Creatinine Clearance 70 mL/min (70-130); Calcium 8.1 mg/dL (7.8-10.44); Carbon Dioxide 17 mmol/L (23-31); Chloride 111 mmol/L (98-107); Estimated GFR 40; Globulin 2.3 g/dL (2.4-3.5); Glucose 79 mg/dL (80-115); Magnesium 2.8 mg/dL (1.6-2.6); Phosphorus 3.3 mg/dL (2.3-4.7); Potassium 2.9 mmol/L (3.5-5.1); Protein, Total 5.3 g/dL (5.8-8.1); Sodium 138 mmol/L (136-145)
[2023-02-24] MEDS ORDERED: Potassium Phosphate 30 MMOL in Sodium Chloride 0.9% 500 ML IVPB SCH (09:00)
[2023-02-24 16:16] LABS: Anion Gap 17 mmol/L (10-20); BUN (Urea Nitrogen) 21 mg/dL (9.8-20.1); Calc. Creatinine Clearance 40 mL/min (70-130); Calcium 8.2 mg/dL (7.8-10.44); Carbon Dioxide 13 mmol/L (23-31); Chloride 112 mmol/L (98-107); Estimated GFR 37; Glucose 62 mg/dL (80-115); Sodium 139 mmol/L (136-145)
[2023-02-24 17:32] LABS: Anion Gap 16 mmol/L (10-20); BUN (Urea Nitrogen) 21 mg/dL (9.8-20.1); Calc. Creatinine Clearance 39 mL/min (70-130); Calcium 7.9 mg/dL (7.8-10.44); Carbon Dioxide 13 mmol/L (23-31); Chloride 113 mmol/L (98-107); Estimated GFR 36; Glucose 71 mg/dL (80-115); Potassium 2.7 mmol/L (3.5-5.1); Sodium 139 mmol/L (136-145)
[2023-02-24] MEDS: dilTIAZem CD 180 MG CAP PO SCH (20:35)
[2023-02-24] MEDS: Pantoprazole 40 MG VIAL IVP SCH (20:35)
[2023-02-24] MEDS: Ondansetron PF 4 MG/2 ML Vial IVP PRN (20:42)
[2023-02-24] MEDS ORDERED: Diphenoxylate HCl/Atropine Tablet PO PRN (21:20)
[2023-02-24] MEDS: Potassium Chloride 20 MEQ in Lactated Ringer's 1,000 ML IV SCH (22:29)
[2023-02-24] MEDS: Potassium Phosphate 30 MMOL in Sodium Chloride 0.9% 500 ML IVPB SCH (23:12)
[2023-02-24] MEDS ORDERED: Ondansetron PF 4 MG/2 ML Vial IVP SCH (23:59)
[2023-02-25] MEDS: Potassium Bicarbonate/Cit Ac 20 MEQ TAB PO SCH ×3 (00:12→05:38)
[2023-02-25 05:01] LABS: Anion Gap 16 mmol/L (10-20); BUN (Urea Nitrogen) 22 mg/dL (9.8-20.1); Calc. Creatinine Clearance 39 mL/min (70-130); Calcium 7.7 mg/dL (7.8-10.44); Carbon Dioxide 16 mmol/L (23-31); Chloride 111 mmol/L (98-107); Estimated GFR 36; Glucose 63 mg/dL (80-115); Magnesium 2.2 mg/dL (1.6-2.6); Sodium 141 mmol/L (136-145)
[2023-02-25 05:03] LABS: Potassium 2.4 mmol/L (3.5-5.1)
[2023-02-25] MEDS: Ondansetron PF 4 MG/2 ML Vial IVP PRN (05:38)
[2023-02-25] MEDS: Potassium Phosphate 30 MMOL in Sodium Chloride 0.9% 500 ML IVPB SCH (05:39)
[2023-02-25] MEDS ORDERED: Apixaban 5 MG TAB PO SCH (09:00)
[2023-02-25] MEDS: Potassium Chloride 20 MEQ TAB PO SCH ×4 (10:51→20:18)
[2023-02-25] MEDS: Ondansetron ODT 4 MG TAB PO PRN ×2 (10:52→20:18)
[2023-02-25] MEDS: Ondansetron ODT 4 MG TAB PO SCH ×2 (11:00→17:02)
[2023-02-25] MEDS: Morphine 2 MG/ML VIAL SLOW IVP PRN ×2 (11:01→17:02)
[2023-02-25 19:58] LABS: Anion Gap 18 mmol/L (10-20); BUN (Urea Nitrogen) 21 mg/dL (9.8-20.1); Calc. Creatinine Clearance 68 mL/min (70-130); Calcium 7.4 mg/dL (7.8-10.44); Carbon Dioxide 13 mmol/L (23-31); Chloride 112 mmol/L (98-107); Estimated GFR 38; Glucose 76 mg/dL (80-115); Potassium 2.9 mmol/L (3.5-5.1); Sodium 140 mmol/L (136-145)
[2023-02-25] MEDS: Enoxaparin 120 MG/0.8 ML SYRINGE SC SCH (20:22)
[2023-02-25] MEDS: dilTIAZem CD 180 MG CAP PO SCH (21:03)
[2023-02-25] MEDS ORDERED: Loperamide HCl 2 MG CAP PO PRN (22:47)
[2023-02-26] MEDS: Potassium Chloride 20 MEQ TAB PO SCH ×6 (00:04→21:17)
[2023-02-26] MEDS: Ondansetron ODT 4 MG TAB PO SCH ×5 (00:04→22:44)
[2023-02-26] MEDS: Morphine 2 MG/ML VIAL SLOW IVP PRN ×4 (00:09→22:44)
[2023-02-26] MEDS: Potassium Phosphate 30 MMOL in Sodium Chloride 0.9% 500 ML IVPB SCH ×2 (00:10→06:20)
[2023-02-26 05:36] LABS: #Monocytes 0.6 thou/uL (0.11-0.59); #Neutrophils 3.2 thou/uL (1.40-6.50); %Basophils 0.2 % (0.0-1.0); %Eosinophils 0.3 % (0.0-10.0); %Lymphocytes 32.8 % (21.0-51.0); %Monocytes 10.7 % (0.0-10.0); %Neutrophils 55.5 % (42.0-75.0); Hemoglobin 12.3 g/dL (12.0-16.0); Mean Corpuscular HGB CONC 32.4 g/dL (32.0-36.0); Mean Corpuscular Hemoglobin 32.2 pg (27.0-31.0); Mean Corpuscular Volume 99.5 fl (78.0-98.0); Mean Platelet Volume 9.6 fL (7.4-10.4); Platelet Count 174 10x3/uL (130-400); RBC Distribution Width 15.5 % (11.5-14.5); Red Blood Cell (RBC) Count 3.82 mill/uL (4.20-5.40); White Blood Cell (WBC) Count 5.8 10x3/uL (4.8-10.8)
[2023-02-26 06:01] LABS: ALT (SGPT) 15 U/L (8-55); AST (SGOT) 7 U/L (5-34); Albumin 2.9 g/dL (3.4-4.8); Alkaline Phosphatase 120 U/L (40-110); Anion Gap 17 mmol/L (10-20); BUN (Urea Nitrogen) 19 mg/dL (9.8-20.1); Bilirubin, Total 0.7 mg/dL (0.2-1.2); Calc. Creatinine Clearance 70 mL/min (70-130); Calcium 7.2 mg/dL (7.8-10.44); Carbon Dioxide 15 mmol/L (23-31); Chloride 114 mmol/L (98-107); Estimated GFR 40; Globulin 2.3 g/dL (2.4-3.5); Glucose 69 mg/dL (80-115); Magnesium 1.7 mg/dL (1.6-2.6); Potassium 3.1 mmol/L (3.5-5.1); Protein, Total 5.2 g/dL (5.8-8.1); Sodium 143 mmol/L (136-145)
[2023-02-26] MEDS: Enoxaparin 120 MG/0.8 ML SYRINGE SC SCH ×2 (08:45→21:16)
[2023-02-26] MEDS ORDERED: Magnesium 2 GM/50 ML(in water) 2 GM in Premix Bag 1 BAG IVPB SCH (09:00)
[2023-02-26] MEDS ORDERED: Diphenoxylate HCl/Atropine Tablet PO PRN (16:34)
[2023-02-26 17:41] LABS: Anion Gap 14 mmol/L (10-20); BUN (Urea Nitrogen) 16 mg/dL (9.8-20.1); Calc. Creatinine Clearance 62 mL/min (70-130); Calcium 7.3 mg/dL (7.8-10.44); Carbon Dioxide 14 mmol/L (23-31); Chloride 114 mmol/L (98-107); Estimated GFR 38; Glucose 84 mg/dL (80-115); Potassium 3.2 mmol/L (3.5-5.1); Sodium 139 mmol/L (136-145)
[2023-02-26] MEDS ORDERED: Potassium Phosphate 30 MMOL in Sodium Chloride 0.9% 500 ML IVPB SCH (18:15)
[2023-02-26] MEDS: Potassium Chloride 20 MEQ in Premix Bag 1 BAG IVPB SCH ×2 (19:29→21:16)
[2023-02-26] MEDS: dilTIAZem CD 180 MG CAP PO SCH (21:17)
[2023-02-26] MEDS ORDERED: Metoprolol Tartrate 5 MG/5 ML VIAL IVP SCH (23:30)
[2023-02-27 05:36] LABS: #Monocytes 0.7 thou/uL (0.11-0.59); #Neutrophils 3.4 thou/uL (1.40-6.50); %Basophils 0.3 % (0.0-1.0); %Eosinophils 0.3 % (0.0-10.0); %Lymphocytes 30.3 % (21.0-51.0); %Monocytes 11.8 % (0.0-10.0); %Neutrophils 56.8 % (42.0-75.0); Hematocrit 40.6 % (36.0-47.0); Hemoglobin 12.8 g/dL (12.0-16.0); Mean Corpuscular HGB CONC 31.5 g/dL (32.0-36.0); Mean Corpuscular Hemoglobin 31.6 pg (27.0-31.0); Mean Corpuscular Volume 100.2 fl (78.0-98.0); Mean Platelet Volume 10.2 fL (7.4-10.4); Platelet Count 179 10x3/uL (130-400); RBC Distribution Width 15.5 % (11.5-14.5); Red Blood Cell (RBC) Count 4.05 mill/uL (4.20-5.40)
[2023-02-27] MEDS: Ondansetron ODT 4 MG TAB PO SCH ×4 (06:03→23:47)
[2023-02-27 06:04] LABS: Anion Gap 14 mmol/L (10-20); BUN (Urea Nitrogen) 17 mg/dL (9.8-20.1); Calc. Creatinine Clearance 71 mL/min (70-130); Calcium 7.8 mg/dL (7.8-10.44); Carbon Dioxide 13 mmol/L (23-31); Chloride 118 mmol/L (98-107); Estimated GFR 39; Glucose 87 mg/dL (80-115); Magnesium 2.1 mg/dL (1.6-2.6); Potassium 3.3 mmol/L (3.5-5.1); Sodium 142 mmol/L (136-145)
[2023-02-27] MEDS: Morphine 2 MG/ML VIAL SLOW IVP PRN ×4 (06:06→20:40)
[2023-02-27] MEDS ORDERED: Sodium Bicarbonate Tab 325 MG TAB PO SCH (09:15)
[2023-02-27] MEDS: Enoxaparin 120 MG/0.8 ML SYRINGE SC SCH (09:21)
[2023-02-27] MEDS: Potassium Chloride 20 MEQ TAB PO SCH ×3 (09:23→17:57)
[2023-02-27] MEDS ORDERED: dilTIAZem 30 MG TAB PO PRN (11:07)
[2023-02-27] MEDS: Sodium Bicarbonate Tab 325 MG TAB PO SCH ×2 (14:30→20:39)
[2023-02-27] MEDS ORDERED: GoLYTELY 4,000 ml Bottle PO SCH (14:45)
[2023-02-27] MEDS ORDERED: Neomycin 500 mg Tablet PO SCH (15:00)
[2023-02-27] MEDS ORDERED: Erythromycin Base 250 MG TAB PO SCH ×2 (15:00→21:00)
[2023-02-27] MEDS: Neomycin 500 mg Tablet PO SCH ×3 (15:28→20:39)
[2023-02-27] MEDS: Erythromycin Base 250 MG TAB PO SCH ×2 (15:28→17:58)
[2023-02-27 16:10] LABS: Chloride 115 mmol/L (98-107); Potassium 4.2 mmol/L (3.5-5.1); Sodium 137 mmol/L (136-145)
[2023-02-27 16:11] LABS: Calcium 8.2 mg/dL (7.8-10.44); Glucose 99 mg/dL (80-115)
[2023-02-27 16:13] LABS: Anion Gap 14 mmol/L (10-20); Carbon Dioxide 12 mmol/L (23-31)
[2023-02-27 16:15] LABS: Calc. Creatinine Clearance 67 mL/min (70-130); Estimated GFR 36
[2023-02-27 16:16] LABS: BUN (Urea Nitrogen) 18 mg/dL (9.8-20.1)
[2023-02-27] MEDS ORDERED: Metoclopramide HCl 10 MG TAB PO SCH (17:15)
[2023-02-27] MEDS: dilTIAZem CD 180 MG CAP PO SCH (20:40)
[2023-02-27] MEDS ORDERED: Polyethylene Glycol 3350 17 GM Packet PO SCH (21:45)
[2023-02-27] MEDS: Metoclopramide HCl 10 MG TAB PO SCH (23:47)
[2023-02-28 05:01] LABS: #Monocytes 0.6 thou/uL (0.11-0.59); #Neutrophils 3.2 thou/uL (1.40-6.50); %Basophils 0.4 % (0.0-1.0); %Lymphocytes 19.3 % (21.0-51.0); %Monocytes 12.9 % (0.0-10.0); Hematocrit 42.9 % (36.0-47.0); Hemoglobin 13.6 g/dL (12.0-16.0); Mean Corpuscular HGB CONC 31.7 g/dL (32.0-36.0); Mean Corpuscular Hemoglobin 31.5 pg (27.0-31.0); Mean Corpuscular Volume 99.3 fl (78.0-98.0); Mean Platelet Volume 9.5 fL (7.4-10.4); Platelet Count 186 10x3/uL (130-400); RBC Distribution Width 15.2 % (11.5-14.5); Red Blood Cell (RBC) Count 4.32 mill/uL (4.20-5.40); White Blood Cell (WBC) Count 4.7 10x3/uL (4.8-10.8)
[2023-02-28 05:25] LABS: Anion Gap 18 mmol/L (10-20); BUN (Urea Nitrogen) 25 mg/dL (9.8-20.1); Calc. Creatinine Clearance 51 mL/min (70-130); Calcium 8.6 mg/dL (7.8-10.44); Carbon Dioxide 17 mmol/L (23-31); Chloride 109 mmol/L (98-107); Estimated GFR 26; Glucose 113 mg/dL (80-115); Potassium 4.5 mmol/L (3.5-5.1); Sodium 139 mmol/L (136-145)
[2023-02-28] MEDS: Metoclopramide HCl 10 MG TAB PO SCH ×2 (05:40→13:09)
[2023-02-28] MEDS: Ondansetron ODT 4 MG TAB PO SCH ×2 (05:40→13:09)
[2023-02-28] MEDS: Morphine 2 MG/ML VIAL SLOW IVP PRN (05:42)
[2023-02-28] MEDS: Potassium Chloride 20 MEQ in Lactated Ringer's 1,000 ML IV SCH (08:03)
[2023-02-28] MEDS: Dextrose 5%-Lactated Ringers 1,000 ML IV SCH ×2 (08:48→19:43)
[2023-02-28] MEDS: Potassium Chloride 20 MEQ TAB PO SCH ×2 (08:48→19:48)
[2023-02-28] MEDS: Ondansetron ODT 4 MG TAB PO PRN (08:57)
[2023-02-28] MEDS ORDERED: fentaNYL 50 mcg/mL 1 mL Vial ONE (11:15)
[2023-02-28] MEDS ORDERED: Midazolam HCl 2 mg/2 ml Vial ONE ×2 (11:15→16:33)
[2023-02-28] MEDS ORDERED: Fentanyl 250 MCG/5 ML VIAL ONE (12:23)
[2023-02-28] MEDS ORDERED: SUGAMMADEX SODIUM 200 MG/2 ML VIAL ONE (12:23)
[2023-02-28] MEDS ORDERED: cefOXitin 2 GM VIAL ONE ×2 (12:44→15:49)
[2023-02-28] MEDS ORDERED: Sodium Chloride 0.9% 100 ML ONE (12:44)
[2023-02-28] MEDS ORDERED: Lidocaine 1% (PF) 30 ML VIAL ONE (12:47)
[2023-02-28] MEDS ORDERED: EPINEPHrine 1 MG/ML AMP ONE (12:47)
[2023-02-28] MEDS ORDERED: PHENYLEPHRINE-NS 100 MCG/ML 10 ML SYRINGE ONE ×2 (12:59→15:05)
[2023-02-28] MEDS ORDERED: Rocuronium Bromide 10 MG/ML (10ML VIAL) ONE (12:59)
[2023-02-28] MEDS ORDERED: Esmolol 100 MG/10 ML VIAL ONE (12:59)
[2023-02-28] MEDS ORDERED: Metoprolol Tartrate 5 MG/5 ML VIAL ONE (12:59)
[2023-02-28] MEDS ORDERED: Bupivacaine HCl 0.5%/Epinephrine 1:200,000/PF 30 ml Vial ONE (12:59)
[2023-02-28] MEDS ORDERED: Lidocaine 1% PF 5 ML VIAL ONE (12:59)
[2023-02-28] MEDS ORDERED: PROPOFOL 200 MG/20 ML VIAL ONE (12:59)
[2023-02-28] MEDS ORDERED: Succinylcholine 200 MG/10 ml SYRINGE FS ONE (12:59)
[2023-02-28] MEDS ORDERED: Albumin 5% 500 ML ONE ×2 (13:07→15:32)
[2023-02-28] MEDS ORDERED: HYDROmorphone 2 MG/ML VIAL SLOW IVP PRN (14:56)
[2023-02-28] MEDS ORDERED: Promethazine HCl 25 MG/ML VIAL IM PRN (14:56)
[2023-02-28] MEDS ORDERED: Ondansetron HCl/PF 4 MG/2 ML Vial IVP PRN (14:56)
[2023-02-28] MEDS ORDERED: Rocuronium Bromide 50 MG/5 ML VIAL ONE (15:05)
[2023-02-28] MEDS ORDERED: Phenylephrine 10 MG/ML VIAL ONE ×2 (15:06→15:08)
[2023-02-28] MEDS ORDERED: Sodium Bicarbonate 2.5 MEQ/5 ML VIAL ONE ×2 (15:24→15:25)
[2023-02-28] MEDS ORDERED: Sodium Bicarb 50 MEQ/50 ML VIAL ONE ×2 (15:25→15:26)
[2023-02-28] MEDS ORDERED: Ventilator Sedation Protocol 1 EACH FS SCH (18:00)
[2023-02-28] MEDS ORDERED: hydrALAZINE 20 MG/ML VIAL SLOW IVP PRN (18:00)
[2023-02-28] MEDS ORDERED: Morphine 2 MG/ML VIAL SLOW IVP PRN ×2 (18:00→18:30)
[2023-02-28] MEDS ORDERED: Ipratropium/Albuterol 3 ML NEB NEB PRN (18:00)
[2023-02-28] MEDS ORDERED: Morphine 4 MG/ML VIAL SLOW IVP PRN (18:00)
[2023-02-28 18:07] LABS: Actual Bicarbonate (HCO3a) 21.2 mEq/L (22-28); Base Excess (BEa) -4.9 mEq/L (-2.0 to +3.0); CO2 Tension 43.1 mmHg (35.0-45.0); Calcium, Ionized (arterial) 1.11 mmol/L (1.12-1.30); Carboxyhemoglobin (COHb) 0.9 gm% (0.0-3.0); Hematocrit-ABG 38 % (36.0-47.0); O2 Tension (PaO2), arterial 167.2 mmHg (> 80.0); Potassium - ABG Lab 3.86 mmol/L (3.70-5.30); pH, Arterial 7.309 (7.35-7.45)
[2023-02-28 18:08] LABS: Puncture Site Arterial Line
[2023-02-28 18:09] LABS: ALV-art Gradient 206.725 mmHg (0-20)
[2023-02-28] MEDS ORDERED: Lorazepam 2 MG/ML VIAL SLOW IVP PRN (18:30)
[2023-02-28] MEDS ORDERED: DISCONTINUE PREVIOUS NARCOTIC PAIN MEDICATIONS AND BENZODIAZEPINES FS SCH (18:30)
[2023-02-28] MEDS ORDERED: Propofol 1,000 MG/100 ML VIAL IV PRN (18:30)
[2023-02-28] MEDS ORDERED: Fentanyl CADD 100 ML IV SCH (18:30)
[2023-02-28] MEDS ORDERED: Fentanyl BOLUS 250 ML IVPB PRN (18:30)
[2023-02-28] MEDS ORDERED: Propofol BOLUS 1,000 MG/100 ML VIAL IV PRN (18:30)
[2023-02-28 18:45] LABS: Hematocrit 40.8 % (36.0-47.0); Hemoglobin 13.1 g/dL (12.0-16.0); Mean Corpuscular HGB CONC 32.1 g/dL (32.0-36.0); Mean Corpuscular Hemoglobin 32.2 pg (27.0-31.0); Mean Corpuscular Volume 100.2 fl (78.0-98.0); Mean Platelet Volume 9.5 fL (7.4-10.4); Platelet Count 152 10x3/uL (130-400); RBC Distribution Width 15.2 % (11.5-14.5); Red Blood Cell (RBC) Count 4.07 mill/uL (4.20-5.40); White Blood Cell (WBC) Count 2.8 10x3/uL (4.8-10.8)
[2023-02-28 18:46] LABS: Delete Auto Diff?? YES; Manual Diff?? YES
[2023-02-28 19:07] LABS: Anisocytosis SLIGHT = 6-15 cells HPF (0-5); Band 51 % (5-11); Burr Cells MODERATE= 6-15 cells HPF (0-1); CellaVision Operator ID LAB.MJL; Lymphocytes 19 % (21-51); Macrocytosis SLIGHT = 6-15 cells HPF (0-5); Monocytes 8 % (0-10); Neutrophil 21 % (42-75); Platelet Adequacy Comment Platelets Normal; Poikilocytosis SLIGHT = 6-15 cells HPF (0-5); Polychromasia SLIGHT = 2-3 cells HPF (0-2); Reactive Lymphocytes 1 % (0-10); Reflex for Review?? YES; Total Cell Count 105; Vacuoles SLIGHT
[2023-02-28 19:08] LABS: Anion Gap 16 mmol/L (10-20); BUN (Urea Nitrogen) 22 mg/dL (9.8-20.1); Calc. Creatinine Clearance 46 mL/min (70-130); Calcium 8.1 mg/dL (7.8-10.44); Carbon Dioxide 19 mmol/L (23-31); Chloride 110 mmol/L (98-107); Estimated GFR 23; Glucose 157 mg/dL (80-115); Potassium 3.9 mmol/L (3.5-5.1); Sodium 141 mmol/L (136-145)
[2023-02-28] MEDS ORDERED: Fentanyl CADD 100 ML ONE (19:24)
[2023-02-28] MEDS: D5 1/2 NS w/20 mEq KCL 1,000 ML IV SCH (19:39)
[2023-02-28] MEDS: Famotidine/PF 20 mg/2ml Vial SLOW IVP SCH (19:48)
[2023-02-28] MEDS: dilTIAZem CD 180 MG CAP PO SCH (19:48)
[2023-02-28] MEDS ORDERED: Sodium Chloride 0.9% 500 ML IV SCH (20:00)
[2023-02-28] MEDS ORDERED: Famotidine 20 MG TAB PO SCH (21:00)
[2023-03-01] MEDS: dilTIAZem 125 MG, Admixture Fee 1 EACH in Sodium Chloride 0.9% 100 ML IVPB SCH ×2 (00:13→11:27)
[2023-03-01] MEDS: Dextrose 5%-Lactated Ringers 1,000 ML IV SCH ×5 (00:59→21:11)
[2023-03-01] MEDS ORDERED: NOREPINEPHRINE 8 MG/250 ML-D5W 250 ML IVPB SCH (01:45)
[2023-03-01] MEDS ORDERED: NOREPINEPHRINE 8 MG/250 ML-D5W 250 ML ONE (01:45)
[2023-03-01] MEDS: D5 1/2 NS w/20 mEq KCL 1,000 ML IV SCH (01:56)
[2023-03-01] MEDS ORDERED: dilTIAZem 25 MG/5 ML VIAL SLOW IVP SCH (02:45)
[2023-03-01] MEDS: Metoclopramide HCl 10 MG TAB PO SCH (04:11)
[2023-03-01 04:34] LABS: #Monocytes 0.7 thou/uL (0.11-0.59); #Neutrophils 6.3 thou/uL (1.40-6.50); %Basophils 0.5 % (0.0-1.0); %Lymphocytes 5.5 % (21.0-51.0); %Neutrophils 84.3 % (42.0-75.0); Hematocrit 42.2 % (36.0-47.0); Hemoglobin 13.1 g/dL (12.0-16.0); Mean Corpuscular Hemoglobin 32.1 pg (27.0-31.0); Mean Platelet Volume 9.8 fL (7.4-10.4); Platelet Count 203 10x3/uL (130-400); RBC Distribution Width 15.2 % (11.5-14.5); Red Blood Cell (RBC) Count 4.08 mill/uL (4.20-5.40); White Blood Cell (WBC) Count 7.5 10x3/uL (4.8-10.8)
[2023-03-01 04:43] LABS: Mean Corpuscular Volume 103.4 fl (78.0-98.0)
[2023-03-01 04:56] LABS: ALT (SGPT) 16 U/L (8-55); AST (SGOT) 15 U/L (5-34); Albumin 2.9 g/dL (3.4-4.8); Alkaline Phosphatase 87 U/L (40-110); Anion Gap 14 mmol/L (10-20); BUN (Urea Nitrogen) 21 mg/dL (9.8-20.1); Bilirubin, Total 0.4 mg/dL (0.2-1.2); Calc. Creatinine Clearance 55 mL/min (70-130); Calcium 7.6 mg/dL (7.8-10.44); Carbon Dioxide 18 mmol/L (23-31); Chloride 111 mmol/L (98-107); Estimated GFR 29; Glucose 189 mg/dL (80-115); Magnesium 1.5 mg/dL (1.6-2.6); Phosphorus 3.1 mg/dL (2.3-4.7); Protein, Total 4.9 g/dL (5.8-8.1); Sodium 139 mmol/L (136-145)
[2023-03-01] MEDS ORDERED: Electrolyte Replacement Protocol 1 EACH FS PRN (05:16)
[2023-03-01] MEDS ORDERED: Magnesium 2 GM/50 ML(in water) 2 GM in Premix Bag 1 BAG IVPB SCH (05:30)
[2023-03-01 07:33] LABS: Actual Bicarbonate (HCO3a) 22.2 mEq/L (22-28); Base Excess (BEa) -3.7 mEq/L (-2.0 to +3.0); CO2 Tension 43.4 mmHg (35.0-45.0); Carboxyhemoglobin (COHb) 0.9 gm% (0.0-3.0); Hematocrit-ABG 37 % (36.0-47.0); Hemoglobin (Hb) 12.5 g/dL (12.0-16.0); Potassium - ABG Lab 4.01 mmol/L (3.70-5.30); pH, Arterial 7.326 (7.35-7.45)
[2023-03-01 07:36] LABS: Puncture Site Arterial Line
[2023-03-01] MEDS: cefOXitin 2 GM in Sodium Chloride 0.9% 100 ML IVPB SCH ×3 (08:44→20:37)
[2023-03-01] MEDS: Famotidine/PF 20 mg/2ml Vial SLOW IVP SCH ×2 (08:50→20:38)
[2023-03-01] MEDS: Potassium Chloride 20 MEQ TAB PO SCH ×2 (08:50→17:27)
[2023-03-01] MEDS ORDERED: HYDROcodone/Acetaminophen 7.5/325 mg Tablet PO PRN (13:29)
[2023-03-01] MEDS: dilTIAZem CD 180 MG CAP PO SCH (20:38)
[2023-03-01] MEDS: Famotidine 20 MG TAB PO SCH (20:38)
[2023-03-01] MEDS: traMADol HCl 50 MG TAB PO PRN (23:19)
[2023-03-02] MEDS: cefOXitin 2 GM in Sodium Chloride 0.9% 100 ML IVPB SCH ×4 (02:19→20:28)
[2023-03-02] MEDS: dilTIAZem 125 MG, Admixture Fee 1 EACH in Sodium Chloride 0.9% 100 ML IVPB SCH (02:56)
[2023-03-02] MEDS: Dextrose 5%-Lactated Ringers 1,000 ML IV SCH (06:36)
[2023-03-02 08:06] LABS: Hematocrit 33.5 % (36.0-47.0); Hemoglobin 10.3 g/dL (12.0-16.0); Mean Corpuscular HGB CONC 30.7 g/dL (32.0-36.0); Mean Corpuscular Hemoglobin 32.3 pg (27.0-31.0); Mean Platelet Volume 10.1 fL (7.4-10.4); Platelet Count 134 10x3/uL (130-400); RBC Distribution Width 15.1 % (11.5-14.5); Red Blood Cell (RBC) Count 3.19 mill/uL (4.20-5.40); White Blood Cell (WBC) Count 9.1 10x3/uL (4.8-10.8)
[2023-03-02 08:08] LABS: Delete Auto Diff?? YES; Manual Diff?? YES
[2023-03-02 08:27] LABS: Anion Gap 15 mmol/L (10-20); BUN (Urea Nitrogen) 18 mg/dL (9.8-20.1); Calc. Creatinine Clearance 54 mL/min (70-130); Calcium 8.2 mg/dL (7.8-10.44); Carbon Dioxide 20 mmol/L (23-31); Chloride 112 mmol/L (98-107); Estimated GFR 27; Glucose 148 mg/dL (80-115); Potassium 3.5 mmol/L (3.5-5.1); Sodium 143 mmol/L (136-145)
[2023-03-02 08:30] LABS: Anisocytosis SLIGHT = 6-15 cells HPF (0-5); Band 26 % (5-11); Lymphocytes 13 % (21-51); Macrocytosis SLIGHT = 6-15 cells HPF (0-5); Metamyelocyte 2 % (0-0); Monocytes 1 % (0-10); Neutrophil 58 % (42-75); Platelet Adequacy Comment Platelets Normal; Polychromasia SLIGHT = 2-3 cells HPF (0-2); RBC Morphology Within Normal Limits; Smudge Cells 7.8 %; Total Cell Count 103
[2023-03-02] MEDS ORDERED: Potassium Chloride 20 MEQ TAB PO SCH ×3 (08:45→17:00)
[2023-03-02] MEDS ORDERED: Dextrose 5%-Lactated Ringers 1,000 ML IV SCH (09:11)
[2023-03-02] MEDS: Amiodarone 450 MG in Dextrose 5% in Water 250 ML IVPB SCH ×2 (10:00→16:39)
[2023-03-02] MEDS ORDERED: Magnesium 2 GM/50 ML(in water) 2 GM in Premix Bag 1 BAG IVPB SCH (10:45)
[2023-03-02] MEDS: traMADol HCl 50 MG TAB PO PRN (10:49)
[2023-03-02] MEDS ORDERED: Potassium Chloride 20 MEQ in Premix Bag 1 BAG IVPB SCH (11:00)
[2023-03-02] MEDS ORDERED: Potassium Chloride 40 MEQ in Premix Bag 1 BAG IVPB SCH (13:00)
[2023-03-02] MEDS ORDERED: SODIUM ACETATE IV SCH (14:00)
[2023-03-02] MEDS ORDERED: [UNRECOGNIZED DRUG - OTHER] IV SCH (14:00)
[2023-03-02] MEDS ORDERED: POTASSIUM CHLORIDE IV SCH (14:00)
[2023-03-02] MEDS ORDERED: HUMULIN R IV SCH (14:00)
[2023-03-02] MEDS: Potassium Chloride 20 MEQ TAB PO SCH (19:24)
[2023-03-02] MEDS ORDERED: DC Sedation Protocol FS ONE (19:25)
[2023-03-02] MEDS: Famotidine/PF 20 mg/2ml Vial SLOW IVP SCH (20:28)
[2023-03-02] MEDS: Famotidine 20 MG TAB PO SCH (20:28)
[2023-03-03] MEDS: cefOXitin 2 GM in Sodium Chloride 0.9% 100 ML IVPB SCH ×4 (03:18→21:55)
[2023-03-03 04:46] LABS: #Monocytes 0.4 thou/uL (0.11-0.59); #Neutrophils 4.6 thou/uL (1.40-6.50); %Eosinophils 0.3 % (0.0-10.0); %Lymphocytes 15.1 % (21.0-51.0); %Monocytes 6.8 % (0.0-10.0); %Neutrophils 76.8 % (42.0-75.0); Hematocrit 32.5 % (36.0-47.0); Hemoglobin 9.8 g/dL (12.0-16.0); Mean Corpuscular HGB CONC 30.2 g/dL (32.0-36.0); Mean Corpuscular Volume 102.8 fl (78.0-98.0); Platelet Count 114 10x3/uL (130-400); Red Blood Cell (RBC) Count 3.16 mill/uL (4.20-5.40)
[2023-03-03 05:07] LABS: Phosphorus 2.1 mg/dL (2.3-4.7)
[2023-03-03 05:11] LABS: Anion Gap 10 mmol/L (10-20); BUN (Urea Nitrogen) 20 mg/dL (9.8-20.1); Calc. Creatinine Clearance 62 mL/min (70-130); Calcium 8.6 mg/dL (7.8-10.44); Carbon Dioxide 27 mmol/L (23-31); Chloride 108 mmol/L (98-107); Estimated GFR 32; Glucose 132 mg/dL (80-115); Magnesium 2.3 mg/dL (1.6-2.6); Potassium 3.3 mmol/L (3.5-5.1); Sodium 142 mmol/L (136-145)
[2023-03-03 05:28] LABS: Manual Diff?? YES
[2023-03-03 06:29] LABS: Band 16 % (5-11); CellaVision Operator ID LAB.GE; Eosinophils 1 % (0-10); Lymphocytes 18 % (21-51); Monocytes 2 % (0-10); Neutrophil 62 % (42-75); Platelet Adequacy Comment Platelets Decreased; Polychromasia SLIGHT = 2-3 cells HPF (0-2); Reactive Lymphocytes 1 % (0-10); Total Cell Count 100
[2023-03-03] MEDS ORDERED: Potassium Chloride 40 MEQ in Premix Bag 1 BAG IVPB SCH (08:00)
[2023-03-03] MEDS ORDERED: Furosemide 20 MG/2 ML VIAL SLOW IVP SCH (08:00)
[2023-03-03] MEDS: Amiodarone 450 MG in Dextrose 5% in Water 250 ML IVPB SCH ×2 (08:38→22:04)
[2023-03-03] MEDS ORDERED: Potassium Phosphate 15 MMOL in Sodium Chloride 0.9% 250 ML 250 ML IVPB SCH (11:00)
[2023-03-03] MEDS: Morphine 4 MG/ML VIAL SLOW IVP PRN ×2 (11:46→21:58)
[2023-03-03] MEDS: [UNRECOGNIZED DRUG - OTHER] IV SCH (15:13)
[2023-03-03] MEDS: POTASSIUM CHLORIDE IV SCH (15:13)
[2023-03-03] MEDS: SODIUM ACETATE IV SCH (15:13)
[2023-03-03] MEDS: HUMULIN R IV SCH (15:13)
[2023-03-03] MEDS: Morphine 2 MG/ML VIAL SLOW IVP PRN (15:45)
[2023-03-03] MEDS: Famotidine/PF 20 mg/2ml Vial SLOW IVP SCH (21:56)
[2023-03-03] MEDS: Famotidine 20 MG TAB PO SCH (21:56)
[2023-03-04] MEDS: cefOXitin 2 GM in Sodium Chloride 0.9% 100 ML IVPB SCH ×4 (02:04→20:52)
[2023-03-04 06:48] LABS: #Eosinphils 0.1 thou/uL (0.0-0.7); #Monocytes 0.6 thou/uL (0.11-0.59); #Neutrophils 3.8 thou/uL (1.40-6.50); %Basophils 0.4 % (0.0-1.0); %Eosinophils 0.9 % (0.0-10.0); %Monocytes 11.3 % (0.0-10.0); %Neutrophils 67.5 % (42.0-75.0); Hematocrit 35.6 % (36.0-47.0); Hemoglobin 10.8 g/dL (12.0-16.0); Mean Corpuscular HGB CONC 30.3 g/dL (32.0-36.0); Mean Corpuscular Hemoglobin 32.3 pg (27.0-31.0); Mean Corpuscular Volume 106.6 fl (78.0-98.0); Mean Platelet Volume 10.1 fL (7.4-10.4); Platelet Count 100 10x3/uL (130-400); RBC Distribution Width 14.6 % (11.5-14.5); Red Blood Cell (RBC) Count 3.34 mill/uL (4.20-5.40); White Blood Cell (WBC) Count 5.6 10x3/uL (4.8-10.8)
[2023-03-04 07:42] LABS: Anion Gap 15 mmol/L (10-20); BUN (Urea Nitrogen) 22 mg/dL (9.8-20.1); Calc. Creatinine Clearance 53 mL/min (70-130); Calcium 8.5 mg/dL (7.8-10.44); Carbon Dioxide 25 mmol/L (23-31); Chloride 106 mmol/L (98-107); Estimated GFR 28; Glucose 108 mg/dL (80-115); Phosphorus 2.7 mg/dL (2.3-4.7); Potassium 3.8 mmol/L (3.5-5.1); Sodium 142 mmol/L (136-145)
[2023-03-04] MEDS ORDERED: Magnesium 2 GM/50 ML(in water) 2 GM in Premix Bag 1 BAG IVPB SCH (08:00)
[2023-03-04] MEDS: Furosemide 20 MG/2 ML VIAL SLOW IVP SCH (08:21)
[2023-03-04] MEDS: Morphine 2 MG/ML VIAL SLOW IVP PRN ×3 (11:56→20:51)
[2023-03-04] MEDS: Amiodarone 450 MG in Dextrose 5% in Water 250 ML IVPB SCH (14:43)
[2023-03-04] MEDS: HUMULIN R IV SCH (14:45)
[2023-03-04] MEDS: POTASSIUM CHLORIDE IV SCH (14:45)
[2023-03-04] MEDS: SODIUM ACETATE IV SCH (14:45)
[2023-03-04] MEDS: [UNRECOGNIZED DRUG - OTHER] IV SCH (14:45)
[2023-03-04] MEDS ORDERED: Digoxin 0.5 MG/2 ML AMP SLOW IVP SCH (20:45)
[2023-03-04] MEDS: Famotidine/PF 20 mg/2ml Vial SLOW IVP SCH (20:51)
[2023-03-04] MEDS: Famotidine 20 MG TAB PO SCH (20:54)
[2023-03-04] MEDS ORDERED: Sodium Chloride 0.9% 250 ML IVPB SCH (23:00)
[2023-03-05] MEDS: cefOXitin 2 GM in Sodium Chloride 0.9% 100 ML IVPB SCH ×4 (02:38→21:06)
[2023-03-05] MEDS ORDERED: Phenol 118 ML BOT PO PRN (02:49)
[2023-03-05] MEDS: Amiodarone 450 MG in Dextrose 5% in Water 250 ML IVPB SCH (03:18)
[2023-03-05] MEDS: Morphine 2 MG/ML VIAL SLOW IVP PRN ×3 (03:19→19:31)
[2023-03-05 05:49] LABS: #Eosinphils 0.1 thou/uL (0.0-0.7); #Monocytes 0.7 thou/uL (0.11-0.59); #Neutrophils 3.4 thou/uL (1.40-6.50); %Basophils 0.4 % (0.0-1.0); %Eosinophils 0.9 % (0.0-10.0); %Lymphocytes 20.7 % (21.0-51.0); %Monocytes 12.8 % (0.0-10.0); %Neutrophils 63.5 % (42.0-75.0); Hematocrit 33.8 % (36.0-47.0); Hemoglobin 10.4 g/dL (12.0-16.0); Mean Corpuscular HGB CONC 30.8 g/dL (32.0-36.0); Mean Corpuscular Hemoglobin 32.4 pg (27.0-31.0); Mean Corpuscular Volume 105.3 fl (78.0-98.0); Mean Platelet Volume 10.7 fL (7.4-10.4); Platelet Count 110 10x3/uL (130-400); RBC Distribution Width 14.3 % (11.5-14.5); Red Blood Cell (RBC) Count 3.21 mill/uL (4.20-5.40); White Blood Cell (WBC) Count 5.3 10x3/uL (4.8-10.8)
[2023-03-05 06:05] LABS: Anion Gap 12 mmol/L (10-20); BUN (Urea Nitrogen) 22 mg/dL (9.8-20.1); Calc. Creatinine Clearance 77 mL/min (70-130); Carbon Dioxide 25 mmol/L (23-31); Chloride 102 mmol/L (98-107); Estimated GFR 44; Glucose 109 mg/dL (80-115); Magnesium 1.8 mg/dL (1.6-2.6); Phosphorus 2.6 mg/dL (2.3-4.7); Potassium 3.3 mmol/L (3.5-5.1); Sodium 136 mmol/L (136-145)
[2023-03-05] MEDS: Morphine 4 MG/ML VIAL SLOW IVP PRN (07:30)
[2023-03-05] MEDS ORDERED: Magnesium 2 GM/50 ML(in water) 2 GM in Premix Bag 1 BAG IVPB SCH (08:00)
[2023-03-05] MEDS ORDERED: Potassium Chloride 20 MEQ TAB PO SCH (08:00)
[2023-03-05] MEDS: Furosemide 20 MG/2 ML VIAL SLOW IVP SCH (11:05)
[2023-03-05] MEDS: Potassium Chloride 20 MEQ in Premix Bag 1 BAG IVPB SCH ×2 (12:49→16:08)
[2023-03-05] MEDS: SODIUM ACETATE IV SCH (14:51)
[2023-03-05] MEDS: POTASSIUM CHLORIDE IV SCH (14:51)
[2023-03-05] MEDS: [UNRECOGNIZED DRUG - OTHER] IV SCH (14:51)
[2023-03-05] MEDS: HUMULIN R IV SCH (14:51)
[2023-03-05] MEDS: Famotidine 20 MG TAB PO SCH (21:07)
[2023-03-05] MEDS: Famotidine/PF 20 mg/2ml Vial SLOW IVP SCH (21:08)
[2023-03-06] MEDS: Ondansetron PF 4 MG/2 ML Vial IVP PRN ×4 (00:29→20:35)
[2023-03-06] MEDS: cefOXitin 2 GM in Sodium Chloride 0.9% 100 ML IVPB SCH ×4 (03:49→20:34)
[2023-03-06] MEDS: Morphine 2 MG/ML VIAL SLOW IVP PRN ×3 (03:52→20:35)
[2023-03-06 04:16] LABS: #Eosinphils 0.1 thou/uL (0.0-0.7); #Monocytes 0.8 thou/uL (0.11-0.59); #Neutrophils 3.6 thou/uL (1.40-6.50); %Basophils 0.6 % (0.0-1.0); %Eosinophils 0.8 % (0.0-10.0); %Lymphocytes 23.8 % (21.0-51.0); %Monocytes 13.2 % (0.0-10.0); %Neutrophils 57.3 % (42.0-75.0); Hemoglobin 10.3 g/dL (12.0-16.0); Mean Corpuscular HGB CONC 31.2 g/dL (32.0-36.0); Mean Corpuscular Hemoglobin 31.6 pg (27.0-31.0); Mean Platelet Volume 10.4 fL (7.4-10.4); Platelet Count 114 10x3/uL (130-400); Red Blood Cell (RBC) Count 3.26 mill/uL (4.20-5.40); White Blood Cell (WBC) Count 6.3 10x3/uL (4.8-10.8)
[2023-03-06 04:18] LABS: Mean Corpuscular Volume 101.2 fl (78.0-98.0)
[2023-03-06 04:40] LABS: Anion Gap 13 mmol/L (10-20); BUN (Urea Nitrogen) 22 mg/dL (9.8-20.1); Calc. Creatinine Clearance 85 mL/min (70-130); Calcium 8.2 mg/dL (7.8-10.44); Carbon Dioxide 30 mmol/L (23-31); Chloride 97 mmol/L (98-107); Estimated GFR 50; Glucose 98 mg/dL (80-115); Sodium 137 mmol/L (136-145)
[2023-03-06] MEDS ORDERED: Potassium Chloride 20 MEQ TAB PO SCH (08:00)
[2023-03-06] MEDS: Amiodarone 450 MG in Dextrose 5% in Water 250 ML IVPB SCH ×2 (08:05→15:07)
[2023-03-06] MEDS: Famotidine 20 MG TAB PO SCH ×2 (09:16→20:34)
[2023-03-06] MEDS: Furosemide 20 MG/2 ML VIAL SLOW IVP SCH (09:19)
[2023-03-06] MEDS: Famotidine/PF 20 mg/2ml Vial SLOW IVP SCH ×2 (09:19→20:33)
[2023-03-06] MEDS ORDERED: Amiodarone 200 MG TAB PO SCH (16:45)
[2023-03-06] MEDS: Amiodarone 200 MG TAB PO SCH (20:32)
[2023-03-06] MEDS: Apixaban 5 MG TAB PO SCH (20:33)
[2023-03-07] MEDS: cefOXitin 2 GM in Sodium Chloride 0.9% 100 ML IVPB SCH ×4 (02:25→20:51)
[2023-03-07] MEDS: Morphine 2 MG/ML VIAL SLOW IVP PRN ×3 (02:27→18:42)
[2023-03-07 04:46] LABS: #Eosinphils 0.1 thou/uL (0.0-0.7); #Monocytes 0.9 thou/uL (0.11-0.59); #Neutrophils 3.9 thou/uL (1.40-6.50); %Basophils 0.5 % (0.0-1.0); %Eosinophils 1.1 % (0.0-10.0); %Lymphocytes 19.4 % (21.0-51.0); %Monocytes 14.3 % (0.0-10.0); %Neutrophils 60.5 % (42.0-75.0); Hematocrit 33.2 % (36.0-47.0); Hemoglobin 10.3 g/dL (12.0-16.0); Mean Corpuscular Hemoglobin 31.4 pg (27.0-31.0); Mean Corpuscular Volume 101.2 fl (78.0-98.0); Mean Platelet Volume 10.8 fL (7.4-10.4); Platelet Count 131 10x3/uL (130-400); Red Blood Cell (RBC) Count 3.28 mill/uL (4.20-5.40); White Blood Cell (WBC) Count 6.5 10x3/uL (4.8-10.8)
[2023-03-07 05:11] LABS: Anion Gap 13 mmol/L (10-20); BUN (Urea Nitrogen) 21 mg/dL (9.8-20.1); Calc. Creatinine Clearance 80 mL/min (70-130); Carbon Dioxide 30 mmol/L (23-31); Chloride 97 mmol/L (98-107); Estimated GFR 47; Glucose 89 mg/dL (80-115); Potassium 2.9 mmol/L (3.5-5.1); Sodium 137 mmol/L (136-145)
[2023-03-07] MEDS: Potassium Chloride 20 MEQ TAB PO SCH ×2 (06:22→12:14)
[2023-03-07] MEDS: Furosemide 20 MG/2 ML VIAL SLOW IVP SCH (08:53)
[2023-03-07] MEDS: Famotidine 20 MG TAB PO SCH ×2 (08:53→20:34)
[2023-03-07] MEDS: Amiodarone 200 MG TAB PO SCH ×3 (08:53→21:56)
[2023-03-07] MEDS: Lisinopril 5 MG TAB PO SCH ×2 (08:53→21:52)
[2023-03-07] MEDS: Apixaban 5 MG TAB PO SCH ×2 (08:53→20:34)
[2023-03-07] MEDS: Famotidine/PF 20 mg/2ml Vial SLOW IVP SCH ×2 (08:53→20:47)
[2023-03-07] MEDS: Ondansetron PF 4 MG/2 ML Vial IVP PRN ×2 (08:56→18:46)
[2023-03-07 11:26] LABS: Actual Bicarbonate (HCO3a) 17.7 mEq/L (22-28); Analyzer IN Cardio OR; Base Excess (BEa) -8.7 mEq/L (-2.0 to +3.0); Calcium, Ionized (arterial) 1.13 mmol/L (1.12-1.30); Carboxyhemoglobin (COHb) 0.7 gm% (0.0-3.0); Hematocrit-ABG 40 % (36.0-47.0); Hemoglobin (Hb) 13.7 g/dL (12.0-16.0); O2 Tension (PaO2), arterial 412.2 mmHg (> 80.0); Potassium - ABG Lab 4.33 mmol/L (3.70-5.30); pH, Arterial 7.265 (7.35-7.45)
[2023-03-07 11:26] LABS: Actual Bicarbonate (HCO3a) 19.5 mEq/L (22-28); Analyzer IN Cardio OR; Base Excess (BEa) -6.5 mEq/L (-2.0 to +3.0); CO2 Tension 40.9 mmHg (35.0-45.0); Carboxyhemoglobin (COHb) 0.3 gm% (0.0-3.0); Hematocrit-ABG 38 % (36.0-47.0); O2 Tension (PaO2), arterial 478.6 mmHg (> 80.0); Potassium - ABG Lab 3.81 mmol/L (3.70-5.30); pH, Arterial 7.297 (7.35-7.45)
[2023-03-07 11:27] LABS: Puncture Site Arterial Line
[2023-03-07 11:27] LABS: Puncture Site Arterial Line
[2023-03-07] MEDS ORDERED: Amiodarone 450 MG in Dextrose 5% in Water 250 ML IVPB SCH (11:30)
[2023-03-07] MEDS: Digoxin 0.5 MG/2 ML AMP SLOW IVP SCH (21:47)
[2023-03-07] MEDS: Promethazine HCl 25 MG/ML VIAL IM PRN (22:42)
[2023-03-08] MEDS: Digoxin 0.5 MG/2 ML AMP SLOW IVP SCH (03:47)
[2023-03-08] MEDS: cefOXitin 2 GM in Sodium Chloride 0.9% 100 ML IVPB SCH ×2 (03:48→10:03)
[2023-03-08] MEDS: Ondansetron PF 4 MG/2 ML Vial IVP PRN ×3 (03:49→20:39)
[2023-03-08] MEDS: Morphine 2 MG/ML VIAL SLOW IVP PRN (04:40)
[2023-03-08] MEDS: Promethazine HCl 25 MG/ML VIAL IM PRN ×2 (04:41→14:09)
[2023-03-08 05:21] LABS: #Basophils 0.1 thou/uL (0.0-0.2); #Eosinphils 0.1 thou/uL (0.0-0.7); #Monocytes 1.1 thou/uL (0.11-0.59); #Neutrophils 6.6 thou/uL (1.40-6.50); %Basophils 0.9 % (0.0-1.0); %Eosinophils 0.6 % (0.0-10.0); %Lymphocytes 18.1 % (21.0-51.0); %Monocytes 11.1 % (0.0-10.0); %Neutrophils 64.7 % (42.0-75.0); Hematocrit 39.9 % (36.0-47.0); Hemoglobin 12.2 g/dL (12.0-16.0); Mean Corpuscular HGB CONC 30.6 g/dL (32.0-36.0); Mean Corpuscular Hemoglobin 31.9 pg (27.0-31.0); Mean Corpuscular Volume 104.5 fl (78.0-98.0); Mean Platelet Volume 10.6 fL (7.4-10.4); Platelet Count 177 10x3/uL (130-400); RBC Distribution Width 14.1 % (11.5-14.5); Red Blood Cell (RBC) Count 3.82 mill/uL (4.20-5.40); White Blood Cell (WBC) Count 10.3 10x3/uL (4.8-10.8)
[2023-03-08 05:46] LABS: Anion Gap 15 mmol/L (10-20); BUN (Urea Nitrogen) 22 mg/dL (9.8-20.1); Calc. Creatinine Clearance 56 mL/min (70-130); Calcium 8.8 mg/dL (7.8-10.44); Carbon Dioxide 30 mmol/L (23-31); Chloride 95 mmol/L (98-107); Estimated GFR 30; Glucose 83 mg/dL (80-115); Potassium 3.3 mmol/L (3.5-5.1); Sodium 137 mmol/L (136-145)
[2023-03-08] MEDS ORDERED: D5 0.9% NS w/ 20 mEq KCl 1,000 ML IV SCH (09:15)
[2023-03-08] MEDS: Amiodarone 200 MG TAB PO SCH ×2 (09:55→15:15)
[2023-03-08] MEDS: Potassium Chloride 20 MEQ in Premix Bag 1 BAG IVPB SCH ×3 (09:56→21:53)
[2023-03-08] MEDS: Furosemide 20 MG/2 ML VIAL SLOW IVP SCH (09:57)
[2023-03-08] MEDS: Apixaban 5 MG TAB PO SCH (09:58)
[2023-03-08] MEDS: Famotidine/PF 20 mg/2ml Vial SLOW IVP SCH (10:27)
[2023-03-08] MEDS: Lisinopril 5 MG TAB PO SCH (10:27)
[2023-03-08] MEDS: Famotidine 20 MG TAB PO SCH (10:28)
[2023-03-08] MEDS ORDERED: Sodium Chloride 0.9% 1,000 ML IV SCH (13:30)
[2023-03-08] MEDS ORDERED: Meropenem 1 GM in Sodium Chloride 0.9% 100 ML IVPB SCH (15:00)
[2023-03-08 15:03] LABS: #Monocytes 1.6 thou/uL (0.11-0.59); #Neutrophils 12.6 thou/uL (1.40-6.50); %Basophils 0.3 % (0.0-1.0); %Eosinophils 0.1 % (0.0-10.0); %Lymphocytes 7.8 % (21.0-51.0); %Monocytes 10.1 % (0.0-10.0); %Neutrophils 80.2 % (42.0-75.0); Hematocrit 34.5 % (36.0-47.0); Hemoglobin 10.7 g/dL (12.0-16.0); Mean Corpuscular Volume 103.3 fl (78.0-98.0); Mean Platelet Volume 10.6 fL (7.4-10.4); Platelet Count 162 10x3/uL (130-400); RBC Distribution Width 14.3 % (11.5-14.5); Red Blood Cell (RBC) Count 3.34 mill/uL (4.20-5.40); White Blood Cell (WBC) Count 15.7 10x3/uL (4.8-10.8)
[2023-03-08 15:32] LABS: Lactic Acid 0.9 mmol/L (0.5-2.2)
[2023-03-08 15:38] LABS: ALT (SGPT) 17 U/L (8-55); AST (SGOT) 16 U/L (5-34); Albumin 2.6 g/dL (3.4-4.8); Alkaline Phosphatase 79 U/L (40-110); Anion Gap 17 mmol/L (10-20); BUN (Urea Nitrogen) 24 mg/dL (9.8-20.1); Bilirubin, Total 0.4 mg/dL (0.2-1.2); Calc. Creatinine Clearance 47 mL/min (70-130); Calcium 8.3 mg/dL (7.8-10.44); Carbon Dioxide 24 mmol/L (23-31); Chloride 97 mmol/L (98-107); Estimated GFR 24; Globulin 3.1 g/dL (2.4-3.5); Glucose 89 mg/dL (80-115); Potassium 3.1 mmol/L (3.5-5.1); Protein, Total 5.7 g/dL (5.8-8.1); Sodium 135 mmol/L (136-145)
[2023-03-08] MEDS: NOREPINEPHRINE 8 MG/250 ML-D5W 250 ML IVPB SCH (16:29)
[2023-03-08] MEDS: Lactated Ringer's 1,000 ML IV SCH (17:17)
[2023-03-08] MEDS: Amiodarone 450 MG in Dextrose 5% in Water 250 ML IVPB SCH (17:17)
[2023-03-08] MEDS ORDERED: Potassium Chloride 20 MEQ TAB PO SCH (19:45)
[2023-03-08] MEDS: Pantoprazole 40 MG VIAL IVP SCH (21:49)
[2023-03-08] MEDS ORDERED: Sodium Chloride 0.9% 500 ML IV SCH (22:45)
[2023-03-08] MEDS: Meropenem 1 GM in Sodium Chloride 0.9% 100 ML IVPB SCH (23:16)
[2023-03-09] MEDS: Lactated Ringer's 1,000 ML IV SCH (03:10)
[2023-03-09 05:47] LABS: #Eosinphils 0.1 thou/uL (0.0-0.7); #Monocytes 1.3 thou/uL (0.11-0.59); #Neutrophils 10.1 thou/uL (1.40-6.50); %Basophils 0.3 % (0.0-1.0); %Eosinophils 0.4 % (0.0-10.0); %Lymphocytes 12.4 % (21.0-51.0); %Monocytes 9.5 % (0.0-10.0); %Neutrophils 75.1 % (42.0-75.0); Hematocrit 34.4 % (36.0-47.0); Hemoglobin 10.6 g/dL (12.0-16.0); Mean Corpuscular HGB CONC 30.8 g/dL (32.0-36.0); Mean Corpuscular Hemoglobin 31.5 pg (27.0-31.0); Mean Corpuscular Volume 102.4 fl (78.0-98.0); Mean Platelet Volume 10.5 fL (7.4-10.4); Platelet Count 197 10x3/uL (130-400); RBC Distribution Width 13.8 % (11.5-14.5); Red Blood Cell (RBC) Count 3.36 mill/uL (4.20-5.40); White Blood Cell (WBC) Count 13.4 10x3/uL (4.8-10.8)
[2023-03-09 06:08] LABS: Anion Gap 18 mmol/L (10-20); BUN (Urea Nitrogen) 25 mg/dL (9.8-20.1); Calc. Creatinine Clearance 49 mL/min (70-130); Calcium 8.4 mg/dL (7.8-10.44); Carbon Dioxide 25 mmol/L (23-31); Chloride 97 mmol/L (98-107); Estimated GFR 27; Glucose 109 mg/dL (80-115); Potassium 2.7 mmol/L (3.5-5.1); Sodium 137 mmol/L (136-145)
[2023-03-09] MEDS: Potassium Chloride 20 MEQ in Premix Bag 1 BAG IVPB SCH ×4 (06:33→14:06)
[2023-03-09] MEDS: Amiodarone 450 MG in Dextrose 5% in Water 250 ML IVPB SCH ×2 (06:51→20:21)
[2023-03-09] MEDS ORDERED: Lactated Ringer's 1,000 ML IV SCH (07:45)
[2023-03-09] MEDS ORDERED: Albumin 25% 25 GM/100 ML BOT IVPB SCH ×2 (07:45→22:30)
[2023-03-09 08:01] LABS: Magnesium 1.5 mg/dL (1.6-2.6)
[2023-03-09] MEDS ORDERED: Magnesium 2 GM/50 ML(in water) 2 GM in Premix Bag 1 BAG IVPB SCH (08:30)
[2023-03-09] MEDS ORDERED: Famotidine/PF 20 mg/2ml Vial SLOW IVP SCH (09:00)
[2023-03-09] MEDS ORDERED: Famotidine 20 MG TAB PO SCH (09:00)
[2023-03-09] MEDS: Potassium Chloride 30 MEQ in Dextrose 5 % And 0.9 % NaCl 1,000 ML IV SCH ×3 (09:16→21:03)
[2023-03-09] MEDS: Pantoprazole 40 MG VIAL IVP SCH ×2 (09:17→20:21)
[2023-03-09] MEDS ORDERED: Sodium Chloride 0.9% 500 ML IV SCH (10:30)
[2023-03-09] MEDS: Ondansetron PF 4 MG/2 ML Vial IVP PRN ×2 (12:35→18:40)
[2023-03-09] MEDS: Meropenem 1 GM in Sodium Chloride 0.9% 100 ML IVPB SCH ×2 (12:35→23:13)
[2023-03-09] MEDS: NOREPINEPHRINE 8 MG/250 ML-D5W 250 ML IVPB SCH (13:59)
[2023-03-09 18:09] LABS: Potassium 3.6 mmol/L (3.5-5.1)
[2023-03-10] MEDS: Potassium Chloride 30 MEQ in Dextrose 5 % And 0.9 % NaCl 1,000 ML IV SCH ×5 (02:15→18:42)
[2023-03-10 06:00] LABS: #Eosinphils 0.1 thou/uL (0.0-0.7); #Neutrophils 7.3 thou/uL (1.40-6.50); %Basophils 0.4 % (0.0-1.0); %Eosinophils 0.9 % (0.0-10.0); %Lymphocytes 14.2 % (21.0-51.0); %Monocytes 9.6 % (0.0-10.0); %Neutrophils 72.3 % (42.0-75.0); Hematocrit 32.4 % (36.0-47.0); Mean Corpuscular HGB CONC 30.9 g/dL (32.0-36.0); Mean Corpuscular Hemoglobin 31.3 pg (27.0-31.0); Mean Corpuscular Volume 101.3 fl (78.0-98.0); Mean Platelet Volume 10.3 fL (7.4-10.4); Platelet Count 208 10x3/uL (130-400); White Blood Cell (WBC) Count 10.1 10x3/uL (4.8-10.8)
[2023-03-10 06:18] LABS: Phosphorus 2.8 mg/dL (2.3-4.7)
[2023-03-10 06:27] LABS: Anion Gap 14 mmol/L (10-20); BUN (Urea Nitrogen) 21 mg/dL (9.8-20.1); Calc. Creatinine Clearance 57 mL/min (70-130); Calcium 8.5 mg/dL (7.8-10.44); Carbon Dioxide 22 mmol/L (23-31); Chloride 109 mmol/L (98-107); Estimated GFR 33; Glucose 123 mg/dL (80-115); Potassium 3.2 mmol/L (3.5-5.1); Sodium 142 mmol/L (136-145)
[2023-03-10] MEDS: Morphine 2 MG/ML VIAL SLOW IVP PRN ×2 (08:45→18:41)
[2023-03-10] MEDS: Ondansetron PF 4 MG/2 ML Vial IVP PRN ×2 (08:47→16:28)
[2023-03-10] MEDS: Potassium Chloride 20 MEQ in Premix Bag 1 BAG IVPB SCH ×2 (08:53→10:19)
[2023-03-10] MEDS ORDERED: Digoxin 0.5 MG/2 ML AMP SLOW IVP SCH (09:00)
[2023-03-10] MEDS: Pantoprazole 40 MG VIAL IVP SCH ×2 (09:09→20:07)
[2023-03-10] MEDS ORDERED: Magnesium 2 GM/50 ML(in water) 2 GM in Premix Bag 1 BAG IVPB SCH (10:00)
[2023-03-10] MEDS: Amiodarone 450 MG in Dextrose 5% in Water 250 ML IVPB SCH (12:28)
[2023-03-10] MEDS: Meropenem 1 GM in Sodium Chloride 0.9% 100 ML IVPB SCH (12:28)
[2023-03-10] MEDS: NOREPINEPHRINE 8 MG/250 ML-D5W 250 ML IVPB SCH (12:28)
[2023-03-10 13:49] LABS: Potassium 3.8 mmol/L (3.5-5.1)
[2023-03-10] MEDS ORDERED: D5 1/2 NS w/30 mEq KCL 1,000 ML IV SCH (19:30)
[2023-03-10] MEDS: DEXTROSE IV SCH (20:07)
[2023-03-10] MEDS: NACL IV SCH (20:07)
[2023-03-10] MEDS: POTASSIUM CHLORIDE IV SCH (20:07)
[2023-03-10] MEDS: ADMIXTURE FEE IV SCH (20:07)
[2023-03-11] MEDS: POTASSIUM CHLORIDE IV SCH ×5 (02:04→23:00)
[2023-03-11] MEDS: DEXTROSE IV SCH ×3 (02:04→13:25)
[2023-03-11] MEDS: NACL IV SCH ×3 (02:04→13:25)
[2023-03-11] MEDS: ADMIXTURE FEE IV SCH ×5 (02:04→23:00)
[2023-03-11 04:32] LABS: #Basophils 0.1 thou/uL (0.0-0.2); #Eosinphils 0.1 thou/uL (0.0-0.7); #Monocytes 0.8 thou/uL (0.11-0.59); #Neutrophils 5.2 thou/uL (1.40-6.50); %Basophils 0.6 % (0.0-1.0); %Eosinophils 1.2 % (0.0-10.0); %Lymphocytes 24.8 % (21.0-51.0); %Monocytes 9.6 % (0.0-10.0); %Neutrophils 60.5 % (42.0-75.0); Hematocrit 30.7 % (36.0-47.0); Hemoglobin 9.2 g/dL (12.0-16.0); Mean Corpuscular Hemoglobin 31.8 pg (27.0-31.0); Mean Platelet Volume 10.3 fL (7.4-10.4); Platelet Count 227 10x3/uL (130-400); RBC Distribution Width 14.2 % (11.5-14.5); Red Blood Cell (RBC) Count 2.89 mill/uL (4.20-5.40); White Blood Cell (WBC) Count 8.5 10x3/uL (4.8-10.8)
[2023-03-11 04:40] LABS: Mean Corpuscular Volume 106.2 fl (78.0-98.0)
[2023-03-11 05:01] LABS: Anion Gap 12 mmol/L (10-20); BUN (Urea Nitrogen) 16 mg/dL (9.8-20.1); Calc. Creatinine Clearance 74 mL/min (70-130); Calcium 8.2 mg/dL (7.8-10.44); Carbon Dioxide 20 mmol/L (23-31); Chloride 114 mmol/L (98-107); Estimated GFR 43; Glucose 88 mg/dL (80-115); Magnesium 2.1 mg/dL (1.6-2.6); Phosphorus 2.6 mg/dL (2.3-4.7); Potassium 3.6 mmol/L (3.5-5.1); Sodium 142 mmol/L (136-145)
[2023-03-11] MEDS ORDERED: Potassium Phosphate 30 MMOL in Sodium Chloride 0.9% 500 ML IVPB SCH (09:30)
[2023-03-11] MEDS: Digoxin 0.5 MG/2 ML AMP SLOW IVP SCH (09:49)
[2023-03-11] MEDS: Pantoprazole 40 MG VIAL IVP SCH ×2 (09:49→20:25)
[2023-03-11] MEDS: Meropenem 1 GM in Sodium Chloride 0.9% 100 ML IVPB SCH ×4 (12:14→20:24)
[2023-03-11] MEDS: Morphine 2 MG/ML VIAL SLOW IVP PRN (12:22)
[2023-03-11] MEDS: NOREPINEPHRINE 8 MG/250 ML-D5W 250 ML IVPB SCH (14:09)
[2023-03-11] MEDS ORDERED: Diphenoxylate HCl/Atropine Tablet PO SCH (15:45)
[2023-03-11] MEDS: [UNRECOGNIZED DRUG - OTHER] IV SCH ×2 (16:48→23:00)
[2023-03-11] MEDS: Amiodarone 450 MG in Dextrose 5% in Water 250 ML IVPB SCH (17:17)
[2023-03-11] MEDS: Diphenoxylate HCl/Atropine Tablet PO SCH (22:03)
[2023-03-12] MEDS: Ondansetron PF 4 MG/2 ML Vial IVP PRN (04:33)
[2023-03-12] MEDS: Meropenem 1 GM in Sodium Chloride 0.9% 100 ML IVPB SCH ×3 (04:33→20:48)
[2023-03-12] MEDS: Diphenoxylate HCl/Atropine Tablet PO SCH ×3 (06:14→21:40)
[2023-03-12] MEDS: ADMIXTURE FEE IV SCH (06:15)
[2023-03-12] MEDS: POTASSIUM CHLORIDE IV SCH (06:15)
[2023-03-12] MEDS: [UNRECOGNIZED DRUG - OTHER] IV SCH (06:15)
[2023-03-12 07:23] LABS: #Basophils 0.1 thou/uL (0.0-0.2); #Eosinphils 0.1 thou/uL (0.0-0.7); #Monocytes 0.6 thou/uL (0.11-0.59); %Basophils 0.9 % (0.0-1.0); %Eosinophils 0.7 % (0.0-10.0); %Lymphocytes 24.7 % (21.0-51.0); %Monocytes 7.9 % (0.0-10.0); %Neutrophils 62.3 % (42.0-75.0); Hematocrit 34.9 % (36.0-47.0); Hemoglobin 9.6 g/dL (12.0-16.0); Mean Corpuscular HGB CONC 27.5 g/dL (32.0-36.0); Mean Corpuscular Hemoglobin 31.9 pg (27.0-31.0); Mean Corpuscular Volume 115.9 fl (78.0-98.0); Mean Platelet Volume 10.7 fL (7.4-10.4); Platelet Count 199 10x3/uL (130-400); RBC Distribution Width 14.3 % (11.5-14.5); Red Blood Cell (RBC) Count 3.01 mill/uL (4.20-5.40); White Blood Cell (WBC) Count 8.1 10x3/uL (4.8-10.8)
[2023-03-12 07:59] LABS: Anion Gap 14 mmol/L (10-20); BUN (Urea Nitrogen) 13 mg/dL (9.8-20.1); Calc. Creatinine Clearance 89 mL/min (70-130); Calcium 8.5 mg/dL (7.8-10.44); Carbon Dioxide 15 mmol/L (23-31); Chloride 115 mmol/L (98-107); Estimated GFR 52; Glucose 86 mg/dL (80-115); Magnesium 1.6 mg/dL (1.6-2.6); Phosphorus 3.7 mg/dL (2.3-4.7); Potassium 4.1 mmol/L (3.5-5.1); Sodium 140 mmol/L (136-145)
[2023-03-12 08:33] LABS: Anisocytosis SLIGHT = 6-15 cells HPF (0-5); Burr Cells SLIGHT = 2-5 cells HPF (0-1); CellaVision Operator ID LAB.NR; Large Platelets 0.9 % (0-5); Macrocytosis MODERATE=16-30 cells HPF (0-5); Platelet Adequacy Comment Platelets Normal; Polychromasia SLIGHT = 2-3 cells HPF (0-2); Smudge Cells 0.9 %
[2023-03-12] MEDS: Digoxin 0.5 MG/2 ML AMP SLOW IVP SCH (10:16)
[2023-03-12] MEDS: Pantoprazole 40 MG VIAL IVP SCH ×2 (10:17→20:49)
[2023-03-12] MEDS: Hydrocortisone Sod Succ/PF 100 mg/2 ml Vial IVP SCH ×3 (10:18→21:40)
[2023-03-12] MEDS: Sodium Bicarbonate 70 MEQ in Dextrose 5 %-0.45 % NaCl 1,000 ML IV SCH ×2 (10:18→16:41)
[2023-03-12] MEDS ORDERED: Magnesium 2 GM/50 ML(in water) 2 GM in Premix Bag 1 BAG IVPB SCH (11:30)
[2023-03-12] MEDS: Morphine 4 MG/ML VIAL SLOW IVP PRN (12:34)
[2023-03-12] MEDS: Morphine 2 MG/ML VIAL SLOW IVP PRN (22:43)
[2023-03-13] MEDS: Sodium Bicarbonate 70 MEQ in Dextrose 5 %-0.45 % NaCl 1,000 ML IV SCH ×4 (00:33→21:48)
[2023-03-13] MEDS: Amiodarone 450 MG in Dextrose 5% in Water 250 ML IVPB SCH (02:46)
[2023-03-13 04:18] LABS: #Monocytes 0.2 thou/uL (0.11-0.59); #Neutrophils 3.5 thou/uL (1.40-6.50); %Basophils 0.4 % (0.0-1.0); %Lymphocytes 19.5 % (21.0-51.0); %Monocytes 3.9 % (0.0-10.0); %Neutrophils 72.3 % (42.0-75.0); Hematocrit 29.1 % (36.0-47.0); Hemoglobin 8.6 g/dL (12.0-16.0); Mean Corpuscular HGB CONC 29.6 g/dL (32.0-36.0); Mean Platelet Volume 10.6 fL (7.4-10.4); Platelet Count 190 10x3/uL (130-400); RBC Distribution Width 13.9 % (11.5-14.5); Red Blood Cell (RBC) Count 2.77 mill/uL (4.20-5.40); White Blood Cell (WBC) Count 4.9 10x3/uL (4.8-10.8)
[2023-03-13] MEDS: Hydrocortisone Sod Succ/PF 100 mg/2 ml Vial IVP SCH ×2 (04:22→21:43)
[2023-03-13] MEDS: Meropenem 1 GM in Sodium Chloride 0.9% 100 ML IVPB SCH ×2 (04:22→11:06)
[2023-03-13 04:40] LABS: Mean Corpuscular Volume 105.1 fl (78.0-98.0)
[2023-03-13 04:45] LABS: Anion Gap 13 mmol/L (10-20); BUN (Urea Nitrogen) 10 mg/dL (9.8-20.1); Calc. Creatinine Clearance 102 mL/min (70-130); Carbon Dioxide 20 mmol/L (23-31); Chloride 112 mmol/L (98-107); Estimated GFR 61; Glucose 112 mg/dL (80-115); Magnesium 1.8 mg/dL (1.6-2.6); Potassium 3.2 mmol/L (3.5-5.1); Sodium 142 mmol/L (136-145)
[2023-03-13 04:47] LABS: Phosphorus 3.5 mg/dL (2.3-4.7)
[2023-03-13] MEDS: Diphenoxylate HCl/Atropine Tablet PO SCH ×4 (06:12→23:50)
[2023-03-13] MEDS ORDERED: Potassium Chloride 20 MEQ TAB PO SCH (08:00)
[2023-03-13] MEDS ORDERED: Magnesium 2 GM/50 ML(in water) 2 GM in Premix Bag 1 BAG IVPB SCH (08:00)
[2023-03-13] MEDS ORDERED: Potassium Chloride 40 MEQ in Premix Bag 1 BAG IVPB SCH (08:45)
[2023-03-13] MEDS: Digoxin 0.5 MG/2 ML AMP SLOW IVP SCH (09:12)
[2023-03-13] MEDS: Potassium Chloride 20 MEQ in Premix Bag 1 BAG IVPB SCH ×2 (09:14→10:54)
[2023-03-13] MEDS: Ondansetron PF 4 MG/2 ML Vial IVP PRN (10:46)
[2023-03-13] MEDS: HYDROcodone/Acetaminophen 7.5/325 mg Tablet PO PRN ×2 (10:46→22:21)
[2023-03-13] MEDS: Amiodarone 200 MG TAB PO SCH ×3 (15:04→20:06)
[2023-03-13] MEDS ORDERED: LevoFLOXacin 500 MG TAB PO SCH (17:00)
[2023-03-13] MEDS: Dextrose 5 %-0.45 % NaCl 1,000 ML IV SCH (18:18)
[2023-03-13] MEDS: Apixaban 5 MG TAB PO SCH (20:06)
[2023-03-13] MEDS ORDERED: Morphine 2 MG/ML VIAL SLOW IVP SCH (22:30)
[2023-03-14] MEDS: Dextrose 5 %-0.45 % NaCl 1,000 ML IV SCH ×3 (01:33→21:06)
[2023-03-14] MEDS: Sodium Bicarbonate 70 MEQ in Dextrose 5 %-0.45 % NaCl 1,000 ML IV SCH (05:13)
[2023-03-14] MEDS: LevoFLOXacin 500 MG TAB PO SCH (05:51)
[2023-03-14] MEDS: Diphenoxylate HCl/Atropine Tablet PO SCH ×4 (05:51→23:11)
[2023-03-14 07:42] LABS: Anion Gap 14 mmol/L (10-20); BUN (Urea Nitrogen) 9 mg/dL (9.8-20.1); Calc. Creatinine Clearance 105 mL/min (70-130); Calcium 7.9 mg/dL (7.8-10.44); Carbon Dioxide 19 mmol/L (23-31); Chloride 110 mmol/L (98-107); Digoxin 0.82 ng/mL (0.8-2.0); Estimated GFR 61; Glucose 74 mg/dL (80-115); Potassium 3.2 mmol/L (3.5-5.1); Sodium 140 mmol/L (136-145)
[2023-03-14 07:57] LABS: #Monocytes 0.3 thou/uL (0.11-0.59); #Neutrophils 3.4 thou/uL (1.40-6.50); %Basophils 0.6 % (0.0-1.0); %Eosinophils 0.4 % (0.0-10.0); %Lymphocytes 24.2 % (21.0-51.0); %Monocytes 6.5 % (0.0-10.0); %Neutrophils 65.2 % (42.0-75.0); Hematocrit 32.8 % (36.0-47.0); Hemoglobin 9.7 g/dL (12.0-16.0); Magnesium 1.4 mg/dL (1.6-2.6); Mean Corpuscular HGB CONC 29.6 g/dL (32.0-36.0); Mean Corpuscular Hemoglobin 31.4 pg (27.0-31.0); Mean Corpuscular Volume 106.1 fl (78.0-98.0); Mean Platelet Volume 10.6 fL (7.4-10.4); Platelet Count 223 10x3/uL (130-400); RBC Distribution Width 13.9 % (11.5-14.5); Red Blood Cell (RBC) Count 3.09 mill/uL (4.20-5.40); White Blood Cell (WBC) Count 5.2 10x3/uL (4.8-10.8)
[2023-03-14] MEDS ORDERED: Potassium Chloride 20 MEQ TAB PO SCH ×2 (08:00→21:15)
[2023-03-14] MEDS: Apixaban 5 MG TAB PO SCH ×2 (08:46→21:05)
[2023-03-14] MEDS: Amiodarone 200 MG TAB PO SCH ×3 (08:46→21:05)
[2023-03-14] MEDS: Digoxin 0.5 MG/2 ML AMP SLOW IVP SCH (08:47)
[2023-03-14] MEDS: HYDROcodone/Acetaminophen 7.5/325 mg Tablet PO PRN (08:57)
[2023-03-14] MEDS: Hydrocortisone Sod Succ/PF 100 mg/2 ml Vial IVP SCH ×2 (09:28→21:05)
[2023-03-14] MEDS: Loperamide HCl 2 MG CAP PO SCH ×3 (09:33→21:05)
[2023-03-14] MEDS ORDERED: Magnesium Sulfate In Water 4 GM in Premix Bag 1 BAG IVPB SCH (10:00)
[2023-03-14 20:38] LABS: Potassium 3.2 mmol/L (3.5-5.1)
[2023-03-15] MEDS: Loperamide HCl 2 MG CAP PO SCH ×4 (04:04→21:42)
[2023-03-15 04:44] LABS: #Monocytes 0.4 thou/uL (0.11-0.59); #Neutrophils 3.3 thou/uL (1.40-6.50); %Basophils 0.4 % (0.0-1.0); %Eosinophils 0.2 % (0.0-10.0); %Lymphocytes 24.6 % (21.0-51.0); %Monocytes 8.2 % (0.0-10.0); %Neutrophils 62.3 % (42.0-75.0); Hematocrit 28.5 % (36.0-47.0); Hemoglobin 8.7 g/dL (12.0-16.0); Mean Corpuscular HGB CONC 30.5 g/dL (32.0-36.0); Mean Corpuscular Hemoglobin 31.2 pg (27.0-31.0); Mean Platelet Volume 10.5 fL (7.4-10.4); Platelet Count 235 10x3/uL (130-400); RBC Distribution Width 13.6 % (11.5-14.5); Red Blood Cell (RBC) Count 2.79 mill/uL (4.20-5.40); White Blood Cell (WBC) Count 5.4 10x3/uL (4.8-10.8)
[2023-03-15] MEDS: Diphenoxylate HCl/Atropine Tablet PO SCH ×4 (05:29→23:37)
[2023-03-15] MEDS: LevoFLOXacin 500 MG TAB PO SCH (05:29)
[2023-03-15 05:33] LABS: Magnesium 1.2 mg/dL (1.6-2.6); Phosphorus 2.8 mg/dL (2.3-4.7)
[2023-03-15 05:52] LABS: Chloride 109 mmol/L (98-107); Potassium 3.4 mmol/L (3.5-5.1); Sodium 139 mmol/L (136-145)
[2023-03-15 06:23] LABS: Anion Gap 10 mmol/L (10-20); BUN (Urea Nitrogen) 7 mg/dL (9.8-20.1); Calc. Creatinine Clearance 106 mL/min (70-130); Calcium 7.9 mg/dL (7.8-10.44); Carbon Dioxide 23 mmol/L (23-31); Estimated GFR 62; Glucose 81 mg/dL (80-115)
[2023-03-15 06:26] LABS: Mean Corpuscular Volume 102.2 fl (78.0-98.0)
[2023-03-15] MEDS: Amiodarone 200 MG TAB PO SCH ×3 (07:32→21:42)
[2023-03-15] MEDS: Ondansetron PF 4 MG/2 ML Vial IVP PRN ×2 (07:42→14:20)
[2023-03-15] MEDS ORDERED: Potassium Chloride 20 MEQ TAB PO SCH (08:00)
[2023-03-15] MEDS ORDERED: Magnesium Sulfate In Water 4 GM in Premix Bag 1 BAG IVPB SCH (08:00)
[2023-03-15] MEDS: Digoxin 0.5 MG/2 ML AMP SLOW IVP SCH (08:58)
[2023-03-15] MEDS: Hydrocortisone Sod Succ/PF 100 mg/2 ml Vial IVP SCH (08:58)
[2023-03-15] MEDS: Apixaban 5 MG TAB PO SCH ×2 (08:58→21:43)
[2023-03-15] MEDS: Dextrose 5 %-0.45 % NaCl 1,000 ML IV SCH (10:38)
[2023-03-15] MEDS ORDERED: Dextrose 5 %-0.45 % NaCl 1,000 ML IV SCH (11:26)
[2023-03-15 12:05] LABS: Potassium 4.1 mmol/L (3.5-5.1)
[2023-03-16] MEDS: Loperamide HCl 2 MG CAP PO SCH ×4 (03:13→21:19)
[2023-03-16] MEDS: Diphenoxylate HCl/Atropine Tablet PO SCH ×3 (05:28→19:20)
[2023-03-16] MEDS: LevoFLOXacin 500 MG TAB PO SCH (05:28)
[2023-03-16 06:24] LABS: Hematocrit 28.7 % (36.0-47.0); Hemoglobin 8.7 g/dL (12.0-16.0); Mean Corpuscular HGB CONC 30.3 g/dL (32.0-36.0); Mean Corpuscular Hemoglobin 31.1 pg (27.0-31.0); Mean Corpuscular Volume 102.5 fl (78.0-98.0); Mean Platelet Volume 10.2 fL (7.4-10.4); Platelet Count 226 10x3/uL (130-400); RBC Distribution Width 13.8 % (11.5-14.5); White Blood Cell (WBC) Count 5.3 10x3/uL (4.8-10.8)
[2023-03-16 06:34] LABS: Delete Auto Diff?? YES; Manual Diff?? YES
[2023-03-16 06:47] LABS: Anion Gap 11 mmol/L (10-20); BUN (Urea Nitrogen) 6 mg/dL (9.8-20.1); Calc. Creatinine Clearance 89 mL/min (70-130); Carbon Dioxide 23 mmol/L (23-31); Chloride 110 mmol/L (98-107); Estimated GFR 50; Glucose 69 mg/dL (80-115); Phosphorus 2.4 mg/dL (2.3-4.7); Potassium 3.2 mmol/L (3.5-5.1); Sodium 141 mmol/L (136-145)
[2023-03-16 07:05] LABS: Band 9 % (5-11); CellaVision Operator ID LAB.GE; Lymphocytes 33 % (21-51); Macrocytosis SLIGHT = 6-15 cells HPF (0-5); Metamyelocyte 1 % (0-0); Monocytes 7 % (0-10); Myelocyte 2 % (0-0); Neutrophil 47 % (42-75); Platelet Adequacy Comment Platelets Normal; Polychromasia SLIGHT = 2-3 cells HPF (0-2); Reactive Lymphocytes 1 % (0-10); Total Cell Count 100
[2023-03-16] MEDS ORDERED: Hydrocortisone Sod Succ/PF 100 mg/2 ml Vial IVP SCH (09:00)
[2023-03-16] MEDS: Potassium Bicarbonate/Cit Ac 20 MEQ TAB PO SCH ×2 (09:18→09:29)
[2023-03-16] MEDS: Digoxin 0.125 MG TAB PO SCH (09:19)
[2023-03-16] MEDS: Amiodarone 200 MG TAB PO SCH ×3 (09:19→21:16)
[2023-03-16] MEDS: Apixaban 5 MG TAB PO SCH ×2 (09:19→21:16)
[2023-03-16] MEDS ORDERED: Potassium Chloride 20 MEQ TAB PO SCH (10:00)
[2023-03-16] MEDS: Ondansetron ODT 4 MG TAB PO PRN (10:16)
[2023-03-16] MEDS: HYDROcodone/Acetaminophen 7.5/325 mg Tablet PO PRN (21:16)
[2023-03-17] MEDS: Diphenoxylate HCl/Atropine Tablet PO SCH ×3 (00:55→11:55)
[2023-03-17] MEDS: Loperamide HCl 2 MG CAP PO SCH ×2 (03:28→09:49)
[2023-03-17 06:42] LABS: Hematocrit 31.9 % (36.0-47.0); Hemoglobin 9.6 g/dL (12.0-16.0); Mean Corpuscular HGB CONC 30.1 g/dL (32.0-36.0); Mean Corpuscular Hemoglobin 31.4 pg (27.0-31.0); Mean Corpuscular Volume 104.2 fl (78.0-98.0); Mean Platelet Volume 10.3 fL (7.4-10.4); Platelet Count 286 10x3/uL (130-400); Red Blood Cell (RBC) Count 3.06 mill/uL (4.20-5.40); White Blood Cell (WBC) Count 7.1 10x3/uL (4.8-10.8)
[2023-03-17 06:49] LABS: Delete Auto Diff?? YES; Manual Diff?? YES
[2023-03-17 07:05] LABS: Anion Gap 13 mmol/L (10-20); BUN (Urea Nitrogen) 6 mg/dL (9.8-20.1); Calc. Creatinine Clearance 86 mL/min (70-130); Calcium 9.2 mg/dL (7.8-10.44); Carbon Dioxide 23 mmol/L (23-31); Chloride 109 mmol/L (98-107); Estimated GFR 48; Glucose 71 mg/dL (80-115); Phosphorus 2.4 mg/dL (2.3-4.7); Potassium 3.7 mmol/L (3.5-5.1); Sodium 141 mmol/L (136-145)
[2023-03-17] MEDS ORDERED: Potassium Chloride 20 MEQ TAB PO SCH (07:15)
[2023-03-17 07:22] LABS: Band 6 % (5-11); Burr Cells SLIGHT = 2-5 cells HPF (0-1); CellaVision Operator ID LAB.GE; Lymphocytes 28 % (21-51); Macrocytosis SLIGHT = 6-15 cells HPF (0-5); Metamyelocyte 5 % (0-0); Monocytes 7 % (0-10); Myelocyte 3 % (0-0); Neutrophil 47 % (42-75); Platelet Adequacy Comment Platelets Normal; Polychromasia SLIGHT = 2-3 cells HPF (0-2); Reactive Lymphocytes 3 % (0-10); Total Cell Count 101
[2023-03-17] MEDS ORDERED: Amiodarone 200 MG TAB PO SCH (09:00)
[2023-03-17] MEDS: Digoxin 0.125 MG TAB PO SCH (09:48)
[2023-03-17] MEDS: Ondansetron ODT 4 MG TAB PO PRN (09:48)
[2023-03-17] MEDS: Apixaban 5 MG TAB PO SCH (09:48)
[2023-03-17] MEDS: HYDROcodone/Acetaminophen 7.5/325 mg Tablet PO PRN (11:58)
[2023-03-17 15:21] VITALS: BMI 44.4
[2023-03-17 16:50] VITALS: BP 106/67; TEMP 98
== END 2023-03-17 17:11 | DRG 329 ==
LOC: ERS 18:47 → 2NO 23:15 → CCU 02-28 15:40 → 2NO 03-04 14:37 → CCU 03-08 15:28 → SURG B 03-15 14:57
PROVIDERS: ADMIT Student in an Organized Health Care Education/Training Program; ATTEND Internal Medicine
PROC: 0DTN0ZZ Resection of Sigmoid Colon, Open Approach (ICD-10-PCS; principal; 2023-02-28)
PROC: 0WQF0ZZ Repair Abdominal Wall, Open Approach (ICD-10-PCS; 2023-02-28)
PROC: 0WJF4ZZ Inspection of Abdominal Wall, Percutaneous Endoscopic Approach (ICD-10-PCS; 2023-02-28)
PROC: 0DN80ZZ Release Small Intestine, Open Approach (ICD-10-PCS; 2023-02-28)
PROC: 02HV33Z Insertion of Infusion Device into Superior Vena Cava, Percutaneous Approach (ICD-10-PCS; 2023-02-28)
PROC: 4A133R1 Monitoring of Arterial Saturation, Peripheral, Percutaneous Approach (ICD-10-PCS; 2023-02-28)
PROC: 5A1935Z Respiratory Ventilation, Less than 24 Consecutive Hours (ICD-10-PCS; 2023-02-28)
PROC: 0BH17EZ Insertion of Endotracheal Airway into Trachea, Via Natural or Artificial Opening (ICD-10-PCS; 2023-02-28)
PROC: 0D9670Z Drainage of Stomach with Drainage Device, Via Natural or Artificial Opening (ICD-10-PCS; 2023-03-01)
PROC: 5A09357 Assistance with Respiratory Ventilation, Less than 24 Consecutive Hours, Continuous Positive Airway Pressure (ICD-10-PCS; 2023-03-01)
PROC: 3E0336Z Introduction of Nutritional Substance into Peripheral Vein, Percutaneous Approach (ICD-10-PCS; 2023-03-02)
DX: K57.32 Diverticulitis of large intestine without perforation or abscess without bleeding (principal); I50.33 Acute on chronic diastolic (congestive) heart failure; J96.01 Acute respiratory failure with hypoxia; R57.1 Hypovolemic shock; K50.90 Crohn's disease, unspecified, without complications; E87.20 Acidosis, unspecified; K56.699 Other intestinal obstruction unspecified as to partial versus complete obstruction; N17.9 Acute kidney failure, unspecified; Z68.41 Body mass index [BMI] 40.0-44.9, adult; I48.19 Other persistent atrial fibrillation; E87.1 Hypo-osmolality and hyponatremia; E87.6 Hypokalemia; G20 Parkinson's disease; E66.01 Morbid (severe) obesity due to excess calories; N18.30 Chronic kidney disease, stage 3 unspecified; E83.42 Hypomagnesemia; K43.9 Ventral hernia without obstruction or gangrene; K66.0 Peritoneal adhesions (postprocedural) (postinfection); I48.0 Paroxysmal atrial fibrillation; E88.09 Other disorders of plasma-protein metabolism, not elsewhere classified; I95.89 Other hypotension; Z98.890 Other specified postprocedural states; Z90.49 Acquired absence of other specified parts of digestive tract; Z88.8 Allergy status to other drugs, medicaments and biological substances; Z88.0 Allergy status to penicillin; Z79.01 Long term (current) use of anticoagulants; Z79.899 Other long term (current) drug therapy
CPT/HCPCS: 36415; 36416; 71045; 74022; 74177; 80048; 80053; 80162; 82533; 82805; 83605; 83690; 83735; 84100; 84134; 84145; 85025; 85060; 86850; 86900; 86901; 87040; 87324; 87449; 93005; 93010; 94002; 94003; 94640; 94660; 96365; 96366; 96375; 97139; A4649; C1751; C9113; J0171; J0282; J0694; J1160; J1650; J1720; J1815; J1940; J2001; J2185; J2250; J2270; J2272; J2370; J2405; J2550; J2704; J2930; J3010; J3475; J3480; J3490; J7030; J7042; J7050; J7070; J7120; J7611; P9045; P9047; Q0162; Q9967; S0028

== ENCOUNTER 2023-03-28 01:21 | Inpatient (IN) | payer MEDICARE ==
[2023-03-28 03:48] VITALS: BMI 40.7
[2023-03-28] MEDS ORDERED: HYDROcodone/Acetaminophen 7.5/325 mg Tablet PO PRN (03:54)
[2023-03-28] MEDS: Cefepime 1 GM in Sodium Chloride 0.9% 100 ML IVPB SCH ×2 (04:42→15:27)
[2023-03-28] MEDS: Sodium Chloride 0.9% 1,000 ML IV SCH ×2 (04:42→15:04)
[2023-03-28 05:15] LABS: Anion Gap 14 mmol/L (10-20); BUN (Urea Nitrogen) 5 mg/dL (9.8-20.1); Calc. Creatinine Clearance 72 mL/min (70-130); Carbon Dioxide 21 mmol/L (23-31); Chloride 107 mmol/L (98-107); Estimated GFR 42; Glucose 113 mg/dL (80-115); Potassium 2.9 mmol/L (3.5-5.1); Sodium 139 mmol/L (136-145)
[2023-03-28 05:20] LABS: Calcium 6.8 mg/dL (7.8-10.44)
[2023-03-28] MEDS ORDERED: Magnesium Sulfate In Water 4 GM in Premix Bag 1 BAG IVPB SCH (05:30)
[2023-03-28] MEDS ORDERED: Electrolyte Replacement Protocol 1 EACH FS SCH (05:30)
[2023-03-28] MEDS: Potassium Chloride 20 MEQ TAB PO SCH ×3 (06:14→20:57)
[2023-03-28] MEDS ORDERED: Famotidine/PF 20 mg/2ml Vial SLOW IVP SCH (09:00)
[2023-03-28] MEDS: Diphenoxylate HCl/Atropine Tablet PO SCH ×2 (15:05→20:57)
[2023-03-28] MEDS ORDERED: Benzonatate 100 MG CAP PO PRN (20:38)
[2023-03-28] MEDS ORDERED: Acetaminophen 500 MG TAB PO PRN (20:38)
[2023-03-28] MEDS: Apixaban 5 MG TAB PO SCH (20:57)
[2023-03-28] MEDS: Magnesium Oxide 400 MG TAB PO SCH (20:58)
[2023-03-28] MEDS ORDERED: Potassium Chloride 20 MEQ TAB PO SCH (21:00)
[2023-03-28] MEDS ORDERED: Non-Formulary Item 1 EACH (Omeprazole [Omeprazole] 20 MG Capsule.Dr) PO SCH (21:00)
[2023-03-28] MEDS ORDERED: Non-Formulary Item 1 EACH (Magnesium Oxide [Magnesium] 400 MG Tablet) PO SCH (21:00)
[2023-03-28] MEDS: GUAIFENESIN SF SOLN 200 MG/10 ML UDCUP PO PRN (22:48)
[2023-03-29] MEDS: VANCOMYCIN 1.75 GM/500 ML BAG 1.75 GM in Premix Bag 1 BAG IVPB SCH (00:23)
[2023-03-29] MEDS: Sodium Chloride 0.9% 1,000 ML IV SCH ×3 (00:24→19:57)
[2023-03-29] MEDS: Cefepime 1 GM in Sodium Chloride 0.9% 100 ML IVPB SCH ×2 (04:15→14:39)
[2023-03-29] MEDS: GUAIFENESIN SF SOLN 200 MG/10 ML UDCUP PO PRN (06:06)
[2023-03-29 07:48] LABS: ALT (SGPT) 30 U/L (8-55); AST (SGOT) 56 U/L (5-34); Albumin 2.4 g/dL (3.4-4.8); Alkaline Phosphatase 67 U/L (40-110); Anion Gap 16 mmol/L (10-20); BUN (Urea Nitrogen) 6 mg/dL (9.8-20.1); Bilirubin, Total 0.4 mg/dL (0.2-1.2); Calc. Creatinine Clearance 87 mL/min (70-130); Calcium 7.2 mg/dL (7.8-10.44); Carbon Dioxide 18 mmol/L (23-31); Chloride 110 mmol/L (98-107); Estimated GFR 53; Globulin 2.6 g/dL (2.4-3.5); Glucose 85 mg/dL (80-115); Potassium 3.2 mmol/L (3.5-5.1); Sodium 141 mmol/L (136-145)
[2023-03-29] MEDS ORDERED: Potassium Chloride 20 MEQ TAB PO SCH (08:30)
[2023-03-29] MEDS ORDERED: Non-Formulary Item 1 EACH (Cholestyramine (With Sugar) [Cholestyramine Packet] 4 GM Powd. PO SCH (09:00)
[2023-03-29] MEDS: Potassium Chloride 20 MEQ TAB PO SCH ×2 (09:13→19:56)
[2023-03-29] MEDS: Diphenoxylate HCl/Atropine Tablet PO SCH ×3 (09:14→19:56)
[2023-03-29] MEDS: Cholestyramine/Aspartame 4 gm Packet PO SCH (09:14)
[2023-03-29] MEDS: Magnesium Oxide 400 MG TAB PO SCH ×2 (09:14→19:57)
[2023-03-29] MEDS: Folic Acid 1 MG TAB PO SCH (09:14)
[2023-03-29] MEDS: Apixaban 5 MG TAB PO SCH ×2 (09:14→19:56)
[2023-03-29] MEDS ORDERED: dilTIAZem CD 180 MG CAP PO SCH (09:15)
[2023-03-29 09:32] LABS: Magnesium 1.7 mg/dL (1.6-2.6)
[2023-03-29] MEDS ORDERED: Potassium Chloride 10 MEQ/100 ML PREMIX BAG IVPB SCH (10:00)
[2023-03-29] MEDS ORDERED: Magnesium 2 GM/50 ML(in water) 2 GM in Premix Bag 1 BAG IVPB SCH (11:00)
[2023-03-29 11:02] LABS: #Eosinphils 0.1 thou/uL (0.0-0.7); #Monocytes 0.7 thou/uL (0.11-0.59); %Basophils 0.3 % (0.0-1.0); %Eosinophils 1.4 % (0.0-10.0); %Lymphocytes 16.9 % (21.0-51.0); %Monocytes 9.5 % (0.0-10.0); %Neutrophils 71.3 % (42.0-75.0); Hemoglobin 9.4 g/dL (12.0-16.0); Mean Corpuscular HGB CONC 30.3 g/dL (32.0-36.0); Mean Corpuscular Volume 102.3 fl (78.0-98.0); Mean Platelet Volume 11.3 fL (7.4-10.4); Platelet Count 120 10x3/uL (130-400); RBC Distribution Width 14.6 % (11.5-14.5); Red Blood Cell (RBC) Count 3.03 mill/uL (4.20-5.40)
[2023-03-30] MEDS: VANCOMYCIN 1.75 GM/500 ML BAG 1.75 GM in Premix Bag 1 BAG IVPB SCH (01:12)
[2023-03-30] MEDS: Cefepime 1 GM in Sodium Chloride 0.9% 100 ML IVPB SCH (03:49)
[2023-03-30] MEDS: Sodium Chloride 0.9% 1,000 ML IV SCH ×2 (03:50→18:41)
[2023-03-30 05:05] LABS: #Eosinphils 0.2 thou/uL (0.0-0.7); #Monocytes 0.8 thou/uL (0.11-0.59); #Neutrophils 3.2 thou/uL (1.40-6.50); %Basophils 0.3 % (0.0-1.0); %Eosinophils 3.9 % (0.0-10.0); %Lymphocytes 27.4 % (21.0-51.0); %Monocytes 13.3 % (0.0-10.0); %Neutrophils 54.4 % (42.0-75.0); Hemoglobin 8.9 g/dL (12.0-16.0); Mean Corpuscular HGB CONC 29.1 g/dL (32.0-36.0); Mean Corpuscular Hemoglobin 30.7 pg (27.0-31.0); Mean Platelet Volume 10.5 fL (7.4-10.4); RBC Distribution Width 14.4 % (11.5-14.5); White Blood Cell (WBC) Count 5.9 10x3/uL (4.8-10.8)
[2023-03-30 05:07] LABS: Mean Corpuscular Volume 105.5 fl (78.0-98.0); Platelet Count 114 10x3/uL (130-400)
[2023-03-30 05:48] LABS: Anion Gap 15 mmol/L (10-20); BUN (Urea Nitrogen) 7 mg/dL (9.8-20.1); Calc. Creatinine Clearance 99 mL/min (70-130); Carbon Dioxide 17 mmol/L (23-31); Chloride 112 mmol/L (98-107); Potassium 3.9 mmol/L (3.5-5.1); Sodium 140 mmol/L (136-145)
[2023-03-30 05:49] LABS: Calcium 7.2 mg/dL (7.8-10.44); Estimated GFR 62; Glucose 73 mg/dL (80-115); Phosphorus 2.2 mg/dL (2.3-4.7)
[2023-03-30] MEDS ORDERED: Magnesium 2 GM/50 ML(in water) 2 GM in Premix Bag 1 BAG IVPB SCH (08:00)
[2023-03-30] MEDS ORDERED: PHOS-NAK 1 PKT PACK PO SCH (08:30)
[2023-03-30] MEDS: Potassium Chloride 20 MEQ TAB PO SCH ×2 (08:50→20:39)
[2023-03-30] MEDS: Apixaban 5 MG TAB PO SCH ×2 (08:51→20:40)
[2023-03-30] MEDS: dilTIAZem CD 180 MG CAP PO SCH (08:51)
[2023-03-30] MEDS: Folic Acid 1 MG TAB PO SCH (08:51)
[2023-03-30] MEDS: Magnesium Oxide 400 MG TAB PO SCH ×2 (08:51→20:40)
[2023-03-30] MEDS: Cholestyramine/Aspartame 4 gm Packet PO SCH (08:51)
[2023-03-30] MEDS: Diphenoxylate HCl/Atropine Tablet PO SCH ×3 (08:51→20:40)
[2023-03-30] MEDS ORDERED: DILTIAZEM HCL 180 MG PO SCH (09:00)
[2023-03-30] MEDS: CEFAZOLIN 2 GM in Sodium Chloride 0.9% 100 ML IVPB SCH ×2 (18:25→23:00)
[2023-03-31] MEDS: Sodium Chloride 0.9% 1,000 ML IV SCH ×2 (05:47→11:32)
[2023-03-31] MEDS: CEFAZOLIN 2 GM in Sodium Chloride 0.9% 100 ML IVPB SCH ×3 (09:55→23:54)
[2023-03-31] MEDS: Diphenoxylate HCl/Atropine Tablet PO SCH ×3 (09:56→21:55)
[2023-03-31] MEDS: Magnesium Oxide 400 MG TAB PO SCH ×2 (09:56→21:55)
[2023-03-31] MEDS: Potassium Chloride 20 MEQ TAB PO SCH ×2 (09:56→21:55)
[2023-03-31] MEDS: Cholestyramine/Aspartame 4 gm Packet PO SCH (09:56)
[2023-03-31] MEDS: Apixaban 5 MG TAB PO SCH ×2 (09:56→21:55)
[2023-03-31] MEDS: Folic Acid 1 MG TAB PO SCH (09:56)
[2023-03-31] MEDS: dilTIAZem CD 180 MG CAP PO SCH (09:56)
[2023-04-01 05:17] LABS: #Eosinphils 0.3 thou/uL (0.0-0.7); #Monocytes 0.7 thou/uL (0.11-0.59); #Neutrophils 2.1 thou/uL (1.40-6.50); %Basophils 0.4 % (0.0-1.0); %Eosinophils 5.4 % (0.0-10.0); %Lymphocytes 40.9 % (21.0-51.0); %Monocytes 12.5 % (0.0-10.0); %Neutrophils 39.1 % (42.0-75.0); Hemoglobin 9.2 g/dL (12.0-16.0); Mean Corpuscular Hemoglobin 30.8 pg (27.0-31.0); Mean Corpuscular Volume 102.7 fl (78.0-98.0); Mean Platelet Volume 10.7 fL (7.4-10.4); Platelet Count 147 10x3/uL (130-400); RBC Distribution Width 14.4 % (11.5-14.5); Red Blood Cell (RBC) Count 2.99 mill/uL (4.20-5.40); White Blood Cell (WBC) Count 5.4 10x3/uL (4.8-10.8)
[2023-04-01 06:32] LABS: Anion Gap 14 mmol/L (10-20); BUN (Urea Nitrogen) 6 mg/dL (9.8-20.1); Calc. Creatinine Clearance 87 mL/min (70-130); Carbon Dioxide 17 mmol/L (23-31); Chloride 113 mmol/L (98-107); Estimated GFR 54; Glucose 73 mg/dL (80-115); Magnesium 1.6 mg/dL (1.6-2.6); Phosphorus 1.9 mg/dL (2.3-4.7); Potassium 4.6 mmol/L (3.5-5.1); Sodium 139 mmol/L (136-145)
[2023-04-01] MEDS ORDERED: Magnesium 2 GM/50 ML(in water) 2 GM in Premix Bag 1 BAG IVPB SCH (08:00)
[2023-04-01] MEDS: PHOS-NAK 1 PKT PACK PO SCH ×2 (09:44→11:17)
[2023-04-01] MEDS: Cholestyramine/Aspartame 4 gm Packet PO SCH (09:45)
[2023-04-01] MEDS: CEFAZOLIN 2 GM in Sodium Chloride 0.9% 100 ML IVPB SCH ×2 (09:48→15:45)
[2023-04-01] MEDS: Apixaban 5 MG TAB PO SCH ×2 (09:48→21:10)
[2023-04-01] MEDS: Cyanocobalamin (Vitamin B-12) 1,000 MCG TAB PO SCH (09:48)
[2023-04-01] MEDS: Potassium Chloride 20 MEQ TAB PO SCH (09:50)
[2023-04-01] MEDS: Diphenoxylate HCl/Atropine Tablet PO SCH ×3 (09:50→21:10)
[2023-04-01] MEDS: Folic Acid 1 MG TAB PO SCH (09:50)
[2023-04-01] MEDS: Furosemide 20 MG TAB PO SCH (09:50)
[2023-04-01] MEDS: Magnesium Oxide 400 MG TAB PO SCH ×2 (09:50→21:10)
[2023-04-01] MEDS: dilTIAZem CD 120 MG CAP PO SCH (09:51)
[2023-04-01] MEDS ORDERED: Nystatin Powder 15 GM BOT TOP SCH (17:00)
[2023-04-01] MEDS: Nystatin Powder 15 GM BOT TOP SCH (21:10)
[2023-04-02] MEDS: CEFAZOLIN 2 GM in Sodium Chloride 0.9% 100 ML IVPB SCH ×4 (00:35→23:17)
[2023-04-02] MEDS: Furosemide 20 MG TAB PO SCH ×2 (10:13→15:32)
[2023-04-02] MEDS: dilTIAZem CD 120 MG CAP PO SCH (10:13)
[2023-04-02] MEDS: Diphenoxylate HCl/Atropine Tablet PO SCH ×3 (10:14→20:53)
[2023-04-02] MEDS: Cyanocobalamin (Vitamin B-12) 1,000 MCG TAB PO SCH (10:14)
[2023-04-02] MEDS: Magnesium Oxide 400 MG TAB PO SCH ×2 (10:14→20:53)
[2023-04-02] MEDS: Folic Acid 1 MG TAB PO SCH (10:14)
[2023-04-02] MEDS: Apixaban 5 MG TAB PO SCH ×2 (10:14→20:52)
[2023-04-02] MEDS: Nystatin Powder 15 GM BOT TOP SCH ×3 (11:59→20:53)
[2023-04-02 12:52] LABS: Anion Gap 11 mmol/L (10-20); BUN (Urea Nitrogen) 5 mg/dL (9.8-20.1); Calc. Creatinine Clearance 74 mL/min (70-130); Calcium 8.4 mg/dL (7.8-10.44); Carbon Dioxide 23 mmol/L (23-31); Chloride 106 mmol/L (98-107); Estimated GFR 44; Glucose 85 mg/dL (80-115); Magnesium 1.5 mg/dL (1.6-2.6); Phosphorus 2.1 mg/dL (2.3-4.7); Potassium 4.4 mmol/L (3.5-5.1); Sodium 136 mmol/L (136-145)
[2023-04-02] MEDS ORDERED: Magnesium 2 GM/50 ML(in water) 2 GM in Premix Bag 1 BAG IVPB SCH ×2 (13:30→15:30)
[2023-04-03 01:35] VITALS: TEMP 97.8
[2023-04-03 07:24] LABS: Anion Gap 12 mmol/L (10-20); BUN (Urea Nitrogen) 4 mg/dL (9.8-20.1); Calc. Creatinine Clearance 87 mL/min (70-130); Calcium 8.1 mg/dL (7.8-10.44); Carbon Dioxide 24 mmol/L (23-31); Chloride 105 mmol/L (98-107); Estimated GFR 53; Glucose 80 mg/dL (80-115); Magnesium 1.7 mg/dL (1.6-2.6); Phosphorus 2.2 mg/dL (2.3-4.7); Potassium 3.7 mmol/L (3.5-5.1); Sodium 137 mmol/L (136-145)
[2023-04-03] MEDS: Apixaban 5 MG TAB PO SCH (08:27)
[2023-04-03] MEDS: CEFAZOLIN 2 GM in Sodium Chloride 0.9% 100 ML IVPB SCH ×2 (08:27→15:33)
[2023-04-03] MEDS: Folic Acid 1 MG TAB PO SCH (08:27)
[2023-04-03] MEDS: Magnesium Oxide 400 MG TAB PO SCH (08:27)
[2023-04-03] MEDS: Diphenoxylate HCl/Atropine Tablet PO SCH ×2 (08:27→15:05)
[2023-04-03] MEDS: Cyanocobalamin (Vitamin B-12) 1,000 MCG TAB PO SCH (08:28)
[2023-04-03] MEDS: Nystatin Powder 15 GM BOT TOP SCH ×2 (08:28→15:05)
[2023-04-03] MEDS: dilTIAZem CD 120 MG CAP PO SCH (08:28)
[2023-04-03] MEDS: Furosemide 20 MG TAB PO SCH ×2 (08:28→13:44)
[2023-04-03 08:43] VITALS: BP 113/78
[2023-04-03] MEDS ORDERED: Magnesium 2 GM/50 ML(in water) 2 GM in Premix Bag 1 BAG IVPB SCH (09:00)
== END 2023-04-03 18:20 | disposition home or self-care (01) | DRG 872 ==
LOC: 2NO 01:21 → OBSVTOIN 03:56 → T4-A 04-02 14:10
PROVIDERS: ADMIT Internal Medicine; ATTEND Internal Medicine
DX: A41.9 Sepsis, unspecified organism (principal); L03.115 Cellulitis of right lower limb; K50.90 Crohn's disease, unspecified, without complications; E87.6 Hypokalemia; E83.42 Hypomagnesemia; I48.0 Paroxysmal atrial fibrillation; Z90.49 Acquired absence of other specified parts of digestive tract; Z79.899 Other long term (current) drug therapy; Z79.82 Long term (current) use of aspirin; Z88.0 Allergy status to penicillin; Z88.8 Allergy status to other drugs, medicaments and biological substances; Z91.011 Allergy to milk products; N18.30 Chronic kidney disease, stage 3 unspecified; E83.51 Hypocalcemia
CPT/HCPCS: 36415; 51701; 71045; 80048; 80053; 80202; 83605; 83735; 84100; 85025; 86140; 87040; 87077; 87149; 87186; 93005; 93306; 96361; 96374; 96375; 97139; J0613; J0692; J2405; J3370; J3475; J3480; J3490; J7050

== ENCOUNTER 2025-05-20 10:50 | Inpatient (IN) | payer MEDICARE ==
[2025-05-20 12:03] LABS: CAUTI Indications for Culture Pelvic or flank pain; Glucose, Urine (Dipstick) Normal (Negative); Leukocyte 250 Leu/uL (Negative); Protein, Urine (Dipstick) 100 mg/dL (Neg-Trace); Specific Gravity, Urine 1.039 (1.002-1.036); WBC/HPF 21-50 HPF (0-3)
[2025-05-20 12:04] LABS: #Basophils 0.03 10x3/uL (0.0-0.2); #Eosinophils 0.03 10x3/uL (0.0-0.7); #Monocytes 1.05 10x3/uL (0.11-0.59); #Neutrophils 11.05 10x3/uL (1.40-6.50); %Basophils 0.2 % (0.0-1.0); %Eosinophils 0.2 % (0.0-10.0); %Lymphocytes 10.0 % (21.0-51.0); %Monocytes 7.7 % (0.0-10.0); %Neutrophils 81.5 % (42.0-75.0); Hematocrit 43.3 % (36.0-47.0); Hemoglobin 14.5 g/dL (12.0-16.0); Mean Corpuscular Hemoglobin 30.5 pg (27.0-31.0); Mean Corpuscular Volume 91.0 fL (78.0-98.0); Platelet Count 250 10x3/uL (130-400); Red Blood Cell (RBC) Count 4.76 mill/uL (4.20-5.40); White Blood Cell (WBC) Count 13.58 10x3/uL (4.8-10.8)
[2025-05-20 12:04] LABS: Bacteria/HPF 1+ HPF (None Seen)
[2025-05-20 12:05] LABS: Urine Culture Reflex Yes Yes
[2025-05-20] MEDS ORDERED: Ondansetron PF 4 MG/2 ML Vial ONE ×2 (12:14→17:07)
[2025-05-20 12:18] LABS: ALT (SGPT) Less than 7 U/L (Less than 34); AST (SGOT) 12 U/L (11-34); Albumin 3.6 g/dL (3.1-4.5); Alkaline Phosphatase 95 U/L (40-110); Anion Gap 19 mmol/L (10-20); BUN (Urea Nitrogen) 20 mg/dL (9.8-20.1); Bilirubin, Total 0.9 mg/dL (0.3-1.2); Calc. Creatinine Clearance 0 mL/min (70-130); Calcium 10.4 mg/dL (7.8-10.44); Carbon Dioxide 18 mmol/L (23-31); Chloride 101 mmol/L (98-107); Globulin 4.9 g/dL (2.4-3.5); Glucose 111 mg/dL (80-115); Lipase 12 U/L (8-78); Potassium 4.1 mmol/L (3.5-5.1); Sodium 134 mmol/L (136-145)
[2025-05-20] MEDS ORDERED: cefTRIAXone (ROCEPHIN) 2 GM VIAL ONE (12:54)
[2025-05-20] MEDS ORDERED: Iopamidol-370 76% 500 ML MDV (1 ML CHARGE) ONE (14:22)
[2025-05-20] MEDS ORDERED: dilTIAZem 25 MG/5 ML VIAL ONE (17:37)
[2025-05-20] MEDS ORDERED: Acetaminophen 325 MG TAB PO PRN (17:44)
[2025-05-20] MEDS: dilTIAZem 25 MG/5 ML VIAL SLOW IVP PRN (22:34)
[2025-05-20] MEDS: LevoFLOXacin 750 mg/D5W 750 MG in Premix 1 BAG IVPB SCH (23:45)
[2025-05-21 00:42] LABS: Influenza A by NAA Not Detected (NotDetected); Influenza B by NAA Not Detected (NotDetected); RSV by NAA Not Detected (NotDetected); SARS-CoV-2 NAA Rapid Test Not Detected (NotDetected)
[2025-05-21 01:10] LABS: Bacteria/HPF None Seen HPF (None Seen); Glucose, Urine (Dipstick) Normal (Negative); Leukocyte Negative Leu/uL (Negative); Protein, Urine (Dipstick) 30 mg/dL (Neg-Trace); RBC/HPF 0-3 HPF (0-3); Specific Gravity, Urine 1.041 (1.002-1.036)
[2025-05-21] MEDS: Ondansetron PF 4 MG/2 ML Vial IVP PRN (01:27)
[2025-05-21 02:54] VITALS: BMI 38.3
[2025-05-21] MEDS: Enoxaparin 100 MG (1 mL) SYRINGE SC SCH ×2 (04:57→17:41)
[2025-05-21 05:08] LABS: #Basophils Less than 0.03 10x3/uL (0.0-0.2); #Eosinophils 0.03 10x3/uL (0.0-0.7); #Monocytes 1.18 10x3/uL (0.11-0.59); #Neutrophils 8.11 10x3/uL (1.40-6.50); %Basophils 0.2 % (0.0-1.0); %Eosinophils 0.3 % (0.0-10.0); %Lymphocytes 12.0 % (21.0-51.0); %Monocytes 11.1 % (0.0-10.0); %Neutrophils 76.0 % (42.0-75.0); Hematocrit 36.4 % (36.0-47.0); Hemoglobin 11.5 g/dL (12.0-16.0); Mean Corpuscular Hemoglobin 29.4 pg (27.0-31.0); Mean Corpuscular Volume 93.1 fL (78.0-98.0); Platelet Count 197 10x3/uL (130-400); Red Blood Cell (RBC) Count 3.91 mill/uL (4.20-5.40); White Blood Cell (WBC) Count 10.66 10x3/uL (4.8-10.8)
[2025-05-21 05:40] LABS: Anion Gap 16 mmol/L (10-20); BUN (Urea Nitrogen) 18 mg/dL (9.8-20.1); Calc. Creatinine Clearance 70 mL/min (70-130); Calcium 8.7 mg/dL (7.8-10.44); Carbon Dioxide 19 mmol/L (23-31); Chloride 103 mmol/L (98-107); Glucose 102 mg/dL (80-115); Potassium 3.6 mmol/L (3.5-5.1); Sodium 134 mmol/L (136-145)
[2025-05-21] MEDS: Pantoprazole 40 MG VIAL IVP SCH (09:07)
[2025-05-21] MEDS: HYDROcodone/Acetaminophen 7.5/325 mg Tablet PO PRN (11:00)
[2025-05-21 15:33] VITALS: BMI 38.3
[2025-05-22 00:55] LABS: Campy jejuni + coli by PCR Negative (Negative); STEC Shiga Toxin 1+2 Negative (Negative); Salmonella spp. by PCR Negative (Negative); Shigella spp + EIEC by PCR Negative (Negative)
[2025-05-22 05:27] LABS: #Basophils Less than 0.03 10x3/uL (0.0-0.2); #Eosinophils Less than 0.03 10x3/uL (0.0-0.7); #Monocytes 1.08 10x3/uL (0.11-0.59); #Neutrophils 6.90 10x3/uL (1.40-6.50); %Basophils 0.1 % (0.0-1.0); %Eosinophils 0.0 % (0.0-10.0); %Lymphocytes 11.0 % (21.0-51.0); %Monocytes 12.0 % (0.0-10.0); %Neutrophils 76.5 % (42.0-75.0); Hematocrit 34.1 % (36.0-47.0); Hemoglobin 10.9 g/dL (12.0-16.0); Mean Corpuscular Hemoglobin 29.8 pg (27.0-31.0); Mean Corpuscular Volume 93.2 fL (78.0-98.0); Platelet Count 168 10x3/uL (130-400); Red Blood Cell (RBC) Count 3.66 mill/uL (4.20-5.40); White Blood Cell (WBC) Count 9.02 10x3/uL (4.8-10.8)
[2025-05-22 05:45] LABS: Anion Gap 14 mmol/L (10-20); BUN (Urea Nitrogen) 13 mg/dL (9.8-20.1); Calc. Creatinine Clearance 73 mL/min (70-130); Calcium 8.3 mg/dL (7.8-10.44); Carbon Dioxide 17 mmol/L (23-31); Chloride 103 mmol/L (98-107); Glucose 103 mg/dL (80-115); Magnesium 1.0 mg/dL (1.6-2.6); Potassium 3.2 mmol/L (3.5-5.1); Sodium 131 mmol/L (136-145)
[2025-05-22] MEDS ORDERED: Magnesium Sulfate 4 GM in Sodium Chloride 0.9% 250 ML 250 ML IVPB SCH (06:15)
[2025-05-22] MEDS: Magnesium Sulfate 4 GM / 100ML WATER Premix IVPB SCH (06:32)
[2025-05-22] MEDS ORDERED: Electrolyte Replacement Protocol 1 EACH FS SCH (10:45)
[2025-05-22 15:00] LABS: Anion Gap 16 mmol/L (10-20); BUN (Urea Nitrogen) 10 mg/dL (9.8-20.1); Calc. Creatinine Clearance 77 mL/min (70-130); Calcium 8.7 mg/dL (7.8-10.44); Carbon Dioxide 18 mmol/L (23-31); Chloride 102 mmol/L (98-107); Glucose 90 mg/dL (80-115); Magnesium 2.0 mg/dL (1.6-2.6); Potassium 3.2 mmol/L (3.5-5.1); Sodium 133 mmol/L (136-145)
[2025-05-22 19:33] LABS: #Basophils Less than 0.03 10x3/uL (0.0-0.2); #Eosinophils Less than 0.03 10x3/uL (0.0-0.7); #Monocytes 0.97 10x3/uL (0.11-0.59); #Neutrophils 7.82 10x3/uL (1.40-6.50); %Basophils 0.1 % (0.0-1.0); %Eosinophils 0.2 % (0.0-10.0); %Lymphocytes 10.0 % (21.0-51.0); %Monocytes 9.8 % (0.0-10.0); %Neutrophils 79.2 % (42.0-75.0); Hematocrit 33.8 % (36.0-47.0); Hemoglobin 10.7 g/dL (12.0-16.0); Mean Corpuscular Hemoglobin 29.7 pg (27.0-31.0); Mean Corpuscular Volume 93.9 fL (78.0-98.0); Platelet Count 180 10x3/uL (130-400); Red Blood Cell (RBC) Count 3.60 mill/uL (4.20-5.40); White Blood Cell (WBC) Count 9.88 10x3/uL (4.8-10.8)
[2025-05-22 20:32] LABS: INR-International Normal Ratio 1.4; Prothrombin Time 16.9 sec (12.0-14.7)
[2025-05-22 20:33] LABS: PTT 64.2 sec (22.9-36.1)
[2025-05-23 05:05] LABS: #Basophils Less than 0.03 10x3/uL (0.0-0.2); #Eosinophils Less than 0.03 10x3/uL (0.0-0.7); #Monocytes 1.04 10x3/uL (0.11-0.59); #Neutrophils 9.13 10x3/uL (1.40-6.50); %Basophils 0.1 % (0.0-1.0); %Eosinophils 0.2 % (0.0-10.0); %Lymphocytes 10.0 % (21.0-51.0); %Monocytes 9.1 % (0.0-10.0); %Neutrophils 79.7 % (42.0-75.0); Hematocrit 35.9 % (36.0-47.0); Hemoglobin 11.2 g/dL (12.0-16.0); Mean Corpuscular Hemoglobin 29.6 pg (27.0-31.0); Mean Corpuscular Volume 94.7 fL (78.0-98.0); Platelet Count 205 10x3/uL (130-400); Red Blood Cell (RBC) Count 3.79 mill/uL (4.20-5.40); White Blood Cell (WBC) Count 11.44 10x3/uL (4.8-10.8)
[2025-05-23 05:22] LABS: Anion Gap 19 mmol/L (10-20); BUN (Urea Nitrogen) 9 mg/dL (9.8-20.1); Calc. Creatinine Clearance 79 mL/min (70-130); Calcium 8.7 mg/dL (7.8-10.44); Carbon Dioxide 15 mmol/L (23-31); Chloride 104 mmol/L (98-107); Glucose 94 mg/dL (80-115); Magnesium 1.8 mg/dL (1.6-2.6); Potassium 3.6 mmol/L (3.5-5.1); Sodium 134 mmol/L (136-145)
[2025-05-23] MEDS: Magnesium 2 GM/50 ML(in water) 2 GM in Premix 1 BAG IVPB SCH (09:57)
[2025-05-23] MEDS: Metoclopramide HCl 10 MG (2 mL) VIAL IVP SCH (11:29)
[2025-05-24 05:32] LABS: #Basophils Less than 0.03 10x3/uL (0.0-0.2); #Eosinophils Less than 0.03 10x3/uL (0.0-0.7); #Monocytes 0.18 10x3/uL (0.11-0.59); #Neutrophils 8.17 10x3/uL (1.40-6.50); %Basophils 0.1 % (0.0-1.0); %Eosinophils 0.0 % (0.0-10.0); %Lymphocytes 7.4 % (21.0-51.0); %Monocytes 2.0 % (0.0-10.0); %Neutrophils 89.6 % (42.0-75.0); Hematocrit 33.3 % (36.0-47.0); Hemoglobin 10.4 g/dL (12.0-16.0); Mean Corpuscular Hemoglobin 29.8 pg (27.0-31.0); Mean Corpuscular Volume 95.4 fL (78.0-98.0); Platelet Count 216 10x3/uL (130-400); Red Blood Cell (RBC) Count 3.49 mill/uL (4.20-5.40); White Blood Cell (WBC) Count 9.11 10x3/uL (4.8-10.8)
[2025-05-24 05:52] LABS: Anion Gap 20 mmol/L (10-20); BUN (Urea Nitrogen) 15 mg/dL (9.8-20.1); Calc. Creatinine Clearance 77 mL/min (70-130); Calcium 8.6 mg/dL (7.8-10.44); Carbon Dioxide 13 mmol/L (23-31); Chloride 107 mmol/L (98-107); Glucose 102 mg/dL (80-115); Magnesium 2.0 mg/dL (1.6-2.6); Potassium 4.0 mmol/L (3.5-5.1); Sodium 136 mmol/L (136-145)
[2025-05-24] MEDS: Magnesium 2 GM/50 ML(in water) 2 GM in Premix 1 BAG IVPB SCH (11:49)
[2025-05-25 05:02] LABS: #Basophils Less than 0.03 10x3/uL (0.0-0.2); #Eosinophils Less than 0.03 10x3/uL (0.0-0.7); #Monocytes 0.27 10x3/uL (0.11-0.59); #Neutrophils 7.67 10x3/uL (1.40-6.50); %Basophils 0.2 % (0.0-1.0); %Eosinophils 0.0 % (0.0-10.0); %Lymphocytes 9.0 % (21.0-51.0); %Monocytes 3.0 % (0.0-10.0); %Neutrophils 86.3 % (42.0-75.0); Hematocrit 31.5 % (36.0-47.0); Hemoglobin 9.7 g/dL (12.0-16.0); Mean Corpuscular Hemoglobin 29.5 pg (27.0-31.0); Mean Corpuscular Volume 95.7 fL (78.0-98.0); Platelet Count 231 10x3/uL (130-400); Red Blood Cell (RBC) Count 3.29 mill/uL (4.20-5.40); White Blood Cell (WBC) Count 8.89 10x3/uL (4.8-10.8)
[2025-05-25 05:20] LABS: Anion Gap 14 mmol/L (10-20); BUN (Urea Nitrogen) 17 mg/dL (9.8-20.1); Calc. Creatinine Clearance 79 mL/min (70-130); Calcium 8.4 mg/dL (7.8-10.44); Carbon Dioxide 16 mmol/L (23-31); Chloride 109 mmol/L (98-107); Glucose 113 mg/dL (80-115); Potassium 3.8 mmol/L (3.5-5.1); Sodium 135 mmol/L (136-145)
[2025-05-25] MEDS: GoLYTELY 4,000 ml Bottle PO SCH (17:32)
[2025-05-26 05:41] LABS: #Basophils Less than 0.03 10x3/uL (0.0-0.2); #Eosinophils Less than 0.03 10x3/uL (0.0-0.7); #Monocytes 0.39 10x3/uL (0.11-0.59); #Neutrophils 6.74 10x3/uL (1.40-6.50); %Basophils 0.2 % (0.0-1.0); %Eosinophils 0.0 % (0.0-10.0); %Lymphocytes 10.4 % (21.0-51.0); %Monocytes 4.8 % (0.0-10.0); %Neutrophils 82.3 % (42.0-75.0); Hematocrit 34.5 % (36.0-47.0); Hemoglobin 10.9 g/dL (12.0-16.0); Mean Corpuscular Hemoglobin 29.4 pg (27.0-31.0); Mean Corpuscular Volume 93.0 fL (78.0-98.0); Platelet Count 255 10x3/uL (130-400); Red Blood Cell (RBC) Count 3.71 mill/uL (4.20-5.40); White Blood Cell (WBC) Count 8.19 10x3/uL (4.8-10.8)
[2025-05-26 06:10] LABS: Anion Gap 12 mmol/L (10-20); BUN (Urea Nitrogen) 18 mg/dL (9.8-20.1); Calc. Creatinine Clearance 81 mL/min (70-130); Calcium 8.3 mg/dL (7.8-10.44); Carbon Dioxide 20 mmol/L (23-31); Chloride 107 mmol/L (98-107); Glucose 106 mg/dL (80-115); Potassium 3.2 mmol/L (3.5-5.1); Sodium 136 mmol/L (136-145)
[2025-05-26] MEDS: Potassium Chloride 20 MEQ in Premix 1 BAG IVPB SCH (07:28)
[2025-05-26] MEDS ORDERED: Lidocaine 1% PF 5 ML VIAL ONE (11:05)
[2025-05-26] MEDS ORDERED: PROPOFOL 200 MG/20 ML VIAL ONE (11:05)
[2025-05-26] MEDS: predniSONE 20 MG TAB PO SCH (13:15)
[2025-05-26 17:29] LABS: Potassium 3.4 mmol/L (3.5-5.1)
[2025-05-27 04:22] LABS: #Basophils Less than 0.03 10x3/uL (0.0-0.2); #Eosinophils Less than 0.03 10x3/uL (0.0-0.7); #Monocytes 0.35 10x3/uL (0.11-0.59); #Neutrophils 3.45 10x3/uL (1.40-6.50); %Basophils 0.4 % (0.0-1.0); %Eosinophils 0.0 % (0.0-10.0); %Lymphocytes 18.4 % (21.0-51.0); %Monocytes 7.2 % (0.0-10.0); %Neutrophils 71.3 % (42.0-75.0); Hematocrit 32.2 % (36.0-47.0); Hemoglobin 10.2 g/dL (12.0-16.0); Mean Corpuscular Hemoglobin 29.4 pg (27.0-31.0); Mean Corpuscular Volume 92.8 fL (78.0-98.0); Platelet Count 211 10x3/uL (130-400); Red Blood Cell (RBC) Count 3.47 mill/uL (4.20-5.40); White Blood Cell (WBC) Count 4.84 10x3/uL (4.8-10.8)
[2025-05-27 04:40] LABS: Anion Gap 15 mmol/L (10-20); BUN (Urea Nitrogen) 19 mg/dL (9.8-20.1); Calc. Creatinine Clearance 77 mL/min (70-130); Calcium 7.9 mg/dL (7.8-10.44); Carbon Dioxide 18 mmol/L (23-31); Chloride 108 mmol/L (98-107); Glucose 115 mg/dL (80-115); Potassium 3.6 mmol/L (3.5-5.1); Sodium 137 mmol/L (136-145)
[2025-05-27 10:37] VITALS: TEMP 97.5
[2025-05-27] MEDS: predniSONE 20 MG TAB PO SCH (10:40)
[2025-05-27 15:11] VITALS: BP 124/76
== END 2025-05-27 17:54 | disposition home or self-care (01) | DRG 872 ==
LOC: ERS 10:50 → ERHOLD 17:34 → 2NO 19:52
PROVIDERS: ADMIT Student in an Organized Health Care Education/Training Program; ATTEND Internal Medicine
PROC: 3E03329 Introduction of Other Anti-infective into Peripheral Vein, Percutaneous Approach (ICD-10-PCS; 2025-05-20)
PROC: 0DBB8ZX Excision of Ileum, Via Natural or Artificial Opening Endoscopic, Diagnostic (ICD-10-PCS; principal; 2025-05-26)
PROC: 0DBL8ZX Excision of Transverse Colon, Via Natural or Artificial Opening Endoscopic, Diagnostic (ICD-10-PCS; 2025-05-26)
PROC: 0DBL8ZZ Excision of Transverse Colon, Via Natural or Artificial Opening Endoscopic (ICD-10-PCS; 2025-05-26)
DX: A41.9 Sepsis, unspecified organism (principal); K57.20 Diverticulitis of large intestine with perforation and abscess without bleeding; K50.90 Crohn's disease, unspecified, without complications; N39.0 Urinary tract infection, site not specified; K50.913 Crohn's disease, unspecified, with fistula; K50.912 Crohn's disease, unspecified, with intestinal obstruction; I48.91 Unspecified atrial fibrillation; F17.210 Nicotine dependence, cigarettes, uncomplicated; Z79.01 Long term (current) use of anticoagulants; Z93.3 Colostomy status; Z98.890 Other specified postprocedural states; Z90.49 Acquired absence of other specified parts of digestive tract; Z88.8 Allergy status to other drugs, medicaments and biological substances; Z88.0 Allergy status to penicillin; Z79.899 Other long term (current) drug therapy
CPT/HCPCS: 36415; 74177; 80048; 80053; 81001; 83605; 83630; 83690; 83735; 84145; 84443; 84484; 85025; 85610; 85730; 86141; 86850; 86900; 86901; 87040; 87086; 87324; 87449; 87505; 87637; 88305; 93005; 96361; 96365; 96375; 96376; J0696; J1650; J1956; J2470; J2550; J2704; J2765; J2919; J3475; J3480; J7030; J7512; Q9967

== ENCOUNTER 2025-07-20 14:23 | Inpatient (IN) | payer MEDICARE ==
[2025-07-20] MEDS ORDERED: Ondansetron PF 4 MG/2 ML Vial ONE (15:28)
[2025-07-20 16:21] LABS: #Basophils Less than 0.03 10x3/uL (0.0-0.2); #Eosinophils Less than 0.03 10x3/uL (0.0-0.7); #Monocytes 0.99 10x3/uL (0.11-0.59); #Neutrophils 7.11 10x3/uL (1.40-6.50); %Basophils 0.2 % (0.0-1.0); %Eosinophils 0.1 % (0.0-10.0); %Lymphocytes 21.0 % (21.0-51.0); %Monocytes 9.5 % (0.0-10.0); %Neutrophils 68.3 % (42.0-75.0); Hematocrit 43.5 % (36.0-47.0); Hemoglobin 14.3 g/dL (12.0-16.0); Mean Corpuscular Hemoglobin 29.9 pg (27.0-31.0); Mean Corpuscular Volume 91.0 fL (78.0-98.0); Platelet Count 286 10x3/uL (130-400); Red Blood Cell (RBC) Count 4.78 mill/uL (4.20-5.40); White Blood Cell (WBC) Count 10.41 10x3/uL (4.8-10.8)
[2025-07-20 16:44] LABS: Bacteria/HPF None Seen HPF (None Seen); CAUTI Indications for Culture Dysuria,urgency,freq; Glucose, Urine (Dipstick) Normal (Negative); Leukocyte 75 Leu/uL (Negative); Protein, Urine (Dipstick) 70 mg/dL (Neg-Trace); RBC/HPF 0-3 HPF (0-3); Specific Gravity, Urine 1.026 (1.002-1.036); Yeast-Budding 1+ HPF (None Seen)
[2025-07-20 16:45] LABS: Urine Culture Reflex Yes Yes
[2025-07-20 16:47] LABS: ALT (SGPT) 8 U/L (Less than 34); AST (SGOT) 14 U/L (11-34); Albumin 3.8 g/dL (3.1-4.5); Alkaline Phosphatase 74 U/L (40-110); Anion Gap 24 mmol/L (10-20); BUN (Urea Nitrogen) 41 mg/dL (9.8-20.1); Bilirubin, Total 0.5 mg/dL (0.3-1.2); Calc. Creatinine Clearance 0 mL/min (70-130); Calcium 10.4 mg/dL (7.8-10.44); Carbon Dioxide 19 mmol/L (23-31); Chloride 95 mmol/L (98-107); Globulin 4.5 g/dL (2.4-3.5); Glucose 92 mg/dL (80-115); Lipase 16 U/L (8-78); Potassium 3.5 mmol/L (3.5-5.1); Sodium 134 mmol/L (136-145)
[2025-07-20] MEDS ORDERED: Diphenoxylate HCl/Atropine Tablet PO PRN (18:48)
[2025-07-20] MEDS ORDERED: Guaifenesin DM 100-10/5 ML UDCUP PO PRN (18:49)
[2025-07-20] MEDS ORDERED: Acetaminophen 325 MG TAB PO PRN (18:49)
[2025-07-20] MEDS: Apixaban 5 MG TAB PO SCH (20:52)
[2025-07-21 06:28] LABS: #Basophils Less than 0.03 10x3/uL (0.0-0.2); #Eosinophils 0.03 10x3/uL (0.0-0.7); #Monocytes 0.82 10x3/uL (0.11-0.59); #Neutrophils 4.63 10x3/uL (1.40-6.50); %Basophils 0.3 % (0.0-1.0); %Eosinophils 0.4 % (0.0-10.0); %Lymphocytes 26.5 % (21.0-51.0); %Monocytes 10.8 % (0.0-10.0); %Neutrophils 61.1 % (42.0-75.0); Hematocrit 34.8 % (36.0-47.0); Hemoglobin 12.0 g/dL (12.0-16.0); Mean Corpuscular Hemoglobin 30.6 pg (27.0-31.0); Mean Corpuscular Volume 88.8 fL (78.0-98.0); Platelet Count 214 10x3/uL (130-400); Red Blood Cell (RBC) Count 3.92 mill/uL (4.20-5.40); White Blood Cell (WBC) Count 7.58 10x3/uL (4.8-10.8)
[2025-07-21 06:46] LABS: Anion Gap 12 mmol/L (10-20); BUN (Urea Nitrogen) 31 mg/dL (9.8-20.1); Calc. Creatinine Clearance 63 mL/min (70-130); Calcium 8.5 mg/dL (7.8-10.44); Carbon Dioxide 23 mmol/L (23-31); Chloride 102 mmol/L (98-107); Glucose 93 mg/dL (80-115); Potassium 2.9 mmol/L (3.5-5.1); Sodium 134 mmol/L (136-145)
[2025-07-21] MEDS: Potassium Bicarbonate/Cit Ac 20 MEQ TAB PO SCH (08:17)
[2025-07-21] MEDS: Famotidine 20 MG TAB PO SCH (08:17)
[2025-07-21] MEDS: Pantoprazole 40 MG DR.TAB PO SCH (08:17)
[2025-07-21] MEDS: Cyanocobalamin 1000 MCG/ML VIAL SC SCH (08:24)
[2025-07-21] MEDS: Fluconazole 100 MG TAB PO SCH (08:29)
[2025-07-21] MEDS ORDERED: Non-Formulary Item 1 EACH (Potassium Chloride [Potassium Chloride] 20 MEQ Tablet.Er) PO SCH (09:00)
[2025-07-21 12:54] VITALS: BMI 37.3
[2025-07-21 15:17] LABS: Anion Gap 15 mmol/L (10-20); BUN (Urea Nitrogen) 30 mg/dL (9.8-20.1); Calc. Creatinine Clearance 62 mL/min (70-130); Calcium 8.9 mg/dL (7.8-10.44); Carbon Dioxide 22 mmol/L (23-31); Chloride 102 mmol/L (98-107); Glucose 110 mg/dL (80-115); Potassium 3.6 mmol/L (3.5-5.1); Sodium 135 mmol/L (136-145)
[2025-07-21] MEDS ORDERED: Vancomycin 1 GM in Premix 1 BAG IVPB SCH (17:45)
[2025-07-21] MEDS: Vancomycin (BATCH) 2.5 GM in Premix 1 BAG IVPB SCH (18:32)
[2025-07-21] MEDS: Ondansetron PF 4 MG/2 ML Vial IVP PRN (20:36)
[2025-07-22 06:20] LABS: Vancomycin, Random 27.0 ug/mL (See Comment)
[2025-07-22 06:24] LABS: Anion Gap 14 mmol/L (10-20); BUN (Urea Nitrogen) 27 mg/dL (9.8-20.1); Calc. Creatinine Clearance 67 mL/min (70-130); Calcium 8.4 mg/dL (7.8-10.44); Carbon Dioxide 17 mmol/L (23-31); Chloride 108 mmol/L (98-107); Glucose 91 mg/dL (80-115); Potassium 3.7 mmol/L (3.5-5.1); Sodium 135 mmol/L (136-145)
[2025-07-22 06:29] LABS: #Basophils Less than 0.03 10x3/uL (0.0-0.2); #Eosinophils Less than 0.03 10x3/uL (0.0-0.7); #Monocytes 0.84 10x3/uL (0.11-0.59); #Neutrophils 4.10 10x3/uL (1.40-6.50); %Basophils 0.1 % (0.0-1.0); %Eosinophils 0.3 % (0.0-10.0); %Lymphocytes 29.2 % (21.0-51.0); %Monocytes 11.8 % (0.0-10.0); %Neutrophils 57.5 % (42.0-75.0); Hematocrit 36.3 % (36.0-47.0); Hemoglobin 11.7 g/dL (12.0-16.0); Mean Corpuscular Hemoglobin 31.0 pg (27.0-31.0); Mean Corpuscular Volume 96.3 fL (78.0-98.0); Platelet Count 196 10x3/uL (130-400); Red Blood Cell (RBC) Count 3.77 mill/uL (4.20-5.40); White Blood Cell (WBC) Count 7.13 10x3/uL (4.8-10.8)
[2025-07-22 08:21] VITALS: BP 92/63; TEMP 97.4
[2025-07-22] MEDS ORDERED: Vancomycin 1 GM in Premix 1 BAG IVPB SCH (21:00)
== END 2025-07-22 11:34 | disposition home or self-care (01) | DRG 683 ==
LOC: ERS 14:23 → T4-A 18:17 → OBSVTOIN 07-21 16:00
PROVIDERS: ADMIT Internal Medicine; ATTEND Internal Medicine
DX: N17.9 Acute kidney failure, unspecified (principal); B49 Unspecified mycosis; K50.90 Crohn's disease, unspecified, without complications; N39.0 Urinary tract infection, site not specified; E87.6 Hypokalemia; I48.0 Paroxysmal atrial fibrillation; N18.30 Chronic kidney disease, stage 3 unspecified; B95.7 Other staphylococcus as the cause of diseases classified elsewhere; Z88.0 Allergy status to penicillin; Z88.1 Allergy status to other antibiotic agents; Z90.49 Acquired absence of other specified parts of digestive tract; Z98.890 Other specified postprocedural states
CPT/HCPCS: 36415; 36416; 74177; 80048; 80053; 80202; 81001; 83605; 83690; 83880; 85025; 87077; 87081; 87086; 87186; 93005; 96361; 96374; 96375; 96376; G0378; J2405; J3010; J3373; J3420; J7030; Q9967